=== PATIENT | male | born 1960 | race Caucasian/White ===

== ENCOUNTER → 2019-04-22 09:36 | Outpatient (BNVA) | payer MEDICAID, SELFPAY | PROVIDERS: Visit Provider Psychiatry & Neurology Psychiatry | DX: F31.74 Bipolar disorder, in full remission, most recent episode manic (principal); F17.210 Nicotine dependence, cigarettes, uncomplicated; F52.21 Male erectile disorder | CPT/HCPCS: 99214 ==

== ENCOUNTER → 2019-08-08 07:30 | Outpatient (BNVA) | payer MEDICAID, SELFPAY | PROVIDERS: Visit Provider Psychiatry & Neurology Psychiatry | DX: F31.74 Bipolar disorder, in full remission, most recent episode manic (principal); F17.210 Nicotine dependence, cigarettes, uncomplicated; F52.21 Male erectile disorder | CPT/HCPCS: 99215 ==

== ENCOUNTER → 2019-08-22 07:35 | Outpatient (BNVA) | payer MEDICAID, SELFPAY | PROVIDERS: Visit Provider Psychiatry & Neurology Psychiatry | DX: F31.74 Bipolar disorder, in full remission, most recent episode manic (principal); F17.210 Nicotine dependence, cigarettes, uncomplicated; F06.1 Catatonic disorder due to known physiological condition; F41.1 Generalized anxiety disorder | CPT/HCPCS: 99215 ==

== ENCOUNTER → 2019-08-27 07:24 | Outpatient (BNVA) | payer MEDICAID, SELFPAY | PROVIDERS: Visit Provider Psychiatry & Neurology Psychiatry | DX: F31.74 Bipolar disorder, in full remission, most recent episode manic (principal); F06.1 Catatonic disorder due to known physiological condition; F17.210 Nicotine dependence, cigarettes, uncomplicated; F52.21 Male erectile disorder | CPT/HCPCS: 99215 ==

== ENCOUNTER → 2019-09-17 07:23 | Outpatient (BNVA) | payer MEDICAID, SELFPAY | PROVIDERS: Visit Provider Psychiatry & Neurology Psychiatry | DX: F31.74 Bipolar disorder, in full remission, most recent episode manic (principal); F06.1 Catatonic disorder due to known physiological condition; F17.210 Nicotine dependence, cigarettes, uncomplicated | CPT/HCPCS: 99214 ==

== ENCOUNTER → 2019-10-01 07:25 | Outpatient (BNVA) | payer MEDICAID, SELFPAY | PROVIDERS: Visit Provider Psychiatry & Neurology Psychiatry | DX: F31.74 Bipolar disorder, in full remission, most recent episode manic (principal); F06.1 Catatonic disorder due to known physiological condition; F17.210 Nicotine dependence, cigarettes, uncomplicated; F52.21 Male erectile disorder; F20.89 Other schizophrenia | CPT/HCPCS: 99214 ==

== ENCOUNTER → 2019-10-13 09:00 | Outpatient (BNVA) | payer MEDICAID, SELFPAY | PROVIDERS: Visit Provider Psychiatry & Neurology Psychiatry | DX: F31.74 Bipolar disorder, in full remission, most recent episode manic (principal); F06.1 Catatonic disorder due to known physiological condition; F17.210 Nicotine dependence, cigarettes, uncomplicated; F52.21 Male erectile disorder | CPT/HCPCS: 99214 ==

== ENCOUNTER → 2019-10-22 07:38 | Outpatient (BNVA) | payer MEDICAID, SELFPAY | PROVIDERS: Visit Provider Psychiatry & Neurology Psychiatry | DX: F31.74 Bipolar disorder, in full remission, most recent episode manic (principal); F06.1 Catatonic disorder due to known physiological condition; F17.210 Nicotine dependence, cigarettes, uncomplicated; F52.21 Male erectile disorder; Z79.899 Other long term (current) drug therapy | CPT/HCPCS: 85007; 85027; 99215 ==

== ENCOUNTER → 2019-10-29 08:13 | Outpatient (BNVA) | payer MEDICAID, SELFPAY | PROVIDERS: Visit Provider Psychiatry & Neurology Psychiatry | DX: F31.74 Bipolar disorder, in full remission, most recent episode manic (principal); F17.210 Nicotine dependence, cigarettes, uncomplicated; F06.1 Catatonic disorder due to known physiological condition | CPT/HCPCS: 99214 ==

== ENCOUNTER → 2019-11-27 07:36 | Outpatient (BNVA) | payer MEDICAID, SELFPAY | PROVIDERS: Visit Provider Psychiatry & Neurology Psychiatry | DX: F31.74 Bipolar disorder, in full remission, most recent episode manic (principal); F06.1 Catatonic disorder due to known physiological condition; F52.21 Male erectile disorder; F33.2 Major depressive disorder, recurrent severe without psychotic features | CPT/HCPCS: 99213 ==

== ENCOUNTER → 2019-12-23 07:37 | Outpatient (BNVA) | payer MEDICAID, SELFPAY | PROVIDERS: Visit Provider Psychiatry & Neurology Psychiatry | DX: F31.74 Bipolar disorder, in full remission, most recent episode manic (principal); F06.1 Catatonic disorder due to known physiological condition; F17.210 Nicotine dependence, cigarettes, uncomplicated | CPT/HCPCS: 99214 ==

== ENCOUNTER → 2019-12-26 14:50 | Outpatient (BNVA) | payer MEDICAID, SELFPAY | PROVIDERS: Visit Provider Psychiatry & Neurology Psychiatry | DX: F31.74 Bipolar disorder, in full remission, most recent episode manic (principal); F06.1 Catatonic disorder due to known physiological condition; F17.210 Nicotine dependence, cigarettes, uncomplicated; F52.21 Male erectile disorder | CPT/HCPCS: 99213 ==

== ENCOUNTER → 2020-04-12 12:55 | Outpatient (BNVA) | payer MEDICAID, SELFPAY | PROVIDERS: Visit Provider Psychiatry & Neurology Psychiatry | DX: F31.74 Bipolar disorder, in full remission, most recent episode manic (principal); F06.1 Catatonic disorder due to known physiological condition; F17.211 Nicotine dependence, cigarettes, in remission; Z79.899 Other long term (current) drug therapy; R41.0 Disorientation, unspecified | CPT/HCPCS: 99215 ==

== ENCOUNTER → 2020-04-19 12:42 | Outpatient (BNVA) | payer MEDICAID, SELFPAY | PROVIDERS: Visit Provider Psychiatry & Neurology Psychiatry | DX: F06.1 Catatonic disorder due to known physiological condition (principal); F31.74 Bipolar disorder, in full remission, most recent episode manic; R41.0 Disorientation, unspecified; F17.211 Nicotine dependence, cigarettes, in remission; Z59.6 Low income | CPT/HCPCS: 99214 ==

== ENCOUNTER 2020-04-19 13:54 | Emergency (ER) | payer MEDICAID, SELFPAY ==
[2020-04-19 14:10] VITALS: BP 101/70; PULSE 103; RESP 14; TEMP 36.4; O2SAT 99; BMI 21.0
--- NOTE | 2020-04-19 14:17 | CT_ITS ---
WS: [id number] CT HEAD NONCONTRAST HISTORY: ams TECHNIQUE: Contiguous axial imaging performed through the brain in 2.5 mm imaging. Bone and soft tiss ue windows. Sagittal and coronal reformats reviewed. All CT scans at [facility] use at le ast one of these dose optimization techniques: automated exposure control; mA and/or kV adjustment pe r patient size (includes targeted exams where dose is matched to clinical indication); or iterative r econstruction. DLP: 845.86 mGy.cm COMPARISON: 10/22/2014 Quality of this examination is limited. Patient is not centered within the gantry. Mild atrophy and chronic ischemic disease. Incidental note is made of a cavum septum lucidum at verga e which is a normal variant. No sulcal effacement or acute blood. Ventricles: Normal size with no hydrocephalus. Paranasal sinuses: As visualized are clear. Mastoid air cells: Well pneumatized. Calvarium and scalp: Skull is intact with no soft tissue edema or swelling. CT/CT head wo con* [id number] IMPRESSION: 1. Quality of this examination is limited due to positioning within the gantry . 2. Mild atrophy and chronic ischemic disease. No acute findings are identified .
--- NOTE | 2020-04-19 14:17 | XRR_ITS ---
PROCEDURE INFORMATION: Exam: XR Chest, 1 View Exam date and time: 04/19/2020 3:29 PM Age: 60 years old Clinical indication: Other: AMS TECHNIQUE: Imaging protocol: XR of the chest Views: 1 view. COMPARISON: CR Chest 1 [place] [id number] 07/16/2014 11:08 PM FINDINGS: Lungs: Unremarkable. No consolidation. Pleural spaces: Unremarkable. No pleural effusion. No pneumothorax. Heart/Mediastinum: Unremarkable. No cardiomegaly. Bones/joints: Unremarkable. XR/XR chest 1V portable [id number] IMPRESSION: No acute findings.
--- NOTE | 2020-04-19 14:17 | ECG_ITS ---
[facility] Test Date: 2020-04-19 Pat Name: Nathaniel Sharma Department: Room: Gender: Male Inside Sales Lead: : 1960 Requested By: Deandre Verde Order Number: [id number] Lana MD: CLIVE POP Measurements Intervals [place] Rate: 109 P: 83 CT: 163 QRS: 56 QRSD: 89 T: 73 QT: 327 QTc: 442 Interpretive Statements SINUS TACHYCARDIA RIGHT ATRIAL ENLARGEMENT [0.3mV P WAVE] LEFT ATRIAL ENLARGEMENT [-0.15mV P WAVE IN V1/V2] MODERATE ST DEPRESSION [0.05+ mV ST DEPRESSION] Compared to ECG 07/16/2014 22:41:54 Atrial abnormality now present ST (T wave) deviation now present Sinus rhythm no longer present Electronically Signed On 04-19-2020 19:29:01 VACUUM WORKER by CLIVE POP [id number]
== END 2020-04-19 16:39 | disposition left against medical advice (07) ==
PROVIDERS: Emergency Provider Family Medicine
DX: Z53.21 Procedure and treatment not carried out due to patient leaving prior to being seen by health care provider (principal)
CPT/HCPCS: 70450; 71045; 93005; 99281

== ENCOUNTER 2020-04-21 14:04 | Inpatient (IN) | payer MEDICAID, SELFPAY ==
[2020-04-21] VITALS (7 sets, daily range): BP systolic 104–131; BP diastolic 66–82; PULSE 71–81; RESP 14–71; TEMP 36.3–36.7; O2SAT 97–100; BMI 23.7
--- NOTE | 2020-04-21 14:30 | ED_ITS ---
HPI - General Adult General: Chief complaint: General Medical Stated complaint: Sent from /unable to get blood Time Seen by Provider: 04/21/20 14:16 History of Present Illness: HPI narrative: 60-year-old male presents to the emergency room he is difficult to understand his is in attendance with him is not much help. Patient was sent here presumably for blood work and refill of medications as per their report at the front door when they registered. 2 days ago he was here and left for being seen because he was hungry and wanted to go home. Call Dr. Nuñez as they were stating that Dr. Nuñez attempted here. This was much more informative. Dr. Nuñez and sent him here 2 days ago with a intention of having him to be admitted. He has had significant weight loss of about 24 pounds since the previous time he seen Dr. Nuñez. In addition to that he is essentially catatonic and flat. Dr. Nuñez felt this was due to his medications. He is also on closet pain and he was supposed to get a blood draw done to have this continued however they were unable to get his blood drawn due to difficulty with phlebotomy. He needs to be admitted to the [facility] and be reassessed. Onset (ago): week(s) Relieving factors: none Exacerbating factors: medication Associated symptoms: Reports confusion, malaise and weakness; Deny chest pain, cough, diaphoresis, decreased appetite, dyspnea, fevers/chills, headache(s), nausea, rash, palpitations, seizures, short of breath, syncope or vomiting Treatments prior to arrival: none Review of Systems Const: Reports: malaise; Denies: diaphoresis ENMT: Denies: throat pain, ear or mastoid pain, nasal discharge or nasal congestion Card: Denies: chest pain, palpitations or syncope Resp: Denies: dyspnea GI: Denies: nausea or vomiting : Denies: flank pain, dysuria, urinary frequency or urinary urgency Skin/Breast: Denies: rash Neuro: Reports: confusion; Denies: headache(s) PFSH ED PFSH: Medical History Bipolar disorder, in full remission, most recent episode manic Cigarette nicotine dependence Erectile disorder, acquired, generalized, moderate Social History (Reviewed 04/22/20 @ 17:20 by CONNIE Castro Smoking and tobacco status: current every day smoker cigarettes Years cigarettes smoked: 40 Quit status (tobacco): considering quitting Second hand smoke exposure: Yes Physical Exam Const: COMMON NORMALS: no acute distress GENERAL APPEARANCE: cooperative and comfortable ORIENTATION/CONSCIOUSNESS: Yes awake HENMT: COMMON NORMALS: normocephalic, atraumatic, hearing grossly normal bilaterally and moist oral mucous membranes HEAD & SCALP: normocephalic and atraumatic Eye: COMMON NORMALS: Equal, round and reactive pupils present, EOMs intact bilaterally, conjunctivae normal and no scleral icterus CONJUNCTIVA: Yes conjunctivae normal PUPIL: Yes Equal, round and reactive pupils present Neck/C-Spine: COMMON NORMALS: full ROM, no lymphadenopathy, supple and no JVD Lymph: LYMPHATIC: no lymphadenopathy noted and no lymphedema noted Resp: COMMON NORMALS: normal respiratory effort, No retractions, No use of accessory muscles and clear to auscultation bilaterally AUSCULTATION: clear to auscultation bilaterally Cardio: COMMON NORMALS: no JVD, regular rate, regular rhythm and No murmurs present (Cardio) RATE: regular rate RHYTHM: regular rhythm GI: COMMON NORMALS: Soft to palpation and No hepatosplenomegaly present AUSCULTATION: Yes normoactive bowel sounds PALPATION: Yes Soft to palpation, No Tenderness to palpation present (GI), No Guarding due to palpation present (GI) and Yes No hepatosplenomegaly present Extremity: COMMON NORMALS: normal to inspection, capillary refill normal, no clubbing, cyanosis or edema, no calf tenderness and no pedal edema Skin: COMMON NORMALS: no rashes or lesions noted GENERAL SKIN EXAM: no rashes or lesions noted Course Vital Signs: Vital signs: Vital Signs Temperature 98.4 F 04/26/20 04:00 Pulse Rate 58 L 04/26/20 04:00 Respiratory Rate 16 04/26/20 04:00 Blood Pressure 97/65 04/26/20 04:00 Pulse Oximetry 95 04/26/20 04:00 MDM - General Adult MDM Narrative: Medical decision making narrative: The initial plan after talking to Dr. Nuñez and Dr. Peterson as the patient was supposed to have screening labs and then sent to psychiatry. Dr. Peterson reviewed the case and felt to be more appropriate for medical floor because he was nonambulatory. Discussed Dr. Kothari will admit and consult Dr. Peterson Lab Data: Labs: Lab Results 04/21/20 04/21/20 04/21/20 Range/Units 15:07 15:07 15:07 WBC 4.9 (4.0-10.0) 10^3/ uL RBC 4.19 (4.1-5.3) 10^6/u L Hgb 13.1 (11.7-16.6) g/dL Hct 39.2 L (42.0-52.0) % MCV 93.6 (80-94) fL MCH 31.3 (28.0-34.0) pg MCHC 33.4 (30.0-36.0) g/dL RDW 13.2 (12.1-15.1) % Plt Count 104 L (130-400) 10^3/c mm MPV 10.7 H (7.4-10.4) fL Neut % (Auto) 63.7 % Lymph % (Auto) 26.2 % [place] % (Auto) 8.9 % Eos % (Auto) 0.6 % Baso % (Auto) 0.2 % Neut # (Auto) 3.14 (1.8-7.7) 10^3/u L Lymph # (Auto) 1.3 (0.8-4.8) 10^3/u L [place] # (Auto) 0.4 (0.2-0.9) 10^3/u L Eos # (Auto) 0.0 (0.0-0.8) 10^3/u L Baso # (Auto) 0.0 (0.0-0.1) 10^3/u L Nucleated RBC % (a uto) 0 % Nucleated RBCs # 0.0 /100WBC Sodium 136 (136-145) mmol/L Potassium 3.2 L (3.5-5.1) mmol/L Chloride 100 (98-107) mmol/L Carbon Dioxide 28 (22-29) mmol/L Anion Gap 11.2 (5-19) BUN 11 (6-20) mg/dL Creatinine 0.7 (0.7-1.2) mg/dL GFR Calculation 115.8 (90-130) mL/min Glucose 120 H (65-115) mg/dL Calculated Osmolal ity 283 L (285-295) mOsm/k g Calcium 9.2 (8.5-10.5) mg/dL Total Bilirubin 0.3 (0.15-1.2) mg/dL AST 20 (0-40) U/L ALT 18 (0-41) U/L Alkaline Phosphata se 63 (40-130) IU/L Total Protein 6.5 L (6.6-8.7) g/dL Albumin 3.4 L (3.5-5.2) g/dL Globulin 3.1 (1.3-4.6) g/dL Salicylates < 0.3 L (3-10) mg/dL Acetaminophen < 5.0 L (10-30) ug/mL Valproic Acid 97.0 (50-100) ug/mL Ethyl Alcohol < 10 (0-10) mg/dL Discharge Plan Discharge Patient Disposition: Admitted As Inpatient Admit Provider: Duane Peterson Clinical Impression: Catatonia Condition: Stable Coding Level of Care Code ED Fiber Machine Tender for g Fwd Exam Comprehensive
[2020-04-21 15:21] LABS: Basophils % 0.2 %; Eosinophils % 0.6 %; Hematocrit 39.2 % (42.0-52.0); Hemoglobin 13.1 g/dL (11.7-16.6); Lymphocytes # 1.3 10^3/uL (0.8-4.8); Lymphocytes % 26.2 %; Mean Corpuscular HGB Conc 33.4 g/dL (30.0-36.0); Mean Corpuscular Hemoglobin 31.3 pg (28.0-34.0); Mean Corpuscular Volume 93.6 fL (80-94); Mean Platelet Volume 10.7 fL (7.4-10.4); Monocytes # 0.4 10^3/uL (0.2-0.9); Monocytes % 8.9 %; Neutrophils # 3.14 10^3/uL (1.8-7.7); Neutrophils % 63.7 %; Nucleated Red Blood Cells % 0 %; Platelet Count 104 10^3/cmm (130-400); Red Blood Count 4.19 10^6/uL (4.1-5.3); Red Cell Distribution Width 13.2 % (12.1-15.1); White Blood Count 4.9 10^3/uL (4.0-10.0)
[2020-04-21 15:40] LABS: Alanine Aminotransferase 18 U/L (0-41); Albumin Level 3.4 g/dL (3.5-5.2); Alkaline Phosphatase 63 IU/L (40-130); Anion Gap 11.2 (5-19); Aspartate Amino Transferase 20 U/L (0-40); Blood Urea Nitrogen 11 mg/dL (6-20); Calcium 9.2 mg/dL (8.5-10.5); Carbon Dioxide 28 mmol/L (22-29); Chloride 100 mmol/L (98-107); Globulin 3.1 g/dL (1.3-4.6); Glomerular Filtration Rate 115.8 mL/min (90-130); Glucose 120 mg/dL (65-115); Osmolality Calculated 283 mOsm/kg (285-295); Potassium 3.2 mmol/L (3.5-5.1); Sodium 136 mmol/L (136-145); Total Bilirubin 0.3 mg/dL (0.15-1.2); Total Protein 6.5 g/dL (6.6-8.7)
[2020-04-21 15:42] LABS: Acetaminophen < 5.0 ug/mL (10-30); Alcohol Level < 10 mg/dL (0-10); Salicylate < 0.3 mg/dL (3-10)
[2020-04-21 16:35] LABS: Add Urine Microscopic? NO
[2020-04-21 16:55] LABS: Bilirubin Urine Neg (Negative); Blood Urine Neg (Negative); Glucose Urine UA Norm (Normal); Ketones Urine Negative (Negative); Leukocyte Esterase Urine Negative (Negative); Nitrate Urine Negative (Negative); Protein Urine Neg (Negative); Specific Gravity, Urine 1.015 (1.005-1.030); Urine Appearance Clear (CLEAR); Urine Color Yellow (Yellow); Urobilinogen Urine 1 mg/dL (Negative); pH Urine 6 (5-7)
[2020-04-21 17:07] LABS: Amphetamines Screen Urine Negative (Negative); Barbiturates Screen Urine Negative (Negative); Benzodiazepines Screen Urine Positive (Negative); Cocaine Screen Urine Negative (Negative); Opiate Screen Urine Negative (Negative); PCP Screen Urine Negative (Negative); THC Screen Urine Negative (Negative)
--- NOTE | 2020-04-21 17:15 | CTR_ITS ---
PROCEDURE INFORMATION: Exam: CT Head Without Contrast Exam date and time: 04/21/2020 5:25 PM Age: 60 years old Clinical indication: Altered mental status/memory loss; Additional info: AMS TECHNIQUE: Imaging protocol: Computed tomography of the head without contrast. Radiation optimization: All CT scans at this facility use at least one of these dose optimization techniques: automated exposure control; mA and/or kV adjustment per patient size (includes targeted exams where dose is matched to clinical indication); or iterative reconstruction. COMPARISON: CT head wo con* [id number] 04/19/2020 3:40 PM RADIATION DOSE METRICS: Total DLP (mGy-cm): 472.15 FINDINGS: Brain: There is moderate cerebral atrophy. No midline shift of brain. No intracranial mass. No acute brain ischemia. No intracranial hemorrhage. Cerebral ventricles: Cavum septum pellucidi redemonstrated. No hydrocephalus. Bones/joints: Unremarkable. No acute fracture. Paranasal sinuses: Visualized sinuses are unremarkable. No fluid levels. Mastoid air cells: Visualized mastoid air cells are well aerated. Soft tissues: Unremarkable. CT/CT head wo con* [id number] IMPRESSION: 1. Negative for acute intracranial abnormality. 2. No change in the brain from 04/19/2020. Radiation Dose CTDIVOL = (mGy): DLP = 472.15 (mGy-cm)
--- NOTE | 2020-04-21 17:15 | XR_ITS ---
WS: [id number] Portable AP upright chest, 04/21/2020 Clinical Data: dyspnea/cough Comparison: Portable chest, 04/19/2020. Findings: No nodules, masses or effusions are seen. The heart is normal. The pulmonary vascularity is not increased. No pneumonia or pneumothorax is seen. XR/XR chest 1V portable [id number] Impression: Negative chest.
--- NOTE | 2020-04-21 17:15 | ECG_ITS ---
[facility] Test Date: 2020-04-21 Pat Name: Nathaniel Sharma Department: Room: 155 Gender: Male Sports Umpire: : 1960 Requested By: Walter Quigley Order Number: [id number] Lana MD: Lila Cruz M.D. Measurements Intervals [place] Rate: 72 P: 62 AR: 175 QRS: 59 QRSD: 72 T: 99 QT: 407 QTc: 446 Interpretive Statements SINUS RHYTHM Compared to ECG 04/19/2020 15:07:17 Sinus tachycardia no longer present Atrial abnormality no longer present ST (T wave) deviation no longer present Electronically Signed On 04-21-2020 19:18:26 PROPERTY MANAGEMENT ASSISTANT by Lila Cruz M.D. [email or web address]/[id number] f
--- NOTE | 2020-04-21 18:01 | P.HP_ITS ---
Providers/Chief Complaint Admitting Physician: Duane Peterson MD Chief Complaint: Catatonia,Delirium, bipolar/ History of Present Illness Nathaniel Sharma SR is a 60 year old male with a past medical history of bipolar disorder, with multiple hospitalizations, catatonia, on clozapine, Depakote, lorazepam, trazodone who presents to [facility] on Dr. [place] renteria due to delirium. Review of patient's chart shows that he has had multiple admissions in the last month inpatient psychiatric admissions, requiring multiple medication adjustments, he was also noted to be noncompliant with medications, currently living at home with his . He was seen by Dr. Nuñez, patient was a completely different person, he has lost 24 pounds, he was in a wheelchair, apparently his said that he sleeps all day and all night, he is unable to walk, unable to stand without assistance, he is much more confused, he has been urinating and defecating in his pants, he has increased speech latency, as cogwheel rigidity, increased confusion, increased catatonia. This Dr. Nuñez wanted patient to be admitted for a medical evaluation for patient's delirium, increased confusion, and titration of his medications with the help of the psychiatric team. Currently patient does not know why see her in the hospital, his only complaint is that he is hungry, he denies any headaches, any blurry vision, any nausea, vomiting, any chest pain, any palpitations any shortness of breath any diarrhea any bloody or black stools, it looks like he is clinically lost weight, but denies any weight loss, denies any weakness. During my examination patient does display episodes of confusion, he cannot follow commands at times, for example if I asked him to squeeze my fingers that will not really register, or if I asked him to lift his leg that will not really register with him, in terms of questioning he is alert to person, not to place, not to time, does note Hunter Terri is the president. Denies any falls, any injuries, no bruising, is not sure which medications he takes, is not sure where he lives, knows his name is birthday his 's name. Patient is unable to provide me a past medical history, unable to provide any a surgical history, unable to provide me a family history, denies smoking, denies alcohol consumption, does say that he is from [facility], Review of Systems Const: Denies: fever(s), chills, fatigue or malaise Eyes: Denies: change in vision or blurry vision ENMT: Denies: nasal congestion Resp: Denies: dyspnea, productive cough, non-productive cough or wheezing GI: Denies: abdominal pain, nausea, vomiting, hematemesis, diarrhea, constipation, hematochezia or melena : Denies: flank pain, difficulty urinating, dysuria or urinary frequency Musc: Denies: neck pain or back pain Skin/Breast: Denies: rash Neuro: Denies: headache(s), dizziness or vertigo Psych: Denies: anxiety or depression Endo: Denies: polyuria or polydipsia Medications/Allergies Home Medications Medication Instructions Recorded Confirmed Last Taken Type clozapine 50 mg tablet See Rx Instructions PO .COMPLEX 04/12/20 04/21/20 Unknown Rx #18 tab divalproex 500 mg tablet,extended 1,000 mg PO BID tab 04/12/20 04/21/20 Unknown History release 24 hr lorazepam 1 mg tablet 1 mg PO BID #60 tab 04/12/20 04/21/20 Unknown Rx trazodone 100 mg tablet 200 mg PO BEDTIME tab 04/12/20 04/21/20 Unknown History Allergies Allergy/AdvReac Type Severity Reaction Status Date / Time Penicillins Allergy Unknown Unknown Verified 10/29/19 09:50 PFSH Acute PFSH: Medical History Bipolar disorder, in full remission, most recent episode manic Cigarette nicotine dependence Erectile disorder, acquired, generalized, moderate Social History Smoking and tobacco status: current every day smoker cigarettes Years cigarettes smoked: 40 Quit status (tobacco): considering quitting Second hand smoke exposure: Yes Vitals/I&O/Wt Last Vital Signs Temp 97.4 F L 04/21/20 14:09 Pulse 75 04/21/20 16:14 Resp 71 H 04/21/20 17:41 BP 106/72 04/21/20 17:41 Pulse Ox 100 04/21/20 17:41 Weight last 48 hrs Weight 79.379 kg Physical Exam Const: COMMON NORMALS: no acute distress EXAM LIMITATIONS: altered mental status GENERAL APPEARANCE: cooperative ORIENTATION/CONSCIOUSNESS: Yes awake, Yes oriented to person and Yes confused; not oriented to place and not oriented to time OTHER: Does not look well kempt HENMT: COMMON NORMALS: normocephalic Eye: COMMON NORMALS: Equal, round and reactive pupils present Neck/C-Spine: COMMON NORMALS: full ROM and no lymphadenopathy Lymph: LYMPHATIC: no lymphadenopathy noted Resp: COMMON NORMALS: normal respiratory effort EFFORT & INSPECTION: Yes able to speak in complete sentences AUSCULTATION: clear to auscultation bilaterally and rales Cardio: COMMON NORMALS: no JVD, regular rate, regular rhythm, S1 normal heart sound present and S2 normal heart sound present GI: COMMON NORMALS: Normal to inspection, nondistended, normoactive bowel sounds present, Soft to palpation, non-tender and No hepatosplenomegaly present : COMMON NORMALS: Yes no CVA tenderness Extremity: COMMON NORMALS: capillary refill normal, no clubbing, cyanosis or edema and no pedal edema Neuro: SENSORIUM/ORIENTATION: Yes alert, Yes oriented to person and No o riented to place MENINGEAL SIGNS: No nuccal rigidity and No Brudzinski's sign present OTHER: Difficult goal to assess neurologic testing as patient does not really follow neurologic testing, has poor affect, normal speech, in terms of strength testing, he has some strength in upper and lower extremities, but does not really follow strength testing examination appropriately Data : 04/21/20 15:07 04/21/20 15:07 A&P Assessment and plan (1) Delirium: -Of note patient has had evaluation by neurology in 2015 for encephalopathy, which was thought to be secondary to acute psychosis and extr aparametal side effects of antipsychotic medication, also had extraparamidal side effects, had a normal EEG -Currently he is confused, alert to person, does not really follow neurologic testing, normotensive, afebrile, saturating high 90s on room air -I cannot see any focal neurologic deficits, no facial, no slurring of his speech -There is also concerns of generalized weakness, increased rigidity, weight loss Plan: -Chest x-ray, CT head, carotid artery ultrasound, cardiac echo, EEG -Follow blood work, blood cultures, urine cultures -Serial troponins, EKG, telemetry monitoring -Monitor for fevers, monitor vitals -Certainly patient's medications could be playing a significant role -PT OT -Full code - Status: Acute (2) Erectile disorder, acquired, generalized, moderate: Status: Acute (3) Bipolar disorder, in full remission, most recent episode manic: Psychiatry on consult Status: Acute (4) Thrombocytopenia: Will order HIV, acute hep panel Status: Acute Attestations Medical Necessity Statement*: Patient requires hospitalization, inpatient, greater than 2 midnights for acute delirium Coding Level of Care Code Acute Jamb Cutter for [facility] F[facility] Diagnoses Delirium R41.0 Erectile disorder, acquired, generalized, moderate F52.21 Bipolar disorder, in full remission, most recent episode manic F31.74 Thrombocytopenia D69.6
--- NOTE | 2020-04-21 19:57 | ECG_ITS ---
[facility] Test Date: 2020-04-21 Pat Name: Nathaniel Sharma Department: Room: 253 Gender: Male Corrections Unit Supervisor: LORENA JOHNSTONB: 1960 Requested By: Maxi Robert Order Number: [id number] Lana MD: Lila Cruz M.D. Measurements Intervals [place] Rate: 87 P: 66 VT: 165 QRS: 54 QRSD: 86 T: 80 QT: 376 QTc: 452 Interpretive Statements SINUS RHYTHM NONSPECIFIC T-WAVE ABNORMALITY Compared to ECG 04/21/2020 17:28:10 T-wave abnormality now present Electronically Signed On 04-22-2020 7:33:31 CRIMINAL RESEARCHER by Lila Cruz M.D. [id number]
[2020-04-21] MEDS: enoxaparin 40 mg/0.4 mL Syringe SUBCUT (20:34)
[2020-04-21] MEDS: famotidine 20 mg Tablet PO (20:35)
[2020-04-21] MEDS: divalproex ER 500 mg Tablet (24H) 1000 MG PO (20:35)
[2020-04-21] MEDS: LORazepam 1 mg Tablet PO (20:35)
[2020-04-21] MEDS: trazodone 100 mg Tablet 200 MG PO (20:35)
[2020-04-21 20:37] LABS: Troponin(5th) Baseline 27 ng/L (0-15)
[2020-04-21 20:37] LABS: Ammonia 12 umol/L (16-60)
[2020-04-21 20:38] LABS: Estmated Average Glucose 100; Hemoglobin A1C 5.1 % (4.0-6.0)
[2020-04-21 20:49] LABS: HIV 1 & 2 Antibody Non-Reactive (Non-Reactiv); HIV 1 & 2 Antigen Non-Reactive (Non-Reactiv)
[2020-04-21 20:55] LABS: Hepatitis A Antibody IgM Non-Reactive (Nonreactive); Hepatitis B Core IgM Non-Reactive (Nonreactive); Hepatitis B Surface Antigen Non-Reactive (Nonreactive); Hepatitis C Virus Antibody Non-Reactive (Nonreactive)
[2020-04-21 21:35] LABS: Thyroid Stimulating Hormone 2.46 uIU/mL (0.27-4.20); Vitamin B12 914 pg/mL (232-1245)
[2020-04-21 22:03] LABS: Troponin 5 2HR 26.39 ng/L (0-15)
[2020-04-21 22:08] LABS: Troponin 5 2HR Delta -0.61 ABS# (0-10)
[2020-04-22 02:21] LABS: Basophils % 0.2 %; Eosinophils % 0.4 %; Hematocrit 33.4 % (42.0-52.0); Hemoglobin 11.4 g/dL (11.7-16.6); Lymphocytes # 1.4 10^3/uL (0.8-4.8); Lymphocytes % 28.9 %; Mean Corpuscular HGB Conc 34.1 g/dL (30.0-36.0); Mean Corpuscular Hemoglobin 31.5 pg (28.0-34.0); Mean Corpuscular Volume 92.3 fL (80-94); Mean Platelet Volume 10.9 fL (7.4-10.4); Monocytes # 0.5 10^3/uL (0.2-0.9); Monocytes % 10.1 %; Neutrophils # 2.91 10^3/uL (1.8-7.7); Neutrophils % 60.2 %; Nucleated Red Blood Cells % 0 %; Platelet Count 91 10^3/cmm (130-400); Red Blood Count 3.62 10^6/uL (4.1-5.3); Red Cell Distribution Width 13.2 % (12.1-15.1); White Blood Count 4.8 10^3/uL (4.0-10.0)
[2020-04-22 02:23] LABS: Alanine Aminotransferase 15 U/L (0-41); Albumin Level 2.7 g/dL (3.5-5.2); Alkaline Phosphatase 53 IU/L (40-130); Anion Gap 10.7 (5-19); Aspartate Amino Transferase 15 U/L (0-40); Blood Urea Nitrogen 11 mg/dL (6-20); Calcium 8.7 mg/dL (8.5-10.5); Carbon Dioxide 27 mmol/L (22-29); Chloride 104 mmol/L (98-107); Chol HDL Ratio 3.33 mg/dL (1.0-5.00); Cholesterol 110 mg/dL (0-200); Globulin 2.7 g/dL (1.3-4.6); Glomerular Filtration Rate 99.3 mL/min (90-130); Glucose 116 mg/dL (65-115); HDL Cholesterol 33 mg/dL (60-100); LDL Cholesterol Calculated 60 mg/dL (50-129); LDL HDL Ratio 1.82 RATIO (0.00-3.22); Magnesium 1.7 mg/dL (1.7-2.3); Osmolality Calculated 286 mOsm/kg (285-295); Phosphorus 2.2 mg/dL (2.5-4.5); Potassium 3.7 mmol/L (3.5-5.1); Sodium 138 mmol/L (136-145); Total Bilirubin 0.2 mg/dL (0.15-1.2); Total Protein 5.4 g/dL (6.6-8.7); Triglycerides 87 mg/dL (0-150)
[2020-04-22 02:24] LABS: Troponin 5 6HR 30.15 ng/L (0-15); Troponin 5 6HR Delta 3.15 ng/L (0-12)
[2020-04-22 03:46] VITALS: BP 95/61; PULSE 80; RESP 14; TEMP 36.9; O2SAT 96
[2020-04-22 07:42] VITALS: BP 92/63; PULSE 70; RESP 16; TEMP 36.5; O2SAT 97
[2020-04-22] MEDS: LORazepam 1 mg Tablet PO ×2 (08:35→17:46)
[2020-04-22] MEDS: famotidine 20 mg Tablet PO ×2 (08:35→17:46)
[2020-04-22] MEDS: divalproex ER 500 mg Tablet (24H) 1000 MG PO ×2 (08:35→17:46)
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
--- NOTE | 2020-04-22 10:06 | PC.PHAR ---
Missing clozapine dose when reconciled. Called [facility] to verify dose. patient known to pharmacist. Last fill 01/12/20, patient did not complete necessary blood work so no further fills could be done. She did say that he had been in and out if inpatient care over the past months so she did not know if he had been receiving during these visits. Last confirmed dose dispensed at [facility] 01/11 25 m tab daily 100 m tabs at bedtime
--- NOTE | 2020-04-22 10:18 | PM.PN ---
Subjective Subjective: Interval history: This morning patient was examined, he still has persistent confusion, but is much more alert, alert to person, not to place, does know that it is April, knows Azra is the president, he does not follow commands, is able to squeeze my fingers, able to do neurologic testing, he is actually working with physical therapy, who actually got him up out of bed, into a walker, overnight no acute events, no episodes of confusion, no episodes of agitation, remains afebrile, blood pressures are on the lower end, denies headaches, no blurry vision, saturating high 90s on room air Vitals/I&O/Wt Last Vital Signs Temp 97.7 F 04/22/20 07:42 Pulse 70 04/22/20 07:42 Resp 16 04/22/20 07:42 BP 92/63 04/22/20 07:42 Pulse Ox 97 04/22/20 07:42 04/21/20 04/22/20 04/22/20 22:59 06:59 14:59 Intake Total 240 / 240 240 / 480 360 / 360 Output Total 80 / 80 120 / 200 Balance 160 / 160 120 / 280 360 / 360 Weight last 48 hrs Weight 79.379 kg Physical Exam Const: COMMON NORMALS: no acute distress ORIENTATION/CONSCIOUSNESS: Yes awake, Yes oriented to person and Yes confused; not oriented to place and not oriented to time HENMT: COMMON NORMALS: normocephalic HEAD & SCALP: normocephalic Neck/C-Spine: COMMON NORMALS: no JVD Resp: COMMON NORMALS: normal respiratory effort, No retractions, No use of accessory muscles and clear to auscultation bilaterally AUSCULTATION: clear to auscultation bilaterally Cardio: COMMON NORMALS: no JVD, regular rate, regular rhythm, S1 normal heart sound present and S2 normal heart sound present RATE: regular rate RHYTHM: regular rhythm HEART SOUNDS: S1 normal heart sound present and S2 normal heart sound present GI: COMMON NORMALS: Normal to inspection, nondistended, normoactive bowel sounds present, Soft to palpation, non-tender, No hepatosplenomegaly present, no masses and no bruits PALPATION: Yes Soft to palpation and Yes No hepatosplenomegaly present Extremity: COMMON NORMALS: capillary refill normal, no clubbing, cyanosis or edema, no calf tenderness and no pedal edema Neuro: COMMON NORMALS: CN's II-XII intact bilaterally, moves all extremities and no focal motor deficits SENSORIUM/ORIENTATION: Yes oriented to person, No oriented to place and No oriented to time CRANIAL NERVES: Yes CN normal except as noted Data : 04/22/20 01:48 04/22/20 01:48 Micro: Microbiology 04/21/20 19:52 Blood Culture - Preliminary Blood SPECIMEN COLLECTED 04/21/20 19:56 Blood Culture - Preliminary Blood SPECIMEN COLLECTED A&P Assessment and plan (1) Delirium: -Of note patient has had evaluation by neurology in 2015 for encephalopathy, which was thought to be secondary to acute psychosis and extraparametal side effects of antipsychotic medication, also had extraparamidal side effects, had a normal EEG -Currently he is confused, alert to person, does not really follow neurologic testing, normotensive, afebrile, saturating high 90s on room air -I cannot see any focal neurologic deficits, no facial, no slurring of his speech -There is also concerns of generalized weakness, increased rigidity, weight loss -Chest x-ray no focal pneumonia -CT of the head no acute stroke -carotid Doppler shows bilateral ICA stenosis less than 50% -Blood work does show thrombocytopenia, acute hep panel negative, HIV negative -Does have minimally elevated troponins, no significant delta, no acute ST-T wave changes on EKG, no chest pain complaints Plan: -cardiac echo right upper quadrant ultrasound,, EEG -Follow blood work, blood cultures, urine cultures -Serial troponins, EKG, telemetry monitoring -Monitor for fevers, monitor vitals -Certainly patient's medications are playing a significant role -No nuchal rigidity, no headaches, no blurry vision, afebrile, no significant leukocytosis, will hold off on providing a lumbar puncture -PT OT -Full code - Status: Acute (2) Erectile disorder, acquired, generalized, moderate: Status: Acute (3) Bipolar disorder, in full remission, most recent episode manic: Psychiatry on consult I will leave medication adjustment up to psychiatric colleagues Status: Acute (4) Thrombocytopenia: Right upper quadrant ultrasound pending Status: Acute Attestations Medical Necessity Statement*: Patient requires hospitalization, inpatient, for acute delirium, requiring adjustment first psychiatric medications Coding Level of Care Code 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
--- NOTE | 2020-04-22 10:24 | US_ITS ---
WS: [id number] ULTRASOUND ABDOMEN LIMITED CLINICAL INFORMATION: liver and spleen COMPARISON: None. FINDINGS: Liver Size: Mild hepatomegaly Craniocaudal length: 17.5 cm. Echogenicity: Normal. Surface nodularity: None. Mass (size and location): None. Portal veins are patent. Bile ducts Intrahepatic ducts: Normal. Spleen Splenomegaly: None. Craniocaudal length: 11.9 cm. Abdominal aorta and IVC Visualized portions are normal. Ascites: None. US/US abdomen limited 11114 IMPRESSION: 1. Mild hepatomegaly measuring 17.5 CM. Liver is otherwise normal in appearanc e. 2. Normal spleen measuring 11.8 cm [id number].
[2020-04-22 11:19] VITALS: BP 105/71; PULSE 71; RESP 18; TEMP 36.7; O2SAT 98
[2020-04-22] MEDS: phosphorus 250 mg Tablet PO ×2 (11:32→17:46)
[2020-04-22 14:35] LABS: Procalcitonin 0.02 ng/mL (0-0.5)
[2020-04-22 14:47] LABS: C Reactive Protein 6.5 mg/L (0.0-4.9)
[2020-04-22 15:28] LABS: Erythrocyte Sedimentation Rate 10 mm/hr (0-10)
[2020-04-22 15:30] VITALS: BP 100/64; PULSE 62; RESP 14; TEMP 36.1; O2SAT 97
--- NOTE | 2020-04-22 17:16 | P.CONIM_ITS ---
Providers/Reason for Consult Consulting Physican/Specialty*: Ronald Lora DO Reason for Consult*: Altered mental status Attending Physician: Dr. Robert Psych Consult HPI History of Present Illness Nathaniel Sharma SR is a 60 year old male with longstanding history of bipolar disorder recently admitted to the hospital with concerns of increasing confusion, worsening incontinence and decreased ambulation. Patient continues to be confused and is a difficult historian secondary to his inability to concentrate and relate recent events leading to his hospitalization. Patient's only able to state that he has schizophrenia, paranoid type and that he needs to ensure that he continues taking his medication. He is unable to relate concerns by his outpatient psychiatrist of his worsening confusion. Patient states that he feels okay, and denies any recent depressive symptoms. Denies any suicidal ideation. He denies any auditory or visual hallucinations. He denies feeling confused and denies any fever, chills, muscle rigidity or muscle jerking. Patient does not provide any response when asked about having any difficulty with unintentional bowel movements or ability to control his bowel movements. Patient is unable to relate any recent events to include recent hospitalization or his current medications. He is also unable to relate the current date or day of the week or where he is but is able to spell the word world forward but unable to spell it backwards stating, D-O-D. Review of Systems General: Reports: 10 or more systems reviewed and unremarkable except in HPI and below Meds Current Medications: Current Medications Generic Name Dose Route Start Last Admin Trade Name Freq PRN Reason Stop Dose Admin Divalproex Sodium 1,000 mg 04/21/20 19:45 04/22/20 08:35 Divalproex Er 50 0 Mg Tablet (24h) PO 1,000 mg BID ALVINO Administration Enoxaparin Sodium 40 mg 04/21/20 20:00 04/21/20 20:34 Enoxaparin 40 Mg /0.4 Ml Syringe SUBCUT 40 mg Q24H ALVINO Administration Famotidine 20 mg 04/21/20 19:45 04/22/20 08:35 Famotidine 20 Mg Tablet PO 20 mg BID ALVINO Administration Lorazepam 1 mg 04/21/20 19:45 04/22/20 08:35 Lorazepam 1 Mg T ablet PO 1 mg BID ALVINO Administration Potassium Phosphat e 250 mg 04/22/20 10:20 04/22/20 11:32 Phosphorus 250 M g Tablet PO 04/23/20 10:19 250 mg BID ALVINO Administration Trazodone HCl 200 mg 04/21/20 21:00 04/21/20 20:35 Trazodone 100 Mg Tablet PO 200 mg BEDTIME ALVINO Administration PFSH NPU PFSH: Medical History Bipolar disorder, in full remission, most recent episode manic Cigarette nicotine dependence Erectile disorder, acquired, generalized, moderate Social History Smoking and tobacco status: current every day smoker cigarettes Years cigarettes smoked: 40 Quit status (tobacco): considering quitting Second hand smoke exposure: Yes Other Psychiatric History: Other Psychiatric History: Unable to obtain at this time secondary to patient's confusion, did review outpatient psychiatry medication management notes. Mental Status Exam MSE Comments: Appears older than stated age, sitting up in bed, disheveled, confused, fair eye contact Psychomotor activity is neither increased nor decreased, no agitation Speech, frequent delays or pauses, normal volume, requires prompting, not pressured I feel fine, constricted, not labile Alert, oriented to person, type of place but not to situation Memory and concentration are poor Thought process, frequent delays, thought blocking, no flight of ideas, no looseness of associations Thought content, no delusions, does not appear to be attending to any internal stimuli, no suicidal or homicidal ideation Insight and judgment appear to be limited at this time Vitals/I&O/Wt Last Vital Signs Temp 97 F L 04/22/20 15:30 Pulse 62 04/22/20 15:30 Resp 14 04/22/20 15:30 BP 100/64 04/22/20 15:30 Pulse Ox 97 04/22/20 15:30 04/22/20 04/22/20 04/22/20 06:59 14:59 22:59 Intake Total 240 / 480 720 / 720 Output Total 120 / 200 Balance 120 / 280 720 / 720 Weight last 48 hrs Weight 79.379 kg Data NPU Micro: Micro: Microbiology 04/21/20 19:52 Blood Culture - Pr eliminary Blood SPECIMEN [facility] 04/21/20 19:56 Blood Culture - Pr eliminary Blood SPECIMEN [facility] Microbiology 04/21/20 19:52 Blood Blood Culture - Preliminary SPECIMEN COLLECTED 04/21/20 19:56 Blood Blood Culture - Preliminary SPECIMEN COLLECTED A&P Assessment and plan (1) Delirium: Status: Acute Additional A&P Information Hospitalist team continues work-up but has no identified source for confusion, patient continues to be confused which per chart review appears to be inconsistent with his baseline with reported decompensation in physical functioning requiring him to have assistance for ambulation and recent worsening incontinence. Patient reports feeling fine but continues to have difficulty with confusion and limited insight into recent events leading to his hospitalization. Patient would benefit from holding off with any antipsychotic medication to ensure no worsening catatonia while continuing lorazepam. Will contact patient's outpatient psychiatrist to coordinate care given patient's reported poor history in the past of compliance with monitoring required for continued clozapine treatment. Psychiatry will continue to follow Clozapine level ordered Hospitalist team continue supportive care. Attestations NPU Medical Necessity Statement*: Patient continues to require hospitalization for medical stabilization Time Spent in Patient Care: Greater than 35 minutes (>than 50% of time spent in counselling and/or direct pt care on unit) . 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
[2020-04-22 19:15] VITALS: BP 107/71; PULSE 70; RESP 19; TEMP 36.6; O2SAT 99
--- NOTE | 2020-04-22 19:45 | USCV_ITS ---
Nathaniel Sharma Age: 60 Gender: M : 1960 Exam Date: 04/22/2020 06:27 Ordering Phys: Maxi Robert MD Technologist: Kaye Chavez Exam Location: [facility] [place] Indication: AMS Risk Factors: Previous Vascular Surgery: Right Brachial BP: / Left Brachial BP: / Right Left Velocity (cm/s) Spectral Plaque Velocity (cm/s) Spectral Plaque Syst/Diast Broadening Syst/Diast Broadening 79.40/ 16.50 Prox CCA 67.20 / 18.30 94.80/ 22.10 Mid CCA 72.00 / 19.70 68.40/ 24.30 Distal CCA 60.40 / 14.90 37.40/ 18.10 Prox ICA 42.30 / 19.30 39.10/ 18.10 Mid ICA 46.50 / 21.90 48.70/ 17.00 Distal ICA 48.60 / 22.50 57.70 ECA 113.60 0.51 ICA/CCA 0.67 Antegrade Vertebral Antegrade 49.30/ 11.90 cm/s 58.50/ 11.00 cm/s Tri Subclavian Tri 37.90 62.10 CONCLUSIONS Right ICA stenosis <50%. Mild atheromatous plaque right carotid bulb/ICA. Left ICA stenosis <50%. Mild atheromatous plaque left carotid bulb/ICA. Normal antegrade Doppler flow noted in the right vertebral artery. Normal antegrade Doppler flow noted in the left vertebral artery. Eloy Mobley MD (Electronically Signed) Final Date: 22 April 2020 08:42 S
--- NOTE | 2020-04-22 19:45 | USCV_ITS ---
Zachary Nathaniel Age: 60 Gender: M : 1960 Exam Date: 04/22/2020 06:15 Ordering Phys: Maxi Robert MD Technologist: Kaye Chavez Exam Location: [facility] [place] Indication: AMS BP: 95 / 61 HR: 69 Rhythm: Sinus Technical Quality: Adequate MEASUREMENTS (Male / Female) Normal Values 2D ECHO LV Diastolic Diameter PLAX 1.4 cm 4.2 - 5.9 / 3.9 - 5.3 cm LV Systolic Diameter PLAX 1.0 cm LV Chamber Size 3.1 cm IVS Diastolic Thickness 0.9 cm 0.6 - 1.0 / 0.6 - 0.9 cm IVS Systolic Thickness 1.3 cm LVPW Diastolic Thickness 1.6 cm 0.6 - 1.0 / 0.6 - 0.9 cm LVPW Systolic Thickness 1.1 cm RV Chamber Size 3.2 cm LVOT Diameter 2.0 cm LV Ejection Fraction 2D Teich 63.0 % LV Ejection Fraction MOD 2C 55.9 % LV Ejection Fraction 2C AL 58.8 % LA Width 3.0 cm LA Height 3.8 cm RA Width 3.7 cm RA Height 3.5 cm M-MODE LV Diastolic Diameter MM 5.0 cm 4.2 - 5.9 / 3.9 - 5.3 cm LV Systolic Diameter MM 3.4 cm LV Ejection Fraction MM Teich 60.3 % IVS Diastolic Thickness MM 1.0 cm 0.6 - 1.0 / 0.6 - 0.9 cm IVS Systolic Thickness MM 1.3 cm LVPW Diastolic Thickness MM 1.2 cm 0.6 - 1.0 / 0.6 - 0.9 cm LVPW Systolic Thickness MM 1.8 cm DOPPLER AV Peak Velocity 116.0 cm/s LVOT Peak Velocity 92.0 cm/s AV Area Cont Eq vti 3.5 cm squared AV Area Cont Eq pk 2.6 cm squared MV Area PHT 3.3 cm squared Mitral E to A Ratio 0.9 MV E' Velocity 38.5 cm/s Mitral E to MV E' Ratio 9.5 Mitral E to LV E' Lateral Ratio 8.9 Mitral E to LV E' Septal Ratio 10.4 TR Peak Velocity 197.0 cm/s TR Peak Gradient 15.5 mmHg TV Peak E Velocity 44.0 cm/s Right Atrial Pressure 3.0 mmHg Pulmonary Artery Systolic Pressu 18.5 mmHg PV Peak Velocity 73.0 cm/s RV Acceleration Time 0.2 s RV Ejection Time 0.3 s RV AcT/ET 0.6 FINDINGS Left Ventricle Normal left ventricular cavity size. Normal left ventricular systolic function. No regional wall motion abnormalities. Left ventricular ejection fraction is estimated at 60 %. Grade I/IV diastolic dysfunction (abnormal relaxation filling pattern), normal to mildly elevated filling pressures. Right Ventricle The right ventricle is normal in size and function. Right Atrium The right atrium is normal in size. Left Atrium The left atrium is normal in size. Mitral Valve Structurally normal mitral valve without significant stenosis or prolapse. There is no mitral regurgitation. Aortic Valve Structurally normal aortic valve without significant sclerosis or stenosis. There is no aortic regurgitation. Tricuspid Valve Structurally normal tricuspid valve without significant stenosis or regurgitation. Pulmonary artery systolic pressure is normal. Pulmonic Valve Structurally normal pulmonic valve without significant stenosis. There is no pulmonic regurgitation. Pericardium Normal pericardium without effusion. Aorta Normal ascending aorta dimension. CONCLUSIONS 1-Normal left ventricular cavity size. Normal left ventricular systolic function. No regional wall motion abnormalities. Left ventricular ejection fraction is estimated at 60 %. Grade I/IV diastolic dysfunction (abnormal relaxation filling pattern), normal to mildly elevated filling pressures. 2-There is no pericardial effusion. 3-No significant valve abnormalities. 4-Pulmonary artery systolic pressure is within normal limits. 5-There are no prior echocardiogram studies to compare. Vishal Chan MD (Electronically Signed) Final Date: 22 April 2020 16:28 S
[2020-04-22 20:00] VITALS: BP 107/71; PULSE 70; RESP 19; TEMP 36.6
[2020-04-22] MEDS: enoxaparin 40 mg/0.4 mL Syringe SUBCUT (21:05)
[2020-04-22] MEDS: trazodone 100 mg Tablet 200 MG PO (21:06)
[2020-04-23 04:00] VITALS: BP 110/71; PULSE 54; RESP 18; TEMP 36.6; O2SAT 90
[2020-04-23 05:19] LABS: Basophils % 0.2 %; Eosinophils % 0.6 %; Hematocrit 31.1 % (42.0-52.0); Hemoglobin 10.8 g/dL (11.7-16.6); Lymphocytes # 1.9 10^3/uL (0.8-4.8); Mean Corpuscular HGB Conc 34.7 g/dL (30.0-36.0); Mean Corpuscular Hemoglobin 32.2 pg (28.0-34.0); Mean Corpuscular Volume 92.8 fL (80-94); Mean Platelet Volume 11.1 fL (7.4-10.4); Monocytes # 0.5 10^3/uL (0.2-0.9); Monocytes % 9.1 %; Neutrophils # 2.54 10^3/uL (1.8-7.7); Neutrophils % 51.7 %; Nucleated Red Blood Cells % 0 %; Platelet Count 85 10^3/cmm (130-400); Red Blood Count 3.35 10^6/uL (4.1-5.3); Red Cell Distribution Width 13.3 % (12.1-15.1); White Blood Count 4.9 10^3/uL (4.0-10.0)
[2020-04-23 05:43] LABS: Alanine Aminotransferase 12 U/L (0-41); Albumin Level 2.8 g/dL (3.5-5.2); Alkaline Phosphatase 48 IU/L (40-130); Aspartate Amino Transferase 10 U/L (0-40); Blood Urea Nitrogen 15 mg/dL (6-20); Carbon Dioxide 29 mmol/L (22-29); Chloride 103 mmol/L (98-107); Globulin 2.5 g/dL (1.3-4.6); Glomerular Filtration Rate 99.3 mL/min (90-130); Glucose 83 mg/dL (65-115); Magnesium 1.8 mg/dL (1.7-2.3); Osmolality Calculated 286 mOsm/kg (285-295); Phosphorus 3.1 mg/dL (2.5-4.5); Sodium 138 mmol/L (136-145); Total Bilirubin 0.2 mg/dL (0.15-1.2); Total Protein 5.3 g/dL (6.6-8.7)
[2020-04-23 08:00] VITALS: BP 128/81; PULSE 63; PULSE 66; RESP 18; TEMP 36.2; O2SAT 97
[2020-04-23] MEDS: phosphorus 250 mg Tablet PO (09:18)
[2020-04-23] MEDS: famotidine 20 mg Tablet PO ×2 (09:18→18:10)
[2020-04-23] MEDS: divalproex ER 500 mg Tablet (24H) 1000 MG PO ×2 (09:18→18:10)
[2020-04-23] MEDS: LORazepam 1 mg Tablet PO (09:19)
--- NOTE | 2020-04-23 10:48 | P.PN_ITS ---
Vitals/I&O/Wt Last Vital Signs Temp 97.2 F L 04/23/20 08:00 Pulse 63 04/23/20 08:00 Resp 18 04/23/20 08:00 BP 128/81 04/23/20 08:00 Pulse Ox 97 04/23/20 08:00 04/22/20 04/23/20 04/23/20 22:59 06:59 14:59 Intake Total 723 / 1443 Output Total 500 / 500 Balance 223 / 943 Weight last 48 hrs Weight 79.379 kg Physical Exam Const: COMMON NORMALS: alert GENERAL APPEARANCE: cooperative ORIENTATION/CONSCIOUSNESS: Yes awake, Yes oriented to person and Yes confused; not oriented to place and not oriented to time HENMT: COMMON NORMALS: normocephalic HEAD & SCALP: normocephalic Eye: COMMON NORMALS: Equal, round and reactive pupils present PUPIL: Yes Equal, round and reactive pupils present Resp: COMMON NORMALS: normal respiratory effort and clear to auscultation marbella aterally EFFORT & INSPECTION: Yes able to speak in complete sentences AUSCULTATION: clear to auscultation bilaterally Cardio: COMMON NORMALS: regular rate, regular rhythm, S1 normal heart sound present and S2 normal heart sound present RATE: regular rate RHYTHM: regular rhythm HEART SOUNDS: S1 normal heart sound present, S2 normal heart sound present and no murmurs GI: COMMON NORMALS: Normal to inspection, nondistended, normoactive bowel sounds present, Soft to palpation and non-tender PALPATION: Yes Soft to palpation and No Tenderness to palpation present (GI) Extremity: COMMON NORMALS: capillary refill normal, no clubbing, cyanosis or edema and no pedal edema Neuro: COMMON NORMALS: moves all extremities SENSORIUM/ORIENTATION: Yes alert, Yes oriented to person, No oriented to place and No oriented to time Data : 04/23/20 04:39 04/23/20 04:48 Micro: Microbiology 04/21/20 19:52 Blood Culture - Preliminary Blood NEGATIVE TO DATE 04/21/20 19:56 Blood Culture - Preliminary Blood NEGATIVE TO DATE A&P Assessment and plan (1) Delirium: -Of note patient has had evaluation by neurology in 2014 for encephalopathy, which was thought to be secondary to acute psychosis and extraparametal side effects of antipsychotic medication, also had extraparamidal side effects, had a normal EEG -Currently he is confused, alert to person, does not really follow neurologic testing, normotensive, afebrile, saturating high 90s on room air -I cannot see any focal neurologic deficits, no facial, no slurring of his speech -There is also concerns of generalized weakness, increased rigidity, weight loss -Chest x-ray no focal pneumonia -CT of the head no acute stroke -carotid Doppler shows bilateral ICA stenosis less than 50% -Blood work does show thrombocytopenia, acute hep panel negative, HIV negative -Does have minimally elevated troponins, no significant delta, no acute ST-T wave changes on EKG, no chest pain complaints -Echocardiogram shows an EF of 60%, grade 1 or 4 diastolic dysfunction, no regional wall motion abnormalities -Mild hepatomegaly, normal spleen -EEG pending -Follow blood work, blood cultures, urine cultures so far unremarkable -Serial troponins no significant delta, EKG no ST-T wave changes, telemetry monitoring -Monitor for fevers, monitor vitals -Likely patient's medications are the etiology behind his delirium, weakness -No nuchal rigidity, no headaches, no blurry vision, afebrile, no significant leukocytosis, will hold off on providing a lumbar puncture -PT OT -Full code Status: Acute (2) Erectile disorder, acquired, generalized, moderate: Status: Acute (3) Bipolar disorder, in full remission, most recent episode manic: Psychiatry on consult I will leave medication adjustment up to psychiatric colleagues Status: Acute (4) Thrombocytopenia: HIV, hepatitis panel, unremarkable, right upper quadrant exam does show hepatomegaly, will require outpatient follow-up with hematology oncology Status: Acute Attestations Medical Necessity Statement*: Patient requires hospitalization for acute delirium likely secondary to antipsychotic medications, requiring adjustment, requiring inpatient monitoring Coding Level of Care Code 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
[2020-04-23 11:20] VITALS: BP 103/68; PULSE 54; RESP 18; TEMP 36.8; O2SAT 95
[2020-04-23 16:00] VITALS: BP 117/77; PULSE 65; RESP 17; TEMP 36.4; O2SAT 98
--- NOTE | 2020-04-23 16:16 | P.CONIM_ITS ---
Providers/Reason for Consult Consulting Physican/Specialty*: Ronald Loar DO Reason for Consult*: Delirium Attending Physician: Dr. Robert Psych Consult HPI History of Present Illness Patient continues to be confused, unable to follow commands but answers a few questions. Patient has to be prompted for verbal responses. Denies any current depressive symptoms, denies any suicidal ideation Denies any hallucinations Patient with reportedly poor appetite although patient currently stating that he is hungry and would like a snack, also reports being thirsty Per collateral from sitter, patient mostly lying in bed intermittently sleeping, did get up for physical therapy but only walked to the doorway and returned, continues to have difficulty with incontinence. Meds Current Medications: Current Medications Generic Name Dose Route Start Last Admin Trade Name Freq PRN Reason Stop Dose Admin Divalproex Sodium 1,000 mg 04/21/20 19:45 04/23/20 09:18 Divalproex Er 50 0 Mg Tablet (24h) PO 1,000 mg BID ALVINO Administration Enoxaparin Sodium 40 mg 04/21/20 20:00 04/22/20 21:05 Enoxaparin 40 Mg /0.4 Ml Syringe SUBCUT 40 mg Q24H ALVINO Administration Famotidine 20 mg 04/21/20 19:45 04/23/20 09:18 Famotidine 20 Mg Tablet PO 20 mg BID ALVINO Administration Trazodone HCl 200 mg 04/21/20 21:00 04/22/20 21:06 Trazodone 100 Mg Tablet PO 200 mg BEDTIME ALVINO Administration PFSH NPU PFSH: Medical History Bipolar disorder, in full remission, most recent episode manic Cigarette nicotine dependence Erectile disorder, acquired, generalized, moderate Social History Smoking and tobacco status: current every day smoker cigarettes Years cigarettes smoked: 40 Quit status (tobacco): considering quitting Second hand smoke exposure: Yes Mental Status Exam MSE Comments: Lying in bed, initially sleeping required some nudging on his knee to awaken for interview, appears to be looking beyond the interviewer. Psychomotor activity is decreased, no agitation Speech, sparse, requires prompting, not pressured I am okay, flat, not labile Alert, oriented to person, not oriented to being in the hospital and unaware of why he is in the hospital Memory and concentration are poor Thought process, delayed, thought blocking, no flight of ideas, no looseness of associations Thought content, no delusions, does not appear to be attending to any internal stimuli, no suicidal or homicidal ideation Insight and judgment appear to be limited Vitals/I&O/Wt Last Vital Signs Temp 97.5 F L 04/23/20 16:00 Pulse 65 04/23/20 16:00 Resp 17 04/23/20 16:00 BP 117/77 04/23/20 16:00 Pulse Ox 98 04/23/20 16:00 04/23/20 04/23/20 04/23/20 06:59 14:59 22:59 Intake Total 0 / 0 Balance 0 / 0 Data NPU Micro: Micro: Microbiology 04/21/20 19:53 Urine Culture - Pr eliminary Urine,Clean Catch 04/21/20 19:52 Blood Culture - Pr eliminary Blood NEGATIVE TO MARIA GUADALUPE E 04/21/20 19:56 Blood Culture - Pr eliminary Blood NEGATIVE TO MARIA GUADALUPE E Microbiology 04/21/20 19:53 Urine,Clean Catch Urine Culture - Preliminary 04/21/20 19:52 Blood Blood Culture - Preliminary NEGATIVE TO DATE 04/21/20 19:56 Blood Blood Culture - Preliminary NEGATIVE TO DATE A&P Assessment and plan (1) Delirium: Status: Acute Additional A&P Information Patient minimally responsive to verbal stimuli and gentle nudging with significant delay in response, continues to be confused and is not aware of that he is in the hospital or why he is in the hospital. Denies any depressive symptoms, denies any perceptual disturbances. Overnight concerns about potential elopement although patient has spent the majority of day in bed sleeping. Continued concerns about full assistance and ongoing incontinence. Patient would benefit from ongoing observation while increasing lorazepam if patient's motoric immobility appears to be more related to catatonia. INCREASED to lorazepam 1 mg 3 times daily targeting catatonia Clozapine level pending, will continue to hold clozapine Psychiatry will continue to follow Attestations NPU Medical Necessity Statement*: Continues to require hospitalization for altered mental status and medical stabilization Time Spent in Patient Care: 16 - 35 minutes (>than 50% of time spent in counselling and/or direct pt care on unit) . Coding Level of Care Code Acute Chief I Dispatcher for [facility] Fwd Diagnoses Delirium R41.0
--- NOTE | 2020-04-23 17:25 | PC.RESP ---
Smoking Cessation information sent to patient.
[2020-04-23 20:00] VITALS: BP 127/87; BP 94/60; PULSE 58; PULSE 66; PULSE 67; RESP 16; RESP 17; TEMP 36.3; TEMP 36.4; O2SAT 97
[2020-04-23] MEDS: enoxaparin 40 mg/0.4 mL Syringe SUBCUT (21:41)
[2020-04-23] MEDS: trazodone 100 mg Tablet 200 MG PO (21:42)
[2020-04-23] MEDS: acetaminophen 325 mg Tablet 650 MG PO (21:42)
--- NOTE | 2020-04-23 21:51 | PC.NURSE ---
withheld ativan 1 mg po d/t low blood pressure. 94/60
[2020-04-24] VITALS (7 sets, daily range): BP systolic 93–114; BP diastolic 59–72; PULSE 48–68; RESP 14–18; TEMP 36.3–36.8; O2SAT 95–99
[2020-04-24 06:41] LABS: Basophils % 0.5 %; Eosinophils # 0.1 10^3/uL (0.0-0.8); Eosinophils % 1.4 %; Hemoglobin 11.1 g/dL (11.7-16.6); Lymphocytes % 44.4 %; Mean Corpuscular HGB Conc 33.6 g/dL (30.0-36.0); Mean Corpuscular Hemoglobin 31.9 pg (28.0-34.0); Mean Corpuscular Volume 94.8 fL (80-94); Mean Platelet Volume 11.1 fL (7.4-10.4); Monocytes # 0.4 10^3/uL (0.2-0.9); Monocytes % 9.1 %; Neutrophils # 1.95 10^3/uL (1.8-7.7); Neutrophils % 44.1 %; Nucleated Red Blood Cells % 0 %; Platelet Count 76 10^3/cmm (130-400); Red Blood Count 3.48 10^6/uL (4.1-5.3); Red Cell Distribution Width 13.7 % (12.1-15.1); White Blood Count 4.4 10^3/uL (4.0-10.0)
[2020-04-24 07:32] LABS: Alanine Aminotransferase 10 U/L (0-41); Albumin Level 2.7 g/dL (3.5-5.2); Alkaline Phosphatase 50 IU/L (40-130); Anion Gap 8.6 (5-19); Aspartate Amino Transferase 9 U/L (0-40); Blood Urea Nitrogen 15 mg/dL (6-20); Calcium 8.4 mg/dL (8.5-10.5); Carbon Dioxide 29 mmol/L (22-29); Chloride 104 mmol/L (98-107); Globulin 2.5 g/dL (1.3-4.6); Glomerular Filtration Rate 99.3 mL/min (90-130); Glucose 74 mg/dL (65-115); Magnesium 1.8 mg/dL (1.7-2.3); Osmolality Calculated 283 mOsm/kg (285-295); Phosphorus 3.6 mg/dL (2.5-4.5); Potassium 4.6 mmol/L (3.5-5.1); Sodium 137 mmol/L (136-145); Total Bilirubin 0.2 mg/dL (0.15-1.2); Total Protein 5.2 g/dL (6.6-8.7)
[2020-04-24] MEDS: divalproex ER 500 mg Tablet (24H) 1000 MG PO ×2 (08:54→17:51)
[2020-04-24] MEDS: famotidine 20 mg Tablet PO ×2 (08:55→17:50)
[2020-04-24] MEDS: LORazepam 1 mg Tablet PO ×3 (08:55→20:00)
--- NOTE | 2020-04-24 13:00 | PC.OT ---
OT tx attempted. Pt sitting upright in bed asleep with untouched lunch tray in front of him. Pt does not respond to therapists voice or tactile input at this time.1:1 sitter reports pt had been awake and ate 100% of breakfast earlier today. Therapist to return later today if possible.
--- NOTE | 2020-04-24 13:02 | PM.PN ---
Subjective Subjective: Interval history: Patient was examined this morning, he sitting in bed, he is alert to person, not to place, not to time, his only complaints is just not feeling well, is not exactly clear why, he does follow some commands, such as squeezing my fingers, but still remains confused, he did work with physical therapy yesterday, remains afebrile, normotensive, saturating high 90s on room air, no headaches, no blurry vision, no neck pain, no significant stiffness, no slurring of her speech, no focal neurologic deficits that I could discern, but it is difficult for patient to follow commands at times Vitals/I&O/Wt Last Vital Signs Temp 97.6 F 04/24/20 12:00 Pulse 55 L 04/24/20 12:00 Resp 18 04/24/20 12:00 BP 103/67 04/24/20 12:00 Pulse Ox 98 04/24/20 12:00 04/23/20 04/24/20 04/24/20 22:59 06:59 14:59 Intake Total 720 / 720 40 / 760 420 / 420 Balance 720 / 720 40 / 760 420 / 420 Physical Exam Const: COMMON NORMALS: no acute distress ORIENTATION/CONSCIOUSNESS: Yes awake, Yes oriented to person and Yes confused; not oriented to place and not oriented to time HENMT: COMMON NORMALS: normocephalic HEAD & SCALP: normocephalic Neck/C-Spine: COMMON NORMALS: no meningeal signs and no JVD Resp: COMMON NORMALS: normal respiratory effort, No retractions, No use of accessory muscles and clear to auscultation bilaterally AUSCULTATION: clear to auscultation bilaterally Cardio: COMMON NORMALS: no JVD, regular rate, regular rhythm, S1 normal heart sound present and S2 normal heart sound present RATE: regular rate RHYTHM: regular rhythm HEART SOUNDS: S1 normal heart sound present and S2 normal heart sound present GI: COMMON NORMALS: Normal to inspection, nondistended, normoactive bowel sounds present, Soft to palpation, non-tender, No hepatosplenomegaly present, no masses and no bruits PALPATION: Yes Soft to palpation and Yes No hepatosplenomegaly present Extremity: COMMON NORMALS: capillary refill normal, no clubbing, cyanosis or edema and no pedal edema Neuro: SENSORIUM/ORIENTATION: Yes oriented to person, No oriented to place and No oriented to time MENINGEAL SIGNS: Yes no meningeal signs SPEECH: speech normal MOTOR EXAM: 5/5 motor strength present throughout and no tremor noted Psych: COMMON NORMALS: mental status grossly normal Data : 04/24/20 06:03 04/24/20 06:03 Micro: Microbiology 04/21/20 19:53 Urine Culture - Preliminary Urine,Clean Catch A&P Assessment and plan (1) Delirium: -Of note patient has had evaluation by neurology in 2015 for encephalopathy, which was thought to be secondary to acute psychosis and extraparametal side effects of antipsychotic medication, also had extraparamidal side effects, had a normal EEG -Patient's confusion persists, alert to person, does follow some neurologic testing, I cannot discern any focal neurologic deficits, no slurring of his speech, no facial droop, normotensive, afebrile, saturating high 90s on room air -I cannot see any focal neurologic deficits, no facial, no slurring of his speech, no significant weakness more generalized -There is also concerns of generalized weakness, increased rigidity, weight loss -Chest x-ray no focal pneumonia -CT of the head no acute stroke -carotid Doppler shows bilateral ICA stenosis less than 50% -Blood work does show thrombocytopenia, acute hep panel negative, HIV negative -Does have minimally elevated troponins, no significant delta, no acute ST-T wave changes on EKG, no chest pain complaints -Echocardiogram shows an EF of 60%, grade 1 or 4 diastolic dysfunction, no regional wall motion abnormalities -Mild hepatomegaly, normal spleen -EEG pending -Follow blood work, blood cultures, urine cultures so far unremarkable -Serial troponins no significant delta, EKG no ST-T wave changes, telemetry monitoring -Monitor for fevers, monitor vitals -Likely patient's medications are the etiology behind his delirium, weakness -No nuchal rigidity, no headaches, no blurry vision, afebrile, no significant leukocytosis, will hold off on providing a lumbar puncture, but will consider if his mentation does not improve to evaluate for chronic meningitis -PT OT -Full code Status: Acute (2) Erectile disorder, acquired, generalized, moderate: Status: Acute (3) Bipolar disorder, in full remission, most recent episode manic: Psychiatry on consult I will leave medication adjustment up to psychiatric colleagues Status: Acute (4) Thrombocytopenia: HIV, hepatitis panel, unremarkable, right upper quadrant exam does show hepatomegaly, will require outpatient follow-up with hematology oncology Status: Acute Attestations Medical Necessity Statement*: Patient requires hospitalization, for acute delirium, concerning for related to psychiatric medications Coding Level of Care Code Acute Radiographer Cardiac Catheterization for [facility] Fwd Diagnoses Delirium R41.0 Erectile disorder, acquired, generalized, moderate F52.21 Bipolar disorder, in full remission, most recent episode manic F31.74 Thrombocytopenia D69.6
--- NOTE | 2020-04-24 15:38 | PM.PSYCN ---
Providers/Reason for Consult Consulting Physican/Specialty*: Ronald Lora DO Reason for Consult*: Follow-up Attending Physician: Maxi Robert MD Psych Consult HPI History of Present Illness Continues to demonstrate some catatonia although significantly improved alertness, continues to require significant prompting for any responses verbally, some perseveration stating that the is April Some immobility, continues to require to person full assist to get to a sitting position, ongoing issues with urinary incontinence Per nurse report, ate lunch, continues to be compliant with medication, no reported side effects, no reports of any impulsive behavior or physical agitation Meds Current Medications: Current Medications Generic Name Dose Route Start Last Admin Trade Name Freq PRN Reason Stop Dose Admin Acetaminophen 650 mg 04/21/20 19:45 04/23/20 21:42 Acetaminophen 32 5 Mg Tablet PO 650 mg Q6H PRN Administration Mild/Mod Pain Or Temp >/= 101 Divalproex Sodium 1,000 mg 04/21/20 19:45 04/24/20 08:54 Divalproex Er 50 0 Mg Tablet (24h) PO 1,000 mg BID ALVINO Administration Enoxaparin Sodium 40 mg 04/21/20 20:00 04/23/20 21:41 Enoxaparin 40 Mg /0.4 Ml Syringe SUBCUT 40 mg Q24H ALVINO Administration Famotidine 20 mg 04/21/20 19:45 04/24/20 08:55 Famotidine 20 Mg Tablet PO 20 mg BID ALVINO Administration Lorazepam 1 mg 04/23/20 16:15 04/24/20 08:55 Lorazepam 1 Mg T ablet PO 1 mg TID ALVINO Administration Trazodone HCl 200 mg 04/21/20 21:00 04/23/20 21:42 Trazodone 100 Mg Tablet PO 200 mg BEDTIME ALVINO Administration PFSH NPU PFSH: Medical History Bipolar disorder, in full remission, most recent episode manic Cigarette nicotine dependence Erectile disorder, acquired, generalized, moderate Social History Smoking and tobacco status: current every day smoker cigarettes Years cigarettes smoked: 40 Quit status (tobacco): considering quitting Second hand smoke exposure: Yes Mental Status Exam MSE Comments: Lying in bed, physical therapy at bedside providing two-person assistance for patient to set up. Psychomotor activity is decreased, no agitation Speech, sparse, requires prompting, not pressured I am fine, flat, not labile Alert, oriented to person, states that the month is April, continues to report month when asked for year, does report that he is in the hospital and that his family is from [place] Memory and concentration are poor Thought process, delayed, thought blocking, no flight of ideas, no looseness of associations Thought content, some perseveration, no delusions, does not appear to be attending to any internal stimuli, no suicidal or homicidal ideation Insight and judgment appear to be limited Vitals/I&O/Wt Last Vital Signs Temp 97.6 F 04/24/20 12:00 Pulse 55 L 04/24/20 12:00 Resp 18 04/24/20 12:00 BP 103/67 04/24/20 12:00 Pulse Ox 98 04/24/20 12:00 04/24/20 04/24/20 04/24/20 06:59 14:59 22:59 Intake Total 40 / 760 660 / 660 Balance 40 / 760 660 / 660 Data NPU Micro: Micro: Microbiology 04/21/20 19:53 Urine Culture - Pr eliminary Urine,Clean Catch Microbiology 04/21/20 19:53 Urine,Clean Catch Urine Culture - Preliminary A&P Assessment and plan (1) Delirium: Status: Acute (2) Catatonia: Status: Acute Additional A&P Information Patient appears to be responding to increase in Ativan scheduled, patient would benefit from continued scheduled Ativan for what appears to be catatonic signs. CONTINUE current medication, continue to monitor Attestations NPU Medical Necessity Statement*: Continues to require hospitalization for medical stabilization Coding Level of Care Code Acute Railroad Track Repair Supervisor for Ay[facility] Aguirre Diagnoses Delirium R41.0 Catatonia F06.1
[2020-04-24] MEDS: enoxaparin 40 mg/0.4 mL Syringe SUBCUT (19:58)
[2020-04-24] MEDS: trazodone 100 mg Tablet 200 MG PO (20:00)
[2020-04-25] VITALS: BP 98/59; PULSE 56; RESP 18; TEMP 36.3; O2SAT 95
[2020-04-25 04:00] VITALS: BP 93/57; PULSE 50; RESP 16; TEMP 36.6; O2SAT 96
[2020-04-25 06:47] LABS: Basophils % 0.3 %; Eosinophils # 0.1 10^3/uL (0.0-0.8); Hematocrit 38.8 % (42.0-52.0); Hemoglobin 12.7 g/dL (11.7-16.6); Lymphocytes % 33.8 %; Mean Corpuscular HGB Conc 32.7 g/dL (30.0-36.0); Mean Corpuscular Hemoglobin 31.9 pg (28.0-34.0); Mean Corpuscular Volume 97.5 fL (80-94); Mean Platelet Volume 10.8 fL (7.4-10.4); Monocytes # 0.6 10^3/uL (0.2-0.9); Monocytes % 9.8 %; Neutrophils # 3.26 10^3/uL (1.8-7.7); Neutrophils % 54.9 %; Nucleated Red Blood Cells % 0 %; Platelet Count 92 10^3/cmm (130-400); Red Blood Count 3.98 10^6/uL (4.1-5.3); Red Cell Distribution Width 13.5 % (12.1-15.1); White Blood Count 5.9 10^3/uL (4.0-10.0)
[2020-04-25 07:10] LABS: Alanine Aminotransferase 13 U/L (0-41); Alkaline Phosphatase 56 IU/L (40-130); Anion Gap 9.2 (5-19); Aspartate Amino Transferase 12 U/L (0-40); Blood Urea Nitrogen 12 mg/dL (6-20); Calcium 8.9 mg/dL (8.5-10.5); Carbon Dioxide 27 mmol/L (22-29); Chloride 101 mmol/L (98-107); Globulin 2.9 g/dL (1.3-4.6); Glomerular Filtration Rate 99.3 mL/min (90-130); Glucose 74 mg/dL (65-115); Magnesium 1.8 mg/dL (1.7-2.3); Osmolality Calculated 274 mOsm/kg (285-295); Phosphorus 3.1 mg/dL (2.5-4.5); Potassium 4.2 mmol/L (3.5-5.1); Sodium 133 mmol/L (136-145); Total Bilirubin 0.3 mg/dL (0.15-1.2); Total Protein 5.9 g/dL (6.6-8.7)
[2020-04-25 08:00] VITALS: BP 107/75; PULSE 53; PULSE 61; RESP 17; TEMP 36.3; O2SAT 96
[2020-04-25] MEDS: LORazepam 1 mg Tablet PO (10:19)
[2020-04-25] MEDS: famotidine 20 mg Tablet PO ×2 (10:19→17:44)
[2020-04-25] MEDS: divalproex ER 500 mg Tablet (24H) 1000 MG PO ×2 (10:19→17:44)
--- NOTE | 2020-04-25 11:25 | P.PN_ITS ---
Subjective Subjective: Interval history: Patient was examined this morning, he is a bit more interactive this morning, he tells me that he is in the hospital, but does not know the date or the time, he tells me that there is nothing bothering him, he does follow commands more this morning, is able to squeeze my fingers, wiggle his toes, smile for me, does not complain of any neck pain, no back pain, no headache, no blurry vision, no fevers, Vitals/I&O/Wt Last Vital Signs Temp 97.4 F L 04/25/20 08:00 Pulse 61 04/25/20 08:00 Resp 17 04/25/20 08:00 BP 107/75 04/25/20 08:00 Pulse Ox 96 04/25/20 08:00 04/24/20 04/25/20 04/25/20 22:59 06:59 14:59 Intake Total 120 / 780 300 / 1080 360 / 360 Balance 120 / 780 300 / 1080 360 / 360 Physical Exam Const: COMMON NORMALS: no acute distress ORIENTATION/CONSCIOUSNESS: Yes awake, Yes oriented to person and Yes oriented to place; not oriented to time HENMT: COMMON NORMALS: normocephalic HEAD & SCALP: normocephalic Neck/C-Spine: COMMON NORMALS: no JVD Resp: COMMON NORMALS: normal respiratory effort, No retractions, No use of accessory muscles and clear to auscultation bilaterally AUSCULTATION: clear to auscultation bilaterally Cardio: COMMON NORMALS: no JVD, regular rate, regular rhythm, S1 normal heart sound present and S2 normal heart sound present RATE: regular rate RHYTHM: regular rhythm HEART SOUNDS: S1 normal heart sound present and S2 normal heart sound present GI: COMMON NORMALS: Normal to inspection, nondistended, normoactive bowel sounds present, Soft to palpation, non-tender, No hepatosplenomegaly present, no masses and no bruits PALPATION: Yes Soft to palpation and Yes No hepatosplenomegaly present Extremity: COMMON NORMALS: capillary refill normal and no pedal edema Neuro: SENSORIUM/ORIENTATION: Yes oriented to person, Yes oriented to place and No oriented to time Psych: COMMON NORMALS: mental status grossly normal OTHER: More interactive, has a flat affect, speech is minimal, Data : 04/25/20 06:26 04/25/20 06:26 Micro: Microbiology 04/21/20 19:53 Urine Culture - Final Urine,Clean Catch A&P Assessment and plan (1) Delirium: -Of note patient has had evaluation by neurology in 2015 for encephalopathy, which was thought to be secondary to acute psychosis and extraparametal side effects of antipsychotic medication, also had extraparamidal side effects, had a normal EEG -Patient's confusion persists, alert to person, does follow some neurologic testing, I cannot discern any focal neurologic deficits, no slurring of his speech, no facial droop, normotensive, afebrile, saturating high 90s on room air -I cannot see any focal neurologic deficits, no facial, no slurring of his speech, has generalized weakness, no focal neurologic deficits -There is also concerns of generalized weakness, increased rigidity of extremi ties, weight loss -Chest x-ray no focal pneumonia -CT of the head no acute stroke -carotid Doppler shows bilateral ICA stenosis less than 50% -Blood work does show thrombocytopenia, acute hep panel negative, HIV negative -Does have minimally elevated troponins, no significant delta, no acute ST-T w ave changes on EKG, no chest pain complaints -Echocardiogram shows an EF of 60%, grade 1 or 4 diastolic dysfunction, no regional wall motion abnormalities -Mild hepatomegaly, normal spleen -EEG pending -Follow blood work, blood cultures, urine cultures all so far unremarkable -Serial troponins no significant delta, EKG no ST-T wave changes, telemetry monitoring -Monitor for fevers, monitor vitals -Likely patient's medications are the etiology behind his delirium, weakness -No nuchal rigidity, no headaches, no blurry vision, afebrile, no significant leukocytosis, will hold off on providing a lumbar puncture -Certainly brain MRI is another thought, will hold off for now see if titration of medications improves increase interactive fracture -Clozapine level pending -PT OT -Full code Status: Acute (2) Erectile disorder, acquired, generalized, moderate: Status: Acute (3) Bipolar disorder, in full remission, most recent episode manic: Psychiatry on consult I will leave medication adjustment up to psychiatric colleagues Status: Acute (4) Thrombocytopenia: HIV, hepatitis panel, unremarkable, right upper quadrant exam does show hepatomegaly, will require outpatient follow-up with hematology oncology Status: Acute Attestations Medical Necessity Statement*: Patient requires hospitalization for delirium, likely secondary psychiatric medications, Coding Level of Care Code Acute Database Marketing Specialist for [facility] Fwd Diagnoses Delirium R41.0 Erectile disorder, acquired, generalized, moderate F52.21 Bipolar disorder, in full remission, most recent episode manic F31.74 Thrombocytopenia D69.6
[2020-04-25 12:00] VITALS: BP 104/71; PULSE 61; RESP 16; TEMP 36.3; O2SAT 97
--- NOTE | 2020-04-25 14:49 | PM.PSYCN ---
Providers/Reason for Consult Consulting Physican/Specialty*: Ronald Lora DO Reason for Consult*: Follow-up Attending Physician: Maxi Robert MD Psych Consult HPI History of Present Illness Patient is minimally responsive to physical and verbal stimuli today, occasionally grunting and saying a couple word responses such as, I am fine. Physical therapy at bedside patient is not participating in care. Per collateral, patient was more verbally interactive this morning and had some breakfast but did not eat his lunch and has mostly been sleeping today. Meds Current Medications: Current Medications Generic Name Dose Route Start Last Admin Trade Name Freq PRN Reason Stop Dose Admin Acetaminophen 650 mg 04/21/20 19:45 04/23/20 21:42 Acetaminophen 32 5 Mg Tablet PO 650 mg Q6H PRN Administration Mild/Mod Pain Or Temp >/= 101 Divalproex Sodium 1,000 mg 04/21/20 19:45 04/25/20 10:19 Divalproex Er 50 0 Mg Tablet (24h) PO 1,000 mg BID ALVINO Administration Enoxaparin Sodium 40 mg 04/21/20 20:00 04/24/20 19:58 Enoxaparin 40 Mg /0.4 Ml Syringe SUBCUT 40 mg Q24H ALVINO Administration Famotidine 20 mg 04/21/20 19:45 04/25/20 10:19 Famotidine 20 Mg Tablet PO 20 mg BID ALVINO Administration Trazodone HCl 200 mg 04/21/20 21:00 04/24/20 20:00 Trazodone 100 Mg Tablet PO 200 mg BEDTIME ALVINO Administration PFSH NPU PFSH: Medical History Bipolar disorder, in full remission, most recent episode manic Cigarette nicotine dependence Erectile disorder, acquired, generalized, moderate Social History Smoking and tobacco status: current every day smoker cigarettes Years cigarettes smoked: 40 Quit status (tobacco): considering quitting Second hand smoke exposure: Yes Mental Status Exam MSE Comments: Lying in bed, patient will not arouse to rubbing chest, verbal stimuli although grunts a couple words such as, I am fine. Psychomotor activity is decreased, no agitation Speech, low volume grunting on occasion after rubbing chest. Constricted affect, not labile Soporific, oriented to person only Unable to assess memory, thought process, does not appear to be attending to any internal stimuli Insight and judgment are limited at this time Vitals/I&O/Wt Last Vital Signs Temp 97.4 F L 04/25/20 12:00 Pulse 61 04/25/20 12:00 Resp 16 04/25/20 12:00 BP 104/71 04/25/20 12:00 Pulse Ox 97 04/25/20 12:00 04/24/20 04/25/20 04/25/20 22:59 06:59 14:59 Intake Total 120 / 780 300 / 1080 360 / 360 Balance 120 / 780 300 / 1080 360 / 360 Data NPU Micro: Micro: Microbiology 04/21/20 19:53 Urine Culture - Fi nal Urine,Clean Catch Microbiology 04/21/20 19:53 Urine,Clean Catch Urine Culture - Final A&P Assessment and plan (1) Delirium: Status: Acute (2) Catatonia: Status: Acute Additional A&P Information Decreased attention to any environmental stimuli today, reportedly more alert this morning and ate some breakfast. No reports of any behaviors consistent with being internally preoccupied or attending to internal stimuli. No episodes of physical agitation. Unable to glean from patient's records if he has had previous courses of ECT but will plan on speaking with patient's outpatient psychiatrist tomorrow as well as patient's about coordinating for possible referral for ECT if patient does not continue to improve with his level of alertness and catatonia. INCREASED to lorazepam 2 mg 3 times daily targeting catatonia Attestations NPU Medical Necessity Statement*: Continues require hospitalization for medical stabilization Coding Level of Care Code Acute Podiatry Professor for Ayana Aguirre Diagnoses Delirium R41.0 Catatonia F06.1
[2020-04-25 16:00] VITALS: BP 97/64; PULSE 67; RESP 18; TEMP 36.6; O2SAT 91
[2020-04-25] MEDS: LORazepam 2 mg Tablet PO ×2 (16:06→21:18)
--- NOTE | 2020-04-25 16:11 | PC.NURSE ---
Nurse Notified of bp:
[2020-04-25] MEDS: sulfamethoxazole-trimeth DS 160-800 mg Tablet 1 TAB PO (17:44)
[2020-04-25 17:48] LABS: Add Urine Microscopic? NO
[2020-04-25 18:07] LABS: Bilirubin Urine Neg (Negative); Blood Urine Neg (Negative); Glucose Urine UA Norm (Normal); Ketones Urine Negative (Negative); Leukocyte Esterase Urine Negative (Negative); Nitrate Urine Negative (Negative); Protein Urine Neg (Negative); Specific Gravity, Urine 1.005 (1.005-1.030); Urine Appearance Clear (CLEAR); Urine Color Yellow (Yellow); Urobilinogen Urine Norm (Negative); pH Urine 7 (5-7)
[2020-04-25 19:45] VITALS: BP 100/60; PULSE 97; RESP 20; TEMP 36.8; O2SAT 97
[2020-04-25] MEDS: trazodone 100 mg Tablet 200 MG PO (21:18)
[2020-04-25] MEDS: enoxaparin 40 mg/0.4 mL Syringe SUBCUT (21:18)
[2020-04-26] VITALS (7 sets, daily range): BP systolic 93–147; BP diastolic 56–78; PULSE 56–78; RESP 16–18; TEMP 36.4–37.1; O2SAT 95–99
[2020-04-26 06:27] LABS: Basophils % 0.2 %; Eosinophils # 0.1 10^3/uL (0.0-0.8); Eosinophils % 1.5 %; Hematocrit 32.9 % (42.0-52.0); Hemoglobin 11.3 g/dL (11.7-16.6); Lymphocytes # 1.9 10^3/uL (0.8-4.8); Lymphocytes % 36.8 %; Mean Corpuscular HGB Conc 34.3 g/dL (30.0-36.0); Mean Corpuscular Hemoglobin 32.5 pg (28.0-34.0); Mean Corpuscular Volume 94.5 fL (80-94); Mean Platelet Volume 13.5 fL (7.4-10.4); Monocytes # 0.5 10^3/uL (0.2-0.9); Monocytes % 9.7 %; Neutrophils # 2.71 10^3/uL (1.8-7.7); Neutrophils % 51.4 %; Nucleated Red Blood Cells % 0 %; Platelet Count 94 10^3/cmm (130-400); Red Blood Count 3.48 10^6/uL (4.1-5.3); Red Cell Distribution Width 13.9 % (12.1-15.1); White Blood Count 5.3 10^3/uL (4.0-10.0)
[2020-04-26 08:19] LABS: Alanine Aminotransferase 17 U/L (0-41); Albumin Level 2.9 g/dL (3.5-5.2); Alkaline Phosphatase 60 IU/L (40-130); Blood Urea Nitrogen 12 mg/dL (6-20); Carbon Dioxide 28 mmol/L (22-29); Chloride 104 mmol/L (98-107); Glomerular Filtration Rate 115.8 mL/min (90-130); Glucose 68 mg/dL (65-115); Magnesium 1.7 mg/dL (1.7-2.3); Osmolality Calculated 282 mOsm/kg (285-295); Phosphorus 3.3 mg/dL (2.5-4.5); Sodium 137 mmol/L (136-145); Total Bilirubin 0.3 mg/dL (0.15-1.2); Total Protein 5.9 g/dL (6.6-8.7)
[2020-04-26 08:25] LABS: Anion Gap 9.7 (5-19); Aspartate Amino Transferase 18 U/L (0-40); Potassium 4.7 mmol/L (3.5-5.1)
[2020-04-26] MEDS: sulfamethoxazole-trimeth DS 160-800 mg Tablet 1 TAB PO (08:41)
[2020-04-26] MEDS: divalproex ER 500 mg Tablet (24H) 1000 MG PO (08:41)
[2020-04-26] MEDS: LORazepam 2 mg Tablet PO ×3 (08:42→20:04)
[2020-04-26] MEDS: famotidine 20 mg Tablet PO ×2 (08:42→17:33)
--- NOTE | 2020-04-26 10:58 | P.PN_ITS ---
Subjective Subjective: Interval history: Nathaniel is somewhat slow to respond, and appears confused but can answer some questions. Nurse alerted me he was able to tolerate about 75% of his breakfast with somebody feeding him. Medications: Reviewed: Yes Vitals/I&O/Wt Last Vital Signs Temp 98.4 F 04/26/20 08:00 Pulse 62 04/26/20 08:00 Resp 18 04/26/20 08:00 BP 99/61 04/26/20 08:00 Pulse Ox 98 04/26/20 08:00 04/25/20 04/26/20 04/26/20 22:59 06:59 14:59 Intake Total 740 / 1100 360 / 360 Output Total 75 / 75 Balance 665 / 1025 360 / 360 Physical Exam Narrative: EXAM NARRATIVE: General exam is a sleepy appearing male that is slow to respond Cardiovascular regular and rhythm without murmur Lungs clear Abdomen is soft, with positive bowel sounds Extremities no cyanosis, no edema Neurologic: No obvious focal deficits, moves all extremities albeit slowly. Data : 04/26/20 04:30 04/26/20 07:41 A&P Assessment and plan (1) Catatonia: Etiology unclear. There is some concern it may be secondary to his bipolar disorder. Ativan was added, and then increased to 2 mg 3 times daily I discussed this case with psychiatry briefly this morning. We will reduce his Depakote to 500 mg twice daily. Level was approximately 100 on admission. Consider reducing Ativan if no significant clinical improvement by tomorrow Continue to work with physical therapy CT head negative, as well as rather extensive work-up EEG has been ordered and pending, doubt seizure. Status: Acute (2) Thrombocytopenia: May be chronic, or secondary to clozapine which was recently discontinued. Note that ammonia level was normal on admission, and hepatic encephalopathy essentially ruled out. This panel, HIV negative Status: Acute Additional A&P Information Full code Lovenox for DVT prophylaxis Attestations Medical Necessity Statement*: Needs continued hospitalization for adjustment of medication secondary to catatonia. Coding Level of Care Code Acute Amusement Park Entertainer for Ayana Aguirre Diagnoses Catatonia F06.1 Thrombocytopenia D69.6
--- NOTE | 2020-04-26 13:45 | P.CONIM_ITS ---
Providers/Reason for Consult Consulting Physican/Specialty*: Ronald Lora DO Reason for Consult*: Follow-up Attending Physician: Sawyer Escudero MD Psych Consult HPI History of Present Illness Lying in bed, does not respond to verbal stimuli, occasionally looks towards interviewer and mutters a couple words is bedside and talking to patient but he does not respond Per staff report, patient ate most of his breakfast, would speak briefly Meds Current Medications: Current Medications Generic Name Dose Route Start Last Admin Trade Name Freq PRN Reason Stop Dose Admin Acetaminophen 650 mg 04/21/20 19:45 04/23/20 21:42 Acetaminophen 32 5 Mg Tablet PO 650 mg Q6H PRN Administration Mild/Mod Pain Or Temp >/= 101 Enoxaparin Sodium 40 mg 04/21/20 20:00 04/25/20 21:18 Enoxaparin 40 Mg /0.4 Ml Syringe SUBCUT 40 mg Q24H ALVINO Administration Famotidine 20 mg 04/21/20 19:45 04/26/20 08:42 Famotidine 20 Mg Tablet PO 20 mg BID ALVINO Administration Lorazepam 2 mg 04/25/20 15:00 04/26/20 08:42 Lorazepam 2 Mg T ablet PO 2 mg TID ALVINO Administration Trazodone HCl 200 mg 04/21/20 21:00 04/25/20 21:18 Trazodone 100 Mg Tablet PO 200 mg BEDTIME ALVINO Administration PFSH NPU PFSH: Medical History Bipolar disorder, in full remission, most recent episode manic Cigarette nicotine dependence Erectile disorder, acquired, generalized, moderate Social History Smoking and tobacco status: current every day smoker cigarettes Years cigarettes smoked: 40 Quit status (tobacco): considering quitting Second hand smoke exposure: Yes Mental Status Exam MSE Comments: Lying in bed, does not respond to verbal stimuli Psychomotor activity is decreased, no agitation Speech, low volume grunting on occasion after rubbing chest. Does not provide stated mood, constricted affect, not labile Soporific, oriented to person only Unable to assess memory, thought process, does not appear to be attending to any internal stimuli Insight and judgment are limited at this time Vitals/I&O/Wt Last Vital Signs Temp 98.7 F 04/26/20 11:25 Pulse 68 04/26/20 11:25 Resp 16 04/26/20 11:25 BP 147/68 04/26/20 11:25 Pulse Ox 95 04/26/20 11:25 04/25/20 04/26/20 04/26/20 22:59 06:59 14:59 Intake Total 740 / 1100 600 / 600 Output Total 75 / 75 Balance 665 / 1025 600 / 600 A&P Assessment and plan (1) Delirium: Status: Acute (2) Catatonia: Status: Acute Additional A&P Information Continues to demonstrate catatonia, incontinence DECREASED to Depakote 500 mg twice daily Discuss treatment options including ECT Attestations NPU Medical Necessity Statement*: Continues require hospitalization for medical stabilization Coding Level of Care Code Acute Automated Equipment Engineer Technician for Aayna Aguirre Diagnoses Delirium R41.0 Catatonia F06.1
[2020-04-26] MEDS: divalproex ER 500 mg Tablet (24H) PO (17:34)
[2020-04-26] MEDS: trazodone 100 mg Tablet 200 MG PO (20:04)
[2020-04-26] MEDS: enoxaparin 40 mg/0.4 mL Syringe SUBCUT (20:05)
[2020-04-27] VITALS (7 sets, daily range): BP systolic 92–147; BP diastolic 55–81; PULSE 55–73; RESP 16–18; TEMP 36.3–36.7; O2SAT 96–98
[2020-04-27 06:13] LABS: Basophils % 0.2 %; Eosinophils # 0.1 10^3/uL (0.0-0.8); Eosinophils % 1.5 %; Hematocrit 33.2 % (42.0-52.0); Lymphocytes # 1.5 10^3/uL (0.8-4.8); Lymphocytes % 28.1 %; Mean Corpuscular HGB Conc 33.1 g/dL (30.0-36.0); Mean Corpuscular Volume 96.5 fL (80-94); Monocytes # 0.6 10^3/uL (0.2-0.9); Monocytes % 10.8 %; Neutrophils # 3.11 10^3/uL (1.8-7.7); Nucleated Red Blood Cells % 0 %; Platelet Count 93 10^3/cmm (130-400); Red Blood Count 3.44 10^6/uL (4.1-5.3); Red Cell Distribution Width 13.7 % (12.1-15.1); White Blood Count 5.3 10^3/uL (4.0-10.0)
[2020-04-27 06:40] LABS: Alanine Aminotransferase 17 U/L (0-41); Albumin Level 2.7 g/dL (3.5-5.2); Alkaline Phosphatase 50 IU/L (40-130); Anion Gap 9.3 (5-19); Aspartate Amino Transferase 13 U/L (0-40); Blood Urea Nitrogen 12 mg/dL (6-20); Calcium 8.1 mg/dL (8.5-10.5); Carbon Dioxide 27 mmol/L (22-29); Chloride 106 mmol/L (98-107); Globulin 2.5 g/dL (1.3-4.6); Glomerular Filtration Rate 115.8 mL/min (90-130); Glucose 80 mg/dL (65-115); Magnesium 1.8 mg/dL (1.7-2.3); Osmolality Calculated 285 mOsm/kg (285-295); Potassium 4.3 mmol/L (3.5-5.1); Sodium 138 mmol/L (136-145); Total Bilirubin < 0.2 mg/dL (0.15-1.2); Total Protein 5.2 g/dL (6.6-8.7)
[2020-04-27] MEDS: divalproex ER 500 mg Tablet (24H) PO ×2 (08:26→17:56)
[2020-04-27] MEDS: famotidine 20 mg Tablet PO ×2 (08:26→17:57)
[2020-04-27] MEDS: LORazepam 2 mg Tablet PO (08:26)
--- NOTE | 2020-04-27 11:16 | PC.NURSE ---
Patient's spouse called requesting to speak with the physician. I spoke with Dr. Escudero and informed him of this.
--- NOTE | 2020-04-27 14:19 | PM.PN ---
Subjective Subjective: Interval history: No significant changes overnight. Able to answer few questions. Medications: Reviewed: Yes Vitals/I&O/Wt Last Vital Signs Temp 97.4 F L 04/27/20 11:19 Pulse 73 04/27/20 11:19 Resp 16 04/27/20 11:19 BP 92/55 04/27/20 11:19 Pulse Ox 96 04/27/20 11:19 04/26/20 04/27/20 04/27/20 22:59 06:59 14:59 Intake Total 120 / 720 460 / 460 Balance 120 / 720 460 / 460 Physical Exam Narrative: EXAM NARRATIVE: General exam is a sleepy appearing male that is slow to respond Cardiovascular regular and rhythm without murmur Lungs clear Abdomen is soft, with positive bowel sounds Extremities no cyanosis, no edema Neurologic: No obvious focal deficits, moves all extremities albeit slowly. Data : 04/27/20 05:50 04/27/20 05:50 Micro: Microbiology 04/25/20 17:40 Urine Culture - Preliminary Urine Catheterized 04/21/20 19:52 Blood Culture - Final Blood NO GROWTH AFTER 5 DAYS 04/21/20 19:56 Blood Culture - Final Blood NO GROWTH AFTER 5 DAYS A&P Assessment and plan (1) Catatonia: Etiology unclear. There is some concern it may be secondary to his bipolar disorder. Ativan was added, and then increased to 2 mg 3 times daily After discussion with psychiatry Depakote was decreased to 500 twice daily yesterday Psychiatry is considering possibility of ECT for his catatonia Continue to work with physical therapy. Requiring [address] head negative, as well as rather extensive work-up EEG has been ordered and pending, doubt seizure. Status: Acute (2) Thrombocytopenia: May be chronic, or secondary to clozapine which was recently discontinued. Note that ammonia level was normal on admission, and hepatic encephalopathy essentially ruled out. This panel, HIV negative Status: Acute Additional A&P Information Full code Lovenox for DVT prophylaxis Attestations Medical Necessity Statement*: Needs continued hospitalization for medication adjustment secondary to bipolar disorder with catatonia. Coding Level of Care Code Acute Activity Coordinator for Ayana Aguirre Diagnoses Catatonia F06.1 Thrombocytopenia D69.6
--- NOTE | 2020-04-27 14:59 | PM.PSYCN ---
Providers/Reason for Consult Consulting Physican/Specialty*: Ronald Lora DO Reason for Consult*: Follow-up Attending Physician: Sawyer Escudero MD Psych Consult HPI History of Present Illness Continues to lie in bed with eyes closed, does not respond to verbal stimuli, briefly arouses with physical nudging on his leg but does not provide any verbal responses. Unable to interview. Meds Current Medications: Current Medications Generic Name Dose Route Start Last Admin Trade Name Freq PRN Reason Stop Dose Admin Acetaminophen 650 mg 04/21/20 19:45 04/23/20 21:42 Acetaminophen 32 5 Mg Tablet PO 650 mg Q6H PRN Administration Mild/Mod Pain Or Temp >/= 101 Divalproex Sodium 500 mg 04/26/20 18:00 04/27/20 08:26 Divalproex Er 50 0 Mg Tablet (24h) PO 500 mg BID ALVINO Administration Enoxaparin Sodium 40 mg 04/21/20 20:00 04/26/20 20:05 Enoxaparin 40 Mg /0.4 Ml Syringe SUBCUT 40 mg Q24H ALVINO Administration Famotidine 20 mg 04/21/20 19:45 04/27/20 08:26 Famotidine 20 Mg Tablet PO 20 mg BID ALVINO Administration Trazodone HCl 200 mg 04/21/20 21:00 04/26/20 20:04 Trazodone 100 Mg Tablet PO 200 mg BEDTIME ALVINO Administration PFSH NPU PFSH: Medical History Bipolar disorder, in full remission, most recent episode manic Cigarette nicotine dependence Erectile disorder, acquired, generalized, moderate Social History Smoking and tobacco status: current every day smoker cigarettes Years cigarettes smoked: 40 Quit status (tobacco): considering quitting Second hand smoke exposure: Yes Mental Status Exam MSE Comments: Lying in bed with eyes closed, does not respond to verbal stimuli and minimally to physical nudging of his leg Psychomotor activity is decreased, no agitation Speech, low volume grunting on occasion after rubbing chest. Does not provide stated mood, constricted affect, not labile Soporific, oriented to person only Unable to assess memory, thought process, does not appear to be attending to any internal stimuli Insight and judgment are limited at this time Vitals/I&O/Wt Last Vital Signs Temp 97.4 F L 04/27/20 11:19 Pulse 73 04/27/20 11:19 Resp 16 04/27/20 11:19 BP 92/55 04/27/20 11:19 Pulse Ox 96 04/27/20 11:19 04/26/20 04/27/20 04/27/20 22:59 06:59 14:59 Intake Total 120 / 720 460 / 460 Balance 120 / 720 460 / 460 Data NPU Micro: Micro: Microbiology 04/25/20 17:40 Urine Culture - Pr eliminary Urine Catheterize d 04/21/20 19:52 Blood Culture - Fi nal Blood NO GROWTH AFTER 5 DAYS 04/21/20 19:56 Blood Culture - Fi nal Blood NO GROWTH AFTER 5 DAYS Microbiology 04/25/20 17:40 Urine Catheterized Urine Culture - Preliminary 04/21/20 19:52 Blood Blood Culture - Final NO GROWTH AFTER 5 DAYS 04/21/20 19:56 Blood Blood Culture - Final NO GROWTH AFTER 5 DAYS A&P Assessment and plan (1) Delirium: Status: Acute (2) Catatonia: Status: Acute Additional A&P Information Spoke today to patient's outpatient psychiatrist, Dr. Infante, with regards to past courses of treatment and appears that patient has been treated on multiple trials of antipsychotic medication with refractory catatonia throughout the course of his contact with this patient with recent worsening during his last hospitalization in which the patient was ambulating with some assistance but subsequently left the hospital requiring significant assistance to include wheelchair. Patient continues to be minimally responsive to environmental stimuli despite treatment with lorazepam which has previously been employed on an outpatient basis with limited success and appears to have persistent catatonia which would likely benefit from ECT. DECREASE to lorazepam 1 mg 3 times daily to monitor for any improvement in level of alertness Coordinate with social worker psychiatric for transfer to a facility they can evaluate and treat with inpatient ECT targeting patient's refractory catatonia Attestations NPU Medical Necessity Statement*: Continues to require hospitalization for medical stabilization Coding Level of Care Code Acute Corporate Specialist for Ayana Aguirre Diagnoses Delirium R41.0 Catatonia F06.1
[2020-04-27] MEDS: LORazepam 1 mg Tablet PO (15:57)
--- NOTE | 2020-04-27 19:02 | PM.CONSULT ---
Providers/Reason For Consult Consulting Physican/Specialty*: Sawyer Escudero Reason for Consult*: Rule out neurologic cause for patient's symptoms Attending Physician: Sawyer Escudero MD History of Present Illness History of Present Illness Nathaniel Sharma SR is a 60 year old man with severe bipolar affective disorder. I previously was asked to see him in July 2014 when he was in similar circumstances. He was not communicating appropriately and had diffuse profound psychomotor retardation with leadpipe rigidity and axial dystonia. Based on the acute or subacute onset of his signs and symptoms I thought that his problem was probably psychiatric versus Lewy body dementia. His EEG was negative. His CT scan of the head was normal at that time. Note that that was 6 years ago, so if he had Lewy body dementia it is doubtful he would still be living. He has been following with Dr. Franco Infante in psychiatry. Of course those notes are not available to me. He presented to the emergency room 04/21/[address] Infante wanted him hospitalized. He has been managed by the hospitalist service with consultation from Ronald Lora DO, and treated with lorazepam. Dr. Lora spoke with Dr. Infante today, who reported that he had treated this gentleman with multiple courses of antipsychotics and that he has exhibited treatment resistant catatonia. He worsened during a recent hospitalization at [facility] and the plan was to transfer him to a center that has capability of ECT. He was started on Depakote during his recent hospitalization at [facility] and his level was therapeutic on arrival. I talked with Dr. Infante, who is his long-term caregiver. He reports that this patient has no signs of dementia. 2 months ago prior to his hospitalization he was seen in his clinic and was able to walk on his own, had a good sense of humor and no sign of memory difficulty. Dr. Infante would like for him transferred to a facility where they can perform ECT and start him on clozapine. It is the opinion of his treating caregiver that there is no reason to invoke any other cause then psychiatric for his signs and symptoms. 04/21/2020 labs: vitamin B12 914, TSH 2.46, negative urine drug screen except for prescribed benzodiazepines, liver enzymes normal, Depakote level 97 Dr. Robert obtained Doppler ultrasound of the carotids documenting less than 50% stenosis. CT head 04/21/[address] head 04/19/2020 also shows diffuse atrophy. Cavum septum pellucidum on both of those images and no specific frontotemporal atrophy. Review of Systems Narrative: He has not had any fever since arrival. His vital signs have been stable. He got up and walked to the door on one occasion. The patient denies any pain. Reportedly he has lost 25 pounds recently. Meds/Allergies Home Medications and Allergies Home Medications Medication Instructions Recorded Confirmed Last Taken Type clozapine 50 mg tablet See Rx Instructions PO .COMPLEX 04/12/20 04/21/20 Unknown Rx #18 tab divalproex 500 mg tablet,extended 1,000 mg PO BID tab 04/12/20 04/21/20 Unknown History release 24 hr lorazepam 1 mg tablet 1 mg PO BID #60 tab 04/12/20 04/21/20 Unknown Rx trazodone 100 mg tablet 200 mg PO BEDTIME tab 04/12/20 04/21/20 Unknown History Allergies Allergy/AdvReac Type Severity Reaction Status Date / Time Penicillins Allergy Unknown Unknown Verified 10/29/19 09:50 Current Medications Current Medications Generic Name Dose Route Start Last Admin Trade Name Freq PRN Reason Stop Dose Admin Acetaminophen 650 mg 04/21/20 19:45 04/23/20 21:42 Acetaminophen 325 Mg Tablet PO 650 mg Q6H PRN Administration Mild/Mod Pain Or Temp >/= 101 Divalproex Sodium 500 mg 04/26/20 18:00 04/27/20 17:56 Divalproex Er 500 Mg Tablet (24h) PO 500 mg BID ALVINO Administration Enoxaparin Sodium 40 mg 04/21/20 20:00 04/26/20 20:05 Enoxaparin 40 Mg/0.4 Ml Syringe SUBCUT 40 mg Q24H ALVINO Administration Famotidine 20 mg 04/21/20 19:45 04/27/20 17:57 Famotidine 20 Mg Tablet PO 20 mg BID ALVINO Administration Lorazepam 1 mg 04/27/20 15:00 04/27/20 15:57 Lorazepam 1 Mg Tablet PO 1 mg TID ALVINO Administration Trazodone HCl 200 mg 04/21/20 21:00 04/26/20 20:04 Trazodone 100 Mg Tablet PO 200 mg BEDTIME ALVINO Administration PFSH Acute PFSH: Medical History Bipolar disorder, in full remission, most recent episode manic Cigarette nicotine dependence Erectile disorder, acquired, generalized, moderate Social History Smoking and tobacco status: current every day smoker cigarettes Years cigarettes smoked: 40 Quit status (tobacco): considering quitting Second hand smoke exposure: Yes Vitals/I&O/Wt Last Vital Signs Temp 97.4 F L 04/27/20 16:00 Pulse 65 04/27/20 16:00 Resp 16 04/27/20 16:00 BP 135/81 04/27/20 16:00 Pulse Ox 98 04/27/20 16:00 04/27/20 04/27/20 04/27/20 06:59 14:59 22:59 Intake Total 460 / 460 240 / 700 Balance 460 / 460 240 / 700 Physical Exam Narrative: EXAM NARRATIVE: General: Cachectic middle-aged gentleman who looks older than his age. Mental status exam: He would not talk with me or answer questions. With persistent tickling of the feet and gentle pinching he would say quit and he had a prolonged sentence that I do not remember but it was similar to telling me to leave. He would not open his eyes or look at me. Cranial nerves: Juarez's phenomenon when I attempt to open his eyes. He grimaces tightly and has equal facial movements. He is managing his own secretions without difficulty. Breathing pattern is normal. Sensory/motor: He has diffuse rigidity. His arms are flexed and he resists any movement. He does not attempt to push me away but will flinch somewhat in response to pinching of the skin, pushing my hand away with his leg or his elbow. He kicks gently with his feet. Toes are downgoing. Gait not testable. I could not persuade him to sit up. He extended his trunk when I attempted to pull him up. Chest: Clear to auscultation. Cardiovascular: S1 and S2 normal without murmur or gallop. Abdomen soft with no signs of tenderness. Extremities: Very thin. Data Micro: Micro: Microbiology 04/25/20 17:40 Urine Culture - Pr eliminary Urine Catheterize d 04/21/20 19:52 Blood Culture - Fi nal Blood NO GROWTH AFTER 5 DAYS 04/21/20 19:56 Blood Culture - Fi nal Blood NO GROWTH AFTER 5 DAYS A&P Assessment and plan (1) Catatonia associated with another mental disorder: Severe bipolar disorder with depression and currently in catatonia. I talked with Dr. Nuñez, who saw him prior to his 2-month hospitalization and he was able to ambulate independently, had a good sense of humor and no problems with memory. His current state is of profound depression with catatonia and he needs to be transferred to a facility that is capable of performing ECT and be started back on clozapine. Depakote was added during his recent 2-month hospitalization and was therapeutic on arrival here without controlling his symptoms. Rarely Depakote may cause encephalopathy and so I asked that it be discontinued. A conversation with his long-term caregiver is sufficient to rule out a neurologic cause for his symptoms. He does not have any focal findings and his neurologic exam is consistent with catatonia, not coma. Status: Acute (2) Bipolar affective disorder, current episode depressed: Status: Acute Consult Attestations Medical Necessity Statement: Profound catatonic depression Time Spent in Patient Care: Greater than 35 minutes Coding Level of Care Code Acute Aromatherapist for Ayana Aguirre Diagnoses Catatonia associated with another mental disorder F06.1 Bipolar affective disorder, current episode depressed F31.30
[2020-04-28] VITALS (7 sets, daily range): BP systolic 95–114; BP diastolic 61–74; PULSE 59–82; RESP 16–18; TEMP 36.3–36.6; O2SAT 93–97
--- NOTE | 2020-04-28 02:53 | PC.NURSE ---
Tonvelasquez it was attempted to give patient scheduled ativan and patient refused after many attempts and education for its purpose. Spoon was placed at mouth with meds crushed in applesauce a number of times and verbal commands to open mouth were not followed. Also previous shift (04/27) pt took one bite and would not finish the rest of the medication. Pt also verbalized (almost inaudibly) that he did not want his lovenox either after many attempts and education to importance as well.
--- NOTE | 2020-04-28 08:15 | PC.NURSE ---
Notified nurse of bp:
[2020-04-28] MEDS: famotidine 20 mg Tablet PO (09:13)
[2020-04-28] MEDS: LORazepam 1 mg Tablet PO ×2 (09:13→14:21)
--- NOTE | 2020-04-28 10:23 | PC.OT ---
HOLD ON THERAPY TODAY PER ROUNDS AND DOCTOR REPORTING HE IS PENDING A TRANSFER TO A DIFFERENT HOSPITAL TO RECEIVE ELECTRIC SHOCK THERAPY. PER DOCTOR, CHECK IN WITH HIM TO ASSESS ABILITY TO PARTICIPATE AND IF HE IS UNABLE TO HOLD FOR TODAY. WILL CHECK IN TOMORROW.
--- NOTE | 2020-04-28 10:23 | PM.PN ---
Subjective Subjective: Interval history: Nathaniel will awaken and open his eyes. He mumbles a few responses. Medications: Reviewed: Yes Vitals/I&O/Wt Last Vital Signs Temp 97.7 F 04/28/20 08:00 Pulse 69 04/28/20 08:00 Resp 16 04/28/20 08:00 BP 96/63 04/28/20 08:00 Pulse Ox 93 04/28/20 08:00 04/27/20 04/28/20 04/28/20 22:59 06:59 14:59 Intake Total 240 / 700 240 / 240 Balance 240 / 700 240 / 240 Physical Exam Narrative: EXAM NARRATIVE: General exam awakens easily, mumbles responses, slow to respond. Reported he is hungry. Cardiovascular regular and rhythm without murmur Lungs clear Abdomen is soft, with positive bowel sounds Extremities no cyanosis, no edema Neurologic: No obvious focal deficits, moves all extremities albeit slowly. Data : 04/27/20 05:50 04/27/20 05:50 Micro: Microbiology 04/25/20 17:40 Urine Culture - Final Urine Catheterized A&P Assessment and plan (1) Catatonia: Etiology unclear. There is some concern it may be secondary to his bipolar disorder. Ativan was added, and then increased to 2 mg 3 times daily with no significant response. Psychiatry is now reduced to 1 mg 3 times daily After discussion with psychiatry Depakote was decreased to 500 twice daily yesterday. I discussed with neurology as well and they recommend discontinuation of this. Psychiatry is considering possibility of ECT for his catatonia. Discharge planning is working towards transfer to a facility that does ECT Continue to work with physical therapy. Requiring [address] head negative, as well as rather extensive work-up Status: Acute (2) Thrombocytopenia: May be chronic, or secondary to clozapine which was recently discontinued. Note that ammonia level was normal on admission, and hepatic encephalopathy essentially ruled out. This panel, HIV negative Status: Acute Additional A&P Information Full code Lovenox for DVT prophylaxis Attestations Medical Necessity Statement*: Needs continued hospitalization secondary to catatonia, pending transfer for ECT Coding Level of Care Code Acute Acoustical Tile Drill Press Operator for [facility] Diagnoses Catatonia F06.1 Thrombocytopenia D69.6
[2020-04-28 14:35] LABS: SARS Covid-2 Antigen Negative (Negative)
[2020-04-28 14:53] LABS: Influenza A by IFA Negative (Negative); Influenza B by IFA Negative (Negative)
--- NOTE | 2020-04-28 14:53 | PM.PSYCN ---
Providers/Reason for Consult Consulting Physican/Specialty*: Ronald Lora DO Reason for Consult*: Follow-up Attending Physician: Sawyer Escudero MD Psych Consult HPI History of Present Illness Patient is propped up in his bed, eyes closed, not responding to verbal stimuli or physical nudging of leg, mumbles a few words. Meds Current Medications: Current Medications Generic Name Dose Route Start Last Admin Trade Name Freq PRN Reason Stop Dose Admin Acetaminophen 650 mg 04/21/20 19:45 04/23/20 21:42 Acetaminophen 32 5 Mg Tablet PO 650 mg Q6H PRN Administration Mild/Mod Pain Or Temp >/= 101 Enoxaparin Sodium 40 mg 04/21/20 20:00 04/27/20 21:09 Enoxaparin 40 Mg /0.4 Ml Syringe SUBCUT Not Given Q24H ALVINO Famotidine 20 mg 04/21/20 19:45 04/28/20 09:13 Famotidine 20 Mg Tablet PO 20 mg BID ALVINO Administration Lorazepam 1 mg 04/27/20 15:00 04/28/20 14:21 Lorazepam 1 Mg T ablet PO 1 mg TID ALVINO Administration Trazodone HCl 200 mg 04/21/20 21:00 04/27/20 21:05 Trazodone 100 Mg Tablet PO Not Given BEDTIME ALVINO PFSH NPU PFSH: Medical History Bipolar disorder, in full remission, most recent episode manic Cigarette nicotine dependence Erectile disorder, acquired, generalized, moderate Social History Smoking and tobacco status: current every day smoker cigarettes Years cigarettes smoked: 40 Quit status (tobacco): considering quitting Second hand smoke exposure: Yes Mental Status Exam MSE Comments: Propped up in bed with eyes closed, does not respond to verbal stimuli and minimally to physical nudging of his leg Psychomotor activity is decreased, no agitation Speech, mumbles a few words after physical nudging with prompting. Does not provide stated mood, constricted affect, not labile Soporific, oriented to person only Unable to assess memory, thought process, does not appear to be attending to any internal stimuli Insight and judgment are limited at this time Vitals/I&O/Wt Last Vital Signs Temp 97.4 F L 04/28/20 12:00 Pulse 77 04/28/20 12:00 Resp 17 04/28/20 12:00 BP 95/66 04/28/20 12:00 Pulse Ox 94 04/28/20 12:00 04/27/20 04/28/20 04/28/20 22:59 06:59 14:59 Intake Total 240 / 700 340 / 340 Balance 240 / 700 340 / 340 Data NPU Micro: Micro: Microbiology 04/25/20 17:40 Urine Culture - Fi nal Urine Catheterize d Microbiology 04/25/20 17:40 Urine Catheterized Urine Culture - Final A&P Assessment and plan (1) Delirium: Status: Acute (2) Catatonia: Status: Acute (3) Bipolar affective disorder, current episode depressed: Status: Acute Additional A&P Information Continues to demonstrate significant catatonia, minimally responsive to his environment without significant prompting. Continuing coordination for transfer to outlying facility for inpatient ECT. DISCONTINUE Depakote Continue to monitor Attestations NPU Medical Necessity Statement*: Continues to require hospitalization for medical stabilization Coding Level of Care Code Acute Training And Development Officer for [facility] Carla Diagnoses Delirium R41.0 Catatonia F06.1 Bipolar affective disorder, current episode depressed F31.30
--- NOTE | 2020-04-28 16:02 | P.DS_ITS ---
Discharge Providers Date of Admission: 04/21/20 15:18 Date of Discharge: April 28, 2020 Attending Provider at Admission: Duane Peterson MD Attending Provider at Discharge: Sawyer Escudero MD Diagnoses at Discharge Discharge Diagnosis (1) Delirium: Status: Acute (2) Catatonia: Status: Acute (3) Bipolar affective disorder, current episode depressed: Status: Acute Reason for Visit Reason for Visit: Catatonia,Delirium, bipolar/ Hospital Course Hospital Course Nathaniel is a 60-year-old white male who presented to the hospital on April 21. He presented from his psychiatrist's office with concern of catatonia. He had worsening mental status, inability to do any ADLs since a hospitalization at [facility] in March. He was diagnosed with delirium, and likely catatonia. Psychiatry was consulted. Lorazepam was initiated. Clozapine was discontinued. During his hospital course he had an extensive neurologic work- up, and daily psychiatric visits. He also underwent a neurology consultation. It was concluded that he would likely need ECT, and therefore transfer to [facility] was arranged on April 28 for consideration of that. Patient was stable at time of discharge, and afebrile. He would open his eyes and talk softly over require 2 person assist and to be fed. Work-up during his hospital stay included echocardiogram, carotid duplex, abdominal ultrasound, head CT. No significant concerning findings were noted. CT during his hospital stay demonstrated mild thrombocytopenia with his last platelet count being 93,000. Electrolytes, liver function tests were normal. Albumin was low at 2.7 at discharge. Urinalysis was negative. TSH, cortisol, B12 levels were all normal. Magnesium was normal. Ammonia level was normal. Hepatitis panel, HIV testing influenza and rapid Covid were all negative. Physical Exam Narrative: EXAM NARRATIVE: General exam is no apparent distress Cardiovascular regular rhythm without murmur Lungs clear Abdomen is soft, positive bowel sounds Extremities no cyanosis clubbing or edema Discharge Data Data Completed and Pending: Completed Studies During Hospitalization Category Date Time Status CT head wo con* [id number] Stat Cat Scan 04/21/20 17:15 Completed XR chest 1V mauri ble [id number] Stat Exams 04/21/20 17:15 Completed CV carotid duplex BI* [id number] Routine Ultrasound 04/22/20 19:45 Completed CV echo complete* [id number] Routine Ultrasound 04/22/20 19:45 Completed US abdomen limite d [id number] Routine Ultrasound 04/22/20 10:24 Completed Pending at discharge Category Date Time Status EEG electroenceph alogram Routine Exams 04/21/20 19:45 Ordered Basic Metabolic P louise AM LABS Lab 04/29/20 04:00 Ordered Complete Blood Co unt w/Auto AM LABS Lab 04/29/20 04:00 Ordered Labs from last 24 hours 04/28/20 04/28/20 04/22/20 14:02 14:02 01:48 Influenza Type A A g Negative Influenza Type B A g Negative SARS-CoV-2 Ag (Rap id) Negative Misc Test Referenc e See comment Vitals: Last Vital Signs Temp 97.4 F L 04/28/20 12:00 Pulse 77 04/28/20 12:00 Resp 17 04/28/20 12:00 BP 95/66 04/28/20 12:00 Pulse Ox 94 04/28/20 12:00 Discharge Plan Discharge Patient Disposition: Xfer Psychiatric Hosp Condition: Stable Prescriptions: No Action lorazepam [Ativan] 1 mg tablet 1 mg PO BID Qty: 60 RF: 2 clozapine 50 mg tablet See Rx Instructions PO .COMPLEX Qty: 18 RF: 0 divalproex [Depakote ER] 500 mg tablet extended release 24 hr 1,000 mg PO BID RF: 0 trazodone 100 mg tablet 200 mg PO BEDTIME RF: 0 Discharge Orders: Transfer Out of Facility (Order); Ordered 04/28/20 Ordered By: Sawyer Escudero Referrals: [facility] Home [facility] Set-up [Other] (Call this number to get In Home Services set up. They will ask you questions. In Home services are based on a point system, form your answers to the questions. They will be able to provide you with a nurse to help set up your meds.) Patient Instructions: Opioid Safety Discharge Attestations Time Spent in Discharge Care*: greater than 30 min Quality Metrics Clinical Quality Measures During this hospital stay, did patient experience: None Coding Level of Care Code Acute Enamel Shader for Ayana Aguirre Diagnoses Delirium R41.0 Catatonia F06.1 Bipolar affective disorder, current episode depressed F31.30
== END 2020-04-28 17:30 | DRG 885 ==
LOC: ER 14:53 → NP 16:57 → MEDSURG 04-22 06:52 → NP 04-24 11:02
PROVIDERS: Family Medicine; Psychiatry & Neurology Psychiatry; Admitting Provider Psychiatry & Neurology Psychiatry; Emergency Provider Family Medicine; Visit Provider Internal Medicine
DX: F31.30 Bipolar disorder, current episode depressed, mild or moderate severity, unspecified (principal); F06.1 Catatonic disorder due to known physiological condition; F17.210 Nicotine dependence, cigarettes, uncomplicated; D69.6 Thrombocytopenia, unspecified; F52.21 Male erectile disorder
CPT/HCPCS: 12345; 36415; 70450; 71045; 76705; 80053; 80061; 80074; 80159; 80164; 80306; 80307; 81003; 82140; 82533; 82607; 83036; 83735; 84100; 84145; 84443; 84484; 85025; 85651; 86140; 87040; 87086; 87426; 87804; 87806; 93005; 93306; 93880; 96372; 97110; 97116; 97162; 97166; 97530; 97535; 99282; 99291; J1650

== ENCOUNTER → 2020-06-11 09:05 | Outpatient (BNVA) | payer MEDICAID, SELFPAY | PROVIDERS: Visit Provider Psychiatry & Neurology Psychiatry | DX: F31.74 Bipolar disorder, in full remission, most recent episode manic (principal); Z59.6 Low income; F17.211 Nicotine dependence, cigarettes, in remission | CPT/HCPCS: 99214 ==

== ENCOUNTER → 2020-07-29 09:50 | Outpatient (BNVA) | payer MEDICAID, SELFPAY | PROVIDERS: Visit Provider Psychiatry & Neurology Psychiatry | DX: F31.74 Bipolar disorder, in full remission, most recent episode manic (principal); F17.211 Nicotine dependence, cigarettes, in remission; Z59.6 Low income; Z79.899 Other long term (current) drug therapy | CPT/HCPCS: 80164; 85025; 99215 ==

== ENCOUNTER → 2020-08-12 12:28 | Outpatient (BNVA) | payer MEDICAID, SELFPAY | PROVIDERS: Visit Provider Psychiatry & Neurology Psychiatry | DX: F31.74 Bipolar disorder, in full remission, most recent episode manic (principal); Z59.6 Low income; F17.211 Nicotine dependence, cigarettes, in remission; F52.21 Male erectile disorder; Z79.899 Other long term (current) drug therapy | CPT/HCPCS: 85025; 99215 ==

== ENCOUNTER → 2020-08-19 09:56 | Outpatient (BNVA) | payer MEDICAID, SELFPAY | PROVIDERS: Referring Provider Psychiatry & Neurology Psychiatry; Visit Provider Psychiatry & Neurology Psychiatry | DX: F31.74 Bipolar disorder, in full remission, most recent episode manic (principal); Z79.899 Other long term (current) drug therapy | CPT/HCPCS: 36415; 80061; 83036; 85025 ==

== ENCOUNTER → 2020-08-26 13:29 | Outpatient (BNVA) | payer MEDICAID, SELFPAY ==
[2020-08-20 11:44] VITALS: BP 126/80; BMI 24.5
== END ==
PROVIDERS: Visit Provider Psychiatry & Neurology Psychiatry
DX: F31.11 Bipolar disorder, current episode manic without psychotic features, mild (principal); Z79.899 Other long term (current) drug therapy; F17.211 Nicotine dependence, cigarettes, in remission; Z59.6 Low income
CPT/HCPCS: 99214; 85007; 85027

== ENCOUNTER → 2020-09-02 10:12 | Outpatient (BNVA) | payer MEDICAID, SELFPAY ==
[2020-08-20 11:44] VITALS: BP 126/80; BMI 24.5
== END ==
PROVIDERS: Referring Provider Registered Nurse; Visit Provider Registered Nurse
DX: Z79.899 Other long term (current) drug therapy (principal)
CPT/HCPCS: 36415; 85025

== ENCOUNTER → 2020-09-03 13:15 | Outpatient (BNVA) | payer MEDICAID, SELFPAY ==
[2020-08-20 11:44] VITALS: BP 126/80; BMI 24.5
== END ==
PROVIDERS: Visit Provider Psychiatry & Neurology Psychiatry
DX: F31.74 Bipolar disorder, in full remission, most recent episode manic (principal); F17.211 Nicotine dependence, cigarettes, in remission; Z59.6 Low income; Z79.899 Other long term (current) drug therapy
CPT/HCPCS: 99214

== ENCOUNTER → 2020-09-09 11:37 | Outpatient (BNVA) | payer MEDICAID, SELFPAY ==
[2020-08-20 11:44] VITALS: BP 126/80; BMI 24.5
== END ==
PROVIDERS: Referring Provider Psychiatry & Neurology Psychiatry; Visit Provider Psychiatry & Neurology Psychiatry
DX: Z79.899 Other long term (current) drug therapy (principal)
CPT/HCPCS: 36415; 85025

== ENCOUNTER → 2020-09-16 07:35 | Outpatient (BNVA) | payer MEDICAID, SELFPAY ==
[2020-08-20 11:44] VITALS: BP 126/80; BMI 24.5
== END ==
PROVIDERS: Visit Provider Psychiatry & Neurology Psychiatry
DX: Z79.899 Other long term (current) drug therapy (principal)
CPT/HCPCS: 36415; 85025

== ENCOUNTER → 2020-09-23 10:39 | Outpatient (BNVA) | payer MEDICAID, SELFPAY ==
[2020-08-20 11:44] VITALS: BP 126/80; BMI 24.5
== END ==
PROVIDERS: Referring Provider Psychiatry & Neurology Psychiatry; Visit Provider Psychiatry & Neurology Psychiatry
DX: Z79.899 Other long term (current) drug therapy (principal)
CPT/HCPCS: 36415; 85025

== ENCOUNTER → 2020-09-30 12:00 | Outpatient (BNVA) | payer MEDICAID, SELFPAY ==
[2020-08-20 11:44] VITALS: BP 126/80; BMI 24.5
== END ==
PROVIDERS: Referring Provider Psychiatry & Neurology Psychiatry; Visit Provider Psychiatry & Neurology Psychiatry
DX: Z79.899 Other long term (current) drug therapy (principal)
CPT/HCPCS: 36415; 85025

== ENCOUNTER → 2020-10-01 12:31 | Outpatient (BNVA) | payer MEDICAID, SELFPAY ==
[2020-08-20 11:44] VITALS: BP 126/80; BMI 24.5
== END ==
PROVIDERS: Visit Provider Psychiatry & Neurology Psychiatry
DX: F31.9 Bipolar disorder, unspecified (principal); F17.211 Nicotine dependence, cigarettes, in remission; Z79.899 Other long term (current) drug therapy; Z59.6 Low income
CPT/HCPCS: 99214

== ENCOUNTER → 2020-10-06 10:33 | Outpatient (BNVA) | payer MEDICAID, SELFPAY ==
[2020-08-20 11:44] VITALS: BP 126/80; BMI 24.5
== END ==
PROVIDERS: Referring Provider Psychiatry & Neurology Psychiatry; Visit Provider Psychiatry & Neurology Psychiatry
DX: F31.9 Bipolar disorder, unspecified (principal)
CPT/HCPCS: 36415; 85025

== ENCOUNTER → 2020-10-14 10:24 | Outpatient (BNVA) | payer MEDICAID, SELFPAY ==
[2020-08-20 11:44] VITALS: BP 126/80; BMI 24.5
== END ==
PROVIDERS: Referring Provider Registered Nurse; Visit Provider Registered Nurse
DX: Z79.899 Other long term (current) drug therapy (principal)
CPT/HCPCS: 36415; 85025

== ENCOUNTER → 2020-10-21 11:04 | Outpatient (BNVA) | payer MEDICAID, SELFPAY ==
[2020-08-20 11:44] VITALS: BP 126/80; BMI 24.5
== END ==
PROVIDERS: Visit Provider Psychiatry & Neurology Psychiatry
DX: Z79.899 Other long term (current) drug therapy (principal)
CPT/HCPCS: 36415; 85025

== ENCOUNTER → 2020-10-22 07:25 | Outpatient (BNVA) | payer MEDICAID, SELFPAY ==
[2020-08-20 11:44] VITALS: BP 126/80; BMI 24.5
== END ==
PROVIDERS: Visit Provider Psychiatry & Neurology Psychiatry
DX: F31.9 Bipolar disorder, unspecified (principal); F17.211 Nicotine dependence, cigarettes, in remission; F52.21 Male erectile disorder; Z59.6 Low income; Z79.899 Other long term (current) drug therapy
CPT/HCPCS: 99214

== ENCOUNTER → 2020-10-28 11:27 | Outpatient (BNVA) | payer MEDICAID, SELFPAY ==
[2020-08-20 11:44] VITALS: BP 126/80; BMI 24.5
== END ==
PROVIDERS: Visit Provider Psychiatry & Neurology Psychiatry
DX: Z79.899 Other long term (current) drug therapy (principal)
CPT/HCPCS: 36415; 85025

== ENCOUNTER → 2020-11-04 10:53 | Outpatient (BNVA) | payer MEDICAID, SELFPAY ==
[2020-08-20 11:44] VITALS: BP 126/80; BMI 24.5
== END ==
PROVIDERS: Visit Provider Psychiatry & Neurology Psychiatry
DX: Z79.899 Other long term (current) drug therapy (principal)
CPT/HCPCS: 36415; 85025

== ENCOUNTER → 2020-11-11 11:24 | Outpatient (BNVA) | payer MEDICAID, SELFPAY ==
[2020-08-20 11:44] VITALS: BP 126/80; BMI 24.5
== END ==
PROVIDERS: Visit Provider Psychiatry & Neurology Psychiatry
DX: Z79.899 Other long term (current) drug therapy (principal)
CPT/HCPCS: 36415; 85025

== ENCOUNTER → 2020-11-18 11:27 | Outpatient (BNVA) | payer MEDICAID, SELFPAY ==
[2020-08-20 11:44] VITALS: BP 126/80; BMI 24.5
== END ==
PROVIDERS: Referring Provider Registered Nurse; Visit Provider Registered Nurse
DX: Z79.899 Other long term (current) drug therapy (principal)
CPT/HCPCS: 36415; 85025

== ENCOUNTER → 2020-11-19 09:33 | Outpatient (BNVA) | payer MEDICAID, SELFPAY ==
[2020-08-20 11:44] VITALS: BP 126/80; BMI 24.5
== END ==
PROVIDERS: Visit Provider Psychiatry & Neurology Psychiatry
DX: F31.9 Bipolar disorder, unspecified (principal); F17.211 Nicotine dependence, cigarettes, in remission; Z79.899 Other long term (current) drug therapy; Z59.6 Low income
CPT/HCPCS: 99213

== ENCOUNTER → 2020-11-25 11:38 | Outpatient (BNVA) | payer MEDICAID, SELFPAY ==
[2020-08-20 11:44] VITALS: BP 126/80; BMI 24.5
== END ==
PROVIDERS: Visit Provider Psychiatry & Neurology Psychiatry
DX: Z79.899 Other long term (current) drug therapy (principal)
CPT/HCPCS: 36415; 85025

== ENCOUNTER → 2021-02-17 12:58 | Outpatient (BNVA) | payer MEDICAID, SELFPAY ==
[2020-08-20 11:44] VITALS: BP 126/80; BMI 24.5
== END ==
PROVIDERS: Visit Provider Psychiatry & Neurology Psychiatry
DX: F31.9 Bipolar disorder, unspecified (principal); F17.211 Nicotine dependence, cigarettes, in remission; Z59.6 Low income; Z79.899 Other long term (current) drug therapy
CPT/HCPCS: 85007; 85027; 96372; 99215

== ENCOUNTER → 2021-03-03 09:25 | Outpatient (BNVA) | payer MEDICAID, SELFPAY ==
[2020-08-20 11:44] VITALS: BP 126/80; BMI 24.5
== END ==
PROVIDERS: Visit Provider Psychiatry & Neurology Psychiatry
DX: Z79.899 Other long term (current) drug therapy (principal)
CPT/HCPCS: 36415; 85025

== ENCOUNTER → 2021-03-21 10:16 | Outpatient (BNVA) | payer MEDICAID, SELFPAY ==
[2020-08-20 11:44] VITALS: BP 126/80; BMI 24.5
== END ==
PROVIDERS: Visit Provider Nurse Practitioner Family
DX: G40.909 Epilepsy, unspecified, not intractable, without status epilepticus (principal); R25.1 Tremor, unspecified
CPT/HCPCS: 80053; 85025

== ENCOUNTER → 2021-03-30 09:54 | Outpatient (BNVA) | payer MEDICAID, SELFPAY ==
[2020-08-20 11:44] VITALS: BP 126/80; BMI 24.5
== END ==
PROVIDERS: Visit Provider Psychiatry & Neurology Psychiatry
DX: F31.9 Bipolar disorder, unspecified (principal); F17.211 Nicotine dependence, cigarettes, in remission; Z59.6 Low income; Z79.899 Other long term (current) drug therapy
CPT/HCPCS: 80159; 99215

== ENCOUNTER → 2021-04-01 09:53 | Outpatient (BNVA) | payer MEDICAID, SELFPAY ==
[2020-08-20 11:44] VITALS: BP 126/80; BMI 24.5
== END ==
PROVIDERS: Visit Provider Psychiatry & Neurology Psychiatry
DX: F31.9 Bipolar disorder, unspecified (principal); Z79.899 Other long term (current) drug therapy
CPT/HCPCS: 80164; 85007; 85027

== ENCOUNTER → 2021-04-19 11:00 | Outpatient (BNVA) | payer MEDICAID, SELFPAY ==
[2020-08-20 11:44] VITALS: BP 126/80; BMI 24.5
== END ==
PROVIDERS: Visit Provider Psychiatry & Neurology Psychiatry
DX: Z79.899 Other long term (current) drug therapy (principal)
CPT/HCPCS: 85007; 85027

== ENCOUNTER → 2021-04-28 10:03 | Outpatient (BNVA) | payer MEDICAID, SELFPAY ==
[2020-08-20 11:44] VITALS: BP 126/80; BMI 24.5
== END ==
PROVIDERS: Visit Provider Psychiatry & Neurology Psychiatry
DX: F31.9 Bipolar disorder, unspecified (principal); F17.211 Nicotine dependence, cigarettes, in remission; Z59.6 Low income; R53.1 Weakness
CPT/HCPCS: 99215

== ENCOUNTER → 2021-05-09 10:50 | Outpatient (BNVA) | payer MEDICAID, SELFPAY ==
[2020-08-20 11:44] VITALS: BP 126/80; BMI 24.5
== END ==
PROVIDERS: Visit Provider Psychiatry & Neurology Psychiatry
DX: Z79.899 Other long term (current) drug therapy (principal)
CPT/HCPCS: 85025

== ENCOUNTER → 2021-05-27 07:31 | Outpatient (BNVA) | payer MEDICAID, SELFPAY ==
[2020-08-20 11:44] VITALS: BP 126/80; BMI 24.5
== END ==
PROVIDERS: Visit Provider Psychiatry & Neurology Psychiatry
DX: F31.9 Bipolar disorder, unspecified (principal); F17.211 Nicotine dependence, cigarettes, in remission; Z59.6 Low income; F05 Delirium due to known physiological condition
CPT/HCPCS: 99215

== ENCOUNTER 2021-07-03 19:13 | Inpatient (IN) | payer MEDICAID, SELFPAY ==
[2020-08-20 11:44] VITALS: BP 126/80; BMI 24.5
[2021-07-03 19:24] VITALS: BMI 24.3
[2021-07-03 19:29] VITALS: BP 110/72; PULSE 98; RESP 12; TEMP 36.7; O2SAT 93
--- NOTE | 2021-07-03 19:29 | ED_ITS ---
HPI - Altered Mental Status General: Chief Complaint: Altered Mental Status Stated Complaint: AMS , baseline Time Seen by Provider: 07/03/21 19:21 Source: EMS Mode of arrival: EMS Limitations: altered mental status History of Present Illness: This patient was transported via EMS to our emergency department from his home. Patient history is obtained from EMS as there is no family member here at this time and the patient current mental and status precludes him giving any history. He apparently has a history of longstanding and progressive dementia. He is previously lived at home with his who has some issues of her own. Apparently the family decided to have him transported to the emergency department for potential disposition. They have been concerned about his progressive downhill course and inability for their mother to care for him. Allegedly the spouse (mother) has resisted long-term care placement in the past. Allegedly the son has DURABLE POWER OF VICE PRESIDENT OF ENGINEERING and that has prompted bringing him to this emergency department rather than [facility] which she is normally sought care previously. EMS reports he has been unremarkable during transport with normal vital signs, oxygen saturation etc. He essentially does not make any verbalizations other than just moaning and gru nting. Onset (ago): year(s) Review of Systems General: Reports: ROS unobtainable due to medical condition and ROS unobtainable due to mental status PFSH ED PFSH: Medical History Bipolar disorder, in full remission, most recent episode manic Catatonia Cigarette nicotine dependence Erectile disorder, acquired, generalized, moderate Psychiatric care Social History Smoking and tobacco status: former smoker Quit status (tobacco): considering quitting Second hand smoke exposure: No Alcohol intake: never Adopted: Yes Caregiver/support person: No Lives independently: No Household members: spouse and other Details: 2 others living at the house Housing: House Marital status: Number of children: 3 Highest education level completed: GED or Equivalent service: No Current occupational status: other Details: Disability Current occupational exposures/hazards: No Pets and animals: Yes Pets & animals: dog(s) Pets & animal details: 2 small dogs History of recent travel: Yes Details: [place] Out of state: No Out of country: No Leisure activites: fishing and other Leisure activities details: woodworking Sexually active: No Current gender identity: Male Mariah/Worship: [employer] Special mariah needs: No Agree to transfusion: Yes Financial difficulty paying for basics: Not Applicable Physical Exam Narrative: It is a elderly male who has spontaneous eye opening but very little response to questions. He will grunt and make other guttural sounds but does not respond to any questions. No signs of trauma seen. Const: COMMON NORMALS: alert EXAM LIMITATIONS: altered mental status GENERAL APPEARANCE: disheveled ORIENTATION/CONSCIOUSNESS: Yes awake HENMT: COMMON NORMALS: normocephalic and atraumatic HEAD & SCALP: normocephalic and atraumatic FACE & SINUS: normal facial exam TEETH & G INGIVA: Yes poor dentition THROAT: posterior oropharynx normal Neck/C-Spine: COMMON NORMALS: supple, no meningeal signs and No carotid bruits Lymph: LYMPHATIC: no lymphadenopathy noted Chest: COMMONS NORMALS: normal inspection of the chest Resp: COMMON NORMALS: normal respiratory effort, No retractions, No use of accessory muscles and clear to auscultation bilaterally AUSCULTATION: clear to auscultation bilaterally Cardio: COMMON NORMALS: regular rate, regular rhythm, No murmurs present (Cardio) and Peripheral pulses 2+ throughout RATE: regular rate RHYTHM: regular rhythm PERIPHERAL PULSES: Peripheral pulses 2+ throughout GI: COMMON NORMALS: Normal to inspection, nondistended, normoactive bowel sounds present, Soft to palpation, no masses and no bruits INSPECTION: No abdominal distension PALPATION: Yes Soft to palpation Back/Pelvis: COMMON NORMALS: thoracic and lumbar spine normal to inspection GENERAL BACK: No erythema and No ecchymosis Extremity: COMMON NORMALS: normal to inspection, capillary refill normal, no clubbing, cyanosis or edema and no pedal edema Neuro: SENSORIUM/ORIENTATION: Yes alert MENINGEAL SIGNS: Yes no meningeal signs Skin: COMMON NORMALS: no rashes or lesions noted and no wounds GENERAL SKIN EXAM: no rashes or lesions noted Course Reevaluation(s): Reevaluation #1: I was able to speak with his as well as his son. His son has DURABLE POWER OF VICE PRESIDENT OF ENGINEERING for the patient. They relate that he has had a progressive decline over the past 2 months since his last hospitalizations despite attempts at intervention at home. He is poor about drinking and eating and is difficult to care for at home. There is been no trauma or falls or other significant events other than his steady decline. Their wishes at this point are to determine if he needs any additional evaluation and perhaps having him evaluated for possible long-term care admission. Time: 21:45 Consultations: Consultation #1: Discussed case with attending hospitalist. Given the fact that has had a slow decline without any obvious source has had an extensive work-up I think we are faced with admission for sr. social media & mobile manager involvement and long-term care facility placement which is in concert with the family's wishes at this time. He agreed to do so. Time: 21:52 Vital Signs: Vital signs: Vital Signs Temperature 98.0 F 07/03/21 19:29 Pulse Rate 95 07/03/21 20:44 Respiratory Rate 18 07/03/21 20:44 Blood Pressure 107/73 07/03/21 20:44 Pulse Oximetry 89 L 07/03/21 20:44 MDM - Altered Mental Status Medical Decision Making Patient with a continued cognitive and behavioral decline with declining psychomotor skills over this the last 2 or more months. He had extensive work- up in April which was unrevealing for any reversible causes at that time. He has now presented back to the emergency department accompanied by both spouse a nd son who has DURABLE POWER OF VICE PRESIDENT OF ENGINEERING. His work-up this evening is unrevealing for any obvious reversible cause of his condition. He has seemingly responded a little bit more after receiving hydration in the emergency department. He does have an anemia which is in explicable at this time but not likely the cause of his current status. His TSH is slightly elevated but again unlikely to be related to his current status. Discussed with the hospitalist and discussed that the family's wishes are geared more towards continued long- term care as they cannot care for him adequately at home and provide any rehabilitative services. Differential Diagnosis Likely dementia Medical Records I reviewed the patient's medical records. Lab Data I reviewed the patient's lab results. : 07/03/21 20:10 07/03/21 20:10 Radiology Impressions Chest X-Ray 07/03/21 19:38 IMPRESSION: 1. Negative for infiltrate. 2. Emphysematous changes. 3. Left costophrenic angle somewhat excluded from field of view. Head CT 07/03/21 19:38 IMPRESSION: 1. Negative for intracranial hemorrhage or mass effect. 2. Mild to moderate diffuse white matter disease, similar to prior exam. 3. Paranasal sinus opacifications. Laboratory Results WBC 8.3 10^3/uL (4.0-10.0) 07/03/21 20:10 RBC 3.27 10^6/uL (4.1-5.3) L 07/03/21 20:10 Hgb 11.2 g/dL (11.7-16.6) L 07/03/21 20:10 Hct 34.3 % (42.0-52.0) L 07/03/21 20:10 MCV 104.9 fl (80-94) H 07/03/21 20:10 MCH 34.3 pg (28.0-34.0) H 07/03/21 20:10 MCHC 32.7 g/dL (30.0-36.0) 07/03/21 20:10 RDW 15.9 % (12.1-15.1) H 07/03/21 20:10 Plt Count 160 10^3/cmm (130-400) 07/03/21 20:10 MPV 10.6 fL (7.4-10.4) H 07/03/21 20:10 Neut % (Auto) 77.5 % 07/03/21 20:10 Lymph % (Auto) 14.3 % 07/03/21 20:10 [place] % (Auto) 7.1 % 07/03/21 20:10 Eos % (Auto) 0.2 % 07/03/21 20:10 Baso % (Auto) 0.2 % 07/03/21 20:10 Neut # (Auto) 6.46 10^3/uL (1.8-7.7) 07/03/21 20:10 Lymph # (Auto) 1.2 10^3/uL (0.8-4.8) 07/03/21 20:10 [place] # (Auto) 0.6 10^3/uL (0.2-0.9) 07/03/21 20:10 Eos # (Auto) 0.0 10^3/uL (0.0-0.8) 07/03/21 20:10 Baso # (Auto) 0.0 10^3/uL (0.0-0.1) 07/03/21 20:10 Nucleated RBC % (auto) 0 % 07/03/21 20:10 Nucleated RBCs # 0.0 /100WBC 07/03/21 20:10 Sodium 143 mmol/L (136-145) 07/03/21 20:10 Potassium 3.5 mmol/L (3.5-5.1) 07/03/21 20:10 Chloride 105 mmol/L (98-107) 07/03/21 20:10 Carbon Dioxide 27 mmol/L (22-29) 07/03/21 20:10 Anion Gap 14.5 (5-19) 07/03/21 20:10 BUN 11 mg/dL (6-20) 07/03/21 20:10 Creatinine 0.9 mg/dL (0.7-1.2) 07/03/21 20:10 GFR Calculation 86.4 mL/min (90-130) L 07/03/21 20:10 Glucose 104 mg/dL (65-115) 07/03/21 20:10 Calculated Osmolality 296 mOsm/kg (285-295) H 07/03/21 20:10 Calcium 8.1 mg/dL (8.5-10.5) L 07/03/21 20:10 Total Bilirubin 0.4 mg/dL (0.15-1.2) 07/03/21 20:10 AST 9 U/L (0-40) 07/03/21 20:10 ALT < 5 U/L (0-41) 07/03/21 20:10 Alkaline Phosphatase 79 IU/L (40-130) 07/03/21 20:10 Total Protein 6.3 g/dL (6.6-8.7) L 07/03/21 20:10 Albumin 2.7 g/dL (3.5-5.2) L 07/03/21 20:10 Globulin 3.6 g/dL (1.3-4.6) 07/03/21 20:10 TSH 4.77 uIU/mL (0.27-4.20) H 07/03/21 20:10 Urine Color Dark yellow (Yellow) 07/03/21 20:35 Urine Appearance Clear (CLEAR) 07/03/21 20:35 Urine pH 5 (5-7) 07/03/21 20:35 Ur Specific [place] 1.020 (1.005-1.030) 07/03/21 20:35 Urine Protein Trace (Negative) 07/03/21 20:35 Urine Glucose (UA) Norm (Normal) 07/03/21 20:35 Urine Ketones 1+ (Negative) H 07/03/21 20:35 Urine Blood Neg (Negative) 07/03/21 20:35 Urine Nitrate Negative (Negative) 07/03/21 20:35 Urine Bilirubin 1+ (Negative) H 07/03/21 20:35 Urine Urobilinogen 1 mg/dL (Negative) H 07/03/21 20:35 Ur Leukocyte Esterase 1+ (Negative) H 07/03/21 20:35 Urine RBC 0-4 /hpf (0-2) H 07/03/21 20:35 Urine WBC 0-4 /hpf (0-5) H 07/03/21 20:35 Ur Squamous Epith Cells 15-25 /hpf (0-5) H 07/03/21 20:35 Amorphous Sediment Not Reportable 07/03/21 20:35 Urine Bacteria 2+ /hpf (NONE) H 07/03/21 20:35 Hyaline Casts 5-10 /lpf H 07/03/21 20:35 Urine Mucus 4+ /hpf 07/03/21 20:35 Discharge Plan Discharge Patient Disposition: Placed in Observation Admit Provider: Vishal Meza Condition: Stable Prescriptions: No Action sennosides-docusate sodium [Stimulant Laxative Plus] 8.6-50 mg tablet 1 tab-cap PO BID 0RF sulfamethoxazole-trimethoprim 800-160 mg tablet 1 tab PO BID 0RF polyethylene glycol 3350 [Miralax] 17 gram/dose powder 17 g PO DAILY 0RF clozapine 25 mg tablet 25 mg PO QAM Qty: 30 11RF clozapine 100 mg tablet 250 mg PO .qhs Qty: 75 11RF divalproex 500 mg tablet extended release 24 hr 1,000 mg PO BID Qty: 120 11RF metoprolol tartrate 25 mg tablet 12.5 mg PO BID Qty: 30 11RF clozapine 25 mg tablet 25 mg PO DAILY Qty: 30 0RF clozapine 100 mg tablet 250 mg PO BID Qty: 75 0RF Coding Level of Care Code ED Replenishment Merchandising Associate for Chg Fwd Exam Comprehensive
--- NOTE | 2021-07-03 19:38 | XRR_ITS ---
PROCEDURE INFORMATION: Exam: XR Chest Exam date and time: 07/03/2021 8:14 PM Age: 61 years old Clinical indication: Other: AMS TECHNIQUE: Imaging protocol: XR of the chest. Views: 1 view. COMPARISON: CR XR chest 1V portable [id number] 04/21/2020 5:35 PM FINDINGS: Lungs: Emphysematous changes. Pleural spaces: Left costophrenic angle somewhat excluded from field of view. Heart/Mediastinum: Unremarkable. No cardiomegaly. Bones/joints: Unremarkable. XR/XR chest 1V portable [id number] IMPRESSION: 1. Negative for infiltrate. 2. Emphysematous changes. 3. Left costophrenic angle somewhat excluded from field of view.
--- NOTE | 2021-07-03 19:38 | CTR_ITS ---
PROCEDURE INFORMATION: Exam: CT Head Without Contrast Exam date and time: 07/03/2021 7:56 PM Age: 61 years old Clinical indication: Altered mental status/memory loss; Confusion or disorientation; Patient HX: Mas / progressive dementia; Additional info: AMS TECHNIQUE: Imaging protocol: Computed tomography of the head without contrast. Radiation optimization: All CT scans at this facility use at least one of these dose optimization techniques: automated exposure control; mA and/or kV adjustment per patient size (includes targeted exams where dose is matched to clinical indication); or iterative reconstruction. COMPARISON: CT head wo con* [id number] 04/21/2020 6:09 PM RADIATION DOSE METRICS: Total DLP (mGy-cm): 1074.03 FINDINGS: Brain: Mild to moderate diffuse white matter disease, similar to prior exam. Cerebral ventricles: No ventriculomegaly. Paranasal sinuses: Paranasal sinus opacifications. Mastoid air cells: Visualized mastoid air cells are well aerated. Bones/joints: Unremarkable. No acute fracture. Soft tissues: Unremarkable. CT/CT head wo con* [id number] IMPRESSION: 1. Negative for intracranial hemorrhage or mass effect. 2. Mild to moderate diffuse white matter disease, similar to prior exam. 3. Paranasal sinus opacifications.
[2021-07-03 20:23] LABS: Basophils % 0.2 %; Eosinophils % 0.2 %; Hematocrit 34.3 % (42.0-52.0); Hemoglobin 11.2 g/dL (11.7-16.6); Lymphocytes # 1.2 10^3/uL (0.8-4.8); Lymphocytes % 14.3 %; Mean Corpuscular HGB Conc 32.7 g/dL (30.0-36.0); Mean Corpuscular Hemoglobin 34.3 pg (28.0-34.0); Mean Corpuscular Volume 104.9 fl (80-94); Mean Platelet Volume 10.6 fL (7.4-10.4); Monocytes # 0.6 10^3/uL (0.2-0.9); Monocytes % 7.1 %; Neutrophils # 6.46 10^3/uL (1.8-7.7); Neutrophils % 77.5 %; Nucleated Red Blood Cells % 0 %; Platelet Count 160 10^3/cmm (130-400); Red Blood Count 3.27 10^6/uL (4.1-5.3); Red Cell Distribution Width 15.9 % (12.1-15.1); White Blood Count 8.3 10^3/uL (4.0-10.0)
[2021-07-03] MEDS: sodium chloride 0.9% 1,000 ML 999 ML IV (20:40)
[2021-07-03 20:44] VITALS: BP 107/73; PULSE 95; RESP 18; O2SAT 89
[2021-07-03 20:55] LABS: Alanine Aminotransferase < 5 U/L (0-41); Albumin Level 2.7 g/dL (3.5-5.2); Alkaline Phosphatase 79 IU/L (40-130); Anion Gap 14.5 (5-19); Aspartate Amino Transferase 9 U/L (0-40); Blood Urea Nitrogen 11 mg/dL (6-20); Calcium 8.1 mg/dL (8.5-10.5); Carbon Dioxide 27 mmol/L (22-29); Chloride 105 mmol/L (98-107); Globulin 3.6 g/dL (1.3-4.6); Glomerular Filtration Rate 86.4 mL/min (90-130); Glucose 104 mg/dL (65-115); Osmolality Calculated 296 mOsm/kg (285-295); Potassium 3.5 mmol/L (3.5-5.1); Sodium 143 mmol/L (136-145); Thyroid Stimulating Hormone 4.77 uIU/mL (0.27-4.20); Total Bilirubin 0.4 mg/dL (0.15-1.2); Total Protein 6.3 g/dL (6.6-8.7)
[2021-07-03 21:11] LABS: Blood Urine Neg (Negative); Glucose Urine UA Norm (Normal); Ketones Urine 1+ (Negative); Nitrate Urine Negative (Negative); Protein Urine Trace (Negative); Urine Appearance Clear (CLEAR); pH Urine 5 (5-7)
[2021-07-03 21:12] LABS: Add Urine Microscopic? YES; Bilirubin Urine 1+ (Negative); Leukocyte Esterase Urine 1+ (Negative); Urobilinogen Urine 1 mg/dL (Negative)
[2021-07-03 21:13] LABS: Add Urine Culture? No; Bacteria Urine 2+ /hpf; Mucus Urine 4+ /hpf; RBC Urine 0-4 /hpf (0-2); Squamous Epithelial Cell Urine 15-25 /hpf (0-5); WBC Urine 0-4 /hpf (0-5)
[2021-07-03 21:14] LABS: Urine Color Dark Yellow (Yellow)
--- NOTE | 2021-07-03 21:51 | P.HP_ITS ---
Providers/Chief Complaint Chief Complaint: AMS , baseline History of Present Illness Nathaniel Sharma Sr is a 61 year old male who was seen in the hospital April 2020 when he was transferred to another hospital for electroconvulsive therapy for catatonia resistant to medications, as per the family he was admitted for 3 months for ECT, they are not able to provide any further details, he has been bedbound, he is being spoon fed by his , came in today for generalized weakness and fatigue. As per the family his quality of life is very poor, he sleeps on the couch, every time his spoon feeds him he would cough, he was seen in [facility] yesterday, antibiotics were started for aspiration pneumonia and UTI. Family did not endorse fever, nausea, vomiting. Patient is constipated, last bowel movement was 1 week ago. He is having trouble urinating as well. No recent falls, they have not noticed facial droop, patient mostly keeps his eyes closed and would say 1 or 2 sentences mostly. Son is at the bedside, who is his power of claims attorney stating that he recently had back surgery and his mother is not able to take care of Mr. Sharma anymore and they want skilled nursing placement. They had tried to place him at [facility] where he was not accepted. Diagnosis in the ER revealed unremarkable CT head other than age-related changes, no white count, hemoglobin 11, BMP is normal, abnormal TSH, albumin is low, At the time of my evaluation patient opened his eyes for only few seconds, he mumbled a few sentences and then again closes eyes, he was able to move his upper extremities, he has no strength of lower extremities Straight cath in the ER only revealed a few mL of urine Review of Systems General: Reports: ROS unobtainable due to medical condition (Hypoactive delirium, catatonia) Medications/Allergies Home Medications Medication Instructions Recorded Confirmed Last Taken Type sennosides 8.6 mg-docusate sodium 1 tab-cap PO BID 02/17/21 06/07/21 Unknown History 50 mg tablet (Stimulant Laxative Plus) clozapine 100 mg tablet 250 mg PO .qhs #75 tab 05/30/21 06/07/21 Unknown Rx clozapine 25 mg tablet 25 mg PO QAM #30 tab 05/30/21 06/07/21 Unknown Rx divalproex 500 mg tablet,extended 1,000 mg PO BID #120 tab 05/30/21 06/07/21 Unknown Rx release 24 hr metoprolol tartrate 25 mg tablet 12.5 mg PO BID #30 tab 05/30/21 06/07/21 Unknown Rx polyethylene glycol 3350 17 17 g PO DAILY 06/07/21 06/07/21 Unknown History gram/dose oral powder (Miralax) sulfamethoxazole 800 1 tab PO BID 06/07/21 06/07/21 Unknown History mg-trimethoprim 160 mg tablet clozapine 100 mg tablet 250 mg PO BID #75 tab 06/27/21 Unknown Rx clozapine 25 mg tablet 25 mg PO DAILY #30 tab 06/27/21 Unknown Rx Allergies Allergy/AdvReac Type Severity Reaction Status Date / Time Penicillins Allergy Unknown Unknown Verified 03/21/21 09:48 PFSH Acute PFSH: Medical History (Updated 07/03/21 @ 22:22 by Vishal Meza MD) Bipolar disorder, in full remission, most recent episode manic Catatonia Cigarette nicotine dependence Erectile disorder, acquired, generalized, moderate Psychiatric care Thrombocytopenia Surgical History (Updated 07/03/21 @ 22:22 by Vishal Meza MD) Surgical history unknown Social History Smoking and tobacco status: former smoker Quit status (tobacco): considering quitting Second hand smoke exposure: No Alcohol intake: never Adopted: Yes Caregiver/support person: No Lives independently: No Household members: spouse and other Details: 2 others living at the house Housing: House Marital status: Number of children: 3 Highest education level completed: GED or Equivalent service: No Current occupational status: other Details: Disability Current occupational exposures/hazards: No Pets and animals: Yes Pets & animals: dog(s) Pets & animal details: 2 small dogs History of recent travel: Yes Details: [place] Out of state: No Out of country: No Leisure activites: fishing and other Leisure activities details: woodworking Sexually active: No Current gender identity: Male Mariah/Scientologist: [employer] Special mariah needs: No Agree to transfusion: Yes Financial difficulty paying for basics: Not Applicable Vitals/I&O/Wt Last Vital Signs Temp 98.0 F 07/03/21 19:29 Pulse 95 07/03/21 20:44 Resp 18 07/03/21 20:44 BP 107/73 07/03/21 20:44 Pulse Ox 89 L 07/03/21 20:44 Weight last 48 hrs Weight 90.718 kg Physical Exam Narrative: male He keeps his eyes closed however opens eyes spontaneously intermittently, I am not able to understand his speech, No strength of lower extremities Bruises of toes noted Distended abdomen, bowel sounds sluggish, tender hypogastric region no signs of rigidity or guarding He is on room air No acute respiratory distress S1, S2 Malnourished and dehydrated, muscle mass loss Reflexes equivocal Did not appreciate facial droop Nasal tone of voice Data : 07/03/21 20:10 07/03/21 20:10 A&P Assessment and plan (1) Weakness generalized: Status: Acute (2) Delirium due to another medical condition: Status: Suspected (3) Aspiration into airway: Status: Acute Plan Acute hypoactive delirium with underlying catatonia Cause of catatonia has not been diagnosed He was referred for electroconvulsive therapy in the past Currently on antipsychotics and antiepileptics Poor functional status at baseline Might benefit from a hospital bed and a wheelchair Family is requesting skilled nursing placement Patient is bedbound, I do not think physical therapy will be beneficial Speech therapy in the morning Concern for aspiration pneumonia however he is afebrile no leukocytosis, I will hold off on clindamycin that he was getting outpatient UA does not look abnormal, I do believe dehydration has a role to play for delirium Continue IV fluid hydration Place Barney catheter for accurate urine output, minimal output noted with straight cath Requested T4 abnormal TSH noted Patient is full code We will keep him n.p.o. until speech evaluation in the morning After speech therapy can start his p.o. medications Constipation: We will give him enema Patient does not have capacity to make decisions DPOA is his son Attestations Medical Necessity Statement*: Less than 2 midnights anticipated for management of delirium related to dehydration with underlying catatonia Time Spent in Patient Care: 40mins Coding Level of Care Code Acute Knife Edger for Chg Fwd Diagnoses Weakness generalized R53.1 Delirium due to another medical condition F05 Aspiration into airway T17.908A
[2021-07-03 22:25] LABS: Procalcitonin 0.44 ng/mL (0-0.5)
[2021-07-03 22:36] VITALS: BP 93/73; PULSE 98; RESP 18; O2SAT 98
[2021-07-03 23:09] VITALS: BP 91/68; PULSE 95; RESP 12; TEMP 36.8; O2SAT 97
[2021-07-03 23:11] VITALS: BP 91/68; PULSE 95; RESP 12; TEMP 36.8; O2SAT 97
[2021-07-03] MEDS: enoxaparin 40 mg/0.4 mL Syringe SUBCUT (23:42)
[2021-07-03] MEDS: sodium chloride 0.9% 1,000 ML 75 ML IV (23:42)
[2021-07-04] VITALS (9 sets, daily range): BP systolic 101–120; BP diastolic 68–78; PULSE 85–96; RESP 12–18; TEMP 36.4–36.8; O2SAT 94–98
[2021-07-04 00:21] LABS: Prostate Specific Antigen 0.264 ng/mL (0-4)
[2021-07-04 00:22] LABS: Free T4 Free Thyroxine 0.86 ng/dL (0.82-1.77)
[2021-07-04 05:31] LABS: Basophils % 0.3 %; Eosinophils % 0.5 %; Hematocrit 27.7 % (42.0-52.0); Hemoglobin 8.9 g/dL (11.7-16.6); Lymphocytes # 1.6 10^3/uL (0.8-4.8); Lymphocytes % 27.6 %; Mean Corpuscular HGB Conc 32.1 g/dL (30.0-36.0); Mean Corpuscular Volume 105.7 fl (80-94); Mean Platelet Volume 10.8 fL (7.4-10.4); Monocytes # 0.4 10^3/uL (0.2-0.9); Monocytes % 6.4 %; Neutrophils # 3.79 10^3/uL (1.8-7.7); Neutrophils % 64.4 %; Nucleated Red Blood Cells % 0 %; Platelet Count 148 10^3/cmm (130-400); Red Blood Count 2.62 10^6/uL (4.1-5.3); Red Cell Distribution Width 15.9 % (12.1-15.1); White Blood Count 5.9 10^3/uL (4.0-10.0)
[2021-07-04 05:48] LABS: Anion Gap 11.3 (5-19); Blood Urea Nitrogen 11 mg/dL (6-20); Calcium 7.3 mg/dL (8.5-10.5); Carbon Dioxide 26 mmol/L (22-29); Chloride 109 mmol/L (98-107); Glomerular Filtration Rate 170.2 mL/min (90-130); Glucose 82 mg/dL (65-115); Osmolality Calculated 294 mOsm/kg (285-295); Potassium 3.3 mmol/L (3.5-5.1); Sodium 143 mmol/L (136-145)
[2021-07-04] MEDS: Fleet Enema 133 mL Enema PR (06:15)
--- NOTE | 2021-07-04 12:08 | PC.PHAR ---
pts clemencia [phone] verified pts medications-states the only medications he takes are the medications entered-ext med history shows trazodone 50mg hs,medroxyprogesterone 2.5mg daily,hydroxyzine hcl 50mg daily,aspirin 81mg bid,losartan 25mg daily,colace 100mg tid,lisinopril 5mg daily,ziprasidone 40mg bid, ziprasidone 60mg bid and proair as directed all filled on 06/29/2021 but no qty or d/s or what prescriber or what pharmacy filled pts states the pt doesnt take those medications-one of notes said pt used mail order talked to crystal from [facility] she states the pt isnt using mail order yet states something happened and pt didnt get registered back in May
[2021-07-04 14:47] LABS: Valproic Acid Level 67.6 ug/mL (50-100)
[2021-07-04] MEDS: sennosides-docusate Tablet 1 TAB PO (18:48)
[2021-07-04] MEDS: divalproex ER 500 mg Tablet (24H) 1000 MG PO (18:48)
[2021-07-04] MEDS: metoprolol tartrate 25 mg Tablet 12.5 MG PO (18:49)
--- NOTE | 2021-07-04 21:12 | PM.PN ---
Subjective Subjective: He is confused, upon entering the room case pointing at the dressing from the IV stating he need this removed. History of IV is pulled out and he is undressed himself from his gown. He is reclined in bed, covered with his sheet, gown is wet from IV fluid. Vitals/I&O/Wt Last Vital Signs Temp 97.6 F 07/04/21 19:31 Pulse 85 07/04/21 20:34 Resp 17 07/04/21 20:34 BP 112/75 07/04/21 19:31 Pulse Ox 94 07/04/21 20:34 07/04/21 07/04/21 07/04/21 06:59 14:59 22:59 Intake Total 720 / 720 Output Total 120 / 120 450 / 450 Balance -120 / 880 270 / 270 Weight last 48 hrs Weight 90.718 kg Physical Exam Const: COMMON NORMALS: alert EXAM LIMITATIONS: altered mental status GENERAL APPEARANCE: other (Allows himself to be examined) ORIENTATION/CONSCIOUSNESS: Yes awake and Yes confused HENMT: COMMON NORMALS: normocephalic, EAC's normal, Normal external nose present and moist oral mucous membranes HEAD & SCALP: normocephalic NOSE: Normal external nose present EXTERNAL AUDITORY CANAL: EAC's normal Neck/C-Spine: COMMON NORMALS: no meningeal signs Chest: CHEST: Yes Symmetrical chest wall rise Resp: COMMON NORMALS: clear to auscultation bilaterally AUSCULTATION: clear to auscultation bilaterally Cardio: COMMON NORMALS: regular rate, regular rhythm and No murmurs present (Cardio) RATE: regular rate RHYTHM: regular rhythm GI: COMMON NORMALS: Normal to inspection, nondistended, normoactive bowel sounds present, Soft to palpation and non-tender PALPATION: Yes Soft to palpation Extremity: COMMON NORMALS: no pedal edema Neuro: COMMON NORMALS: moves all extremities SENSORIUM/ORIENTATION: Yes alert MENINGEAL SIGNS: Yes no meningeal signs Psych: COMMON NORMALS: mental status grossly normal Skin: COMMON NORMALS: no wounds RASHES: no rashes Urinary Catheter Management: Barney: Cath Placed During This Visit: yes Reason for Continuing Indwelling Catheter: Other Urinary Catheter Date of Insertion: 07/03/21 Urinary Catheter Time of Insertion: 22:45 Data : 07/04/21 05:20 07/04/21 05:20 A&P Assessment and plan (1) Acute encephalopathy: Acute encephalopathy of unclear cause. He is alert, but confused, repeating this needs to be removed pointing at his IV dressing where he had pulled out his IV. He also undressed himself from scalp. He does not appear catatonic, but the origin of encephalopathy is not clear. Discussed with his . She reports that he had recently had pneumonia for which he underwent antibiotic [facility] around [facility] states that time also had fluid drained from under his lung. Discussed with her results of chest x-ray, as well as his oxygen saturations which have been good on room air. Persistent pneumonia is resolved. Unclear if he is having some persistent delirium following the acute illness. He had an admission here back in April 2020 at which time he was transferred to [facility] in [place] where his states he underwent ECT. She states that he had a fall with hip fracture, and also that he has been unable to walk since then despite it being repaired. She states that he was, however, oriented up until the recent events, denies history of dementia known to her. Denies any other changes in his medications recently. Denies also that he drinks any alcohol or has any substance abuse issues. [facility] Discussed with her other diagnostic studies, including his CT head. Currently he also does not appear to have other infection going on. He does have some anemia although cell counts are decreased across the board with hydration after noted dehydrated on presentation. His sodium is within normal limits. We are checking his valproic acid level in case supratherapeutic level may be contributing. He has no seizure-like activity. reports he has not had a bowel movement in close to a week. Received an enema. ST marino appreciated, dysphagia diet trial. Status: Acute (2) Weakness generalized: With deconditioning, recently also with pneumonia from which she had recovered appears, but has not been getting up to walk. Appears at baseline has not been walking since discharge from [facility] after ECT and hip fracture repair back in April 2020. Records requested. Case management working with family for disposition planning. Status: Acute (3) Delirium due to another medical condition: Status: Suspected (4) Aspiration into airway: Status: Acute Plan Discussed minor TSH abnormality, possible subclinical hypothyroidism. Constipation: Reported no bowel movement in close to a week. Continue bowel regimen. Consider repeat enema. Attestations Medical Necessity Statement*: Continue admission for assessment and management of acute encephalopathy, dehydration, severe constipation. Disposition planning and arrangements. Coding Level of Care Code Acute Investigation Specialist for Chg Fwd Diagnoses Weakness generalized R53.1 Delirium due to another medical condition F05 Aspiration into airway T17.908A Acute encephalopathy G93.40
[2021-07-04] MEDS: enoxaparin 40 mg/0.4 mL Syringe SUBCUT (23:43)
[2021-07-04] MEDS: sodium chloride 0.9% 1,000 ML 75 ML IV (23:43)
[2021-07-05] VITALS (8 sets, daily range): BP systolic 102–174; BP diastolic 63–137; PULSE 80–95; RESP 16–20; TEMP 36.2–36.6; O2SAT 95–97
[2021-07-05 02:05] LABS: Basophils % 0.2 %; Eosinophils # 0.1 10^3/uL (0.0-0.8); Eosinophils % 1.1 %; Hematocrit 30.6 % (42.0-52.0); Hemoglobin 9.5 g/dL (11.7-16.6); Lymphocytes # 1.2 10^3/uL (0.8-4.8); Lymphocytes % 25.4 %; Mean Corpuscular Hemoglobin 33.1 pg (28.0-34.0); Mean Corpuscular Volume 106.6 fl (80-94); Mean Platelet Volume 10.6 fL (7.4-10.4); Monocytes # 0.4 10^3/uL (0.2-0.9); Monocytes % 7.7 %; Neutrophils # 2.94 10^3/uL (1.8-7.7); Neutrophils % 64.5 %; Nucleated Red Blood Cells % 0 %; Platelet Count 166 10^3/cmm (130-400); Red Blood Count 2.87 10^6/uL (4.1-5.3); Red Cell Distribution Width 15.9 % (12.1-15.1); White Blood Count 4.6 10^3/uL (4.0-10.0)
[2021-07-05 02:24] LABS: Alanine Aminotransferase < 5 U/L (0-41); Albumin Level 2.4 g/dL (3.5-5.2); Alkaline Phosphatase 68 IU/L (40-130); Anion Gap 11.3 (5-19); Aspartate Amino Transferase 8 U/L (0-40); Blood Urea Nitrogen 9 mg/dL (6-20); Calcium 7.8 mg/dL (8.5-10.5); Carbon Dioxide 27 mmol/L (22-29); Chloride 110 mmol/L (98-107); Globulin 3.1 g/dL (1.3-4.6); Glomerular Filtration Rate 170.2 mL/min (90-130); Glucose 80 mg/dL (65-115); Osmolality Calculated 298 mOsm/kg (285-295); Potassium 3.3 mmol/L (3.5-5.1); Sodium 145 mmol/L (136-145); Total Bilirubin 0.3 mg/dL (0.15-1.2); Total Protein 5.5 g/dL (6.6-8.7)
[2021-07-05] MEDS: metoprolol tartrate 25 mg Tablet 12.5 MG PO (09:08)
[2021-07-05] MEDS: tamsulosin 0.4 mg Capsule PO (09:08)
[2021-07-05] MEDS: polyethylene glycol 3350 Pkt 17 gm PO (09:08)
[2021-07-05] MEDS: sennosides-docusate Tablet 1 TAB PO (09:09)
[2021-07-05] MEDS: cloZAPine 25 mg Tablet PO (10:38)
[2021-07-05] MEDS: divalproex Sprinkles 125 mg Capsule 500 MG PO ×2 (10:38→21:58)
[2021-07-05] MEDS: sodium chloride 0.9% 1,000 ML 75 ML IV (14:49)
--- NOTE | 2021-07-05 19:16 | PC.NURSE ---
Report to Sasha Duffy at this time.
--- NOTE | 2021-07-05 20:21 | P.PN_ITS ---
Subjective Subjective: He is more interactive today. He cannot tell me where he is or the current year. Tells me he feels stronger, but says he feels like he is in pain, but when asked where the pain is, says feels like he's being followed by pain . Vitals/I&O/Wt Last Vital Signs Temp 97.2 F L 07/05/21 19:30 Pulse 91 07/05/21 20:09 Resp 16 07/05/21 20:09 BP 122/76 07/05/21 19:30 Pulse Ox 96 07/05/21 20:09 07/05/21 07/05/21 07/05/21 06:59 14:59 22:59 Intake Total 276.25 / 996.25 2420 / 2420 720 / 3140 Output Total 425 / 875 Balance -148.75 / 121.25 2420 / 2420 720 / 3140 Physical Exam Const: COMMON NORMALS: alert EXAM LIMITATIONS: altered mental status GENERAL APPEARANCE: other (Allows himself to be examined) ORIENTATION/CONSCIOUSNESS: Yes awake and Yes confused HENMT: COMMON NORMALS: normocephalic, EAC's normal, Normal external nose present and moist oral mucous membranes HEAD & SCALP: normocephalic NOSE: Normal external nose present EXTERNAL AUDITORY CANAL: EAC's normal Neck/C-Spine: COMMON NORMALS: no meningeal signs Chest: CHEST: Yes Symmetrical chest wall rise Resp: COMMON NORMALS: clear to auscultation bilaterally AUSCULTATION: clear to auscultation bilaterally Cardio: COMMON NORMALS: regular rate, regular rhythm and No murmurs present (Cardio) RATE: regular rate RHYTHM: regular rhythm GI: COMMON NORMALS: Normal to inspection, nondistended, normoactive bowel sounds present, Soft to palpation and non-tender PALPATION: Yes Soft to palpation Extremity: COMMON NORMALS: no pedal edema Neuro: COMMON NORMALS: moves all extremities SENSORIUM/ORIENTATION: Yes alert MENINGEAL SIGNS: Yes no meningeal signs Psych: COMMON NORMALS: mental status grossly normal Skin: COMMON NORMALS: no wounds RASHES: no rashes Urinary Catheter Management: Barney: Cath Placed During This Visit: yes Reason for Continuing Indwelling Catheter: Other Urinary Catheter Date of Insertion: 07/03/21 Urinary Catheter Time of Insertion: 22:45 Data : 07/05/21 01:29 07/05/21 01:29 Micro: Microbiology 07/03/21 20:35 Urine Culture - Final Urine Catheterized A&P Assessment and plan (1) Acute encephalopathy: More alert today, more interactive. Family are stating that they had problems keeping up with hydration, and they have not been able to mobilize him. He has been sleeping on the couch. They have been trying to move him as best they can but had trouble repositioning him or chanigng his briefs. His son has been trying his best, but due to the couch backrest and limited space they are having a lot of difficulty. His also cannot read and her son had been setting up the medications for them. He has been visiting here for a week from [place]. 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 His mother is having trouble taking care of him, and states He was using a walker prior to his hospitalization with his son's assistance. But continued decline sine admission for ECT. Son states that he has not been oriented for a while and requiring significant assistance. States that his mother gets separation anxiety and would say things to help get him back home. He is not sure that she is giving him the correct medication at the right time as well as she cannot read. Son feels that him not getting the right medicines may be contributing quite a bit to his mental status changes. She also noticed today she was trying to feed him when he was not entirely awake. He is not dysphagia diet, but I have put in a request as well that he requires feeding assistance even if his is there. At this time continue IV hydration. He also has not had a bowel movement since about Easter time as per reports. We will repeat enema with milk and molasses. Valproic acid level returned normal. ST marino appreciated, dysphagia diet trial. Status: Acute (2) Weakness generalized: May benefit from restorative therapy if ends up going [facility]. With deconditioning, recently also with pneumonia from which she had recovered appears, but has not been getting up to walk. Appears at baseline has not been walking since discharge from [facility] after ECT and hip fracture repair back in April 2020. Records requested. Case management working with family for disposition planning. Status: Acute (3) Delirium due to another medical condition: Status: Suspected (4) Aspiration into airway: Recent aspiration pneumonia for which received treatment at [facility]. Status: Acute Plan Discussed minor TSH abnormality, possible subclinical hypothyroidism. Constipation: Still no BM, repeat enema. Continue bowel regimen. Attestations Medical Necessity Statement*: Continue admission for assessment of management of acute encephalopathy, dehydration, post discharge planning and arrangements. Coding Level of Care Code Acute Test Tech for Chg Fwd Diagnoses Acute encephalopathy G93.40 Weakness generalized R53.1 Delirium due to another medical condition F05 Aspiration into airway T17.906C
[2021-07-05] MEDS: cloZAPine 100 mg Tablet 250 MG PO (21:58)
[2021-07-05] MEDS: enoxaparin 40 mg/0.4 mL Syringe SUBCUT (23:21)
[2021-07-06] VITALS (8 sets, daily range): BP systolic 104–157; BP diastolic 69–79; PULSE 83–101; RESP 14–20; TEMP 36.6–37.2; O2SAT 93–98
[2021-07-06] MEDS: sodium chloride 0.9% 1,000 ML 75 ML IV ×2 (04:08→17:33)
[2021-07-06 04:57] LABS: Basophils % 0.3 %; Eosinophils % 0.6 %; Hematocrit 27.8 % (42.0-52.0); Hemoglobin 8.9 g/dL (11.7-16.6); Lymphocytes % 28.8 %; Mean Corpuscular Hemoglobin 33.6 pg (28.0-34.0); Mean Corpuscular Volume 104.9 fl (80-94); Mean Platelet Volume 10.7 fL (7.4-10.4); Monocytes # 0.3 10^3/uL (0.2-0.9); Monocytes % 7.6 %; Neutrophils # 2.19 10^3/uL (1.8-7.7); Neutrophils % 61.9 %; Nucleated Red Blood Cells % 0 %; Platelet Count 162 10^3/cmm (130-400); Red Blood Count 2.65 10^6/uL (4.1-5.3); Red Cell Distribution Width 15.9 % (12.1-15.1); White Blood Count 3.5 10^3/uL (4.0-10.0)
[2021-07-06 05:20] LABS: Anion Gap 10.7 (5-19); Blood Urea Nitrogen 6 mg/dL (6-20); Calcium 7.2 mg/dL (8.5-10.5); Carbon Dioxide 26 mmol/L (22-29); Chloride 109 mmol/L (98-107); Glomerular Filtration Rate 220.2 mL/min (90-130); Glucose 96 mg/dL (65-115); Osmolality Calculated 293 mOsm/kg (285-295); Sodium 143 mmol/L (136-145)
[2021-07-06 05:27] LABS: Potassium 2.7 mmol/L (3.5-5.1)
[2021-07-06] MEDS: potassium chloride premix 100 ML 50 MEQ IV (08:05)
[2021-07-06] MEDS: cloZAPine 25 mg Tablet PO (08:16)
[2021-07-06] MEDS: divalproex Sprinkles 125 mg Capsule 500 MG PO ×2 (08:16→17:31)
[2021-07-06] MEDS: polyethylene glycol 3350 Pkt 17 gm PO (08:17)
[2021-07-06] MEDS: potassium chloride ER 20 mEq Tablet 40 MEQ PO (08:17)
[2021-07-06] MEDS: tamsulosin 0.4 mg Capsule PO (08:17)
[2021-07-06] MEDS: metoprolol tartrate 25 mg Tablet 12.5 MG PO ×2 (08:17→17:31)
[2021-07-06] MEDS: sennosides-docusate Tablet 1 TAB PO ×2 (08:18→17:31)
--- NOTE | 2021-07-06 10:24 | PC.CHAP ---
Pastoral Care Encounter/Spiritual Assessment Type of Contact [] Declined durability technician visit [] Patient/Family/Request visit [] Outpatient visit [] Follow-up visit [] Physician referral [] Code/Alert [x] Routine visit [] Staff referral [] Actively dying [] Patient sleeping [] Family support [] [] Out of room [] Palliative care [] [] Receiving care in room [] Pre-surgical visit [] Trauma [] Long length of stay [] ICU visit [] Other: Relational/Emotional Strength [] Patient feels connected with others/family/visitors/staff [] Distress [] Loneliness/isolation [] Abandonment Spirituality of Patient [x] Person of Mariah [] Attends Zoroastrian of their Mariah [x] Believes in Prayer [] Reads Bible or Quaker materials [] There are Spiritual issues to be addressed Food Photographer Interventions [x] Prayer [x] Active listening [x] Non-anxious presence [] Spiritual/emotional support [] Crisis/trauma care [] Spiritual counseling [] Bereavement support [] Provided bereavement packet [] Provided Bible/devotional materials [] Provided toy/stuffed animal, coloring book to patient or family member [] Provided Communion [] Anointing/[place] [] Salvation [x] Completed spiritual assessment [] Other: Impact on Illness or Injury [] Angry [] Fearful [] Anxious [] Often cries [] Exhaustion [] Unable to work [] Unable to attend sikh [] Unable to walk/stand [] Unable to read [] Unable to drive [] Unable to eat/drink [] Unable to sleep [] Unable to be with family [] Patient intubated [] Other: Summary Time spent with patient
--- NOTE | 2021-07-06 19:24 | PC.NURSE ---
Report to Nightshift nurse.
--- NOTE | 2021-07-06 19:49 | P.PN_ITS ---
Subjective Subjective: Today he is more alert still, Col[place], interactive. Not oriented. Has taken off his gown. Cannot provide history. Gives basic review of systems, but unclear how reliable it is. Denies pain or discomfort. Denies trouble breathing. Vitals/I&O/Wt Last Vital Signs Temp 97.9 F 07/06/21 16:00 Pulse 84 07/06/21 16:00 Resp 17 07/06/21 16:00 BP 110/69 07/06/21 16:00 Pulse Ox 93 07/06/21 16:00 07/06/21 07/06/21 07/06/21 06:59 14:59 22:59 Intake Total 1148.75 / 4288.75 880 / 880 1400 / 2280 Output Total 600 / 600 900 / 900 900 / 1800 Balance 548.75 / 3688.75 -20 / -20 500 / 480 Physical Exam Const: COMMON NORMALS: alert EXAM LIMITATIONS: altered mental status GENERAL APPEARANCE: other (Allows himself to be examined) ORIENTATION/CONSCIOUSNESS: Yes awake and Yes confused HENMT: COMMON NORMALS: normocephalic, EAC's normal, Normal external nose present and moist oral mucous membranes HEAD & SCALP: normocephalic NOSE: Normal external nose present EXTERNAL AUDITORY CANAL: EAC's normal Neck/C-Spine: COMMON NORMALS: no meningeal signs Chest: CHEST: Yes Symmetrical chest wall rise Resp: COMMON NORMALS: clear to auscultation bilaterally AUSCULTATION: clear to auscultation bilaterally Cardio: COMMON NORMALS: regular rate, regular rhythm and No murmurs present (Cardio) RATE: regular rate RHYTHM: regular rhythm GI: COMMON NORMALS: Normal to inspection, nondistended, normoactive bowel sounds present, Soft to palpation and non-tender PALPATION: Yes Soft to palpation Extremity: COMMON NORMALS: no pedal edema Neuro: COMMON NORMALS: moves all extremities SENSORIUM/ORIENTATION: Yes alert MENINGEAL SIGNS: Yes no meningeal signs Psych: COMMON NORMALS: mental status grossly normal Skin: COMMON NORMALS: no wounds RASHES: no rashes Urinary Catheter Management: Barney: Cath Placed During This Visit: yes Reason for Continuing Indwelling Catheter: Other Urinary Catheter Date of Insertion: 07/03/21 Urinary Catheter Time of Insertion: 22:45 Data : 07/06/21 04:31 07/06/21 04:31 A&P Assessment and plan (1) Acute encephalopathy: Has been more alert, calmer, more interactive. Confused. Taking off his gown. Does not know where he is, unable to provide history. Does give basic review of systems. For now we will continue his scheduled medications as it appears he has not been receiving them at home as prescribed. He is eating. Will try to discontinue IV hydration. He is now also had a bowel movement. Continue bowel regimen. Continue disposition arrangements as his cannot care for him. Son is visiting from [place]. Family are stating that they had problems keeping up with hydration, and they have not been able to mobilize him. He has been sleeping on the couch. They have been trying to move him as best they can but had trouble repositioning him or chanigng his briefs. His son has been trying his best, but due to the couch backrest and limited space they are having a lot of difficulty. His also cannot read and her son had been setting up the medications for them. He has been visiting here for a week from [place]. 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 His mother is having trouble taking care of him, and states He was using a walker prior to his hospitalization with his son's assistance. But continued decline sine admission for ECT. Son states that he has not been oriented for a while and requiring significant assistance. States that his mother gets separation anxiety and would say things to help get him back home. He is not sure that she is giving him the correct medication at the right time as well as she cannot read. Son feels that him not getting the right medicines may be contributing quite a bit to his mental status changes. She also noticed today she was trying to feed him when he was not entirely awak e. He is not dysphagia diet, but I have put in a request as well that he requires feeding assistance even if his is there. He also has not had a bowel movement since about Easter time as per reports. We will repeat enema with milk and molasses. Valproic acid level returned normal. ST marino appreciated, dysphagia diet trial. Status: Acute (2) Weakness generalized: May benefit from restorative therapy if ends up going to half-way. With deconditioning, recently also with pneumonia from which she had recovered appear s, but has not been getting up to walk. Appears at baseline has not been walking since discharge from [facility] after ECT and hip fracture repair back in April 2020. Records requested. Case management working with family for disposition planning. Status: Acute (3) Delirium due to another medical condition: Status: Suspected (4) Aspiration into airway: Recent aspiration pneumonia for which received treatment at [facility]. Status: Acute (5) Hypokalemia: Was given replacement. Follow-up in the morning. Check magnesium. Status: Acute Plan Discussed minor TSH abnormality, possible subclinical hypothyroidism. Constipation: Still no BM, repeat enema. Continue bowel regimen. Attestations Medical Necessity Statement*: Continue admission for resumption of medications, reassessment of alteration of mental status, disposition planning and arrangements. Coding Level of Care Code Acute Leaf Conditioner Helper for Ayana Aguirre Diagnoses Acute encephalopathy G93.40 Weakness generalized R53.1 Delirium due to another medical condition F05 Aspiration into airway T17.908A Hypokalemia E87.6
[2021-07-06] MEDS: cloZAPine 100 mg Tablet 250 MG PO (21:26)
[2021-07-06] MEDS: enoxaparin 40 mg/0.4 mL Syringe SUBCUT (23:21)
[2021-07-07] VITALS (7 sets, daily range): BP systolic 93–132; BP diastolic 63–83; PULSE 91–121; RESP 16–18; TEMP 36.3–36.9; O2SAT 89–97
[2021-07-07 06:33] LABS: Basophils % 0.3 %; Eosinophils % 1.3 %; Hematocrit 29.3 % (42.0-52.0); Hemoglobin 9.1 g/dL (11.7-16.6); Lymphocytes # 0.9 10^3/uL (0.8-4.8); Lymphocytes % 29.2 %; Mean Corpuscular HGB Conc 31.1 g/dL (30.0-36.0); Mean Corpuscular Hemoglobin 33.3 pg (28.0-34.0); Mean Corpuscular Volume 107.3 fl (80-94); Mean Platelet Volume 10.6 fL (7.4-10.4); Monocytes # 0.3 10^3/uL (0.2-0.9); Monocytes % 8.7 %; Neutrophils # 1.76 10^3/uL (1.8-7.7); Neutrophils % 59.2 %; Nucleated Red Blood Cells % 0 %; Platelet Count 169 10^3/cmm (130-400); Red Blood Count 2.73 10^6/uL (4.1-5.3); Red Cell Distribution Width 16.4 % (12.1-15.1)
[2021-07-07 06:54] LABS: Anion Gap 10.2 (5-19); Blood Urea Nitrogen 3 mg/dL (6-20); Calcium 8.3 mg/dL (8.5-10.5); Carbon Dioxide 24 mmol/L (22-29); Chloride 113 mmol/L (98-107); Glomerular Filtration Rate 220.2 mL/min (90-130); Glucose 91 mg/dL (65-115); Osmolality Calculated 294 mOsm/kg (285-295); Potassium 3.2 mmol/L (3.5-5.1); Sodium 144 mmol/L (136-145)
[2021-07-07 07:03] LABS: Magnesium 1.9 mg/dL (1.7-2.3)
[2021-07-07] MEDS: potassium chloride ER 20 mEq Tablet 40 MEQ PO (09:03)
[2021-07-07] MEDS: metoprolol tartrate 25 mg Tablet 12.5 MG PO ×2 (09:03→17:25)
[2021-07-07] MEDS: divalproex Sprinkles 125 mg Capsule 500 MG PO ×2 (09:03→17:27)
[2021-07-07] MEDS: cloZAPine 25 mg Tablet PO (09:03)
[2021-07-07] MEDS: tamsulosin 0.4 mg Capsule PO (09:04)
[2021-07-07] MEDS: polyethylene glycol 3350 Pkt 17 gm PO (09:04)
[2021-07-07] MEDS: sennosides-docusate Tablet 1 TAB PO ×2 (09:04→17:25)
--- NOTE | 2021-07-07 15:47 | PC.NURSE ---
Patient had uneventful shift waiting for placement. Vitals stable. Turned Q2. Patient had two small bowel movements. Ate great for breakfast and lunch. Barney intact and clean with adequate output. Two new pressure ulcers were found and charted. Family updated. Will continue to monitor and give report to night nurse.
[2021-07-07] MEDS: cloZAPine 100 mg Tablet 250 MG PO (20:36)
--- NOTE | 2021-07-07 21:35 | P.PN_ITS ---
Subjective Subjective: He states he is doing all right today. Points to practical nursing teacher, telling me that that is his doctor. Denies pain or discomfort. He is not oriented to place or year. Vitals/I&O/Wt Last Vital Signs Temp 98.1 F 07/07/21 19:29 Pulse 94 07/07/21 20:19 Resp 18 07/07/21 20:19 BP 101/74 07/07/21 19:29 Pulse Ox 97 07/07/21 20:19 07/07/21 07/07/21 07/07/21 06:59 14:59 22:59 Intake Total 240 / 2670 1806 / 1806 Output Total 1600 / 3400 1100 / 1100 500 / 1600 Balance -1360 / -730 706 / 706 -500 / 206 Physical Exam Const: COMMON NORMALS: no acute distress and alert EXAM LIMITATIONS: altered mental status GENERAL APPEARANCE: other (Allows himself to be examined) ORIENTATION/CONSCIOUSNESS: Yes awake and Yes confused HENMT: COMMON NORMALS: normocephalic, EAC's normal, Normal external nose present and moist oral mucous membranes HEAD & SCALP: normocephalic NOSE: Normal external nose present EXTERNAL AUDITORY CANAL: EAC's normal Neck/C-Spine: COMMON NORMALS: no meningeal signs Chest: CHEST: Yes Symmetrical chest wall rise Resp: COMMON NORMALS: clear to auscultation bilaterally AUSCULTATION: clear to auscultation bilaterally Cardio: COMMON NORMALS: regular rate, regular rhythm and No murmurs present (Cardio) RATE: regular rate RHYTHM: regular rhythm GI: COMMON NORMALS: Normal to inspection, nondistended, normoactive bowel sounds present, Soft to palpation and non-tender PALPATION: Yes Soft to palpation Extremity: COMMON NORMALS: no pedal edema Neuro: COMMON NORMALS: moves all extremities SENSORIUM/ORIENTATION: Yes alert MENINGEAL SIGNS: Yes no meningeal signs Psych: COMMON NORMALS: mental status grossly normal Skin: NARRATIVE SKIN EXAM: Known wounds on heels RASHES: no rashes Urinary Catheter Management: Barney: Cath Placed During This Visit: yes Reason for Continuing Indwelling Catheter: Acute Urinary Retention or Obstruction Urinary Catheter Date of Insertion: 07/03/21 Urinary Catheter Time of Insertion: 22:45 Data : 07/07/21 05:39 07/07/21 05:39 A&P Assessment and plan (1) Acute encephalopathy: Mental status appears unchanged last several days. He is alert, interacting. Not in distress. Not oriented. Unable to provide history. Gives some very basic review of systems. Continue scheduled medications as it appears he has not been receiving them at home as prescribed. He has now also had a bowel movement. Continue bowel regimen. Continue disposition arrangements as his cannot care for him. Son is visiting from [place]. Family are stating that they had problems keeping up with hydration, and they have not been able to mobilize him. He has been sleeping on the couch. They have been trying to move him as best they can but had trouble repositioning him or chanigng his briefs. His son has been trying his best, but due to the couch backrest and limited space they are having a lot of difficulty. His also cannot read and her son had been setting up the medications for them. He has been visiting here for a week from [place]. 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 His mother is having trouble taking care of him, and states He was using a walker prior to his hospitalization with his son's assistance. But continued decline sine admission for ECT. Son states that he has not been oriented for a while and requiring significant assistance. States that his mother gets separation anxiety and would say things to help get him back home. He is not sure that she is giving him the correct medication at the right time as well as she cannot read. Son feels that him not getting the right medicines may be contributing quite a bit to his mental status changes. She also noticed today she was trying to feed him when he was not entirely awake. He is not dysphagia diet, but I have put in a request as well that he requires feeding assistance even if his is there. He also has not had a bowel movement since about Easter time as per reports. We will repeat enema with milk and molasses. Valproic acid level returned normal. ST marino appreciated, dysphagia diet trial. Status: Acute (2) Weakness generalized: May benefit from restorative therapy if ends up going to alf. With deconditioning, recently also with pneumonia from which she had recovered appears, but has not been getting up to walk. Appears at baseline has not been walking since discharge from [facility] after ECT and hip fracture repair back in April 2020. Records requested. Case management working with family for disposition planning. Status: Acute (3) Delirium due to another medical condition: Status: Suspected (4) Aspiration into airway: Recent aspiration pneumonia for which received treatment at [facility]. Status: Acute (5) Hypokalemia: Given replacement. Follow-up Status: Acute Plan Neutropenia: Some decrease in all cell lines likely from IV hydration. But appears may have underlying neutropenia, anemia. Follow-up counts. Anemia, hemoglobin with some decrease but appears as stated. Reassess. Heel wounds present on day of admission: Continue dressing changes. Discussed minor TSH abnormality, possible subclinical hypothyroidism. Constipation: Still no BM, repeat enema. Continue bowel regimen. Attestations Medical Necessity Statement*: Continue admission for assessment management of encephalopathy, follow-up on decreased blood counts, post discharge planning and arrangements, pending level 2 for placement to alf as dependent for all care and unable to care for him at home. Coding Level of Care Code Acute Film Processing Supervisor for Ayana Aguirre Diagnoses Acute encephalopathy G93.40 Weakness generalized R53.1 Delirium due to another medical condition F05 Aspiration into airway T17.908A Hypokalemia E87.6
[2021-07-07] MEDS: enoxaparin 40 mg/0.4 mL Syringe SUBCUT (23:19)
[2021-07-08] VITALS (8 sets, daily range): BP systolic 97–127; BP diastolic 65–72; PULSE 87–97; RESP 16–19; TEMP 36.6–37; O2SAT 92–96
--- NOTE | 2021-07-08 01:57 | PC.NURSE ---
Patient awoke and stated he was hungry. This RN in room and assisted patient to eat applesauce, no dysphagia noted, patient unable to move spoon to mouth independently so assistance given. Patient did consume entire applesauce. Speech disorganized and mumbled but understood. Unable to state name at this time. After eating, patient pulled blankets up and closed eyes. Bed alarm on for safety and bed in low position with bedside table and call light within reach.
--- NOTE | 2021-07-08 03:42 | PC.NURSE ---
Patient awake again requesting food. Patient given jello and pudding which patient ate all of without dysphagia, did need assistance with feeding. After eating patient closed eyes and went back to sleep. Speech is still mumbled but understood. Bed alarm activated, bedside table and call light within reach, bed in low position.
--- NOTE | 2021-07-08 05:12 | NUR.SHIFT ---
Uneventful shift. Patient did wake up requesting food throughout the night, rested in bed comfortably otherwise. Repositioning done to prevent skin breakdown, heels floated off surface. Iv remains patent and intact as does lei catheter. Disoriented and confused with mumbled speech this shift.
[2021-07-08 05:57] LABS: Basophils % 0.3 %; Eosinophils % 1.3 %; Hematocrit 27.2 % (42.0-52.0); Hemoglobin 8.5 g/dL (11.7-16.6); Lymphocytes # 1.2 10^3/uL (0.8-4.8); Lymphocytes % 38.9 %; Mean Corpuscular HGB Conc 31.3 g/dL (30.0-36.0); Mean Corpuscular Hemoglobin 33.7 pg (28.0-34.0); Mean Corpuscular Volume 107.9 fl (80-94); Mean Platelet Volume 10.3 fL (7.4-10.4); Monocytes # 0.4 10^3/uL (0.2-0.9); Monocytes % 12.1 %; Neutrophils # 1.44 10^3/uL (1.8-7.7); Neutrophils % 45.8 %; Nucleated Red Blood Cells % 0 %; Platelet Count 145 10^3/cmm (130-400); Red Blood Count 2.52 10^6/uL (4.1-5.3); Red Cell Distribution Width 17.3 % (12.1-15.1); White Blood Count 3.1 10^3/uL (4.0-10.0)
[2021-07-08 06:22] LABS: Anion Gap 11.7 (5-19); Blood Urea Nitrogen 4 mg/dL (6-20); Calcium 8.3 mg/dL (8.5-10.5); Carbon Dioxide 24 mmol/L (22-29); Chloride 111 mmol/L (98-107); Glomerular Filtration Rate 170.2 mL/min (90-130); Glucose 97 mg/dL (65-115); Osmolality Calculated 293 mOsm/kg (285-295); Potassium 3.7 mmol/L (3.5-5.1); Sodium 143 mmol/L (136-145)
[2021-07-08] MEDS: cloZAPine 25 mg Tablet PO (09:11)
[2021-07-08] MEDS: divalproex Sprinkles 125 mg Capsule 500 MG PO ×2 (09:12→17:15)
[2021-07-08] MEDS: sennosides-docusate Tablet 1 TAB PO ×2 (09:12→17:15)
[2021-07-08] MEDS: tamsulosin 0.4 mg Capsule PO (09:12)
[2021-07-08] MEDS: metoprolol tartrate 25 mg Tablet 12.5 MG PO ×2 (09:12→17:15)
[2021-07-08] MEDS: polyethylene glycol 3350 Pkt 17 gm PO (09:29)
--- NOTE | 2021-07-08 10:34 | PC.CHAP ---
Pastoral Care Encounter/Spiritual Assessment Type of Contact [] Declined openstack cloud consulting architect visit [] Patient/Family/Request visit [] Outpatient visit [] Follow-up visit [] Physician referral [] Code/Alert [x] Routine visit [] Staff referral [] Actively dying [] Patient sleeping [] Family support [] [] Out of room [] Palliative care [] [] Receiving care in room [] Pre-surgical visit [] Trauma [] Long length of stay [] ICU visit [] Other: Relational/Emotional Strength [x] Patient feels connected with others/family/visitors/staff [] Distress [] Loneliness/isolation [] Abandonment Spirituality of Patient [x] Person of Mariah [] Attends Mormonism of their Mariah [] Believes in Prayer [] Reads Bible or Orthodox materials [] There are Spiritual issues to be addressed Recreation Director Interventions [x] Prayer [] Active listening [] Non-anxious presence [] Spiritual/emotional support [] Crisis/trauma care [] Spiritual counseling [] Bereavement support [] Provided bereavement packet [] Provided Bible/devotional materials [] Provided toy/stuffed animal, coloring book to patient or family member [] Provided Communion [] Anointing/Baggs [] Salvation [x] Completed spiritual assessment [] Other: Impact on Illness or Injury [] Angry [] Fearful [] Anxious [] Often cries [] Exhaustion [] Unable to work [] Unable to attend buddhism [] Unable to walk/stand [] Unable to read [] Unable to drive [] Unable to eat/drink [] Unable to sleep [] Unable to be with family [] Patient intubated [] Other: Summary Time spent with patient 10 min
--- NOTE | 2021-07-08 15:36 | PC.NURSE ---
Patient still waiting for placement. Vitals stable. Patient still hard to wake up, needing sternal rubbing when sleeping. Patient ate all of his food this shift. Barney still intact and clean with adequate output. Q2 turns. Wound care done. Will continue to monitor and give report to night nurse.
[2021-07-08] MEDS: cloZAPine 100 mg Tablet 250 MG PO (20:08)
--- NOTE | 2021-07-08 20:25 | P.PN_ITS ---
Subjective Subjective: He is somewhat more difficult to understand today, he repeats some things that are being said, it is not clear whether he is in pain or discomfort. Appears somewhat more anxious during taking of the vital signs by nursing students. Vitals/I&O/Wt Last Vital Signs Temp 98.6 F 07/08/21 19:39 Pulse 94 07/08/21 19:39 Resp 16 07/08/21 19:39 BP 98/65 07/08/21 19:39 Pulse Ox 96 07/08/21 19:39 07/08/21 07/08/21 07/08/21 06:59 14:59 22:59 Intake Total 1640 / 3446 450 / 450 Output Total 800 / 2400 1500 / 1500 500 / 2000 Balance 840 / 1046 -1500 / -1500 -50 / -1550 Physical Exam Const: COMMON NORMALS: no acute distress and alert EXAM LIMITATIONS: altered mental status GENERAL APPEARANCE: anxious and other (Allows himself to be examined) ORIENTATION/CONSCIOUSNESS: Yes awake and Yes confused HENMT: COMMON NORMALS: normocephalic, EAC's normal, Normal external nose present and moist oral mucous membranes HEAD & SCALP: normocephalic NOSE: Normal external nose present EXTERNAL AUDITORY CANAL: EAC's normal Neck/C-Spine: COMMON NORMALS: no meningeal signs Chest: CHEST: Yes Symmetrical chest wall rise Resp: COMMON NORMALS: clear to auscultation bilaterally AUSCULTATION: clear to auscultation bilaterally Cardio: COMMON NORMALS: regular rate, regular rhythm and No murmurs present (Cardio) RATE: regular rate RHYTHM: regular rhythm GI: COMMON NORMALS: Normal to inspection, nondistended, normoactive bowel sounds present, Soft to palpation and non-tender PALPATION: Yes Soft to palpation Extremity: COMMON NORMALS: no pedal edema Neuro: COMMON NORMALS: moves all extremities SENSORIUM/ORIENTATION: Yes alert MENINGEAL SIGNS: Yes no meningeal signs Psych: COMMON NORMALS: mental status grossly normal Skin: COMMON NORMALS: no wounds NARRATIVE SKIN EXAM: Known wounds on heels RASHES: no rashes Urinary Catheter Management: Barney: Cath Placed During This Visit: yes Reason for Continuing Indwelling Catheter: Acute Urinary Retention or Obstruction Urinary Catheter Date of Insertion: 07/03/21 Urinary Catheter Time of Insertion: 22:45 Data : 07/08/21 05:14 07/08/21 05:14 A&P Assessment and plan (1) Acute encephalopathy: With noted neutropenia, decreased clozapine doses. May need to consider swit diogenes to alternative medication depending on control of symptoms. Today slightly more anxious, although may be due to a number of unfamiliar visitors to his room. He is alert, interacting. Not in distress. Not oriented. Unable to provide history. Gives some very basic review of systems. Continue bowel regimen. Continue disposition arrangements as his cannot care for him. Son is mikaeal lópez from [place]. Family are stating that they had problems keeping up with hydration, and they have not been able to mobilize him. He has been sleeping on the couch. They have been trying to move him as best they can but had trouble repositioning him or chanigng his briefs. His son has been trying his best, but due to the couch backrest and limited space they are having a lot of difficulty. His also cannot read and her son had been setting up the medications for them. He has been visiting here for a week from [place]. 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 His mother is having trouble taking care of him, and states He was using a walker prior to his hospitalization with his son's assistance. But continued decline sine admission for ECT. Son states that he has not been oriented for a while and requiring significant assistance. States that his mother gets separation anxiety and would say things to help get him back home. He is not sure that she is giving him the correct medication at the right time as well as she cannot read. Son feels that him not getting the right medicines may be contributing quite a bit to his mental status changes. She also noticed today she was trying to feed him when he was not entirely awake. He is not dysphagia diet, but I have put in a request as well that he requires feeding assistance even if his is there. He also has not had a bowel movement since about Easter time as per reports. We will repeat enema with milk and molasses. Valproic acid level returned normal. ST marino appreciated, dysphagia diet trial. Status: Acute (2) Weakness generalized: May benefit from restorative therapy if ends up going to [facility]. With deconditioning, recently also with pneumonia from which she had recovered appears, but has not been getting up to walk. Appears at baseline has not been walking since discharge from [facility] after ECT and hip fracture repair back in April 2020. Records requested. Case management working with family for disposition planning. Status: Acute (3) Delirium due to another medical condition: Status: Suspected (4) Aspiration into airway: Recent aspiration pneumonia for which received treatment at [facility]. Status: Acute (5) Hypokalemia: Given replacement. Follow-up Status: Acute Plan Neutropenia: Decrease clozapine dose. Monitor while medication adjusted. Some decrease in all cell lines likely from IV hydration. Follow-up counts. Anemia, hemoglobin with some decrease but appears as stated. Reassess. Heel wounds present on day of admission: Continue dressing changes. Discussed minor TSH abnormality, possible subclinical hypothyroidism. Constipation: Still no BM, repeat enema. Continue bowel regimen. Attestations Medical Necessity Statement*: Continue admission for assessment of management of acute encephalopathy, neutropenia, taper off clozapine assessment for possible need of switch to another antipsychotic agent. Disposition planning and arrangements. Coding Level of Care Code Acute Body Make Up Artist for [facility] Fwd Diagnoses Acute encephalopathy G93.40 Weakness generalized R53.1 Delirium due to another medical condition F05 Aspiration into airway T17.908A Hypokalemia E87.6
[2021-07-08] MEDS: enoxaparin 40 mg/0.4 mL Syringe SUBCUT (23:04)
[2021-07-09] VITALS (7 sets, daily range): BP systolic 101–149; BP diastolic 65–74; PULSE 83–92; RESP 16–19; TEMP 36.8; O2SAT 93–97
--- NOTE | 2021-07-09 05:14 | NUR.SHIFT ---
Patient not oriented this shift. Unable to state name. Did have conversations which were disorganized, speech mumbled but understood. No signs of pain assessed. Repositioning done to prevent further skin breakdown with heels floated off surface and with optifoam dressings in place bilaterally. Dressings secured with kerlix around foot as they kept rolling/coming off patient's heels. No dyspagia noted with crushed pills in apple sauce. Both lei and Iv in left arm are patent and intact. No BM this shift.
[2021-07-09 05:22] LABS: Basophils % 0.4 %; Eosinophils # 0.1 10^3/uL (0.0-0.8); Eosinophils % 1.2 %; Hematocrit 31.8 % (42.0-52.0); Hemoglobin 10.2 g/dL (11.7-16.6); Lymphocytes # 1.5 10^3/uL (0.8-4.8); Lymphocytes % 31.4 %; Mean Corpuscular HGB Conc 32.1 g/dL (30.0-36.0); Mean Platelet Volume 10.9 fL (7.4-10.4); Monocytes # 0.5 10^3/uL (0.2-0.9); Monocytes % 10.4 %; Neutrophils # 2.73 10^3/uL (1.8-7.7); Neutrophils % 55.8 %; Nucleated Red Blood Cells % 0 %; Platelet Count 163 10^3/cmm (130-400); Red Cell Distribution Width 17.7 % (12.1-15.1); White Blood Count 4.9 10^3/uL (4.0-10.0)
[2021-07-09 05:24] LABS: Hematocrit 32.3 % (42.0-52.0); Retic Production Index 5.98; Reticulocyte % 7.4 % (0.5-2.0)
[2021-07-09] MEDS: divalproex Sprinkles 125 mg Capsule 500 MG PO ×2 (08:35→17:18)
[2021-07-09] MEDS: tamsulosin 0.4 mg Capsule PO (08:35)
[2021-07-09] MEDS: cloZAPine 25 mg Tablet 12.5 MG PO (08:35)
[2021-07-09] MEDS: sennosides-docusate Tablet 1 TAB PO ×2 (08:35→17:17)
[2021-07-09] MEDS: metoprolol tartrate 25 mg Tablet 12.5 MG PO ×2 (08:36→17:17)
[2021-07-09] MEDS: polyethylene glycol 3350 Pkt 17 gm PO ×2 (09:15→17:23)
--- NOTE | 2021-07-09 10:58 | PC.SLP ---
Attempts have been made several times throughout the last four days to reassess the patient for diet advancement. The patient has been asleep and unable to be aroused on all attempts. Patient will be re-assessed when he is more alert.
--- NOTE | 2021-07-09 15:27 | PC.NURSE ---
Patient had uneventful shift. Bath given. Wound care done. Q2 turns. Vitals stable. Barney intact and clean with adequate output. No bowel movement. Will continue to monitor and give report to night nurse.
--- NOTE | 2021-07-09 17:07 | P.PN_ITS ---
Subjective Subjective: He appears calmer today. Asks me how I am doing. He is able to make longer statements but unable to answer more than 1 or 2 simple questions. Denies pain. Not able to tell me where he is. Vitals/I&O/Wt Last Vital Signs Temp 98.3 F 07/09/21 12:00 Pulse 83 07/09/21 15:38 Resp 17 07/09/21 15:38 BP 101/68 07/09/21 15:38 Pulse Ox 95 07/09/21 15:38 07/09/21 07/09/21 07/09/21 06:59 14:59 22:59 Intake Total 360 / 360 Output Total 600 / 2600 Balance -600 / -2150 360 / 360 Physical Exam Const: COMMON NORMALS: no acute distress and alert EXAM LIMITATIONS: altered mental status GENERAL APPEARANCE: anxious and other (Allows himself to be examined) ORIENTATION/CONSCIOUSNESS: Yes awake and Yes confused HENMT: COMMON NORMALS: normocephalic, EAC's normal, Normal external nose present and moist oral mucous membranes HEAD & SCALP: normocephalic NOSE: Normal external nose present EXTERNAL AUDITORY CANAL: EAC's normal Neck/C-Spine: COMMON NORMALS: no meningeal signs Chest: CHEST: Yes Symmetrical chest wall rise Resp: COMMON NORMALS: clear to auscultation bilaterally AUSCULTATION: clear to auscultation bilaterally Cardio: COMMON NORMALS: regular rate, regular rhythm and No murmurs present (Cardio) RATE: regular rate RHYTHM: regular rhythm GI: COMMON NORMALS: Normal to inspection, nondistended, normoactive bowel sounds present, Soft to palpation and non-tender PALPATION: Yes Soft to palpation Extremity: COMMON NORMALS: no pedal edema Neuro: COMMON NORMALS: moves all extremities SENSORIUM/ORIENTATION: Yes a lert MENINGEAL SIGNS: Yes no meningeal signs Psych: COMMON NORMALS: mental status grossly normal Skin: COMMON NORMALS: no wounds NARRATIVE SKIN EXAM: Known wounds on heels RASHES: no rashes Urinary Catheter Management: Barney: Cath Placed During This Visit: yes Reason for Continuing Indwelling Catheter: Acute Urinary Retention or Obstruction Urinary Catheter Date of Insertion: 07/03/21 Urinary Catheter Time of Insertion: 22:45 Data : 07/09/21 04:52 07/08/21 05:14 A&P Assessment and plan (1) Acute encephalopathy: Clozapine dose was decreased, he so far has tolerated this well. And with improvement in cell counts. Continue lower dose for now. Reassess mental status, blood counts. Remains alert, interacting. Not in distress. Not oriented. Unable to provide history. Gives some very basic review of systems. Continue bowel regimen. Continue disposition arrangements as his cannot care for him. Son is visiting from [place]. Family are stating that they had problems keeping up with hydration, and they have not been able to mobilize him. He has been sleeping on the couch. They have been trying to move him as best they can but had trouble repositioning him or chanigng his briefs. His son has been trying his best, but due to the couch backrest and limited space they are having a lot of difficulty. His also cannot read and her son had been setting up the medications for them. He has been visiting here for a week from [place]. 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 His mother is having trouble taking care of him, and states He was using a walker prior to his hospitalization with his son's assistance. But continued decline sine admission for ECT. Son states that he has not been oriented for a while and requiring significant assistance. States that his mother gets separation anxiety and would say things to help get him back home. He is not sure that she is giving him the correct medication at the right time as well as she cannot read. Son feels that him not getting the right medicines may be contributing quite a bit to his mental status changes. She also noticed today she was trying to feed him when he was not entirely awake. He is not dysphagia diet, but I have put in a request as well that he requires feeding assistance even if his is there. He also has not had a bowel movement since about Easter time as per reports. We will repeat enema with milk and molasses. Valproic acid level returned normal. ST marino appreciated, dysphagia diet trial. Status: Acute (2) Weakness generalized: May benefit from restorative therapy if ends up going to assisted. With deconditioning, recently also with pneumonia from which she had recovered appears, but has not been getting up to walk. Appears at baseline has not been walking since discharge from [facility] after ECT and hip fracture repair back in April 2020. Records requested. Case management working with family for disposition planning. Status: Acute (3) Delirium due to another medical condition: Status: Suspected (4) Aspiration into airway: Recent aspiration pneumonia for which received treatment at [facility]. Status: Acute (5) Hypokalemia: Given replacement. Follow-up Status: Acute Plan Neutropenia: Clozapine dose decreased, cell counts today are better. Reassess mental status, blood counts. Monitor while medication adjusted. Some decrease in all cell lines likely from IV hydration. Anemia, hemoglobin with some decrease but appears as stated. Reassess. Heel wounds present on day of admission: Continue dressing changes. Discussed minor TSH abnormality, possible subclinical hypothyroidism. Constipation: Continue bowel regimen. Attestations Medical Necessity Statement*: Continue admission for adjustment of antipsychotic dose, reassessment of cytopenias, disposition planning and arrang ements. Coding Level of Care Code Acute Packaging Specialist for Chg Fwd Diagnoses Acute encephalopathy G93.40 Weakness generalized R53.1 Delirium due to another medical condition F05 Aspiration into airway T17.908A Hypokalemia E87.6
[2021-07-09] MEDS: cloZAPine 25 mg Tablet PO (20:19)
[2021-07-09] MEDS: cloZAPine 100 mg Tablet PO (20:19)
[2021-07-09] MEDS: enoxaparin 40 mg/0.4 mL Syringe SUBCUT (23:09)
[2021-07-10] VITALS (9 sets, daily range): BP systolic 96–131; BP diastolic 62–77; PULSE 82–89; RESP 16–19; TEMP 36.4–36.7; O2SAT 94–97
[2021-07-10 05:10] LABS: Basophils % 0.3 %; Eosinophils # 0.1 10^3/uL (0.0-0.8); Eosinophils % 1.4 %; Hematocrit 30.8 % (42.0-52.0); Hemoglobin 9.2 g/dL (11.7-16.6); Lymphocytes # 1.5 10^3/uL (0.8-4.8); Lymphocytes % 42.4 %; Mean Corpuscular HGB Conc 29.9 g/dL (30.0-36.0); Mean Corpuscular Hemoglobin 33.3 pg (28.0-34.0); Mean Corpuscular Volume 111.6 fl (80-94); Mean Platelet Volume 10.3 fL (7.4-10.4); Monocytes # 0.5 10^3/uL (0.2-0.9); Monocytes % 13.5 %; Neutrophils # 1.44 10^3/uL (1.8-7.7); Neutrophils % 41.5 %; Nucleated Red Blood Cells % 0 %; Platelet Count 153 10^3/cmm (130-400); Red Blood Count 2.76 10^6/uL (4.1-5.3); Red Cell Distribution Width 17.1 % (12.1-15.1); White Blood Count 3.5 10^3/uL (4.0-10.0)
[2021-07-10] MEDS: divalproex Sprinkles 125 mg Capsule 500 MG PO ×2 (09:04→16:57)
[2021-07-10] MEDS: polyethylene glycol 3350 Pkt 17 gm PO ×2 (09:04→16:56)
[2021-07-10] MEDS: cloZAPine 25 mg Tablet 12.5 MG PO (09:04)
[2021-07-10] MEDS: tamsulosin 0.4 mg Capsule PO (09:05)
[2021-07-10] MEDS: metoprolol tartrate 25 mg Tablet 12.5 MG PO ×2 (09:05→16:56)
[2021-07-10] MEDS: sennosides-docusate Tablet 1 TAB PO ×2 (09:05→16:57)
--- NOTE | 2021-07-10 13:03 | P.PN_ITS ---
Subjective Subjective: He request to take of his shoes , referring to heel protectors. Discussed with him the purpose of those, asked him to keep them on. Not oriented to place or time. Vitals/I&O/Wt Last Vital Signs Temp 98.0 F 07/10/21 11:55 Pulse 87 07/10/21 11:55 Resp 18 07/10/21 11:55 BP 110/71 07/10/21 11:55 Pulse Ox 95 07/10/21 11:55 07/09/21 07/10/21 07/10/21 22:59 06:59 14:59 Intake Total 720 / 1080 600 / 1680 240 / 240 Output Total 2100 / 2100 1000 / 1000 Balance 720 / 1080 -1500 / -420 -760 / -760 Physical Exam Const: COMMON NORMALS: no acute distress and alert EXAM LIMITATIONS: altered mental status GENERAL APPEARANCE: anxious and other (Allows himself to be examined) ORIENTATION/CONSCIOUSNESS: Yes awake and Yes confused HENMT: COMMON NORMALS: normocephalic, EAC's normal, Normal external nose present and moist oral mucous membranes HEAD & SCALP: normocephalic NOSE: Normal external nose present EXTERNAL AUDITORY CANAL: EAC's normal Neck/C-Spine: COMMON NORMALS: no meningeal signs Chest: CHEST: Yes Symmetrical chest wall rise Resp: COMMON NORMALS: clear to auscultation bilaterally AUSCULTATION: clear to auscultation bilaterally Cardio: COMMON NORMALS: regular rate, regular rhythm and No murmurs present (Cardio) RATE: regular rate RHYTHM: regular rhythm GI: COMMON NORMALS: Normal to inspection, nondistended, normoactive bowel sounds present, Soft to palpation and non-tender PALPATION: Yes Soft to palpation Extremity: COMMON NORMALS: no pedal edema Neuro: COMMON NORMALS: moves all extremities SENSORIUM/ORIENTATION: Yes alert MENINGEAL SIGNS: Yes no meningeal signs Psych: COMMON NORMALS: mental status grossly normal Skin: COMMON NORMALS: no wounds NARRATIVE SKIN EXAM: Known wounds on heels RASHES: no rashes Urinary Catheter Management: Barney: Cath Placed During This Visit: yes Reason for Continuing Indwelling Catheter: Acute Urinary Retention or Obstruction Urinary Catheter Date of Insertion: 07/03/21 Urinary Catheter Time of Insertion: 22:45 Data : 07/10/21 04:39 07/08/21 05:14 A&P Assessment and plan (1) Acute encephalopathy: Worsened cytopenias today. Discussed with his son. We are further decreasing clozapine dose. Continue to monitor mental status. Discussed with son we may need to add additional medication depending on his condition. Reassess mental status, blood counts. Remains alert, interacting. Not in distress. Not oriented. Unable to provide history. Gives some very basic review of systems. Continue bowel regimen. Is now having BMs after prolonged constipation. Continue disposition arrangements as his cannot care for him. Son is vi siting from [place]. Family are stating that they had problems keeping up with hydration, and they have not been able to mobilize him. He has been sleeping on the couch. They have been trying to move him as best they can but had trouble repositioning him or chanigng his briefs. His son has been trying his best, but due to the couch backrest and limited space they are having a lot of difficulty. His also cannot read and her son had been setting up the medications for them. He has been visiting here for a week from [place]. 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 His mother is having trouble taking care of him, and states He was using a walker prior to his hospitalization with his son's assistance. But continued decline sine admission for ECT. Son states that he has not been oriented for a while and requiring significant assistance. States that his mother gets separation anxiety and would say things to help get him back home. He is not sure that she is giving him the correct medication at the right time as well as she cannot read. Son feels that him not getting the right medicines may be contributing quite a bit to his mental status changes. She also noticed today she was trying to feed him when he was not entirely awake. He is not dysphagia diet, but I have put in a request as well that he requires feeding assistance even if his is there. He also has not had a bowel movement since about Easter time as per reports. We will repeat enema with milk and molasses. Valproic acid level returned normal. ST marino appreciated, dysphagia diet trial. Status: Acute (2) Weakness generalized: May benefit from restorative therapy if [facility]. With deconditioning, recently also with pneumonia from which she had recovered appears, but has not been getting up to walk. Appears at baseline has not been walking since discharge from [facility] after ECT and hip fracture repair back in April 2020. Records requested. Case management working with family for disposition planning. Status: Acute (3) Delirium due to another medical condition: Status: Suspected (4) Aspiration into airway: Recent aspiration pneumonia for which received treatment at [facility]. Status: Acute (5) Hypokalemia: Given replacement. Follow-up Status: Acute Plan Neutropenia: Again neutropenic. Decrease clozapine dose further. Reassess mental status, blood counts. Monitor while medication adjusted. Anemia, hemoglobin with some decrease but appears as stated. Reassess. Heel wounds present on day of admission: Continue dressing changes. Discussed minor TSH abnormality, possible subclinical hypothyroidism. Constipation: Continue bowel regimen. Attestations Medical Necessity Statement*: Continue admission for adjustment of antipsychotic dose with noted neutropenia. Post discharge arrangements. Coding Level of Care Code Acute Wet Process Miller for Mariog Fwd Exam Comprehensive Diagnoses Acute encephalopathy G93.40 Weakness generalized R53.1 Delirium due to another medical condition F05 Aspiration into airway T17.908A Hypokalemia E87.6
--- NOTE | 2021-07-10 16:51 | PC.NURSE ---
Call patient family member SASHA Sharma at this time and updated her.
--- NOTE | 2021-07-10 17:41 | PC.NURSE ---
placed on bedpan
--- NOTE | 2021-07-10 18:48 | PC.NURSE ---
Report to fast food shift supervisor at this time.
[2021-07-10] MEDS: cloZAPine 100 mg Tablet 75 MG PO (20:05)
[2021-07-10] MEDS: enoxaparin 40 mg/0.4 mL Syringe SUBCUT (23:15)
[2021-07-11] VITALS (8 sets, daily range): BP systolic 91–104; BP diastolic 56–69; PULSE 84–94; RESP 14–19; TEMP 36.6–37.1; O2SAT 92–97
[2021-07-11 05:13] LABS: Basophils % 0.2 %; Eosinophils # 0.1 10^3/uL (0.0-0.8); Eosinophils % 1.1 %; Hematocrit 30.1 % (42.0-52.0); Hemoglobin 9.2 g/dL (11.7-16.6); Lymphocytes # 1.6 10^3/uL (0.8-4.8); Lymphocytes % 33.7 %; Mean Corpuscular HGB Conc 30.6 g/dL (30.0-36.0); Mean Corpuscular Hemoglobin 33.5 pg (28.0-34.0); Mean Corpuscular Volume 109.5 fl (80-94); Mean Platelet Volume 10.5 fL (7.4-10.4); Monocytes # 0.7 10^3/uL (0.2-0.9); Monocytes % 14.5 %; Neutrophils # 2.34 10^3/uL (1.8-7.7); Neutrophils % 49.9 %; Nucleated Red Blood Cells % 0 %; Platelet Count 159 10^3/cmm (130-400); Red Blood Count 2.75 10^6/uL (4.1-5.3); Red Cell Distribution Width 17.1 % (12.1-15.1); White Blood Count 4.7 10^3/uL (4.0-10.0)
[2021-07-11] MEDS: polyethylene glycol 3350 Pkt 17 gm PO ×2 (07:56→17:36)
[2021-07-11] MEDS: divalproex Sprinkles 125 mg Capsule 500 MG PO ×2 (07:57→17:36)
[2021-07-11] MEDS: cloZAPine 25 mg Tablet 12.5 MG PO (07:57)
[2021-07-11] MEDS: tamsulosin 0.4 mg Capsule PO (07:57)
[2021-07-11] MEDS: sennosides-docusate Tablet 1 TAB PO ×2 (07:58→17:36)
[2021-07-11] MEDS: metoprolol tartrate 25 mg Tablet 12.5 MG PO (07:58)
--- NOTE | 2021-07-11 14:00 | P.PN_ITS ---
Subjective Subjective: Patient was seen this morning he is alert to person, not to place, not to time, he is quite drowsy this morning, does awaken to his name, but falls back asleep, according to nursing staff he was able to take his morning medications, Vitals/I&O/Wt Last Vital Signs Temp 98.7 F 07/11/21 07:57 Pulse 94 07/11/21 11:51 Resp 19 H 07/11/21 11:51 BP 95/62 07/11/21 11:51 Pulse Ox 96 07/11/21 08:00 07/10/21 07/11/21 07/11/21 22:59 06:59 14:59 Intake Total 1240 / 1480 480 / 1960 260 / 260 Output Total 900 / 1900 700 / 2600 Balance 340 / -420 -220 / -640 260 / 260 Physical Exam Const: COMMON NORMALS: no acute distress Resp: COMMON NORMALS: normal respiratory effort, No retractions, No use of a ccessory muscles and clear to auscultation bilaterally AUSCULTATION: clear to auscultation bilaterally Cardio: COMMON NORMALS: regular rate, regular rhythm, S1 normal heart sound present and S2 normal heart sound present RATE: regular rate RHYTHM: regular rhythm HEART SOUNDS: S1 normal heart sound present and S2 normal heart sound present GI: COMMON NORMALS: Normal to inspection, nondistended, normoactive bowel sounds present, Soft to palpation and non-tender PALPATION: Yes Soft to palpation Extremity: COMMON NORMALS: no pedal edema Urinary Catheter Management: Barney: Cath Placed During This Visit: yes Reason for Continuing Indwelling Catheter: Other Urinary Catheter Date of Insertion: 07/03/21 Urinary Catheter Time of Insertion: 22:45 Data : 07/11/21 04:42 07/08/21 05:14 A&P Assessment and plan (1) Acute encephalopathy: Neutropenia resolving. Hemoglobin up to 9.2, platelet count 159. Continue current clonazepam dose. Continue to monitor mental status. Discussed with son we may need to add additional medication depending on his condition. Reassess mental status, blood counts. Remains alert, interacting. Not in distress. Not oriented. Unable to provide history. Gives some very basic review of systems. Continue bowel regimen. Is now having BMs after prolonged constipation. Continue disposition arrangements as his cannot care for him. Son is visiting from [place]. Family are stating that they had problems keeping up with hydration, and they have not been able to mobilize him. He has been sleeping on the couch. They have been trying to move him as best they can but had trouble repositioning him or chanigng his briefs. His son has been trying his best, but due to the couch backrest and limited space they are having a lot of difficulty. His also cannot read and her son had been setting up the medications for them. He has been visiting here for a week from [place]. 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 His mother is having trouble taking care of him, and states He was using a walker prior to his hospitalization with his son's assistance. But continued decline sine admission for ECT. Son states that he has not been oriented for a while and requiring significant assistance. States that his mother gets separation anxiety and would say things to help get him back home. He is not sure that she is giving him the correct medication at the right time as well as she cannot read. Son feels that him not getting the right medicines may be contributing quite a bit to his mental status changes. She also noticed today she was trying to feed him when he was not entirely awake. He is not dysphagia diet, but I have put in a request as well that he re quires feeding assistance even if his is there. He also has not had a bowel movement since about Easter time as per reports. We will repeat enema with milk and molasses. Valproic acid level returned normal. ST marino appreciated, dysphagia diet trial. Status: Acute (2) Weakness generalized: May benefit from restorative therapy if ends up going to alf. With deconditioning, recently also with pneumonia from which she had recovered appears, but has not been getting up to walk. Appears at baseline has not been walking since discharge from [facility] after ECT and hip fracture repair back in April 2020. Records requested. Case management working with family for disposition planning. Status: Acute (3) Delirium due to another medical condition: Status: Suspected (4) Aspiration into airway: Recent aspiration pneumonia for which received treatment at [facility]. Status: Acute (5) Hypokalemia: Given replacement. Follow-up Status: Acute Plan Neutropenia: Resolving decrea Reassess mental status, blood counts. Monitor while medication adjusted. Anemia, hemoglobin with some decrease but appears as stated. Reassess. Heel wounds present on day of admission: Continue dressing changes. Discussed minor TSH abnormality, possible subclinical hypothyroidism. Constipation: Continue bowel regimen. Attestations Medical Necessity Statement*: Patient requires hospitalization for neutropenia, acute encephalopathy Coding Level of Care Code Acute Tool Adjuster for Chg Fwd Diagnoses Acute encephalopathy G93.40 Weakness generalized R53.1 Delirium due to another medical condition F05 Aspiration into airway T17.908A Hypokalemia E87.6
[2021-07-11] MEDS: cloZAPine 100 mg Tablet 75 MG PO (20:11)
[2021-07-11] MEDS: enoxaparin 40 mg/0.4 mL Syringe SUBCUT (22:57)
[2021-07-12] VITALS (7 sets, daily range): BP systolic 94–126; BP diastolic 62–73; PULSE 81–103; RESP 15–18; TEMP 36.4–36.7; O2SAT 91–98
[2021-07-12 06:05] LABS: Alanine Aminotransferase 6 U/L (0-41); Albumin Level 2.6 g/dL (3.5-5.2); Alkaline Phosphatase 84 IU/L (40-130); Blood Urea Nitrogen 10 mg/dL (6-20); Calcium 7.6 mg/dL (8.5-10.5); Carbon Dioxide 23 mmol/L (22-29); Chloride 108 mmol/L (98-107); Globulin 2.5 g/dL (1.3-4.6); Glomerular Filtration Rate 220.2 mL/min (90-130); Glucose 74 mg/dL (65-115); Magnesium 1.9 mg/dL (1.7-2.3); Osmolality Calculated 288 mOsm/kg (285-295); Phosphorus 3.5 mg/dL (2.5-4.5); Sodium 140 mmol/L (136-145); Total Bilirubin 0.4 mg/dL (0.15-1.2); Total Protein 5.1 g/dL (6.6-8.7)
[2021-07-12 06:08] LABS: Anion Gap 13.3 (5-19); Aspartate Amino Transferase 14 U/L (0-40); Potassium 4.3 mmol/L (3.5-5.1)
[2021-07-12] MEDS: tamsulosin 0.4 mg Capsule PO (09:45)
[2021-07-12] MEDS: cloZAPine 25 mg Tablet 12.5 MG PO (09:45)
[2021-07-12] MEDS: sennosides-docusate Tablet 1 TAB PO (09:45)
[2021-07-12] MEDS: divalproex Sprinkles 125 mg Capsule 500 MG PO ×2 (09:49→17:27)
[2021-07-12 10:53] LABS: Basophils % 0.5 %; Eosinophils # 0.1 10^3/uL (0.0-0.8); Eosinophils % 1.2 %; Lymphocytes # 1.3 10^3/uL (0.8-4.8); Lymphocytes % 30.6 %; Mean Corpuscular HGB Conc 31.4 g/dL (30.0-36.0); Mean Corpuscular Hemoglobin 33.4 pg (28.0-34.0); Mean Corpuscular Volume 106.4 fl (80-94); Mean Platelet Volume 10.7 fL (7.4-10.4); Monocytes # 0.5 10^3/uL (0.2-0.9); Monocytes % 11.6 %; Neutrophils # 2.34 10^3/uL (1.8-7.7); Neutrophils % 55.6 %; Nucleated Red Blood Cells % 0 %; Platelet Count 153 10^3/cmm (130-400); Red Blood Count 3.29 10^6/uL (4.1-5.3); Red Cell Distribution Width 16.8 % (12.1-15.1); White Blood Count 4.2 10^3/uL (4.0-10.0)
--- NOTE | 2021-07-12 14:46 | PM.PN ---
Subjective Subjective: Patient was seen this morning, he is alert, awake, he complains of his Barney catheter in place, has no other complaints Vitals/I&O/Wt Last Vital Signs Temp 97.8 F 07/12/21 12:00 Pulse 103 H 07/12/21 12:00 Resp 16 07/12/21 12:00 BP 111/73 07/12/21 12:00 Pulse Ox 95 07/12/21 12:00 07/11/21 07/12/21 07/12/21 22:59 06:59 14:59 Intake Total 840 / 1460 840 / 840 Output Total 2600 / 2600 Balance 840 / 1460 -2600 / -1140 840 / 840 Physical Exam Const: COMMON NORMALS: no acute distress Resp: COMMON NORMALS: normal respiratory effort, No retractions, No use of accessory muscles and clear to auscultation bilaterally AUSCULTATION: clear to auscultation bilaterally GI: COMMON NORMALS: Normal to inspection, nondistended, normoactive bowel sounds present, Soft to palpation and non-tender PALPATION: Yes Soft to palpation Extremity: COMMON NORMALS: no pedal edema Psych: COMMON NORMALS: mental status grossly normal Urinary Catheter Management: Barney: Cath Placed During This Visit: yes Reason for Continuing Indwelling Catheter: Accurate Measurement of Urinary Output in Critically Ill Patients Urinary Catheter Date of Insertion: 07/03/21 Urinary Catheter Time of Insertion: 22:45 Data : 07/12/21 10:45 07/12/21 05:25 A&P Assessment and plan (1) Acute encephalopathy: Neutropenia resolving. Hemoglobin up to 11, platelet count 153. Continue current clonazepam dose. Continue to monitor mental status. Discussed with son we may need to add additional medication depending on his condition. Reassess mental status, blood counts. Remains alert, interacting. Not in distress. Oriented to person. Does follow commands Continue bowel regimen. Is now having BMs after prolonged constipation. Continue disposition arrangements as his cannot care for him. Son is visiting from [place]. Family are stating that they had problems keeping up with hydration, and they have not been able to mobilize him. He has been sleeping on the couch. They have been trying to move him as best they can but had trouble repositioning him or chanigng his briefs. His son has been trying his best, but due to the couch backrest and limited space they are having a lot of difficulty. His also cannot read and her son had been setting up the medications for them. He has been visiting here for a week from [place]. 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 His mother is having trouble taking care of him, and states He was using a walker prior to his hospitalization with his son's assistance. But continued decline sine admission for ECT. Son states that he has not been oriented for a while and requiring significant assistance. States that his mother gets separation anxiety and would say things to help get him back home. He is not sure that she is giving him the correct medication at the right time as well as she cannot read. Son feels that him not getting the right medicines may be contributing quite a bit to his mental status changes. She also noticed today she was trying to feed him when he was not entirely awake. He is not dysphagia diet, but I have put in a request as well that he requires feeding assistance even if his is there. He also has not had a bowel movement since about Easter time as per reports. We will repeat enema with milk and molasses. Valproic acid level returned normal. ST marino appreciated, dysphagia diet trial. Status: Acute (2) Weakness generalized: May benefit from restorative therapy if ends up going to care home. With deconditioning, recently also with pneumonia from which she had recovered appears, but has not been getting up to walk. Appears at baseline has not been walking since discharge from [facility] after ECT and hip fracture repair back in April 2020. Records requested. Case management working with family for disposition planning. Status: Acute (3) Delirium due to another medical condition: Status: Suspected (4) Aspiration into airway: Recent aspiration pneumonia for which received treatment at [facility]. Status: Acute (5) Hypokalemia: Given replacement. Follow-up Status: Acute Plan Neutropenia: Resolving decrea Reassess mental status, blood counts. Monitor while medication adjusted. Anemia, hemoglobin with some decrease but appears as stated. Reassess. Heel wounds present on day of admission: Continue dressing changes. Discussed minor TSH abnormality, possible subclinical hypothyroidism. Constipation: Continue bowel regimen. Attestations Medical Necessity Statement*: Patient requires hospitalization for neutropenia, altered mental status Coding Level of Care Code Acute Mill Operator for Ayana Aguirre Diagnoses Acute encephalopathy G93.40 Weakness generalized R53.1 Delirium due to another medical condition F05 Aspiration into airway T17.908A Hypokalemia E87.6
[2021-07-12] MEDS: cloZAPine 100 mg Tablet 75 MG PO (20:42)
[2021-07-13] VITALS (8 sets, daily range): BP systolic 97–118; BP diastolic 61–74; PULSE 83–98; RESP 15–20; TEMP 36.6–36.9; O2SAT 93–97
[2021-07-13] MEDS: enoxaparin 40 mg/0.4 mL Syringe SUBCUT ×2 (01:06→23:11)
[2021-07-13 04:42] LABS: Basophils % 0.2 %; Eosinophils # 0.1 10^3/uL (0.0-0.8); Eosinophils % 1.1 %; Hematocrit 29.6 % (42.0-52.0); Hemoglobin 9.2 g/dL (11.7-16.6); Lymphocytes # 2.1 10^3/uL (0.8-4.8); Lymphocytes % 39.2 %; Mean Corpuscular HGB Conc 31.1 g/dL (30.0-36.0); Mean Corpuscular Hemoglobin 33.5 pg (28.0-34.0); Mean Corpuscular Volume 107.6 fl (80-94); Mean Platelet Volume 10.8 fL (7.4-10.4); Monocytes # 0.7 10^3/uL (0.2-0.9); Monocytes % 13.7 %; Neutrophils # 2.41 10^3/uL (1.8-7.7); Neutrophils % 45.4 %; Nucleated Red Blood Cells % 0 %; Platelet Count 145 10^3/cmm (130-400); Red Blood Count 2.75 10^6/uL (4.1-5.3); Red Cell Distribution Width 16.7 % (12.1-15.1); White Blood Count 5.3 10^3/uL (4.0-10.0)
[2021-07-13 05:03] LABS: Alanine Aminotransferase < 5 U/L (0-41); Albumin Level 2.3 g/dL (3.5-5.2); Alkaline Phosphatase 71 IU/L (40-130); Anion Gap 14.3 (5-19); Aspartate Amino Transferase 9 U/L (0-40); Blood Urea Nitrogen 11 mg/dL (6-20); Calcium 8.2 mg/dL (8.5-10.5); Carbon Dioxide 22 mmol/L (22-29); Chloride 110 mmol/L (98-107); Globulin 3.1 g/dL (1.3-4.6); Glomerular Filtration Rate 220.2 mL/min (90-130); Glucose 78 mg/dL (65-115); Magnesium 1.9 mg/dL (1.7-2.3); Osmolality Calculated 292 mOsm/kg (285-295); Phosphorus 3.7 mg/dL (2.5-4.5); Potassium 4.3 mmol/L (3.5-5.1); Sodium 142 mmol/L (136-145); Total Bilirubin 0.4 mg/dL (0.15-1.2); Total Protein 5.4 g/dL (6.6-8.7)
[2021-07-13] MEDS: divalproex Sprinkles 125 mg Capsule 500 MG PO ×2 (08:41→17:57)
[2021-07-13] MEDS: cloZAPine 25 mg Tablet 12.5 MG PO (08:41)
[2021-07-13] MEDS: tamsulosin 0.4 mg Capsule PO (08:41)
[2021-07-13] MEDS: sennosides-docusate Tablet 1 TAB PO (08:41)
--- NOTE | 2021-07-13 08:45 | PM.PN ---
Subjective Subjective: Patient was seen this morning, his only complaint is that he wants breakfast earlier this morning Vitals/I&O/Wt Last Vital Signs Temp 98.2 F 07/13/21 07:58 Pulse 90 07/13/21 08:00 Resp 15 07/13/21 08:00 BP 97/61 07/13/21 07:58 Pulse Ox 96 07/13/21 08:00 07/12/21 07/13/21 07/13/21 22:59 06:59 14:59 Intake Total 240 / 1080 Output Total 1400 / 1400 Balance -1160 / -320 Weight last 48 hrs Weight 81.42 kg Physical Exam Const: COMMON NORMALS: no acute distress GENERAL APPEARANCE: cooperative ORIENTATION/CONSCIOUSNESS: Yes awake and Yes oriented to person; not oriented to place and not oriented to time Resp: COMMON NORMALS: normal respiratory effort, No retractions, No use of accessory muscles and clear to auscultation bilaterally AUSCULTATION: clear to auscultation bilaterally Cardio: COMMON NORMALS: regular rate, regular rhythm, S1 normal heart sound present and S2 normal heart sound present RATE: regular rate RHYTHM: regular rhythm HEART SOUNDS: S1 normal heart sound present and S2 normal heart sound present GI: COMMON NORMALS: Normal to inspection, nondistended, normoactive bowel sounds present, Soft to palpation and non-tender PALPATION: Yes Soft to palpation Extremity: COMMON NORMALS: no pedal edema Neuro: SENSORIUM/ORIENTATION: Yes oriented to person, No oriented to place and No oriented to time Psych: COMMON NORMALS: mental status grossly normal Urinary Catheter Management: Barney: Cath Placed During This Visit: yes, but has since been removed by the nurse Reason for Continuing Indwelling Catheter: Decision to DC Catheter Urinary Catheter Date of Insertion: 07/03/21 Urinary Catheter Time of Insertion: 22:45 Date Urinary Catheter Removed: 07/12/21 Time Urinary Catheter Discontinued: 15:30 Data : 07/13/21 04:03 07/13/21 04:03 A&P Assessment and plan (1) Acute encephalopathy: Neutropenia resolving. Hemoglobin up to 11, platelet count 153. Continue current clonazepam dose. Continue to monitor mental status. Discussed with son we may need to add additional medication depending on his condition. Reassess mental status, blood counts. Remains alert, interacting. Not in distress. Oriented to person. Does follow commands Continue bowel regimen. Is now having BMs after prolonged constipation. Continue disposition arrangements as his cannot care for him. Son is visiting from [place]. Family are stating that they had problems keeping up with hydration, and they have not been able to mobilize him. He has been sleeping on the couch. They have been trying to move him as best they can but had trouble repositioning him or chanigng his briefs. His son has been trying his best, but due to the couch backrest and limited space they are having a lot of difficulty. His also cannot read and her son had been setting up the medications for them. He has been visiting here for a week from [place]. 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 His mother is having trouble taking care of him, and states He was using a walker prior to his hospitalization with his son's assistance. But continued decline sine admission for ECT. Son states that he has not been oriented for a while and requiring significant assistance. States that his mother gets separation anxiety and would say things to help get him back home. He is not sure that she is giving him the correct medication at the right time as well as she cannot read. Son feels that him not getting the right medicines may be contributing quite a bit to his mental status changes. She also noticed today she was trying to feed him when he was not entirely awake. He is not dysphagia diet, but I have put in a request as well that he requires feeding assistance even if his is there. He also has not had a bowel movement since about Easter time as per reports. We will repeat enema with milk and molasses. Valproic acid level returned normal. ST marino appreciated, dysphagia diet trial. Status: Acute (2) Weakness generalized: May benefit from restorative therapy if ends up going to prison. With deconditioning, recently also with pneumonia from which she had recovered appears, but has not been getting up to walk. Appears at baseline has not been walking since discharge from [facility] after ECT and hip fracture repair back in April 2020. Records requested. Case management working with family for disposition planning. Status: Acute (3) Delirium due to another medical condition: Status: Suspected (4) Aspiration into airway: Recent aspiration pneumonia for which received treatment at [facility]. Status: Acute (5) Hypokalemia: Given replacement. Follow-up Status: Acute Plan Neutropenia: Resolving Reassess mental status, blood counts. Monitor while medication adjusted. Anemia, hemoglobin with some decrease but appears as stated. Reassess. Heel wounds present on day of admission: Continue dressing changes. Discussed minor TSH abnormality, possible subclinical hypothyroidism. Constipation: Continue bowel regimen. Attestations Medical Necessity Statement*: Patient requires hospitalization patient requires hospitalization, for altered mental status neutropenia Coding Level of Care Code Acute Glassworker for [facility]g Fwd Diagnoses Acute encephalopathy G93.40 Weakness generalized R53.1 Delirium due to another medical condition F05 Aspiration into airway T17.908A Hypokalemia E87.6
[2021-07-13] MEDS: multivitamin therapeutic Tablet 1 TAB PO (09:43)
[2021-07-13] MEDS: cloZAPine 100 mg Tablet 75 MG PO (21:37)
[2021-07-14] VITALS (7 sets, daily range): BP systolic 93–108; BP diastolic 60–72; PULSE 83–101; RESP 15–18; TEMP 36.4–37.2; O2SAT 94–97
[2021-07-14 06:13] LABS: Basophils % 0.4 %; Eosinophils # 0.1 10^3/uL (0.0-0.8); Eosinophils % 1.1 %; Hematocrit 30.8 % (42.0-52.0); Hemoglobin 9.4 g/dL (11.7-16.6); Lymphocytes # 1.6 10^3/uL (0.8-4.8); Lymphocytes % 28.8 %; Mean Corpuscular HGB Conc 30.5 g/dL (30.0-36.0); Mean Corpuscular Hemoglobin 33.8 pg (28.0-34.0); Mean Corpuscular Volume 110.8 fl (80-94); Mean Platelet Volume 11.1 fL (7.4-10.4); Monocytes # 0.7 10^3/uL (0.2-0.9); Monocytes % 13.1 %; Neutrophils # 3.12 10^3/uL (1.8-7.7); Neutrophils % 56.1 %; Nucleated Red Blood Cells % 0 %; Platelet Count 162 10^3/cmm (130-400); Red Blood Count 2.78 10^6/uL (4.1-5.3); Red Cell Distribution Width 16.5 % (12.1-15.1); White Blood Count 5.6 10^3/uL (4.0-10.0)
[2021-07-14 06:43] LABS: Alanine Aminotransferase < 5 U/L (0-41); Albumin Level 2.2 g/dL (3.5-5.2); Alkaline Phosphatase 78 IU/L (40-130); Anion Gap 12.6 (5-19); Aspartate Amino Transferase 10 U/L (0-40); Blood Urea Nitrogen 11 mg/dL (6-20); Calcium 8.4 mg/dL (8.5-10.5); Carbon Dioxide 22 mmol/L (22-29); Chloride 109 mmol/L (98-107); Globulin 3.6 g/dL (1.3-4.6); Glomerular Filtration Rate 220.2 mL/min (90-130); Glucose 85 mg/dL (65-115); Magnesium 1.9 mg/dL (1.7-2.3); Osmolality Calculated 289 mOsm/kg (285-295); Phosphorus 3.7 mg/dL (2.5-4.5); Potassium 3.6 mmol/L (3.5-5.1); Sodium 140 mmol/L (136-145); Total Bilirubin 0.3 mg/dL (0.15-1.2); Total Protein 5.8 g/dL (6.6-8.7)
[2021-07-14] MEDS: cloZAPine 25 mg Tablet 12.5 MG PO (08:48)
[2021-07-14] MEDS: tamsulosin 0.4 mg Capsule PO (08:49)
[2021-07-14] MEDS: divalproex Sprinkles 125 mg Capsule 500 MG PO ×2 (08:49→17:35)
[2021-07-14] MEDS: multivitamin therapeutic Tablet 1 TAB PO (08:49)
--- NOTE | 2021-07-14 10:57 | P.PN_ITS ---
Subjective Subjective: Patient was seen this morning, he has no complaints except he wants double portions of all his meals, no nausea, no vomiting, no abdominal pain Vitals/I&O/Wt Last Vital Signs Temp 97.9 F 07/14/21 07:50 Pulse 85 07/14/21 07:50 Resp 15 07/14/21 07:39 BP 106/71 07/14/21 07:50 Pulse Ox 94 07/14/21 07:50 07/13/21 07/14/21 07/14/21 22:59 06:59 14:59 Intake Total 600 / 1080 420 / 1500 720 / 720 Balance 600 / -1120 420 / -700 720 / 720 Weight last 48 hrs Weight 81.012 kg Weight 81.42 kg Physical Exam Const: COMMON NORMALS: no acute distress ORIENTATION/CONSCIOUSNESS: Yes awake, Yes oriented to person and Yes oriented to place Neck/C-Spine: COMMON NORMALS: no JVD Resp: COMMON NORMALS: normal respiratory effort, No retractions, No use of accessory muscles and clear to auscultation bilaterally AUSCULTATION: clear t o auscultation bilaterally Cardio: COMMON NORMALS: no JVD, regular rate, regular rhythm, S1 normal heart sound present and S2 normal heart sound present RATE: regular rate RHYTHM: regular rhythm HEART SOUNDS: S1 normal heart sound present and S2 normal heart sound present GI: COMMON NORMALS: Normal to inspection, nondistended, normoactive bowel sounds present, Soft to palpation and non-tender PALPATION: Yes Soft to palpation Extremity: COMMON NORMALS: no pedal edema Neuro: SENSORIUM/ORIENTATION: Yes oriented to person and Yes oriented to place Urinary Catheter Management: Barney: Cath Placed During This Visit: yes, but has since been removed by the nurse Reason for Continuing Indwelling Catheter: Decision to DC Catheter Urinary Catheter Date of Insertion: 07/03/21 Urinary Catheter Time of Insertion: 22:45 Date Urinary Catheter Removed: 07/12/21 Time Urinary Catheter Discontinued: 15:30 Data : 07/14/21 05:34 07/14/21 05:34 A&P Assessment and plan (1) Acute encephalopathy: Neutropenia resolving. Hemoglobin up to 11, platelet count 153. Continue current clonazepam dose. Continue to monitor mental status. Discussed with son we may need to add additional medication depending on his condition. Reassess mental status, blood counts. Remains alert, interacting. Not in distress. Oriented to person. Does follow commands Continue bowel regimen. Is now having BMs after prolonged constipation. Continue disposition arrangements as his cannot care for him. Son is visiting from [place]. Family are stating that they had problems keeping up with hydration, and they have not been able to mobilize him. He has been sleeping on the couch. They have been trying to move him as best they can but had trouble repositioning him or chanigng his briefs. His son has been trying his best, but due to the couch backrest and limited space they are having a lot of difficulty. His also cannot read and her son had been setting up the medications for them. He has been visiting here for a week from [place]. 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 His mother is having trouble taking care of him, and states He was using a walker prior to his hospitalization with his son's assistance. But continued decline sine admission for ECT. Son states that he has not been oriented for a while and requiring significant assistance. States that his mother gets separation anxiety and would say things to help get him back home. He is not sure that she is giving him the correct medication at the right time as well as she cannot read. Son feels that him not getting the right medicines may be contributing quite a b it to his mental status changes. She also noticed today she was trying to feed him when he was not entirely awake. He is not dysphagia diet, but I have put in a request as well that he requires feeding assistance even if his is there. He also has not had a bowel movement since about Easter time as per reports. We will repeat enema with milk and molasses. Valproic acid level returned normal. ST marino appreciated, dysphagia diet trial. Status: Acute (2) Weakness generalized: May benefit from restorative therapy if ends up going to long-term. With deconditioning, recently also with pneumonia from which she had recovered appears, but has not been getting up to walk. Appears at baseline has not been walking since discharge from [facility] after ECT and hip fracture repair back in April 2020. Records requested. Case management working with family for disposition planning. Status: Acute (3) Delirium due to another medical condition: Status: Suspected (4) Aspiration into airway: Recent aspiration pneumonia for which received treatment at [facility]. Status: Acute (5) Hypokalemia: Given replacement. Follow-up Status: Acute Plan Neutropenia: Resolving Reassess mental status, blood counts. Monitor while m edication adjusted. Anemia, hemoglobin with some decrease but appears as stated. Reassess. Heel wounds present on day of admission: Continue dressing changes. Discussed minor TSH abnormality, possible subclinical hypothyroidism. Constipation: Continue bowel regimen. Attestations Medical Necessity Statement*: Patient requires hospitalization, neutropenia, anemia, thrombocytopenia, improving Coding Level of Care Code Acute Cinema Operator for [facility] Diagnoses Acute encephalopathy G93.40 Weakness generalized R53.1 Delirium due to another medical condition F05 Aspiration into airway T17.908A Hypokalemia E87.6
[2021-07-14] MEDS: sennosides-docusate Tablet 1 TAB PO (17:35)
[2021-07-14] MEDS: cloZAPine 25 mg Tablet 75 MG PO (21:43)
[2021-07-15] VITALS: BP 102/67; PULSE 83; RESP 16; TEMP 36.8; O2SAT 97
[2021-07-15] MEDS: enoxaparin 40 mg/0.4 mL Syringe SUBCUT (00:10)
[2021-07-15 04:00] VITALS: BP 109/68; PULSE 81; RESP 18; TEMP 36.6; O2SAT 98
[2021-07-15 07:27] VITALS: BP 109/71; PULSE 66; RESP 16; TEMP 36.2; O2SAT 95
[2021-07-15 08:16] VITALS: PULSE 86; RESP 16; O2SAT 95
--- NOTE | 2021-07-15 09:02 | PM.DCS ---
Discharge Providers Date of Admission: 07/05/21 11:23 Date of Discharge: July 15, 2021 Attending Provider at Admission: Vishal Meza MD Attending Provider at Discharge: Maxi Robert MD Diagnoses at Discharge Discharge Diagnosis (1) Acute encephalopathy: Status: Acute (2) Weakness generalized: Status: Acute (3) Delirium due to another medical condition: Status: Suspected (4) Aspiration into airway: Status: Acute (5) Hypokalemia: Status: Acute Reason for Visit Reason for Visit: AMS , baseline Hospital Course Hospital Course Nathaniel Sharma Sr is a 61 year old male who was seen in the hospital April 2020 when he was transferred to another hospital for electroconvulsive therapy for 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 As per the family his quality of life is very poor, he sleeps on the couch, every time his spoon feeds him he would cough, he was seen in [facility] yesterday, antibiotics were started for aspiration pneumonia and UTI.? Family did not endorse fever, nausea, vomiting.? Patient is constipated, last bowel movement was 1 week ago.? He is having trouble urinating as well.? No recent falls, they have not noticed facial droop, patient mostly keeps his eyes closed and would say 1 or 2 sentences mostly.? Son is at the bedside, who is his power of erisa attorney stating that he recently had back surgery and his mother is not able to take care of Mr. Sharma anymore and they want [facility] placement.? They had tried to place him at [facility] where he was not accepted.? Patient was admitted to [facility] for acute encephalopathy, improved with hydration, adjustment of his medications, also had concerns for aspiration pneumonia received antibiotic therapy Patient did develop neutropenia, likely secondary to clozapine, clozapine dose was adjusted. On discharge, he will be discharged on clozapine 25 mg during the day, 7 5 mg at bedtime. Subclinical hypothyroidism, recheck TSH in 6 weeks For his deconditioning, generalized weakness, initially patient's family wanted patient to go to [facility], required a level 2, however family's changed their mind, they will take him home. Physical Exam Const: COMMON NORMALS: no acute distress ORIENTATION/CONSCIOUSNESS: Yes awake, Yes oriented to person and Yes oriented to place; not oriented to time Resp: COMMON NORMALS: normal respiratory effort, No retractions, No use of accessory muscles and clear to auscultation bilaterally AUSCULTATION: clear to auscultation bilaterally Cardio: COMMON NORMALS: regular rate, regular rhythm, S1 normal heart sound present and S2 normal heart sound present RATE: regular rate RHYTHM: regular rhythm HEART SOUNDS: S1 normal heart sound present and S2 normal heart sound present GI: COMMON NORMALS: Normal to inspection, nondistended, normoactive bowel sounds present, Soft to palpation and non-tender PALPATION: Yes Soft to palpation Extremity: COMMON NORMALS: no pedal edema Neuro: SENSORIUM/ORIENTATION: Yes oriented to person, Yes oriented to place and No oriented to time Urinary Catheter Management: Barney: Cath Placed During This Visit: yes, but has since been removed by the nurse Reason for Continuing Indwelling Catheter: Decision to DC Catheter Urinary Catheter Date of Insertion: 07/03/21 Urinary Catheter Time of Insertion: 22:45 Date Urinary Catheter Removed: 07/12/21 Time Urinary Catheter Discontinued: 15:30 Discharge Data Studies Completed and Pending Completed Studies During Hospitalization Category Date Time Status CT head wo con* [id number] Urgent Cat Scan 07/03/21 19:38 Completed XR chest 1V portable [id number] Urgent Exams 07/03/21 19:38 Completed Radiology Impressions Chest X-Ray 07/03/21 19:38 IMPRESSION: 1. Negative for infiltrate. 2. Emphysematous changes. 3. Left costophrenic angle somewhat excluded from field of view. Head CT 07/03/21 19:38 IMPRESSION: 1. Negative for intracranial hemorrhage or mass effect. 2. Mild to moderate diffuse white matter disease, similar to prior exam. 3. Paranasal sinus opacifications. Laboratory Results WBC 5.6 10^3/uL (4.0-10.0) 07/14/21 05:34 Corrected WBC Cancelled 07/12/21 05:25 RBC 2.78 10^6/uL (4.1-5.3) L 07/14/21 05:34 Hgb 9.4 g/dL (11.7-16.6) L 07/14/21 05:34 Hct 30.8 % (42.0-52.0) L 07/14/21 05:34 MCV 110.8 fl (80-94) H 07/14/21 05:34 MCH 33.8 pg (28.0-34.0) 07/14/21 05:34 MCHC 30.5 g/dL (30.0-36.0) 07/14/21 05:34 RDW 16.5 % (12.1-15.1) H 07/14/21 05:34 Plt Count 162 10^3/cmm (130-400) 07/14/21 05:34 MPV 11.1 fL (7.4-10.4) H 07/14/21 05:34 Gran % Cancelled 07/12/21 05:25 Neut % (Auto) 56.1 % 07/14/21 05:34 Lymph % (Auto) 28.8 % 07/14/21 05:34 [place] % (Auto) 13.1 % 07/14/21 05:34 Eos % (Auto) 1.1 % 07/14/21 05:34 Baso % (Auto) 0.4 % 07/14/21 05:34 Reticulocyte % (Auto) 7.4 % (0.5-2.0) H 07/09/21 04:52 Neut # (Auto) 3.12 10^3/uL (1.8-7.7) 07/14/21 05:34 Lymph # (Auto) 1.6 10^3/uL (0.8-4.8) 07/14/21 05:34 [place] # (Auto) 0.7 10^3/uL (0.2-0.9) 07/14/21 05:34 Eos # (Auto) 0.1 10^3/uL (0.0-0.8) 07/14/21 05:34 Baso # (Auto) 0.0 10^3/uL (0.0-0.1) 07/14/21 05:34 Absolute Gran (auto) Cancelled 07/12/21 05:25 Nucleated RBC % (auto) 0 % 07/14/21 05:34 Nucleated RBCs # 0.0 /100WBC 07/14/21 05:34 Retic Production Index 5.98 07/09/21 04:52 Sodium 140 mmol/L (136-145) 07/14/21 05:34 Potassium 3.6 mmol/L (3.5-5.1) 07/14/21 05:34 Chloride 109 mmol/L (98-107) H 07/14/21 05:34 Carbon Dioxide 22 mmol/L (22-29) 07/14/21 05:34 Anion Gap 12.6 (5-19) 07/14/21 05:34 BUN 11 mg/dL (6-20) 07/14/21 05:34 Creatinine 0.4 mg/dL (0.7-1.2) L 07/14/21 05:34 GFR Calculation 220.2 mL/min (90-130) H 07/14/21 05:34 Glucose 85 mg/dL (65-115) 07/14/21 05:34 Calculated Osmolality 289 mOsm/kg (285-295) 07/14/21 05:34 Calcium 8.4 mg/dL (8.5-10.5) L 07/14/21 05:34 Phosphorus 3.7 mg/dL (2.5-4.5) 07/14/21 05:34 Magnesium 1.9 mg/dL (1.7-2.3) 07/14/21 05:34 Total Bilirubin 0.3 mg/dL (0.15-1.2) 07/14/21 05:34 AST 10 U/L (0-40) 07/14/21 05:34 ALT < 5 U/L (0-41) 07/14/21 05:34 Alkaline Phosphatase 78 IU/L (40-130) 07/14/21 05:34 Total Protein 5.8 g/dL (6.6-8.7) L 07/14/21 05:34 Albumin 2.2 g/dL (3.5-5.2) L 07/14/21 05:34 Globulin 3.6 g/dL (1.3-4.6) 07/14/21 05:34 Prostate Specific Ag 0.264 ng/mL (0-4) 07/03/21 20:10 Procalcitonin 0.44 ng/mL (0-0.5) 07/03/21 20:10 TSH 4.77 uIU/mL (0.27-4.20) H 07/03/21 20:10 Free T4 0.86 ng/dL (0.82-1.77) 07/03/21 20:10 Urine Color Dark yellow (Yellow) 07/03/21 20:35 Urine Appearance Clear (CLEAR) 07/03/21 20:35 Urine pH 5 (5-7) 07/03/21 20:35 Ur Specific [place] 1.020 (1.005-1.030) 07/03/21 20:35 Urine Protein Trace (Negative) 07/03/21 20:35 Urine Glucose (UA) Norm (Normal) 07/03/21 20:35 Urine Ketones 1+ (Negative) H 07/03/21 20:35 Urine Blood Neg (Negative) 07/03/21 20:35 Urine Nitrate Negative (Negative) 07/03/21 20:35 Urine Bilirubin 1+ (Negative) H 07/03/21 20:35 Urine Urobilinogen 1 mg/dL (Negative) H 07/03/21 20:35 Ur Leukocyte Esterase 1+ (Negative) H 07/03/21 20:35 Urine RBC 0-4 /hpf (0-2) H 07/03/21 20:35 Urine WBC 0-4 /hpf (0-5) H 07/03/21 20:35 Ur Squamous Epith Cells 15-25 /hpf (0-5) H 07/03/21 20:35 Amorphous Sediment Not Reportable 07/03/21 20:35 Urine Bacteria 2+ /hpf (NONE) H 07/03/21 20:35 Hyaline Casts 5-10 /lpf H 07/03/21 20:35 Urine Mucus 4+ /hpf 07/03/21 20:35 Valproic Acid 67.6 ug/mL (50-100) 07/04/21 05:20 Vitals Last Vital Signs Temp 97.2 F L 07/15/21 07:27 Pulse 86 07/15/21 08:16 Resp 16 07/15/21 08:16 BP 109/71 07/15/21 07:27 Pulse Ox 95 07/15/21 08:16 Discharge Plan Discharge Patient Disposition: Home Condition: Stable Prescriptions: New tamsulosin 0.4 mg Capsule 0.4 mg PO DAILY 30 Days Qty: 30 0RF clozapine 25 mg Tablet 12.5 mg PO DAILY 30 Days Qty: 30 0RF clozapine 25 mg Tablet 75 mg PO BEDTIME 30 Days Qty: 90 0RF divalproex 125 mg Capsule, Delayed Rel Sprinkle 500 mg PO BID 30 Days Qty: 240 0RF multivitamin with folic acid [Thera] 400 mcg Tablet 1 tab PO DAILY 30 Days Qty: 30 0RF Continued polyethylene glycol 3350 [Miralax] 17 gram/dose powder 17 g PO DAILY 0RF Discontinued divalproex 500 mg tablet extended release 24 hr 1,000 mg PO BID Qty: 120 11RF metoprolol tartrate 25 mg tablet 12.5 mg PO BID Qty: 30 11RF clozapine 25 mg tablet 25 mg PO DAILY Qty: 30 0RF clozapine 100 mg tablet 250 mg PO BID Qty: 75 0RF clindamycin HCl 150 mg capsule 600 mg PO TID 0RF Rx Instructions: for 3 days (rx filled 06/28/21) cefdinir 300 mg capsule 300 mg PO BID 0RF Rx Instructions: for 3 days (rx filled 06/28/21) Discharge Orders: Discharge Order (Routine); Ordered 07/15/21 Ordered By: Maxi Robert Other Ambulatory Orders: DME: Hospital Bed (Order) Location: None Selected Ordered By: Maxi Robert Discharge Diet: Cardiac Discharge Activity: Resume usual activity Patient Instructions: Opioid Safety Activity Restrictions/Additional Instructions: - Please follow-up with primary care provider 1 week -Please follow-up with psychiatry in 1 week Discharge Attestations Time Spent in Discharge Care*: less than 30 min Quality Metrics Clinical Quality Measures [ No reported AMI, CVA or VTE this stay] Coding Level of Care Code Acute Chg FW DC note Diagnoses Acute encephalopathy G93.40 Weakness generalized R53.1 Delirium due to another medical condition F05 Aspiration into airway T17.908A Hypokalemia E87.6
[2021-07-15] MEDS: multivitamin therapeutic Tablet 1 TAB PO (09:18)
[2021-07-15] MEDS: polyethylene glycol 3350 Pkt 17 gm PO (09:18)
[2021-07-15] MEDS: divalproex Sprinkles 125 mg Capsule 500 MG PO (09:18)
[2021-07-15] MEDS: sennosides-docusate Tablet 1 TAB PO (09:18)
[2021-07-15] MEDS: cloZAPine 25 mg Tablet 12.5 MG PO (09:19)
[2021-07-15] MEDS: tamsulosin 0.4 mg Capsule PO (09:19)
[2021-07-15 11:20] VITALS: BP 97/61; PULSE 96; RESP 16; TEMP 36.9; O2SAT 91
[2021-07-15 15:08] VITALS: BP 97/61; PULSE 96; RESP 16; TEMP 36.9; O2SAT 91
--- NOTE | 2021-07-18 08:26 | PC.NURSE ---
Patient's son called stating that his Rx had been sent to the wrong pharmacy. Meds were sent to [facility] pharmacy and patient had actually went home. I called Rx ordered by Dr. Robert in to [facility] in [place]. I called [facility] and requested cancellation of the medications transcribed on 07/15. Per their coworker, she will ensure medications have been cancelled.
== END 2021-07-15 15:09 | disposition home or self-care (01) | DRG 70 ==
LOC: ER 20:03 → MEDSURG 22:01
PROVIDERS: Internal Medicine; Admitting Provider Internal Medicine; Emergency Provider Emergency Medicine; Visit Provider Family Medicine
DX: G93.40 Encephalopathy, unspecified (principal); J69.0 Pneumonitis due to inhalation of food and vomit; F05 Delirium due to known physiological condition; N39.0 Urinary tract infection, site not specified; F03.90 Unspecified dementia, unspecified severity, without behavioral disturbance, psychotic disturbance, mood disturbance, and anxiety; F31.74 Bipolar disorder, in full remission, most recent episode manic; Z87.891 Personal history of nicotine dependence; Z74.01 Bed confinement status; K59.00 Constipation, unspecified; E86.0 Dehydration; E87.6 Hypokalemia; D70.2 Other drug-induced agranulocytosis; T42.4X5A Adverse effect of benzodiazepines, initial encounter; L89.629 Pressure ulcer of left heel, unspecified stage; L89.619 Pressure ulcer of right heel, unspecified stage; L89.611 Pressure ulcer of right heel, stage 1
CPT/HCPCS: 36415; 51702; 70450; 71045; 80048; 80053; 80164; 81001; 83735; 84100; 84145; 84153; 84439; 84443; 85014; 85025; 85045; 87086; 92526; 92610; 96360; 96372; 99285; G0378; J1650; J3480; J7030

== ENCOUNTER 2021-07-28 12:10 | Outpatient (CLI) | payer MEDICAID, SELFPAY ==
[2020-08-20 11:44] VITALS: BP 126/80; BMI 24.5
[2021-07-28 13:06] LABS: Ammonia 13 umol/L (16-60)
[2021-07-28 13:24] LABS: Folate Level 13.9 ng/mL (4.5-32.2)
[2021-07-28 13:25] LABS: Vitamin B12 934 pg/mL (232-1245)
== END 2021-07-28 12:11 | disposition home or self-care (01) ==
PROVIDERS: PCP Family Medicine; Visit Provider Psychiatry & Neurology Psychiatry
DX: Z79.899 Other long term (current) drug therapy (principal); D53.9 Nutritional anemia, unspecified
CPT/HCPCS: 36415; 82140; 82607; 82746; 99215

== ENCOUNTER → 2021-08-23 12:01 | Outpatient (BNVA) | payer MEDICAID, SELFPAY ==
[2020-08-20 11:44] VITALS: BP 126/80; BMI 24.5
== END ==
PROVIDERS: PCP Family Medicine; Visit Provider Family Medicine
DX: Z13.1 Encounter for screening for diabetes mellitus (principal); Z13.220 Encounter for screening for lipoid disorders; Z13.6 Encounter for screening for cardiovascular disorders; D53.9 Nutritional anemia, unspecified
CPT/HCPCS: 80053; 80061; 85025

== ENCOUNTER → 2021-09-06 13:51 | Outpatient (BNVA) | payer MEDICAID, SELFPAY ==
[2020-08-20 11:44] VITALS: BP 126/80; BMI 24.5
== END ==
PROVIDERS: PCP Family Medicine; Visit Provider Psychiatry & Neurology Psychiatry
DX: F31.9 Bipolar disorder, unspecified (principal); Z74.09 Other reduced mobility; Z78.9 Other specified health status; R15.9 Full incontinence of feces; R39.81 Functional urinary incontinence; F17.211 Nicotine dependence, cigarettes, in remission
CPT/HCPCS: 99214

== ENCOUNTER → 2021-09-19 13:06 | Outpatient (BNVA) | payer MEDICAID, SELFPAY ==
[2021-09-13 11:46] VITALS: BP 126/80; BMI 24.5
== END ==
PROVIDERS: PCP Family Medicine; Visit Provider Thoracic Surgery (Cardiothoracic Vascular Surgery)
DX: I96 Gangrene, not elsewhere classified (principal); L89.892 Pressure ulcer of other site, stage 2; L89.152 Pressure ulcer of sacral region, stage 2
CPT/HCPCS: 99203; 99213

== ENCOUNTER → 2021-10-19 13:23 | Outpatient (BNVA) | payer MEDICAID, SELFPAY ==
[2021-09-13 11:46] VITALS: BP 126/80; BMI 24.5
== END ==
PROVIDERS: PCP Family Medicine; Visit Provider Family Medicine
DX: Z79.899 Other long term (current) drug therapy (principal); Z74.09 Other reduced mobility; Z78.9 Other specified health status; L02.224 Furuncle of groin; F31.9 Bipolar disorder, unspecified; Z51.81 Encounter for therapeutic drug level monitoring; J44.9 Chronic obstructive pulmonary disease, unspecified
CPT/HCPCS: 85025

== ENCOUNTER 2021-10-30 17:37 | Emergency (ER) | payer MEDICAID, SELFPAY ==
[2021-09-13 11:46] VITALS: BP 126/80; BMI 24.5
[2021-10-30 17:47] VITALS: BP 121/79; PULSE 104; RESP 16; TEMP 36.6; O2SAT 99; BMI 21.2
--- NOTE | 2021-10-30 18:01 | XRR_ITS ---
PROCEDURE INFORMATION: Exam: XR Right Ankle Exam date and time: 10/30/2021 6:08 PM Age: 61 years old Clinical indication: Pain; Ankle; Right; Additional info: Pressure ulcer around lateral malleolus. TECHNIQUE: Imaging protocol: Radiologic exam of the Right ankle. Views: 3 or more views. COMPARISON: No relevant prior studies available. FINDINGS: Bones/joints: No fracture or other acute osseous abnormality. No joint narrowing, dislocation, or effusion noted. Soft tissues: No radiopaque foreign body demonstrated in the soft tissues. XR/XR ankle RT min 3V* [id number] IMPRESSION: 1. No radiopaque foreign body demonstrated in the soft tissues. 2. No acute osseous abnormality demonstrated.
--- NOTE | 2021-10-30 18:48 | ED_ITS ---
HPI - Wound/Laceration General: Chief Complaint: Wound/Laceration Stated Complaint: RIGHT ANKLE ULCER Time Seen by Provider: 10/30/21 18:01 History of Present Illness: Patient is a 61-year-old male comes to the ED with right ankle ulcer. Patient has a history of COPD, full bladder and bowel incontinence, impaired mobility and activities of daily living due to severe physical disability. He ambulates with a wheelchair and needs full assist when transferring. He has a chronic ulcer on left heel that has been seen by wound care clinic. Patient is a poor historian and gave me very limited information on wound. He thinks the ulcer on the lateral aspect of his right ankle started within the last month. It has continued to progress. He denies any other symptoms such as fever, chills, chest pain, shortness of breath, abdominal pain, nausea/vomiting. Patient says he lives at home and his and son helps take care of him. He spends most of his day laying in bed. Patient's son and mother were present in his room. Patient's son is the power of tack maker. He states that the wound on his right ankle started within the last 7 days. He states that patient has had severe physical disability and is unable to walk since he had electric shock therapy performed 2 years ago. He has been disabled and unable to ambulate for the past 2 years. He has a hospital bed at home. They are in the process of trying to get home health back out to help take care of patient. Associated symptoms: Denies chills, fever(s), nausea or vomiting Review of Systems Const: Denies: fever(s), chills or fatigue Eyes: Denies: change in vision or eye discomfort ENMT: Denies: throat pain, odynophagia, nasal discharge or nasal congestion Card: Denies: chest pain, palpitations, edema, swelling of feet/ankles, dyspnea on exertion or orthopnea Resp: Denies: dyspnea, productive cough or non-productive cough GI: Denies: abdominal pain, nausea, vomiting, diarrhea, constipation or hematochezia : Denies: flank pain, difficulty urinating, dysuria or hematuria Musc: Denies: neck pain, back pain or extremity swelling Skin/Breast: Reports: new lesions (Pressure ulcer on lateral right ankle) and lesions (Chronic ulcer on left heel); Denies: rash Neuro: Denies: headache(s), numbness in extremities or weakness in extremities PFSH ED PFSH: Medical History Bipolar disorder, in full remission, most recent episode manic Catatonia Cigarette nicotine dependence Erectile disorder, acquired, generalized, moderate Psychiatric care Thrombocytopenia Surgical History Surgical history unknown Family History Other Bipolar disorder, in full remission, most recent episode manic Social History Smoking and tobacco status: former smoker Quit status (tobacco): has quit using tobacco Year quit tobacco: 2021 Second hand smoke exposure: No Alcohol intake: never Adopted: Yes Caregiver/support person: No Lives independently: No Household members: spouse and other Details: 2 others living at the house Housing: House Marital status: Number of children: 3 Highest education level completed: GED or Equivalent service: No Current occupational status: other Details: Disability Current occupational exposures/hazards: No Pets and animals: Yes Pets & animals: dog(s) Pets & animal details: 2 small dogs History of recent travel: Yes Details: [place] Out of state: No Out of country: No Leisure activites: fishing and other Leisure activities details: woodworking Sexually active: No Current gender identity: Male Mariah/Anabaptism: Yarsanism [employer] Special mariah needs: No Agree to transfusion: Yes Financial difficulty paying for basics: Not Applicable Physical Exam Const: COMMON NORMALS: patient oriented x3 and alert GENERAL APPEARANCE: cooperative HENMT: COMMON NORMALS: normocephalic HEAD & SCALP: normocephalic MOUTH: Normal oral and palatal mucosa present THROAT: posterior oropharynx normal and uvula midline Neck/C-Spine: COMMON NORMALS: supple GENERAL: Yes normal visual inspection Resp: COMMON NORMALS: normal respiratory effort, No retractions, No use of accessory muscles and clear to auscultation bilaterally AUSCULTATION: clear to auscultation bilaterally Cardio: COMMON NORMALS: regular rate, regular rhythm, S1 normal heart sound present, S2 normal heart sound present, No gallops present (Cardio), No clicks present (Cardio), No murmurs present (Cardio) and Peripheral pulses 2+ throughout RATE: regular rate RHYTHM: regular rhythm HEART SOUNDS: S1 normal heart sound present and S2 normal heart sound present PERIPHERAL PULSES: Peripheral pulses 2+ throughout GI: COMMON NORMALS: Normal to inspection, nondistended, normoactive bowel s ounds present, Soft to palpation, non-tender and no masses PALPATION: Yes Soft to palpation : COMMON NORMALS: Yes no CVA tenderness BLADDER/KIDNEY EXAM: Yes no CVA tenderness Back/Pelvis: COMMON NORMALS: no CVA tenderness Neuro: COMMON NORMALS: patient oriented x3 SENSORIUM/ORIENTATION: Yes alert Skin: NARRATIVE SKIN EXAM: Right ankle?stage III 6 cm in diameter pressure ulcer. No surrounding erythema, warmth noted. No purulent drainage seen. Serosanguineous drainage noted. Left heel?chronic. Stage II wound. There is some necrotic tissue inside wound. Wound appears dry and no purulent drainage noted. No surrounding erythema or warmth noted. Course Vital Signs: Vital signs: Vital Signs Temperature 97.9 F 10/30/21 17:47 Pulse Rate 104 H 10/30/21 21:27 Respiratory Rate 16 10/30/21 21:27 Blood Pressure 117/82 10/30/21 21:27 Pulse Oximetry 97 10/30/21 21:27 Oxygen Delivery Me thod 10/30/21 17:47 MDM - Wound/Laceration Medical Decision Making Patient is a 61-year-old male comes to the ED with right ankle ulcer. Ulcer started approximately a week ago and has progressed. Patient has severe disability and lives at home and is taken care of by his son and . He has wheelchair for ambulation and needs full assist for transfers. He spends most of his time in bed. He has a chronic ulcer on left heel area that he sees wound care clinic for. Vitals are stable. Exam shows a right ankle stage III 6 cm diameter pressure ulcer. No surrounding erythema, warmth noted. No purulent drainage seen. Serosanguineous drainage noted. CBC and CMP are unremarkable and patient's white blood cell count is normal. CRP is elevated at 57.5. X-ray of right ankle showed no acute findings and no signs of any osteomyelitis. Patient was given dose of IV Rocephin here in the ED and I placed an order with case management for patient be referred to wound care clinic for further evaluation of new right ankle pressure ulcer. Patient was discharged home with a prescription for clindamycin. Strict return ED precautions given. Patient patient and patient's family understood and agreed with plan. Lab Data I reviewed the patient's lab results. : 10/30/21 19:02 10/30/21 19:02 Radiology Impressions Ankle X-Ray 10/30/21 18:01 IMPRESSION: 1. No radiopaque foreign body demonstrated in the soft tissues. 2. No acute osseous abnormality demonstrated. Laboratory Results WBC 5.7 10^3/uL (4.0-10.0) 10/30/21 19:02 RBC 3.94 10^6/uL (4.1-5.3) L 10/30/21 19:02 Hgb 13.2 g/dL (11.7-16.6) 10/30/21 19: Hct 40.9 % (42.0-52.0) L 10/30/21 19: MCV 103.8 fl (80-94) H 10/30/21 19:02 MCH 33.5 pg (28.0-34.0) 10/30/21 19: MCHC 32.3 g/dL (30.0-36.0) 10/30/21 19: RDW 14.1 % (12.1-15.1) 10/30/21 19:02 Plt Count 249 10^3/cmm (130-400) 10/30/21 19:02 MPV 10.5 fL (7.4-10.4) H 10/30/21 19:02 Neut % (Auto) 70.1 % 10/30/21 19: Lymph % (Auto) 23.4 % 10/30/21 19:02 [place] % (Auto) 5.8 % 10/30/21 19:02 Eos % (Auto) 0.2 % 10/30/21 19: Baso % (Auto) 0.2 % 10/30/21 19:02 Neut # (Auto) 4.02 10^3/uL (1.8-7.7) 10/30/21 19:02 Lymph # (Auto) 1.3 10^3/uL (0.8-4.8) 10/30/21 19:02 [place] # (Auto) 0.3 10^3/uL (0.2-0.9) 10/30/21 19:02 Eos # (Auto) 0.0 10^3/uL (0.0-0.8) 10/30/21 19:02 Baso # (Auto) 0.0 10^3/uL (0.0-0.1) 10/30/21 19:02 Nucleated RBC % (auto) 0 % 10/30/21 19:02 Nucleated RBCs # 0.0 /100WBC 10/30/21 19:02 Sodium 140 mmol/L (136-145) 10/30/21 19:02 Potassium 3.9 mmol/L (3.5-5.1) 10/30/21 19:02 Chloride 101 mmol/L (98-107) 10/30/21 19:02 Carbon Dioxide 27 mmol/L (22-29) 10/30/21 19:02 Anion Gap 15.9 (5-19) 10/30/21 19:02 BUN 7 mg/dL (6-20) 10/30/21 19:02 Creatinine 0.5 mg/dL (0.7-1.2) L 10/30/21 19:02 GFR Calculation 170.2 mL/min (90-130) H 10/30/21 19:02 Glucose 88 mg/dL (65-115) 10/30/21 19:02 Calculated Osmolality 287 mOsm/kg (285-295) 10/30/21 19:02 Calcium 10.0 mg/dL (8.5-10.5) 10/30/21 19:02 Total Bilirubin 0.4 mg/dL (0.15-1.2) 10/30/21 19:02 AST 7 U/L (0-40) 10/30/21 19:02 ALT < 5 U/L (0-41) 10/30/21 19:02 Alkaline Phosphatase 78 U/L (40-130) 10/30/21 19:02 C-Reactive Protein 57.5 mg/L (0.0-4.9) H 10/30/21 19:02 Total Protein 7.2 g/dL (6.6-8.7) 10/30/21 19:02 Albumin 2.9 g/dL (3.5-5.2) L 10/30/21 19:02 Globulin 4.3 g/dL (1.3-4.6) 10/30/21 19:02 Discharge Plan Discharge Patient Disposition: Home Clinical Impression: Stage III pressure ulcer of ankle Qualifiers: Laterality: right Qualified Code(s): L89.513 - Pressure ulcer of right ankle, stage 3 Condition: Stable Prescriptions: New clindamycin HCl 150 mg capsule 300 mg PO QID 7 Days Qty: 56 0RF No Action polyethylene glycol 3350 [Miralax] 17 gram/dose powder 17 g PO DAILY miscellaneous medical supply Misc See Rx Instructions miscellaneous .COMPLEX Qty: 1 0RF Rx Instructions: hospital bed with mattress, reclining miscellaneous; miscellaneous medical supply Misc See Rx Instructions miscellaneous .COMPLEX Qty: 1 0RF Rx Instructions: nebulizer mask nicotine 21 mg/24 hr patch 24 hour 1 patch transdermal Q24H Qty: 28 2RF miscellaneous medical supply Misc See Rx Instructions miscellaneous .COMPLEX Qty: 1 0RF Rx Instructions: Nebulizer with supplies (tubing, etc) miscellaneous; budesonide 0.5 mg/2 mL suspension for nebulization 0.5 mg inhalation DAILY 30 Days Qty: 60 5RF Rx Instructions: rinse mouth out after use Nicotine Patch PO miscellaneous medical supply Misc See Rx Instructions miscellaneous .COMPLEX Qty: 1 0RF Rx Instructions: Recliner with automatic lift feature miscellaneous; clozapine 25 mg tablet 75 mg PO BEDTIME 30 Days Qty: 90 5RF clozapine 25 mg tablet 12.5 mg PO DAILY 30 Days Qty: 15 5RF ipratropium-albuterol 0.5 mg-3 mg(2.5 mg base)/3 mL solution for nebulization 3 ml inhalation Q4H PRN (Reason: wheezing) 30 Days Qty: 180 2RF divalproex 500 mg tablet,delayed release (DR/EC) 500 mg PO BID Qty: 60 5RF (DME) Depend Underwear For Men L-XL Misc See Rx Instructions .Route Qty: 180 11RF Rx Instructions: As directed, size L, 6 daily (DME) Protective Pads Pad See Rx Instructions .Route Qty: 30 0RF Rx Instructions: As directed miscellaneous medical supply Misc See Rx Instructions miscellaneous .COMPLEX Qty: 1 0RF Rx Instructions: wheelchair miscellaneous; miscellaneous medical supply Misc See Rx Instructions miscellaneous .COMPLEX Qty: 1 0RF Rx Instructions: shower chair, rolling if possible miscellaneous; Discharge Orders: Discharge ED (Routine); Ordered 10/30/21 Ordered By: Bhanu Aj Referrals: Yessy Peterson MD [Primary Care Provider] - Discharge Diet: Regular Discharge Activity: Resume usual activity Patient Instructions: How to Prevent Pressure Injuries (ED), Chronic Wound Care (ED), Pressure Injury (ED), How to Help a Person Change Position Safely (DC) Activity Restrictions/Additional Instructions: Follow-up with medical provider as directed. Case management will contact you in the next several days set up an appointment with wound care clinic for further evaluation of pressure ulcer on right ankle. Take medications as prescribed. Return to the ER or your medical provider if condition worsens. Pl ease read and understand discharge instructions. Thank you for choosing [facility] for your healthcare needs today. Please realize this is an emergency room and that we are providing you with a medical screening exam and this may not be complete and all inclusive of all the testing and or work up that you may need to determine your ailment or severity of your illness. It is very important that you follow up as instructed or that you return to the Emergency Department should you have concerns or if your condition changes or worsens in any way. Coding Level of Care Code ED Longshore Equipment Operator for Ayana Aguirre Exam Detailed
[2021-10-30 19:34] LABS: Basophils % 0.2 %; Eosinophils % 0.2 %; Hematocrit 40.9 % (42.0-52.0); Hemoglobin 13.2 g/dL (11.7-16.6); Lymphocytes # 1.3 10^3/uL (0.8-4.8); Lymphocytes % 23.4 %; Mean Corpuscular HGB Conc 32.3 g/dL (30.0-36.0); Mean Corpuscular Hemoglobin 33.5 pg (28.0-34.0); Mean Corpuscular Volume 103.8 fl (80-94); Mean Platelet Volume 10.5 fL (7.4-10.4); Monocytes # 0.3 10^3/uL (0.2-0.9); Monocytes % 5.8 %; Neutrophils # 4.02 10^3/uL (1.8-7.7); Neutrophils % 70.1 %; Nucleated Red Blood Cells % 0 %; Platelet Count 249 10^3/cmm (130-400); Red Blood Count 3.94 10^6/uL (4.1-5.3); Red Cell Distribution Width 14.1 % (12.1-15.1); White Blood Count 5.7 10^3/uL (4.0-10.0)
[2021-10-30 19:55] LABS: Alanine Aminotransferase < 5 U/L (0-41); Albumin Level 2.9 g/dL (3.5-5.2); Alkaline Phosphatase 78 U/L (40-130); Anion Gap 15.9 (5-19); Aspartate Amino Transferase 7 U/L (0-40); Blood Urea Nitrogen 7 mg/dL (6-20); C Reactive Protein 57.5 mg/L (0.0-4.9); Carbon Dioxide 27 mmol/L (22-29); Chloride 101 mmol/L (98-107); Globulin 4.3 g/dL (1.3-4.6); Glomerular Filtration Rate 170.2 mL/min (90-130); Glucose 88 mg/dL (65-115); Osmolality Calculated 287 mOsm/kg (285-295); Potassium 3.9 mmol/L (3.5-5.1); Sodium 140 mmol/L (136-145); Total Bilirubin 0.4 mg/dL (0.15-1.2); Total Protein 7.2 g/dL (6.6-8.7)
[2021-10-30] MEDS: cefTRIAXone 1,000 MG in sodium chloride 0.9% (plus) 50 ML 100 MG IV (20:18)
[2021-10-30] MEDS: sodium chloride 0.9% 500 ML 999 ML IV (20:18)
[2021-10-30 20:19] VITALS: BP 118/84; PULSE 110; RESP 16; O2SAT 97
[2021-10-30 21:27] VITALS: BP 117/82; PULSE 104; RESP 16; O2SAT 97
--- NOTE | 2021-11-01 10:40 | DCPLANNER ---
Addendum entered by Nuria Charles 11/09/21 11:56: Patient had a follow up appointment scheduled with Wound Care - patient did not attend appointment. Original Note: art manager had message to schedule a follow up appointment for patient with Wound Care. art manager sent patients information to the front office staff at wound care. Patients information will be printed and reviewed. Clinic will call patient with appointment information.
== END 2021-10-30 22:02 | disposition home or self-care (01) ==
PROVIDERS: Emergency Provider Physician Assistant; PCP Family Medicine
DX: L89.513 Pressure ulcer of right ankle, stage 3 (principal); Z87.891 Personal history of nicotine dependence
CPT/HCPCS: 73610; 80053; 85025; 86140; 87040; 96365; 99285; J0696; J7040

== ENCOUNTER 2021-11-29 18:54 | Inpatient (IN) | payer MEDICAID, SELFPAY ==
[2021-09-13 11:46] VITALS: BP 126/80; BMI 24.5
[2021-11-29 19:03] VITALS: BP 102/63; PULSE 98; RESP 16; TEMP 36.9; O2SAT 97; BMI 24.3
--- NOTE | 2021-11-29 19:14 | ED.C_ITS ---
Documented by User: Papito Huddleston DO 12/01/21 04:04 HPI - Psych General: Chief Complaint: Psychiatric Symptoms Stated Complaint: SI with plan,HTN Time Seen by Provider: 11/29/21 19:02 History of Present Illness: 61-year-old male sent in by alf. Patient sent alf for bipolar, chronic weakness and is bedbound. EMS reports that he was in an argument with the alf and told him that he was going to kill himself and had a plan. He reiterates that upon arrival to the ER that he has a plan to suffocate himself. Patient will not expand any further prove what he is feeling that way. HPI limited based on patient's unwillingness to further state complaints. He denies any pain or other Associated symptoms: Reports depression and suicidal ideation; Deny homicidal ideation Review of Systems General: Reports: Other (Please see HPI) Const: Reports: other (Please see HPI) Psych: Reports: depression and suicidal ideation; Denies: homicidal ideation PFSH ED PFSH: Medical History Bipolar disorder, in full remission, most recent episode manic Catatonia Cigarette nicotine dependence Erectile disorder, acquired, generalized, moderate Psychiatric care Thrombocytopenia Surgical History Surgical history unknown Family History Other Bipolar disorder, in full remission, most recent episode manic Social History Smoking and tobacco status: former smoker Quit status (tobacco): has quit using tobacco Year quit tobacco: 2021 Second hand smoke exposure: No Alcohol intake: never Adopted: Yes Caregiver/support person: No Lives independently: No Household members: spouse and other Details: 2 others living at the house Housing: House Marital status: Number of children: 3 Highest education level completed: GED or Equivalent service: No Current occupational status: other Details: Disability Current occupational exposures/hazards: No Pets and animals: Yes Pets & animals: dog(s) Pets & animal details: 2 small dogs History of recent travel: Yes Details: KACEY Chaparro Out of state: No Out of country: No Leisure activites: fishing and other Leisure activities details: woodworking Sexually active: No Current gender identity: Male Mariah/Yarsani: Sikh [employer] Special mariah needs: No Agree to transfusion: Yes Financial difficulty paying for basics: Not Applicable Physical Exam Const: GENERAL APPEARANCE: disheveled and other (Chronically ill) HENMT: COMMON NORMALS: hearing grossly normal bilaterally Resp: COMMON NORMALS: normal respiratory effort and No use of accessory muscles Cardio: COMMON NORMALS: regular rate and regular rhythm RATE: regular rate RHYTHM: regular rhythm GI: COMMON NORMALS: Soft to palpation and non-tender PALPATION: Yes Soft to palpation Extremity: OTHER: Soft skin protectors on his bilateral lower feet and lower extremities Neuro: OTHER: Patient at baseline per EMS, diffuse chronic weakness Psych: COMMON NORMALS: speech normal ATTITUDE: Yes Withdrawn affect present and Yes evasive SPEECH: Yes normal speech THOUGHT CONTENT: Yes Suicidality present Skin: NARRATIVE SKIN EXAM: Chronic wounds feet and back side Course Vital Signs: Vital signs: Vital Signs Temperature 98.2 F 12/03/21 04:00 Pulse Rate 96 12/03/21 04:00 Respiratory Rate 16 12/03/21 04:00 Blood Pressure 108/70 12/03/21 04:00 Pulse Oximetry 98 12/03/21 04:00 Oxygen Delivery Me thod 12/02/21 20:50 MDM - Psych Lab Data : 12/02/21 03:46 12/02/21 03:46 Laboratory Results WBC 5.4 10^3/uL (4.0-10.0) 11/29/21 17:55 RBC 3.30 10^6/uL (4.1-5.3) L 11/29/21 17:55 Hgb 11.2 g/dL (11.7-16.6) L 11/29/21 17:55 Hct 34.1 % (42.0-52.0) L 11/29/21 17:55 MCV 103.3 fl (80-94) H 11/29/21 17:55 MCH 33.9 pg (28.0-34.0) 11/29/21 17:55 MCHC 32.8 g/dL (30.0-36.0) 11/29/21 17:55 RDW 14.8 % (12.1-15.1) 11/29/21 17:55 Plt Count 145 10^3/cmm (130-400) 11/29/21 17:55 MPV 11.6 fL (7.4-10.4) H 11/29/21 17:55 Neut % (Auto) 58.9 % 11/29/21 17:55 Lymph % (Auto) 29.6 % 11/29/21 17:55 [place] % (Auto) 9.9 % 11/29/21 17:55 Eos % (Auto) 0.6 % 11/29/21 17:55 Baso % (Auto) 0.6 % 11/29/21 17:55 Neut # (Auto) 3.17 10^3/uL (1.8-7.7) 11/29/21 17:55 Lymph # (Auto) 1.6 10^3/uL (0.8-4.8) 11/29/21 17:55 [place] # (Auto) 0.5 10^3/uL (0.2-0.9) 11/29/21 17:55 Eos # (Auto) 0.0 10^3/uL (0.0-0.8) 11/29/21 17:55 Baso # (Auto) 0.0 10^3/uL (0.0-0.1) 11/29/21 17:55 Nucleated RBC % (auto) 0 % 11/29/21 17:55 Nucleated RBCs # 0.0 /100WBC 11/29/21 17:55 Sodium 136 mmol/L (136-145) 11/29/21 17:55 Potassium 3.3 mmol/L (3.5-5.1) L 11/29/21 17:55 Chloride 103 mmol/L (98-107) 11/29/21 17:55 Carbon Dioxide 26 mmol/L (22-29) 11/29/21 17:55 Anion Gap 10.3 (5-19) 11/29/21 17:55 BUN 10 mg/dL (6-20) 11/29/21 17:55 Creatinine 0.4 mg/dL (0.7-1.2) L 11/29/21 17:55 GFR Calculation 220.2 mL/min (90-130) H 11/29/21 17:55 Glucose 145 mg/dL (65-115) H 11/29/21 17:55 Calculated Osmolality 284 mOsm/kg (285-295) L 11/29/21 17:55 Calcium 8.6 mg/dL (8.5-10.5) 11/29/21 17:55 Total Bilirubin 0.2 mg/dL (0.15-1.2) 11/29/21 17:55 AST 13 U/L (0-40) 11/29/21 17: ALT 10 U/L (0-41) 11/29/21 17:55 Alkaline Phosphatase 71 U/L (40-130) 11/29/21 17:55 Total Protein 5.6 g/dL (6.6-8.7) L 11/29/21 17: Albumin 2.5 g/dL (3.5-5.2) L 11/29/21 17: Globulin 3.1 g/dL (1.3-4.6) 11/29/21 17:55 Urine Color Yellow (Yellow) 11/29/21 20: Urine Appearance Clear (CLEAR) 11/29/21 20: Urine pH 7 (5-7) 11/29/21 20: Ur Specific [place] 1.005 (1.005-1.030) 11/29/21 20: Urine Protein Neg (Negative) 11/29/21 20: Urine Glucose (UA) Norm (Normal) 11/29/21 20: Urine Ketones Negative (Negative) 11/29/21 20: Urine Blood Trace (Negative) H 11/29/21 20: Urine Nitrate Negative (Negative) 11/29/21: Urine Bilirubin Neg (Negative) 11/29/21 20: Urine Urobilinogen Norm mg/dL (Negative) 11/29/21 20: Ur Leukocyte Esterase Negative (Negative) 11/29/21 20: Urine RBC 0-4 /hpf (0-2) H 11/29/21 20: Urine WBC 0-4 /hpf (0-5) H 11/29/21 20: Ur Squamous Epith Cells 0-4 /hpf (0-5) H 11/29/21 20:27 Ur Transition Epith Cell 0-4 /hpf 11/29/21 20: Amorphous Sediment Not Reportable 11/29/21 20: Urine Bacteria Trace /hpf (NONE) 11/29/21 20:27 Salicylates < 0.3 mg/dL (3-10) L 11/29/21 17:55 Acetaminophen < 5.0 ug/mL (10-30) L 11/29/21 17:55 Valproic Acid 59.5 ug/mL (50-100) 11/30/21 17:55 SARS-CoV-2 Ag (Rapid) Negative (Negative) 11/30/21 13:48 Discharge Plan Discharge Patient Disposition: Admitted As Inpatient Admit Provider: Sawyer Escudero Clinical Impression: Suicidal ideation, Bipolar 1 disorder, Macrocytic anemia, Impaired mobility and activities of daily living, COPD (chronic obstructive pulmonary disease) Condition: Stable Sign Out Sign Out Data: Patient Sign Out occurred on 11/30/21 at 07:08. Patient's care was discussed, a nd care was transferred from to Walter Keen DO. Coding Level of Care Code ED Health Services Director for Chg Fwd Exam Detailed Documented by User: Walter Keen DO 12/03/21 07:23 HPI - Psych General: Chief Complaint: Psychiatric Symptoms Stated Complaint: SI with plan,HTN Time Seen by Provider: 11/29/21 19:02 [facility] ED PFSH: Medical History Bipolar disorder, in full remission, most recent episode manic Catatonia Cigarette nicotine dependence Erectile disorder, acquired, generalized, moderate Psychiatric care Thrombocytopenia Surgical History Surgical history unknown Family History Other Bipolar disorder, in full remission, most recent episode manic Social History Smoking and tobacco status: former smoker Quit status (tobacco): has quit using tobacco Year quit tobacco: 2021 Second hand smoke exposure: No Alcohol intake: never Adopted: Yes Caregiver/support person: No Lives independently: No Household members: spouse and other Details: 2 others living at the house Housing: House Marital status: Number of children: 3 Highest education level completed: GED or Equivalent service: No Current occupational status: other Details: Disability Current occupational exposures/hazards: No Pets and animals: Yes Pets & animals: dog(s) Pets & animal details: 2 small dogs History of recent travel: Yes Details: KACEY Chaparro Out of state: No Out of country: No Leisure activites: fishing and other Leisure activities details: woodworking Sexually active: No Current gender identity: Male Mariah/Yarsani: Sikh [employer] Special mariah needs: No Agree to transfusion: Yes Financial difficulty paying for basics: Not Applicable Course Vital Signs: Vital signs: Vital Signs Temperature 98.2 F 12/03/21 04:00 Pulse Rate 96 12/03/21 04:00 Respiratory Rate 16 12/03/21 04:00 Blood Pressure 108/70 12/03/21 04:00 Pulse Oximetry 98 12/03/21 04:00 Oxygen Delivery Me thod 12/02/21 20:50 MDM - Psych Medical Decision Making 11/30/21 Care assumed at change of shift. Pt remained stable. Staff continuing to attempt placement. 12/01/21 patient continues to be stable. He has not made any further suicidal th oughts or gestures. Talk to psychiatry and hospitalist about admitting him to the medical floor and psychiatry seeing him there that is a possibility. Prior to considering this and when asked psych to see the patient in the department to see if they feel he still requires inpatient care. Dr. Peterson seen the patient agree that patient still needs inpatient psychiatric care. He will provide care Dr. Hillman will admit to the medical floor for his ongoing medical management. We have tried for an extended period of time to get placement elsewhere and no one would take him. This certainly seems a better option than continuing to maintain the patient in the emergency room. Dr. Rafy Peterson and I are all in agreement on this. Medical Records I reviewed the patient's medical records. Lab Data I reviewed the patient's lab results. : 12/02/21 03:46 12/02/21 03:46 Laboratory Results WBC 5.4 10^3/uL (4.0-10.0) 11/29/21 17:55 RBC 3.30 10^6/uL (4.1-5.3) L 11/29/21 17:55 Hgb 11.2 g/dL (11.7-16.6) L 11/29/21 17:55 Hct 34.1 % (42.0-52.0) L 11/29/21 17:55 MCV 103.3 fl (80-94) H 11/29/21 17:55 MCH 33.9 pg (28.0-34.0) 11/29/21 17:55 MCHC 32.8 g/dL (30.0-36.0) 11/29/21 17:55 RDW 14.8 % (12.1-15.1) 11/29/21 17:55 Plt Count 145 10^3/cmm (130-400) 11/29/21 17:55 MPV 11.6 fL (7.4-10.4) H 11/29/21 17:55 Neut % (Auto) 58.9 % 11/29/21 17:55 Lymph % (Auto) 29.6 % 11/29/21 17:55 [place] % (Auto) 9.9 % 11/29/21 17:55 Eos % (Auto) 0.6 % 11/29/21 17:55 Baso % (Auto) 0.6 % 11/29/21 17:55 Neut # (Auto) 3.17 10^3/uL (1.8-7.7) 11/29/21 17:55 Lymph # (Auto) 1.6 10^3/uL (0.8-4.8) 11/29/21 17:55 [place] # (Auto) 0.5 10^3/uL (0.2-0.9) 11/29/21 17:55 Eos # (Auto) 0.0 10^3/uL (0.0-0.8) 11/29/21 17:55 Baso # (Auto) 0.0 10^3/uL (0.0-0.1) 11/29/21 17:55 Nucleated RBC % (auto) 0 % 11/29/21 17:55 Nucleated RBCs # 0.0 /100WBC 11/29/21 17:55 Sodium 136 mmol/L (136-145) 11/29/21 17:55 Potassium 3.3 mmol/L (3.5-5.1) L 11/29/21 17:55 Chloride 103 mmol/L (98-107) 11/29/21 17:55 Carbon Dioxide 26 mmol/L (22-29) 11/29/21 17:55 Anion Gap 10.3 (5-19) 11/29/21 17:55 BUN 10 mg/dL (6-20) 11/29/21 17:55 Creatinine 0.4 mg/dL (0.7-1.2) L 11/29/21 17:55 GFR Calculation 220.2 mL/min (90-130) H 11/29/21 17:55 Glucose 145 mg/dL (65-115) H 11/29/21 17:55 Calculated Osmolality 284 mOsm/kg (285-295) L 11/29/21 17:55 Calcium 8.6 mg/dL (8.5-10.5) 11/29/21 17:55 Total Bilirubin 0.2 mg/dL (0.15-1.2) 11/29/21 17:55 AST 13 U/L (0-40) 11/29/21 17:55 ALT 10 U/L (0-41) 11/29/21 17:55 Alkaline Phosphatase 71 U/L (40-130) 11/29/21 17:55 Total Protein 5.6 g/dL (6.6-8.7) L 11/29/21 17:55 Albumin 2.5 g/dL (3.5-5.2) L 11/29/21 17:55 Globulin 3.1 g/dL (1.3-4.6) 11/29/21 17:55 Urine Color Yellow (Yellow) 11/29/21 20: Urine Appearance Clear (CLEAR) 11/29/21 20: Urine pH 7 (5-7) 11/29/21: Ur Specific [place] 1.005 (1.005-1.030) 11/29/21 20: Urine Protein Neg (Negative) 11/29/21 20: Urine Glucose (UA) Norm (Normal) 11/29/21 20: Urine Ketones Negative (Negative) 11/29/21 20: Urine Blood Trace (Negative) H 11/29/21 20:27 Urine Nitrate Negative (Negative) 11/29/21 20:27 Urine Bilirubin Neg (Negative) 11/29/21 20:27 Urine Urobilinogen Norm mg/dL (Negative) 11/29/21 20:27 Ur Leukocyte Esterase Negative (Negative) 11/29/21 20:27 Urine RBC 0-4 /hpf (0-2) H 11/29/21 20:27 Urine WBC 0-4 /hpf (0-5) H 11/29/21 20:27 Ur Squamous Epith Cells 0-4 /hpf (0-5) H 11/29/21 20:27 Ur Transition Epith Cell 0-4 /hpf 11/29/21 20:27 Amorphous Sediment Not Reportable 11/29/21 20:27 Urine Bacteria Trace /hpf (NONE) 11/29/21 20:27 Salicylates < 0.3 mg/dL (3-10) L 11/29/21 17:55 Acetaminophen < 5.0 ug/mL (10-30) L 11/29/21 17:55 Valproic Acid 59.5 ug/mL (50-100) 11/30/21 17:55 SARS-CoV-2 Ag (Rapid) Negative (Negative) 11/30/21 13:48 Discharge Plan Discharge Patient Disposition: Admitted As Inpatient Admit Provider: Sawyer Escudero Clinical Impression: Suicidal ideation, Bipolar 1 disorder, Macrocytic anemia, Impaired mobility and activities of daily living, COPD (chronic obstructive pulmonary disease) Condition: Stable Sign Out Sign Out Data: Patient Sign Out occurred on 11/30/21 at 07:08. Patient's care was discussed, and care was transferred from to Walter Keen DO. Coding Level of Care Code ED Health Services Director for [facility] Fwd Exam Detailed
[2021-11-29 19:21] LABS: Basophils % 0.6 %; Eosinophils % 0.6 %; Hematocrit 34.1 % (42.0-52.0); Hemoglobin 11.2 g/dL (11.7-16.6); Lymphocytes # 1.6 10^3/uL (0.8-4.8); Lymphocytes % 29.6 %; Mean Corpuscular HGB Conc 32.8 g/dL (30.0-36.0); Mean Corpuscular Hemoglobin 33.9 pg (28.0-34.0); Mean Corpuscular Volume 103.3 fl (80-94); Mean Platelet Volume 11.6 fL (7.4-10.4); Monocytes # 0.5 10^3/uL (0.2-0.9); Monocytes % 9.9 %; Neutrophils # 3.17 10^3/uL (1.8-7.7); Neutrophils % 58.9 %; Nucleated Red Blood Cells % 0 %; Platelet Count 145 10^3/cmm (130-400); Red Cell Distribution Width 14.8 % (12.1-15.1); White Blood Count 5.4 10^3/uL (4.0-10.0)
[2021-11-29 19:24] VITALS: BP 109/68; PULSE 97; RESP 19; O2SAT 97
[2021-11-29 19:36] VITALS: BP 102/64; PULSE 100; RESP 19; O2SAT 98
[2021-11-29 19:37] LABS: Alanine Aminotransferase 10 U/L (0-41); Albumin Level 2.5 g/dL (3.5-5.2); Alkaline Phosphatase 71 U/L (40-130); Anion Gap 10.3 (5-19); Aspartate Amino Transferase 13 U/L (0-40); Blood Urea Nitrogen 10 mg/dL (6-20); Calcium 8.6 mg/dL (8.5-10.5); Carbon Dioxide 26 mmol/L (22-29); Chloride 103 mmol/L (98-107); Globulin 3.1 g/dL (1.3-4.6); Glomerular Filtration Rate 220.2 mL/min (90-130); Glucose 145 mg/dL (65-115); Osmolality Calculated 284 mOsm/kg (285-295); Potassium 3.3 mmol/L (3.5-5.1); Sodium 136 mmol/L (136-145); Total Bilirubin 0.2 mg/dL (0.15-1.2); Total Protein 5.6 g/dL (6.6-8.7)
[2021-11-29 19:39] LABS: Acetaminophen < 5.0 ug/mL (10-30); Salicylate < 0.3 mg/dL (3-10)
[2021-11-29 20:30] VITALS: BP 109/68; PULSE 98; RESP 17; O2SAT 98
[2021-11-29 20:57] LABS: Urine Appearance Clear (CLEAR); Urine Color Yellow (Yellow)
[2021-11-29 20:58] LABS: Add Urine Microscopic? YES; Bilirubin Urine Neg (Negative); Blood Urine Trace (Negative); Glucose Urine UA Norm (Normal); Ketones Urine Negative (Negative); Leukocyte Esterase Urine Negative (Negative); Nitrate Urine Negative (Negative); Protein Urine Neg (Negative); Specific Gravity, Urine 1.005 (1.005-1.030); Urobilinogen Urine Norm (Negative); pH Urine 7 (5-7)
[2021-11-29 21:00] LABS: RBC Urine 0-4 /hpf (0-2); Squamous Epithelial Cell Urine 0-4 /hpf (0-5); WBC Urine 0-4 /hpf (0-5)
[2021-11-29 21:01] LABS: Add Urine Culture? No; Bacteria Urine TRACE /hpf; Transitional Epi Cells Urine 0-4 /hpf
[2021-11-29 22:25] VITALS: BP 107/65; PULSE 97; RESP 21; O2SAT 97
[2021-11-29 22:30] VITALS: BP 117/70; PULSE 80; RESP 16; O2SAT 95
[2021-11-30] VITALS (101 sets, daily range): BP systolic 108–149; BP diastolic 70–87; PULSE 79–96; RESP 16–17; O2SAT 83–100
--- NOTE | 2021-11-30 12:26 | DCPLANNER ---
Addendum entered by Nuria Charles 11/30/21 15:35: [facility] - [facility] - no beds Addendum entered by Nuria Charles 11/30/21 14:14: global manager called and faxed the following facilities: [facility] - 13:30 - no beds [place] - 13:30 - faxed information [facility] - 1:23 left voicemail [facility] - declined due to patient acuity to high [facility] - 1:25 - no beds [facility] - 1:26 - no beds [facility] - 1:27 - no beds [facility] - 1:31 - left voicemail [facility] - 2:24 - no beds [facility] - new [facility] - faxed information [facility] - no beds [facility] - no beds - 1:24 [facility] - faxed information [facility] - no beds - 1:37 [facility] - will need to call back [facility] - faxed information [facility] - faxed information [facility] - 1:14 left voicemail [facility] - 1:15 left voicemail [facility] - 1:38 - no beds [facility] - 2:38 - no beds [facility] - 2:30 faxed information Addendum entered by Nuria Charles 11/30/21 14:14: global manager called [facility] - they declined due to acuity to high Original Note: global manager was left the following message that the following facilities were contacted about placement for patient: [facility] / 11:47 pm - no beds [facility] / 11:47 pm - no beds [facility] / 11:47 pm - left voicemail for facility [facility] - 55 years old or younger [facility] - 11:29 pm - faxed information at 11:29 [facility] - acuity to high bed bound no self care [facility] - 11:29 no beds [facility] - acuity to high bed bound no self care [facility] - 11:29 - faxed information at 11:29
[2021-11-30 14:17] LABS: SARS Covid-2 Antigen Negative (Negative)
[2021-12-01] VITALS (8 sets, daily range): BP systolic 97–136; BP diastolic 62–84; PULSE 71–107; RESP 14–18; TEMP 36.5–36.8; O2SAT 96–99; BMI 20.7
--- NOTE | 2021-12-01 07:20 | PC.NURSE ---
PT TURNED AND PLACED ON RIGHT SIDE FROM SUPINE POSITION.
--- NOTE | 2021-12-01 09:46 | P.HP_ITS ---
Providers/Chief Complaint Admitting Physician: Sawyer Escudero MD Primary Care Provider: Yessy Peterson MD Chief Complaint: SI with plan,HTN History of Present Illness Nathaniel Sharma Sr is a 61 year old male presenting to the emergency department via halfway with suicidal ideation. He reports he is very sad, and has been thinking about suffocating himself with a pillow. He cannot really relate any other problems to me. He asked if I am Chris Julio while I am in the room. He has history of bipolar disorder with significant impairment, now essentially bedbound with some decubiti in the heel region and has had previous hospital stays and significant detailed evaluation of his mental status. He cannot relate any other complaints to me. Review of Systems General: Reports: ROS unobtainable due to mental status Medications/Allergies Home Medications Medication Instructions Recorded Confirmed Last Taken Type polyethylene glycol 3350 17 17 g PO DAILY 06/07/21 11/29/21 Unknown History gram/dose oral powder (Miralax) clozapine 25 mg tablet 12.5 mg PO DAILY 30 days #15 tabs 07/28/21 11/29/21 Unknown Rx clozapine 25 mg tablet 75 mg PO BEDTIME 30 days #90 tabs 07/28/21 11/29/21 Unknown Rx divalproex 500 mg tablet,delayed 500 mg PO BID #60 tabs 08/05/21 11/29/21 Unknown Rx release budesonide 0.5 mg/2 mL suspension 0.5 mg (2 mL) inhalation DAILY 30 09/08/21 11/29/21 Unknown Rx for nebulization days #60 mL incontinence pad, liner, disp #30 ea 10/13/21 11/29/21 Unknown Rx (Protective Pads) acetaminophen 325 mg tablet 650 mg PO Q4H PRN Pain 11/29/21 11/29/21 Unknown History (Tylenol) aluminum-mag hydroxide-simethicone 30 ml PO Q2H PRN Indigestion 11/29/21 11/29/21 Unknown History 200 mg-200 mg-20 mg/5 mL oral susp bisacodyl 10 mg rectal suppository 10 mg ND DAILY PRN Constipation 11/29/21 11/29/21 Unknown History (Dulcolax (bisacodyl)) bisacodyl 5 mg tablet,delayed 20 mg PO DAILY PRN Constipation 11/29/21 11/29/21 Unknown History release (Dulcolax (bisacodyl)) magnesium citrate 300 ml PO DAILY PRN Constipation 11/29/21 11/29/21 Unknown History magnesium hydroxide 400 mg/5 mL 30 ml PO Q3D PRN Constipation 11/29/21 11/29/21 Unknown History oral suspension (Milk of Magnesia) Allergies Allergy/AdvReac Type Severity Reaction Status Date / Time Penicillins Allergy Unknown Unknown Verified 11/29/21 19:10 PFSH Acute PFSH: Medical History Bipolar disorder, in full remission, most recent episode manic Catatonia Cigarette nicotine dependence Erectile disorder, acquired, generalized, moderate Psychiatric care Thrombocytopenia Surgical History Surgical history unknown Family History Other Bipolar disorder, in full remission, most recent episode manic Social History Smoking and tobacco status: former smoker Quit status (tobacco): has quit using tobacco Year quit tobacco: 2021 Second hand smoke exposure: No Alcohol intake: never Adopted: Yes Caregiver/support person: No Lives independently: No Household members: spouse and other Details: 2 others living at the house Housing: House Marital status: Number of children: 3 Highest education level completed: GED or Equivalent service: No Current occupational status: other Details: Disability Current occupational exposures/hazards: No Pets and animals: Yes Pets & animals: dog(s) Pets & animal details: 2 small dogs History of recent travel: Yes Details: KACEY Chaparro Out of state: No Out of country: No Leisure activites: fishing and other Leisure activities details: woodworking Sexually active: No Current gender identity: Male Mariah/Mandaen: [employer] Special mariah needs: No Agree to transfusion: Yes Financial difficulty paying for basics: Not Applicable Vitals/I&O/Wt Last Vital Signs Temp 98.4 F 11/29/21 19:03 Pulse 71 12/01/21 01:00 Resp 17 12/01/21 01:00 BP 100/62 12/01/21 05:00 Pulse Ox 97 12/01/21 01:00 O2 Del Method 12/01/21 01:00 Weight last 48 hrs Weight 90.718 kg Physical Exam Narrative: Confused male, reporting he is sad, and wishes to kill himself by suffocation with a pillow HEENT: Atraumatic and normocephalic. Pupils equally round. Oropharynx clear. Neck is supple no lymphadenopathy thyromegaly Cardiovascular regular rate and rhythm without murmur, no S3 or S4 Lungs clear no wheezing or crackles Abdomen is soft nontender positive bowel sounds. No obvious organomegaly exams deferred Back demonstrates some erythema in his buttocks region but no significant skin breakdown. Extremities no cyanosis clubbing or edema. Atrophy is present. Right side, dorsal lateral near heel has small decub. Left side has decubitus over heel as well as left lateral foot near fifth metatarsal head area. All of these decubiti are stage II without evidence of infection or significant drainage Skin see findings above Neuro: Confused. Weak. Able to move upper extremities without impairment. Data : 11/29/21 17:55 11/29/21 17:55 A&P Assessment and plan (1) Suicidal ideation: Patient presents with suicidal ideation from the nursing facility. He reports his plan is to suffocate himself with a pillow. He is a nonambulatory patient, with significant mental health disorder, who from my understanding is a permanent placement at the nursing facility. Consult psychiatry Continue home medications of valproic acid as well as Clozaril currently. One-on-one Psychiatry can decide regarding 96-hour hold. Per the emergency department physician transfer to geriatric psychiatry facility will now not be needed, and that psychiatry feels comfortable treating him here but with care on the floor. Defer to them medication adjustment for suicidal ideation. Status: Acute (2) Bipolar 1 disorder: Continue current medications currently until medicine adjustment per psychiatry Check Depakote level Status: Chronic (3) COPD (chronic obstructive pulmonary disease): Continue budesonide DuoNeb as needed Status: Acute Qualifiers: COPD type: chronic bronchitis Chronic bronchitis type: simple Qualifi ed Code(s): J41.0 - Simple chronic bronchitis (4) Pressure ulcer, heel: Continue to offload pressure ulcers Hydrofera Blue every 24 hours Status: Acute Qualifiers: Laterality: unspecified laterality Pressure injury stage: stage 1 Qualified Code(s): L89.601 - Pressure ulcer of unspecified heel, stage 1 (5) Hypokalemia: Supplement Status: Acute Plan At least moderate protein calorie malnutrition. Consult dietary for appropriate supplementations, other needs Full code currently Lovenox for DVT prophylaxis Attestations Medical Necessity Statement*: Will need greater than 2 midnight stay for evaluation and treatment by psychiatry for suicidal ideation. Please see their notes. 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 Carla Diagnoses Suicidal ideation R45.851 Bipolar 1 disorder F31.9 COPD (chronic obstructive pulmonary disease) J41.0 COPD type: chronic bronchitis Chronic bronchitis type: simple Pressure ulcer, heel L89.601 Laterality: unspecified laterality Pressure injury stage: stage 1 Hypokalemia E87.6
--- NOTE | 2021-12-01 10:01 | PC.NURSE ---
WHILE AT BEDSIDE PT BEDCHANGE PERFROMED FOR INCONTINENCE OF URINE AND STOOL. PT PLACED ON LEFT SIDE.
[2021-12-01 10:52] LABS: Valproic Acid Level 59.5 ug/mL (50-100)
--- NOTE | 2021-12-01 11:55 | P.NPUHP_ITS ---
Providers/Chief Complaint Admitting Physician: Sawyer Escudero MD Primary Care Provider: Yessy Peterson MD Chief Complaint: SI with plan,HTN HPI NPU History of Present Illness Nathaniel Sharma Sr is a 61 year old male who presented to the emergency dep artment with the following report: Chief Complaint: Psychiatric Symptoms Stated Complaint: SI with plan,HTN Time Seen by Provider: 11/29/21 19:02 History of Present Illness: 61-year-old male sent in by snf. Patient sent snf for bipolar, chronic weakness and is bedbound. EMS re ports that he was in an argument with the snf and told him that he was going to kill himself and had a plan. He reiterates that upon arrival to the ER that he has a plan to suffocate himself. Patient will not expand any further prove what he is feeling that way. HPI limited based on patient's unwillingness to further state complaints. He denies any pain or other Associated symptoms: Reports depression and suicidal ideation; Deny homicidal ideation. Psychiatric evaluation was requested as placement had stagnated. He was admitted for definitive treatment of the above conditions. He presents today reporting that he has a long history of psychiatric care. He believes he been hospitalized possibly 3 times. He has outpatient services at [facility]. He identifies being on psychiatric medications which include low-dose Clozaril and Depakote. He presents today only being able to state that he wants to . He reports his life is no longer worth and he endorses suicidal thoughts. He endorses a plan though his physical condition makes the likelihood of a feeling of a suicidal plan limited and unlikely at best. He reports he is felt like this for some time. However review of his chart suggest that this may be related to recent changes. He had a note from his psychiatrist 11/22/2021 with identifies a possible downturn in mood that might be related to going to a snf in the past week or so. We discussed the risk-benefit alternatives reviewing his medication and reaching out to a psychiatrist to see if there are recommendations he may have, and he understood and agreed to proceed as documented in this note. I reviewed his psychiatric and psychosocial history a nd he was limited in his communication and so that review did not have any. There are noteworthy at this time. He did have 3 psychiatric hospitalizations here at [facility] back in 2014 and has been a fairly consistent patient of Dr. Infante since then. Meds NPU Home Medications Medication Instructions Recorded Confirmed Last Taken Type polyethylene glycol 3350 17 17 g PO DAILY 06/07/21 11/29/21 Unknown History gram/dose oral powder (Miralax) clozapine 25 mg tablet 12.5 mg PO DAILY 30 days #15 tabs 07/28/21 11/29/21 Unknown Rx clozapine 25 mg tablet 75 mg PO BEDTIME 30 days #90 tabs 07/28/21 11/29/21 Unknown Rx divalproex 500 mg tablet,delayed 500 mg PO BID #60 tabs 08/05/21 11/29/21 Unknown Rx release budesonide 0.5 mg/2 mL suspension 0.5 mg (2 mL) inhalation DAILY 30 09/08/21 11/29/21 Unknown Rx for nebulization days #60 mL incontinence pad, liner, disp #30 ea 10/13/21 11/29/21 Unknown Rx (Protective Pads) acetaminophen 325 mg tablet 650 mg PO Q4H PRN Pain 11/29/21 11/29/21 Unknown History (Tylenol) aluminum-mag hydroxide-simethicone 30 ml PO Q2H PRN Indigestion 11/29/21 11/29/21 Unknown History 200 mg-200 mg-20 mg/5 mL oral susp bisacodyl 10 mg rectal suppository 10 mg ND DAILY PRN Constipation 11/29/21 11/29/21 Unknown History (Dulcolax (bisacodyl)) bisacodyl 5 mg tablet,delayed 20 mg PO DAILY PRN Constipation 11/29/21 11/29/21 Unknown History release (Dulcolax (bisacodyl)) magnesium citrate 300 ml PO DAILY PRN Constipation 11/29/21 11/29/21 Unknown History magnesium hydroxide 400 mg/5 mL 30 ml PO Q3D PRN Constipation 11/29/21 11/29/21 Unknown History oral suspension (Milk of Magnesia) Allergies Allergy/AdvReac Type Severity Reaction Status Date / Time Penicillins Allergy Unknown Unknown Verified 11/29/21 19:10 PFSH NPU PFSH: Medical History Bipolar disorder, in full remission, most recent episode manic Catatonia Cigarette nicotine dependence Erectile disorder, acquired, generalized, moderate Psychiatric care Thrombocytopenia Surgical History Surgical history unknown Family History Other Bipolar disorder, in full remission, most recent episode manic Social History Smoking and tobacco status: former smoker Quit status (tobacco): has quit using tobacco Year quit tobacco: 2021 Second hand smoke exposure: No Alcohol intake: never Adopted: Yes Caregiver/support person: No Lives independently: No Household members: spouse and other Details: 2 others living at the house Housing: House Marital status: Number of children: 3 Highest education level completed: GED or Equivalent service: No Current occupational status: other Details: Disability Current occupational exposures/hazards: No Pets and animals: Yes Pets & animals: dog(s) Pets & animal details: 2 small dogs History of recent travel: Yes Details: [place] Out of state: No Out of country: No Leisure activites: fishing and other Leisure activities details: woodworking Sexually active: No Current gender identity: Male Mariah/Church: [employer] Special mariah needs: No Agree to transfusion: Yes Financial difficulty paying for basics: Not Applicable Mental Status Exam MSE Comments: This is an underweight white male lying in hospital bed with limited clothing limited grooming but adequate eye contact. No abnormal movements except for mild psychomotor agitation. Mostly cooperative with exam in mild to moderate distress. Speech was limited but normal rate and volume. Mood described as depressed affect tearful at times. Thought process linear. Thought content: Patient endorsed wanting to but no reports of homicidal ideation no delusions reported or noted however some concern for nihilistic delusions present, he did not endorse that he is auditory or visualizations. Attention and concentration were mostly intact but memory was unreliable but none were formally tested. He was alert and oriented x3. Insight and judgment appear limited impulse control limited. Vitals/I&O/Wt Last Vital Signs Temp 97.9 F 12/01/21 11:51 Pulse 86 12/01/21 11:51 Resp 17 12/01/21 11:51 BP 117/77 12/01/21 11:51 Pulse Ox 98 12/01/21 11:51 O2 Del Method 12/01/21 11:51 Weight last 48 hrs Weight 90.718 kg Data NPU : 12/02/21 03:46 12/02/21 03:46 A&P Assessment and plan (1) Hypokalemia: Status: Acute (2) Suicidal ideation: Status: Acute (3) COPD (chronic obstructive pulmonary disease): Status: Acute Qualifiers: COPD type: chronic bronchitis Chronic bronchitis type: simple Qualified Code(s): J41.0 - Simple chronic bronchitis (4) Impaired mobility and activities of daily living: Status: Acute (5) Full incontinence of feces: Status: Acute (6) Urinary incontinence due to severe physical disability: Status: Acute (7) Enuresis: Status: Acute (8) Pressure ulcer, heel: Status: Acute Qualifiers: Pressure injury stage: stage 1 Laterality: unspecified laterality Qualified Code(s): L89.601 - Pressure ulcer of unspecified heel, stage 1 (9) Bipolar 1 disorder: Status: Chronic (10) Weakness generalized: Status: Acute (11) Macrocytic anemia: Status: Acute Plan This is a 61-year-old white male with a long psychiatric history possibly even including ECT with inpatient hospitalizations at this facility but none for about 7 years who presents endorsing depression and suicidal ideation with plan with limited ability to enact the plan but clearly in significant distress. 1. Continue current medications. We will contact his outpatient psychiatrist for any thoughts about medication changes or addition of antidepressants given their extensive history. 2. Given his medical comorbidities admitted to the MedSurg unit for a brief hospitalization to make any medication changes. 3. We will get collateral information from family but this likely represents some despair related to not wanting to be at a snf or for poor adjustment to snf facility. Attestations NPU Medical Necessity Statement*: Inpatient hospitalization is medically necessary and the clinically appropriate intervention at this time. We will monitor medications and make changes as indicated. He will be in the hospital from 2 midnights. Likely to stay 2 to 4 days. Coding Level of Care Code Acute Seo Associate for g Fwd Diagnoses Hypokalemia E87.6 Suicidal ideation R45.851 COPD (chronic obstructive pulmonary disease) J41.0 COPD type: chronic bronchitis Chronic bronchitis type: simple Impaired mobility and activities of daily living Z74.09; Z78.9 Full incontinence of feces R15.9 Urinary incontinence due to severe physical disability R39.81 Enuresis R32 Pressure ulcer, heel L89.601 Pressure injury stage: stage 1 Laterality: unspecified laterality Bipolar 1 disorder F31.9 Weakness generalized R53.1 Macrocytic anemia D53.9
[2021-12-01] MEDS: potassium chloride ER 20 mEq Tablet 40 MEQ PO (13:00)
[2021-12-01] MEDS: enoxaparin 40 mg/0.4 mL Syringe SUBCUT (14:15)
[2021-12-01] MEDS: divalproex DR 500 mg Tablet PO (18:54)
[2021-12-01] MEDS: budesonide 0.5 mg/2 mL Neb INHALATION (21:17)
[2021-12-01] MEDS: cloZAPine 25 mg Tablet 75 MG PO (21:35)
[2021-12-02] VITALS (7 sets, daily range): BP systolic 97–121; BP diastolic 62–75; PULSE 92–108; RESP 16–20; TEMP 36.2–36.9; O2SAT 94–97
[2021-12-02 04:04] LABS: Basophils % 0.4 %; Eosinophils # 0.1 10^3/uL (0.0-0.8); Eosinophils % 1.1 %; Hematocrit 33.8 % (42.0-52.0); Lymphocytes # 2.1 10^3/uL (0.8-4.8); Lymphocytes % 44.6 %; Mean Corpuscular HGB Conc 32.5 g/dL (30.0-36.0); Mean Corpuscular Hemoglobin 33.7 pg (28.0-34.0); Mean Corpuscular Volume 103.7 fl (80-94); Mean Platelet Volume 10.6 fL (7.4-10.4); Monocytes # 0.4 10^3/uL (0.2-0.9); Monocytes % 9.3 %; Neutrophils # 2.11 10^3/uL (1.8-7.7); Neutrophils % 44.4 %; Nucleated Red Blood Cells % 0 %; Platelet Count 171 10^3/cmm (130-400); Red Blood Count 3.26 10^6/uL (4.1-5.3); Red Cell Distribution Width 14.5 % (12.1-15.1); White Blood Count 4.8 10^3/uL (4.0-10.0)
[2021-12-02 04:21] LABS: Alanine Aminotransferase 7 U/L (0-41); Albumin Level 2.6 g/dL (3.5-5.2); Alkaline Phosphatase 62 U/L (40-130); Anion Gap 12.2 (5-19); Aspartate Amino Transferase 8 U/L (0-40); Blood Urea Nitrogen 12 mg/dL (6-20); Carbon Dioxide 25 mmol/L (22-29); Chloride 107 mmol/L (98-107); Globulin 2.9 g/dL (1.3-4.6); Glomerular Filtration Rate 170.2 mL/min (90-130); Glucose 90 mg/dL (65-115); Osmolality Calculated 289 mOsm/kg (285-295); Potassium 4.2 mmol/L (3.5-5.1); Sodium 140 mmol/L (136-145); Total Bilirubin 0.2 mg/dL (0.15-1.2); Total Protein 5.5 g/dL (6.6-8.7)
[2021-12-02] MEDS: budesonide 0.5 mg/2 mL Neb INHALATION (09:15)
[2021-12-02] MEDS: divalproex DR 500 mg Tablet PO ×2 (09:24→17:50)
[2021-12-02] MEDS: cloZAPine 25 mg Tablet 12.5 MG PO (09:24)
--- NOTE | 2021-12-02 10:13 | P.NPUPN_ITS ---
Subjective NPU Subjective: Patient returns today somewhat guarded in the conversation. We discussed the fact that I had an opportunity to discuss the situation with his longtime doctor Dr. Infante, and along with that a thorough review of his history and recent presentation including his last appointment Dr. Infante 11/22/2021 leaving as both with the impression that this is a reflection of his failure to adjust to the assisted living[place] [facility] he just moved to the past 7 to 10 days. He had a fairly lengthy conversation about his lack of options given him not effectively maintaining his physical ability to function independently. We reviewed the fact that his significant others/family members feel incapable of supporting his independence at his current level of functioning. We discussed the fact that his only option is to return there and used their assistance to regain his strength and ability and show that he could function outside of the facility. We also discussed his medications and my review with Dr. Infante agreed that is not a medication problem but an acceptance problem. Mental Status Exam MSE Comments: This is an underweight white male lying in hospital bed with limited clothing limited grooming but adequate eye contact. No abnormal movements except for mild psychomotor retardation. Mostly cooperative with exam in mild distress. Speech was limited but normal rate and volume. Mood desc ribed as a little better today, affect congruent. Thought process linear. Thought content: Patient endorsed wanting to but no reports of homicidal ideation no delusions reported or noted, he did not endorse that he is having auditory or visualizations. Attention and concentration were mostly intact but memory was unreliable but none were formally tested. He was alert and oriented x3. Insight and judgment appear limited impulse control limited. Vitals/I&O/Wt Last Vital Signs Temp 98.0 F 12/02/21 07:11 Pulse 101 H 12/02/21 08:00 Resp 16 12/02/21 08:00 BP 110/71 12/02/21 07:11 Pulse Ox 95 12/02/21 08:00 O2 Del Method 12/02/21 08:00 12/01/21 12/02/21 12/02/21 22:59 06:59 14:59 Intake Total 1220 / 1220 480 / 1700 120 / 120 Balance 1220 / 1220 480 / 1700 120 / 120 Weight last 48 hrs Weight 77.02 kg Weight 77.428 kg Data NPU : 12/02/21 03:46 12/02/21 03:46 A&P Assessment and plan (1) Hypokalemia: Status: Acute (2) Suicidal ideation: Status: Acute (3) COPD (chronic obstructive pulmonary disease): Status: Acute Qualifiers: COPD type: chronic bronchitis Chronic bronchitis type: simple Qualified Code(s): J41.0 - Simple chronic bronchitis (4) Impaired mobility and activities of daily living: Status: Acute (5) Full incontinence of feces: Status: Acute (6) Urinary incontinence due to severe physical disability: Status: Acute (7) Enuresis: Status: Acute (8) Pressure ulcer, heel: Status: Acute Qualifiers: Pressure injury stage: stage 1 Laterality: unspecified laterality Qualified Code(s): L89.601 - Pressure ulcer of unspecified heel, stage 1 (9) Bipolar 1 disorder: Status: Chronic (10) Weakness generalized: Status: Acute (11) Macrocytic anemia: Status: Acute Plan This is a 61-year-old white male with a long psychiatric history possibly even including ECT with inpatient hospitalizations at this facility but none for about 7 years who presents endorsing depression and suicidal ideation with plan with limited ability to enact the plan but clearly in significant distress. 1. Continue current medications. Agree with outpatient psychiatrist that this adjustment issue and not a medication intervention issue. 2. Given his medical comorbidities admitted to the MedSurg unit for a brief hospitalization. 3. We will meet with him in the morning with a likely plan is for discharge back [place] [facility] with conversation with family and [place] [facility] to e ncourage him to be able to cognitively reframe and accept that this is his new residence. Attestations NPU Medical Necessity Statement*: Inpatient hospitalization is medically necessary and the clinically appropriate intervention at this time. We will monitor medications and make changes as indicated. Likely to stay 1-3 days. Coding Level of Care Code Acute Roof Promenade Tile Setter for g Fwd Diagnoses Hypokalemia E87.6 Suicidal ideation R45.851 COPD (chronic obstructive pulmonary disease) J41.0 COPD type: chronic bronchitis Chronic bronchitis type: simple Impaired mobility and activities of daily living Z74.09; Z78.9 Full incontinence of feces R15.9 Urinary incontinence due to severe physical disability R39.81 Enuresis R32 Pressure ulcer, heel L89.601 Pressure injury stage: stage 1 Laterality: unspecified laterality Bipolar 1 disorder F31.9 Weakness generalized R53.1 Macrocytic anemia D53.9
--- NOTE | 2021-12-02 11:36 | PM.PN ---
Subjective Subjective: Nathaniel is sleeping when I entered the room. When I stimulate him he is able to carry on a conversation. He goes right back to sleep when not stimulated. He denies any chest discomfort or shortness of breath. Medications: Reviewed: Yes Vitals/I&O/Wt Last Vital Signs Temp 98.0 F 12/02/21 07:11 Pulse 101 H 12/02/21 08:00 Resp 16 12/02/21 08:00 BP 110/71 12/02/21 07:11 Pulse Ox 95 12/02/21 08:00 O2 Del Method 12/02/21 08:00 12/01/21 12/02/21 12/02/21 22:59 06:59 14:59 Intake Total 1220 / 1220 480 / 1700 120 / 120 Balance 1220 / 1220 480 / 1700 120 / 120 Weight last 48 hrs Weight 77.02 kg Weight 77.428 kg Physical Exam Narrative: General exam no distress Neck is supple no lymphadenopathy thyromegaly Cardiovascular regular rate and rhythm without murmur, no S3 or S4 Lungs clear no wheezing or crackles Abdomen is soft nontender positive bowel sounds. No obvious organomegaly Extremities no cyanosis clubbing or edema. Atrophy is present. Wounds dressed today. See evaluation done yesterday. Skin see findings above Neuro: Confused. Generalized weakness, greatest lower extremities Data : 12/02/21 03:46 12/02/21 03:46 A&P Assessment and plan (1) Suicidal ideation: Patient presents with suicidal ideation from the nursing facility. He reports his plan is to suffocate himself with a pillow. He is a nonambulatory patient, with significant mental health disorder, who from my understanding is a permanent placement at the nursing facility. Appreciate psychiatric consultation Continue home medications of valproic acid as well as Clozaril currently. One-on-one Psychiatry can decide regarding 96-hour hold. Per the emergency department physician transfer to geriatric psychiatry facility will now not be needed, and that psychiatry feels comfortable treating him here but with care on the floor. They will determine when he is safe to transfer back to the nursing facility Defer to them medication adjustment for suicidal ideation. Status: Acute (2) Bipolar 1 disorder: Continue current medications currently until medicine adjustment per psychiatry Depakote level within normal limits Status: Chronic (3) COPD (chronic obstructive pulmonary disease): Continue budesonide DuoNeb as needed Status: Acute Qualifiers: COPD type: chronic bronchitis Chronic bronchitis type: simple Qualified Code(s): J41.0 - Simple chronic bronchitis (4) Pressure ulcer, heel: Continue to offload pressure ulcers Hydrofera Blue every 24 hours Status: Acute Qualifiers: Pressure injury stage: stage 1 Laterality: unspecified laterality Qualified Code(s): L89.601 - Pressure ulcer of unspecified heel, stage 1 (5) Hypokalemia: Supplemented and normal today. Status: Acute Plan At least moderate protein calorie malnutrition. Consult dietary for appropriate supplementations, other needs Full code currently Lovenox for DVT prophylaxis No need for laboratory tomorrow Attestations Medical Necessity Statement*: Continue hospitalization for suicidal ideation. Defer to psychiatry when he is safe to transfer back to the nursing facility. Coding Level of Care Code Acute Grinder Operator Automatic for Ayana Aguirre Diagnoses Suicidal ideation R45.851 Bipolar 1 disorder F31.9 COPD (chronic obstructive pulmonary disease) J41.0 COPD type: chronic bronchitis Chronic bronchitis type: simple Pressure ulcer, heel L89.601 Pressure injury stage: stage 1 Laterality: unspecified laterality Hypokalemia E87.6
[2021-12-02] MEDS: enoxaparin 40 mg/0.4 mL Syringe SUBCUT (11:44)
--- NOTE | 2021-12-02 14:31 | PC.CHAP ---
Pastoral Care Encounter/Spiritual Assessment Type of Contact [] Declined licensed appraiser visit [] Patient/Family/Request visit [] Outpatient visit [] Follow-up visit [] Physician referral [] Code/Alert x[x] Routine visit [] Staff referral [] Actively dying [] Patient sleeping [] Family support [] [] Out of room [] Palliative care [] [] Receiving care in room [] Pre-surgical visit [] Trauma [] Long length of stay [] ICU visit [] Other: Relational/Emotional Strength [] Patient feels connected with others/family/visitors/staff [] Distress [] Loneliness/isolation [] Abandonment Spirituality of Patient [] Person of Mariah [] Attends Adventist of their Mariah [x] Believes in Prayer [] Reads Bible or Anabaptist materials [] There are Spiritual issues to be addressed Aircraft Structural Fitter Interventions [x Prayer [] Active listening [] Non-anxious presence [] Spiritual/emotional support [] Crisis/trauma care [] Spiritual counseling [] Bereavement support [] Provided bereavement packet [] Provided Bible/devotional materials [] Provided toy/stuffed animal, coloring book to patient or family member [] Provided Communion [] Anointing/[place] [] Salvation [] Completed spiritual assessment [] Other: Impact on Illness or Injury [] Angry [] Fearful [] Anxious [] Often cries [] Exhaustion [] Unable to work [] Unable to attend denominational [] Unable to walk/stand [] Unable to read [] Unable to drive [] Unable to eat/drink [] Unable to sleep [] Unable to be with family [] Patient intubated [] Other: Summary Time spent with patient visited patient evening 0f 9-22 requested bny patient 20 min
[2021-12-02] MEDS: cloZAPine 25 mg Tablet 75 MG PO (20:24)
--- NOTE | 2021-12-02 23:42 | PC.NURSE ---
Patients IV came dislodged. Notified Dr Robert. Okay to not replace.
[2021-12-03] VITALS (9 sets, daily range): BP systolic 94–114; BP diastolic 64–74; PULSE 96–105; RESP 15–18; TEMP 36.5–37.1; O2SAT 94–98
[2021-12-03] MEDS: ipratropium-albuterol 3 mL Neb INHALATION (07:55)
[2021-12-03] MEDS: budesonide 0.5 mg/2 mL Neb INHALATION (07:55)
[2021-12-03] MEDS: cloZAPine 25 mg Tablet 12.5 MG PO (09:41)
[2021-12-03] MEDS: divalproex DR 500 mg Tablet PO ×2 (09:41→18:11)
[2021-12-03] MEDS: enoxaparin 40 mg/0.4 mL Syringe SUBCUT (13:40)
--- NOTE | 2021-12-03 14:43 | PM.PN ---
Subjective Subjective: No acute interim events. Awake alert but does not engage much in conversation. Medications: Reviewed: Yes Vitals/I&O/Wt Last Vital Signs Temp 98.7 F 12/03/21 12:00 Pulse 105 H 12/03/21 12:00 Resp 15 12/03/21 12:00 BP 94/64 12/03/21 12:00 Pulse Ox 96 12/03/21 12:00 O2 Del Method 12/03/21 12:00 12/02/21 12/03/21 12/03/21 22:59 06:59 14:59 Intake Total 472 / 1032 1060 / 2092 600 / 600 Balance 472 / 1032 1060 / 2092 600 / 600 Weight last 48 hrs Weight 75.977 kg Weight 77.02 kg Physical Exam Narrative: General: No acute distress, AO x3 HEENT: PERRLA, pupils bilaterally equal and reactive, pallors not present Chest: Normal vesicular breath sounds, no added sounds, equal good air entry bilaterally CVS: S1-S2 regular, no murmurs, no tachycardia, no gallops, no rubs Abdomen: Soft, nontender, no organomegaly, bowel sounds present Neuro: No focal deficits, no facial deformity, AO x3, power 5/5 in all limbs Data : 12/02/21 03:46 12/02/21 03:46 A&P Assessment and plan (1) Suicidal ideation: Patient presents with suicidal ideation from the nursing facility. He reports his plan is to suffocate himself with a pillow. He is a nonambulatory patient, with significant mental health disorder, who from my understanding is a permanent placement at the nursing facility. Appreciate psychiatric consultation Continue home medications of valproic acid as well as Clozaril currently. Plan is to return back to nursing facility when appropriate per psychiatry. Defer to them medication adjustment for suicidal ideation. (2) Bipolar 1 disorder: Continue current medications currently until medicine adjustment per psychiatry Depakote level within normal limits (3) COPD (chronic obstructive pulmonary disease): Continue budesonide DuoNeb as needed (4) Pressure ulcer, heel: Continue to offload pressure ulcers Hydrofera Blue every 24 hours Qualifiers: Pressure injury stage: stage 1 Laterality: unspecified laterality Qualified Code(s): L89.601 - Pressure ulcer of unspecified heel, stage 1 (5) Hypokalemia: Supplemented and normal today. Plan At least moderate protein calorie malnutrition. Consult dietary for appropriate supplementations, other needs Full code currently Lovenox for DVT prophylaxis Attestations Medical Necessity Statement*: Continue hospitalization for suicidal ideation.? Defer to psychiatry when he is safe to transfer back to the nursing facility. Coding Level of Care Code Acute Enterprise Resource Planning Consultant for [facility] Fwd Diagnoses Suicidal ideation R45.851 Bipolar 1 disorder F31.9 COPD (chronic obstructive pulmonary disease) J44.9 Pressure ulcer, heel L89.601 Pressure injury stage: stage 1 Laterality: unspecified laterality Hypokalemia E87.6
--- NOTE | 2021-12-03 18:09 | W.PM.NPUPNS ---
Subjective NPU Subjective: Presents today reporting that he does not know how he feels about going back to the prison facility. We discussed the fact that there are alternatives that we are aware of and that his only chances to go back and work on his functionality get stronger and show that he can be independent. Otherwise the reality is that he has no choice and he has to figure out how to adjust to being there. We discussed the fact that he could follow up with Dr. Infante if there continues to be issues about how he is feeling, but at this point there are no plans to change medications. We discussed plans for discharge tomorrow. Mental Status Exam MSE Comments: This is an underweight white male lying in hospital bed with limited clothing limited grooming but adequate eye contact. No abnormal movements except for mild psychomotor retardation. Mostly cooperative with exam in no acute distress. Speech was limited but normal rate and volume. Mood described as a little better, affect congruent. Thought process linear. Thought content: Patient endorsed wanting to only when prompted and is clearly is related to the fact that he does not want to go back no reports of homicidal ideation no delusions reported or noted, he did not endorse that he is having auditory or visualizations. Attention and concentration were mostly intact but memory was unreliable but none were formally tested. He was alert and oriented x3. Insight and judgment appear limited impulse control limited. Vitals/I&O/Wt Last Vital Signs Temp 98.2 F 12/03/21 16:22 Pulse 104 H 12/03/21 16:22 Resp 16 12/03/21 16:22 BP 100/66 12/03/21 16:22 Pulse Ox 96 12/03/21 16:22 O2 Del Method 12/03/21 16:22 12/03/21 12/03/21 12/03/21 06:59 14:59 22:59 Intake Total 1060 / 2092 600 / 600 480 / 1080 Balance 1060 / 2092 600 / 600 480 / 1080 Weight last 48 hrs Weight 75.977 kg Weight 77.02 kg Data NPU : 12/02/21 03:46 12/02/21 03:46 A&P Assessment and plan (1) Hypokalemia: (2) Suicidal ideation: (3) COPD (chronic obstructive pulmonary disease): (4) Impaired mobility and activities of daily living: (5) Full incontinence of feces: (6) Urinary incontinence due to severe physical disability: (7) Enuresis: (8) Pressure ulcer, heel: Qualifiers: Pressure injury stage: stage 1 Laterality: unspecified laterality Qualified Code(s): L89.601 - Pressure ulcer of unspecified heel, stage 1 (9) Bipolar 1 disorder: (10) Weakness generalized: (11) Macrocytic anemia: Plan This is a 61-year-old white male with a long psychiatric history possibly even including ECT with inpatient hospitalizations at this facility but none for about 7 years who presents endorsing depression and suicidal ideation with plan with limited ability to enact the plan but clearly in significant distress. 1. Continue current medications. Agree with outpatient psychiatrist that this adjustment issue and not a medication intervention issue. 2. Given his medical comorbidities admitted to the [facility] unit for a brief hospitalization. 3. Plan is for discharge back to the prison tomorrow with conversation with family and prison to encourage him to be able to cognitively reframe and accept that this is his new residence. Attestations NPU Medical Necessity Statement*: Inpatient hospitalization is medically necessary and the clinically appropriate intervention at this time. We will monitor medications and make changes as indicated. Likely to stay 1 day. Coding Level of Care Code Acute Interactive Marketing Strategist for g Fwd Diagnoses Hypokalemia E87.6 Suicidal ideation R45.851 COPD (chronic obstructive pulmonary disease) J44.9 Impaired mobility and activities of daily living Z74.09; Z78.9 Full incontinence of feces R15.9 Urinary incontinence due to severe physical disability R39.81 Enuresis R32 Pressure ulcer, heel L89.601 Pressure injury stage: stage 1 Laterality: unspecified laterality Bipolar 1 disorder F31.9 Weakness generalized R53.1 Macrocytic anemia D53.9
[2021-12-03] MEDS: acetaminophen 325 mg Tablet 650 MG PO (21:07)
[2021-12-03] MEDS: cloZAPine 25 mg Tablet 75 MG PO (21:07)
[2021-12-04] VITALS (8 sets, daily range): BP systolic 101–113; BP diastolic 66–73; PULSE 82–101; RESP 16–18; TEMP 36.4–36.9; O2SAT 94–97
[2021-12-04] MEDS: ipratropium-albuterol 3 mL Neb INHALATION (08:52)
[2021-12-04] MEDS: budesonide 0.5 mg/2 mL Neb INHALATION (08:52)
[2021-12-04] MEDS: cloZAPine 25 mg Tablet 12.5 MG PO (09:10)
[2021-12-04] MEDS: divalproex DR 500 mg Tablet PO ×2 (09:11→17:46)
[2021-12-04] MEDS: polyethylene glycol 3350 Pkt 17 gm PO (09:11)
[2021-12-04] MEDS: enoxaparin 40 mg/0.4 mL Syringe SUBCUT (11:41)
--- NOTE | 2021-12-04 14:31 | P.NPUPN_ITS ---
Subjective NPU Subjective: Presents today reporting that he does not know how he feels about going back to the intermediate facility. We discussed plans for discharge tomorrow as it appears discharge is not possible today at his facility. Mental Status Exam MSE Comments: This is an underweight white male lying in hospital bed with limited clothing limited grooming but adequate eye contact. No abnormal movements except for mild psychomotor retardation. Mostly cooperative with exam in no acute distress. Speech was limited but normal rate and volume. Mood described as OK, affect congruent. Thought process linear. Thought content: Patient endorsed wanting to only when prompted and is clearly is related to the fact that he does not want to go back no reports of homicidal ideation no delusions reported or noted, he did not endorse that he is having auditory or visualizations. Attention and concentration were mostly intact but memory was unreliable but none were formally tested. He was alert and oriented x3. Insight and judgment appear limited impulse control limited. Vitals/I&O/Wt Last Vital Signs Temp 97.8 F 12/04/21 12:00 Pulse 96 12/04/21 12:00 Resp 18 12/04/21 12:00 BP 101/66 12/04/21 12:00 Pulse Ox 96 12/04/21 12:00 O2 Del Method 12/04/21 12:00 Weight last 48 hrs Weight 74.117 kg Data NPU : 12/02/21 03:46 12/02/21 03:46 A&P Assessment and plan (1) Hypokalemia: (2) Suicidal ideation: (3) COPD (chronic obstructive pulmonary disease): (4) Impaired mobility and activities of daily living: (5) Full incontinence of feces: (6) Urinary incontinence due to severe physical disability: (7) Enuresis: (8) Pressure ulcer, heel: Qualifiers: Pressure injury stage: stage 1 Laterality: unspecified laterality Qualified Code(s): L89.601 - Pressure ulcer of unspecified heel, stage 1 (9) Bipolar 1 disorder: (10) Weakness generalized: (11) Macrocytic anemia: Plan This is a 61-year-old white male with a long psychiatric history possibly even including ECT with inpatient hospitalizations at this facility but none for about 7 years who presents endorsing depression and suicidal ideation with plan with limited ability to enact the plan but clearly in significant distress. 1. Continue current medications. Agree with outpatient psychiatrist that this adjustment issue and not a medication intervention issue. 2. Given his medical comorbidities admitted to the [facility] unit for a brief hospitalization. 3. Plan is for discharge back to the intermediate tomorrow as his facility doesn't do weekend discharges and encourage patient to cognitively reframe and accept that this is his new residence. Attestations NPU Medical Necessity Statement*: Inpatient hospitalization is medically necessary and the clinically appropriate intervention at this time. We will monitor medications and make changes as indicated. Likely to stay 1 day. Coding Level of Care Code Acute Performance Test Architect for Chg Fwd Diagnoses Hypokalemia E87.6 Suicidal ideation R45.851 COPD (chronic obstructive pulmonary disease) J44.9 Impaired mobility and activities of daily living Z74.09; Z78.9 Full incontinence of feces R15.9 Urinary incontinence due to severe physical disability R39.81 Enuresis R32 Pressure ulcer, heel L89.601 Pressure injury stage: stage 1 Laterality: unspecified laterality Bipolar 1 disorder F31.9 Weakness generalized R53.1 Macrocytic anemia D53.9
--- NOTE | 2021-12-04 15:32 | P.PN_ITS ---
Subjective Subjective: No acute interim events. No new complaints. Hemodynamically stable. Medications: Reviewed: Yes Vitals/I&O/Wt Last Vital Signs Temp 97.8 F 12/04/21 12:00 Pulse 96 12/04/21 12:00 Resp 18 12/04/21 12:00 BP 101/66 12/04/21 12:00 Pulse Ox 96 12/04/21 12:00 O2 Del Method 12/04/21 12:00 12/04/21 12/04/21 12/04/21 06:59 14:59 22:59 Intake Total 9362 / 68791 480 / 480 Output Total 0 / 0 Balance 9362 / 12877 480 / 480 Weight last 48 hrs Weight 74.117 kg Weight 75.977 kg Physical Exam Narrative: General: No acute distress, AO x3 HEENT: PERRLA, pupils bilaterally equal and reactive, pallors not present Chest: Normal vesicular breath sounds, no added sounds, equal good air entry bilaterally CVS: S1-S2 regular, no murmurs, no tachycardia, no gallops, no rubs Abdomen: Soft, nontender, no organomegaly, bowel sounds present Data : 12/02/21 03:46 12/02/21 03:46 A&P Assessment and plan (1) Suicidal ideation: Patient presents with suicidal ideation from the nursing facility. He reports his plan is to suffocate himself with a pillow. He is a nonambulatory patient, with significant mental health disorder, who from my understanding is a permanent placement at the nursing facility. Appreciate psychiatric consultation Continue home medications of valproic acid as well as Clozaril currently. Plan is to return back to nursing facility when appropriate per psychiatry. Defer to them medication adjustment for suicidal ideation. (2) Bipolar 1 disorder: Continue current medications currently until medicine adjustment per psychiatry Depakote level within normal limits (3) COPD (chronic obstructive pulmonary disease): Continue budesonide DuoNeb as needed (4) Pressure ulcer, heel: Continue to offload pressure ulcers Hydrofera Blue every 24 hours Qualifiers: Pressure injury stage: stage 1 Laterality: unspecified laterality Qualified Code(s): L89.601 - Pressure ulcer of unspecified heel, stage 1 (5) Hypokalemia: Supplemented and normal today. Plan At least moderate protein calorie malnutrition. Consult dietary for appropriate supplementations, other needs Full code currently Lovenox for DVT prophylaxis Attestations Medical Necessity Statement*: Awaiting discharge to nursing home facility, okay per psych to discharge, however transport not available to discharge over the weekend. Coding Level of Care Code Acute Crewman Armoured Personnel Carrier [id number] for [facility] Fwd Diagnoses Suicidal ideation R45.851 Bipolar 1 disorder F31.9 COPD (chronic obstructive pulmonary disease) J44.9 Pressure ulcer, heel L89.601 Pressure injury stage: stage 1 Laterality: unspecified laterality Hypokalemia E87.6
[2021-12-04] MEDS: cloZAPine 25 mg Tablet 75 MG PO (22:14)
[2021-12-05 04:00] VITALS: BP 102/67; PULSE 94; RESP 16; TEMP 36.7; O2SAT 96
[2021-12-05 08:00] VITALS: BP 112/72; PULSE 91; RESP 20; TEMP 37.2; O2SAT 97
[2021-12-05] MEDS: cloZAPine 25 mg Tablet 12.5 MG PO (08:39)
[2021-12-05] MEDS: divalproex DR 500 mg Tablet PO (08:39)
--- NOTE | 2021-12-05 08:54 | PC.NURSE ---
pt requested assistance to feed himself and change his brief.
[2021-12-05 09:20] VITALS: PULSE 89; RESP 18; O2SAT 94
[2021-12-05] MEDS: ipratropium-albuterol 3 mL Neb INHALATION (09:20)
[2021-12-05] MEDS: budesonide 0.5 mg/2 mL Neb INHALATION (09:20)
[2021-12-05 10:25] LABS: Free T4 Free Thyroxine 0.97 ng/dL (0.82-1.77); Thyroid Stimulating Hormone 8.95 uIU/mL (0.27-4.20)
--- NOTE | 2021-12-05 10:36 | W.PM.NPUDCS ---
Diagnoses at Discharge Discharge Diagnosis (1) Hypokalemia: Status: Acute (2) Suicidal ideation: Status: Acute (3) COPD (chronic obstructive pulmonary disease): Status: Acute (4) Impaired mobility and activities of daily living: Status: Acute (5) Full incontinence of feces: Status: Acute (6) Urinary incontinence due to severe physical disability: Status: Acute (7) Enuresis: Status: Acute (8) Pressure ulcer, heel: Status: Acute Qualifiers: Laterality: unspecified laterality Pressure injury stage: stage 1 Qualified Code(s): L89.601 - Pressure ulcer of unspecified heel, stage 1 (9) Bipolar 1 disorder: Status: Chronic (10) Weakness generalized: Status: Acute (11) Macrocytic anemia: Status: Acute Reason for Visit Reason for Visit: SI with plan,HTN Brief History: History of Present Illness Nathaniel Sharma Sr is a 61 year old male who presented to the emergency department with the following report: Chief Complaint: Psychiatric Symptoms Stated Complaint: SI with plan,HTN Time Seen by Provider: 11/29/21 19:02 History of Present Illness: 61-year-old male sent in by long-term. Patient sent long-term for bipolar, chronic weakness and is bedbound. EMS reports that he was in an argument with the long-term and told him that he was going to kill himself and had a plan. He reiterates that upon arrival to the ER that he has a plan to suffocate himself. Patient will not expand any further prove what he is feeling that way. HPI limited based on patient's unwillingness to further state complaints. He denies any pain or other Associated symptoms: Reports depression and suicidal ideation; Deny homicidal ideation. Psychiatric evaluation was requested as placement had stagnated. He was admitted for definitive treatment of the above conditions. He presents today reporting that he has a long history of psychiatric care. He believes he been hospitalized possibly 3 times. He has outpatient services at [facility] [place]. He identifies being on psychiatric medications which include low-dose Clozaril and Depakote. He presents today only being able to state that he wants to . He reports his life is no longer worth and he endorses suicidal thoughts. He endorses a plan though his physical condition makes the likelihood of a feeling of a suicidal plan limited and unlikely at best. He reports he is felt like this for some time. However review of his chart suggest that this may be related to recent changes. He had a note from his psychiatrist 11/22/2021 with identifies a possible downturn in mood that might be related to going to a long-term in the past week or so. We discussed the risk-benefit alternatives reviewing his medication and reaching out to a psychiatrist to see if there are recommendations he may have, and he understood and agreed to proceed as documented in this note. I reviewed his psychiatric and psychosocial history and he was limited in his communication and so that review did not have any. There are noteworthy at this time. He did have 3 psychiatric hospitalizations here at [facility] back in 2014 and has been a fairly consistent patient of Dr. Infante since then. Hospital Course Hospital Course He slowly acclimated to the hospitalization and appeared to be much calmer during the stay that would give. There were no changes in his medication and collaboration with his outpatient psychiatrist happens immediately. The understanding that this represented his failure to adjust to a recent placed in a nursing facility in the context of his suicidal ideation. Also considered in the fact that the things he was to continue to do our thing about his physical capacity at this point because of his significant deconditioning. After evaluation of the circumstances determined that the most court thing to happen with support from the long-term with his family about the inevitability of this placement and the lack of alternative possibilities. He had mild improvement and seemed to understand his circumstance. During the hospitalization, patient had routine laboratory studies which were within normal limits except for few outliers.? Additionally there was a general medical evaluation which was also within normal limits and revealed no new acute processes. Discharge Summary: At the time of discharge, he denied psychosis.? Mood and anxiety were well managed.? Patient endorsed a plan to avoid all drugs of abuse and follow-up with the aftercare recommendations of the treatment team.? Patient was evaluated and deemed to be absent credible lethality, and had achieved the maximum benefit from an inpatient hospitalization, so was discharged. Mental Status Exam MSE Comments: This is an underweight white male lying in hospital bed with limited clothing limited grooming but adequate eye contact. No abnormal movements except for mild psychomotor retardation. Mostly cooperative with exam in no acute distress. Speech was limited but normal rate and volume. Mood described as OK, affect congruent. Thought process linear. Thought content: Patient endorsed wanting to only when prompted and is clearly is related to the fact that he does not want to go back no reports of homicidal ideation no delusions reported or noted, he did not endorse that he is having auditory or visualizations. Attention and concentration were mostly intact but memory was unreliable but none were formally tested. He was alert and oriented x3. Insight and judgment appear limited impulse control limited. Discharge Data Studies Completed and Pending: Pending at discharge Category Date Time Status SARS Covid-2 Anti gen Routine Lab 12/05/21 10:11 Uncollected Laboratory Results WBC 4.8 10^3/uL (4.0- 10.0) 12/02/21 03:46 RBC 3.26 10^6/uL (4.1 -5.3) L 12/02/21 03:46 Hgb 11.0 g/dL (11.7-1 6.6) L 12/02/21 03:46 Hct 33.8 % (42.0-52.0 ) L 12/02/21 03:46 MCV 103.7 fl (80-94) H 12/02/21 03:46 MCH 33.7 pg (28.0-34. 0) 12/02/21 03:46 MCHC 32.5 g/dL (30.0-3 6.0) 12/02/21 03:46 RDW 14.5 % (12.1-15.1 ) 12/02/21 03:46 Plt Count 171 10^3/cmm (130 -400) 12/02/21 03:46 MPV 10.6 fL (7.4-10.4 ) H 12/02/21 03:46 Neut % (Auto) 44.4 % 12/02/21 03:46 Lymph % (Auto) 44.6 % 12/02/21 03:46 Dickey % (Auto) 9.3 % 12/02/21 03:46 Eos % (Auto) 1.1 % 12/02/21 03:46 Baso % (Auto) 0.4 % 12/02/21 03:46 Neut # (Auto) 2.11 10^3/uL (1.8 -7.7) 12/02/21 03:46 Lymph # (Auto) 2.1 10^3/uL (0.8- 4.8) 12/02/21 03:46 Dickey # (Auto) 0.4 10^3/uL (0.2- 0.9) 12/02/21 03:46 Eos # (Auto) 0.1 10^3/uL (0.0- 0.8) 12/02/21 03:46 Baso # (Auto) 0.0 10^3/uL (0.0- 0.1) 12/02/21 03:46 Nucleated RBC % (a uto) 0 % 12/02/21 03:46 Nucleated RBCs # 0.0 /100WBC 12/02/21 03:46 Sodium 140 mmol/L (136-1 45) 12/02/21 03:46 Potassium 4.2 mmol/L (3.5-5 .1) 12/02/21 03:46 Chloride 107 mmol/L (98-10 7) 12/02/21 03:46 Carbon Dioxide 25 mmol/L (22-29) 12/02/21 03:46 Anion Gap 12.2 (5-19) 12/02/21 03:46 BUN 12 mg/dL (6-20) 12/02/21 03:46 Creatinine 0.5 mg/dL (0.7-1. 2) L 12/02/21 03:46 GFR Calculation 170.2 mL/min (90- 130) H 12/02/21 03:46 Glucose 90 mg/dL (65-115) 12/02/21 03:46 Calculated Osmolal ity 289 mOsm/kg (285- 295) 12/02/21 03:46 Calcium 9.0 mg/dL (8.5-10 .5) 12/02/21 03:46 Total Bilirubin 0.2 mg/dL (0.15-1 .2) 12/02/21 03:46 AST 8 U/L (0-40) 12/02/21 03:46 ALT 7 U/L (0-41) 12/02/21 03:46 Alkaline Phosphata se 62 U/L (40-130) 12/02/21 03:46 Total Protein 5.5 g/dL (6.6-8.7 ) L 12/02/21 03:46 Albumin 2.6 g/dL (3.5-5.2 ) L 12/02/21 03:46 Globulin 2.9 g/dL (1.3-4.6 ) 12/02/21 03:46 TSH 8.95 uIU/mL (0.27 -4.20) H 12/05/21 03:46 Free T4 0.97 ng/dL (0.82- 1.77) 12/05/21 03:46 Urine Color Yellow (Yellow) 11/29/21 20: Urine Appearance Clear (CLEAR) 11/29/21 20: Urine pH 7 (5-7) 11/29/21 20: Ur Specific Gravit y 1.005 (1.005-1.0 30) 11/29/21 20: Urine Protein Neg (Negative) 11/29/21 20: Urine Glucose (UA) Norm (Normal) 11/29/21 20: Urine Ketones Negative (Negati ve) 11/29/21 20: Urine Blood Trace (Negative) H 11/29/21 20:27 Urine Nitrate Negative (Negati ve) 11/29/21 20: Urine Bilirubin Neg (Negative) 11/29/21 20: Urine Urobilinogen Norm mg/dL (Negat ej) 11/29/21 20:27 Ur Leukocyte Ruby ase Negative (Negati ve) 11/29/21 20:27 Urine RBC 0-4 /hpf (0-2) H 11/29/21 20:27 Urine WBC 0-4 /hpf (0-5) H 11/29/21 20:27 Ur Squamous Epith Cells 0-4 /hpf (0-5) H 11/29/21 20:27 Ur Transition Epit h Cell 0-4 /hpf 11/29/21 20:27 Amorphous Sediment Not Reportable 11/29/21 20: Urine Bacteria Trace /hpf (NONE) 11/29/21 20:27 Salicylates < 0.3 mg/dL (3-10 ) L 11/29/21 17:55 Acetaminophen < 5.0 ug/mL (10-3 0) L 11/29/21 17:55 Valproic Acid 59.5 ug/mL (50-10 0) 11/30/21 17:55 SARS-CoV-2 Ag (Rap id) Negative (Negati ve) 11/30/21 13:48 Vitals: Last Vital Signs Temp 98.9 F 12/05/21 08:00 Pulse 91 12/05/21 08:00 Resp 20 H 12/05/21 08:00 BP 112/72 12/05/21 08:00 Pulse Ox 97 12/05/21 08:00 O2 Del Method 12/05/21 08:00 Discharge Plan Discharge Patient Disposition: Xfer SNF Condition: Stable Prescriptions: Continued polyethylene glycol 3350 [Miralax] 17 gram/dose powder 17 g PO DAILY budesonide 0.5 mg/2 mL suspension for nebulization 0.5 mg inhalation DAILY 30 Days Qty: 60 5RF Rx Instructions: rinse mouth out after use clozapine 25 mg tablet 75 mg PO BEDTIME 30 Days Qty: 90 5RF clozapine 25 mg tablet 12.5 mg PO DAILY 30 Days Qty: 15 5RF divalproex 500 mg tablet,delayed release (DR/EC) 500 mg PO BID Qty: 60 5RF (DME) Protective Pads Pad See Rx Instructions .Route Qty: 30 0RF Rx Instructions: As directed Tylenol 325 mg Tablet 650 mg PO Q4H PRN (Reason: Pain) Milk of Magnesia 400 mg/5 mL Suspension 30 ml PO Q3D PRN (Reason: Constipation) Dulcolax (bisacodyl) 10 mg Suppository 10 mg UT DAILY PRN (Reason: Constipation) magnesium citrate Solution 300 ml PO DAILY PRN (Reason: Constipation) Dulcolax (bisacodyl) 5 mg Tablet,Delayed Release (Dr/Ec) 20 mg PO DAILY PRN (Reason: Constipation) alum-mag hydroxide-simeth 200-200-20 mg/5 mL Suspension 30 ml PO Q2H PRN (Reason: Indigestion) Rx Instructions: administer between meals Discharge Orders: Discharge Order (Routine); Ordered 12/05/21 Ordered By: Bay Traore Referrals: Wound Care [Provider Group] - 1 week (Foot wounds) [facility] [Outside] Franco Infante DO [Staff Physician] - 1 week Yessy Peterson MD [Primary Care Provider] - 4-7 days Discharge Diet: Regular Discharge Activity: Increase activity as tolerated and As per PT/OT instructions Patient Instructions: Hypokalemia (GEN), Opioid Safety Activity Restrictions/Additional Instructions: Pressure wounds: Keep pressure off wounds Use hydrofera blud, change dressing daily and prn Please follow up with wound care for pressure ulcers of ankles and heels on both feet. Please follow up thyroid function in 2 weeks. Discharge Attestations NPU Time Spent in Discharge Care*: less than 30 min Specific Discharge Activities: Specific discharge activities: discussing with pcp/other providers, discussing with top case assembler/social workers/dc planners, documenting/other paperwork and evaluating patient/reviewing data Coding Level of Care Code Acute Chg FW DC note Diagnoses Hypokalemia E87.6 Suicidal ideation R45.851 COPD (chronic obstructive pulmonary disease) J44.9 Impaired mobility and activities of daily living Z74.09; Z78.9 Full incontinence of feces R15.9 Urinary incontinence due to severe physical disability R39.81 Enuresis R32 Pressure ulcer, heel L89.601 Laterality: unspecified laterality Pressure injury stage: stage 1 Bipolar 1 disorder F31.9 Weakness generalized R53.1 Macrocytic anemia D53.9
[2021-12-05 12:00] VITALS: BP 108/71; PULSE 94; RESP 18; TEMP 527.2; TEMP 981; O2SAT 96
--- NOTE | 2021-12-05 12:05 | P.PN_ITS ---
Subjective Subjective: This morning during my visit he complains of being interrupted all the time, not being able to get some sleep. States he is overall doing okay. States he is having pain in his hips, but on attempted examination does not cooperate with external/internal rotation, here to bleeding examination, stating he just wants to try to get some sleep. Vitals/I&O/Wt Last Vital Signs Temp 98.9 F 12/05/21 08:00 Pulse 89 12/05/21 09:20 Resp 18 12/05/21 09:20 BP 112/72 12/05/21 08:00 Pulse Ox 94 12/05/21 09:20 O2 Del Method 12/05/21 09:20 12/04/21 12/05/21 12/05/21 22:59 06:59 14:59 Intake Total 480 / 480 Balance 480 / 480 Weight last 48 hrs Weight 74.117 kg Physical Exam Const: COMMON NORMALS: patient oriented x3 and alert GENERAL APPEARANCE: cooperative OTHER: Irritable, not wanting any more detailed MSK examination. I'm trying to sleep HENMT: COMMON NORMALS: oropharynx normal Neck/C-Spine: COMMON NORMALS: no JVD Resp: COMMON NORMALS: normal respiratory effort and clear to auscultation bilaterally AUSCULTATION: clear to auscultation bilaterally Cardio: COMMON NORMALS: no JVD, regular rhythm, S1 normal heart sound present, S2 normal heart sound present and No murmurs present (Cardio) RHYTHM: regular rhythm HEART SOUNDS: S1 normal heart sound present and S2 normal heart sound present GI: COMMON NORMALS: Normal to inspection, nondistended, normoactive bowel sounds present, Soft to palpation and non-tender PALPATION: Yes Soft to palpation Extremity: COMMON NORMALS: no joint enlargement and no pedal edema Neuro: COMMON NORMALS: patient oriented x3 and moves all extremities SENSORIUM/ORIENTATION: Yes alert Skin: OTHER: Pressure wounds right ankle, right heel, left ankle, left heel. Data : 12/02/21 03:46 12/02/21 03:46 A&P Assessment and plan (1) Suicidal ideation: Appreciate psychiatric assessment and recommendations. Continue follow-up with outpatient psychiatry. (2) Bipolar 1 disorder: Continue current medications currently until medicine adjustment per psychiatry Depakote level within normal limits (3) COPD (chronic obstructive pulmonary disease): Continue budesonide DuoNeb as needed (4) Pressure ulcer, heel: Continue to offload pressure ulcers Follow-up with wound care clinic. Qualifiers: Pressure injury stage: stage 1 Laterality: unspecified laterality Qualified Code(s): L89.601 - Pressure ulcer of unspecified heel, stage 1 (5) Hypokalemia: Supplemented and normal today. Plan At least moderate protein calorie malnutrition. Continue regular diet, add Ensure with meals if tolerating. Mobilize as tolerating with therapy. Hip pain: Declines additional examination currently. Consider reevaluation if he will allow at next visit. No erythema or swelling, partial range of motion were okay, although he cannot examination short. Subclinical hypothyroidism: TSH 8.95, free T4 0.97. Please reassess thyroid function again in a couple weeks. Attestations Medical Necessity Statement*: Returning to SNF. Coding Level of Care Code Acute Senior Information Security Analyst for [facility] Tabd Diagnoses Suicidal ideation R45.851 Bipolar 1 disorder F31.9 COPD (chronic obstructive pulmonary disease) J44.9 Pressure ulcer, heel L89.601 Pressure injury stage: stage 1 Laterality: unspecified laterality Hypokalemia E87.6
[2021-12-05 12:57] LABS: SARS Covid-2 Antigen Negative (Negative)
[2021-12-05 13:29] VITALS: BP 108/71; PULSE 94; RESP 18; TEMP 36.7; O2SAT 96
--- NOTE | 2021-12-05 13:31 | PC.NURSE ---
hand-off report called to SNF Talked to Nivia on pt's discharge orders instructions.
== END 2021-12-05 15:26 | disposition skilled nursing facility (03) | DRG 882 ==
LOC: ER 12-01 06:08 → MEDSURG 12-01 16:02
PROVIDERS: Student in an Organized Health Care Education/Training Program; Admitting Provider Internal Medicine; Emergency Provider Family Medicine; PCP Family Medicine; Visit Provider Internal Medicine
DX: F43.20 Adjustment disorder, unspecified (principal); R45.851 Suicidal ideations; E44.0 Moderate protein-calorie malnutrition; Z68.1 Body mass index [BMI] 19.9 or less, adult; F31.9 Bipolar disorder, unspecified; Z74.01 Bed confinement status; L89.529 Pressure ulcer of left ankle, unspecified stage; L89.519 Pressure ulcer of right ankle, unspecified stage; L89.621 Pressure ulcer of left heel, stage 1; Z87.891 Personal history of nicotine dependence; Z81.8 Family history of other mental and behavioral disorders; J41.0 Simple chronic bronchitis; E87.6 Hypokalemia; I10 Essential (primary) hypertension; R15.9 Full incontinence of feces; R39.81 Functional urinary incontinence; D53.9 Nutritional anemia, unspecified; E03.8 Other specified hypothyroidism
CPT/HCPCS: 80053; 80164; 80307; 81001; 84439; 84443; 85025; 87426; 94640; 96372; 99285; J1650; J7626

== ENCOUNTER 2021-12-13 09:56 | Inpatient (IN) | payer MEDICAID, SELFPAY ==
[2021-09-13 11:46] VITALS: BP 126/80; BMI 24.5
[2021-12-13] VITALS (32 sets, daily range): BP systolic 84–154; BP diastolic 60–79; PULSE 73–110; RESP 13–25; TEMP 35.8–37.2; O2SAT 93–100; BMI 21.2
--- NOTE | 2021-12-13 10:01 | XRR_ITS ---
PROCEDURE INFORMATION: Exam: XR Chest Exam date and time: 12/13/2021 10:52 AM Age: 61 years old Clinical indication: Cough and dyspnea and fever; Patient HX: History--fever, cough, SOB AMS; Additional info: Dyspnea/cough TECHNIQUE: Imaging protocol: Radiologic exam of the chest. Views: 1 view. COMPARISON: CR XR chest 1V portable [id number] 07/03/2021 8:14 PM FINDINGS: Lungs: Unremarkable. No consolidation. Pleural spaces: Unremarkable. No pleural effusion. No pneumothorax. Heart/Mediastinum: Unremarkable. No cardiomegaly. Bones/joints: Unremarkable. XR/XR chest 1V portable [id number] IMPRESSION: No acute findings.
--- NOTE | 2021-12-13 10:19 | CT_ITS ---
WS: [id number] CT HEAD TECHNIQUE: Noncontrast CT of the head obtained from the skullbase to the vertex. CLINICAL INFORMATION: AMS COMPARISON: 07/03/21 DLP: 1314.[address] scans at [facility] use at least one of these dose optimization techniques: automated e xposure control; mA and/or kV adjustment per patient size (includes targeted exams where dose is matc hed to clinical indication); or iterative reconstruction. FINDINGS: No evidence of intracranial hemorrhage or mass effect. Ventricular system and basal cisterns are vu nt. Mild small vessel changes with moderate parenchymal volume loss.Chronic encephalomalacia in the p arasagittal inferior frontal lobes due to prior trauma. Incidental cavum septum pellucidum and vergae . No extra-axial fluid collections. No evidence of mass or mass effect. Retention cyst RIGHT maxillary sinus. Mild mucosal thickening ethmoid air cells. Polypoid mucosal thi ckening in the sphenoid sinuses. Mastoid air cells well aerated. CT/CT head wo con* [id number] IMPRESSION: 1. No evidence of intracranial hemorrhage or mass effect. 2. Mild small vessel changes with moderate parenchymal volume loss 3. 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 4. Incidental cavum septum pellucidum and vergae. 5. No acute intracranial findings.
--- NOTE | 2021-12-13 10:35 | ECG_ITS ---
[facility] Test Date: 2021-12-13 Pat Name: Nathaniel Sharma Department: Room: Gender: Male Prep Manager: : 1960 Requested By: Walter Quigley Order Number: [id number] Lana MD: Lila Cruz M.D. Measurements Intervals [place] Rate: 97 P: 75 MD: 151 QRS: 37 QRSD: 80 T: 78 QT: 361 QTc: 459 Interpretive Statements SINUS RHYTHM Compared to ECG 04/21/2020 21:31:53 T-wave abnormality no longer present Electronically Signed On 12-13-2021 13:53:27 CDT by Lila Cruz M.D. [email or web address] Renopearl river county [email or web address]. Barkley Insurance Agencyjoint township district memorial hospitalX1 Technologies/store/OM/[id number]
[2021-12-13 10:58] LABS: Basophils % 0.3 %; Hemoglobin 11.1 g/dL (11.7-16.6); Lymphocytes % 27.8 %; Mean Corpuscular HGB Conc 32.6 g/dL (30.0-36.0); Mean Corpuscular Hemoglobin 33.6 pg (28.0-34.0); Mean Platelet Volume 10.1 fL (7.4-10.4); Monocytes # 0.6 10^3/uL (0.2-0.9); Monocytes % 16.3 %; Neutrophils # 1.97 10^3/uL (1.8-7.7); Neutrophils % 55.3 %; Nucleated Red Blood Cells % 0 %; Platelet Count 200 10^3/cmm (130-400); Red Cell Distribution Width 15.5 % (12.1-15.1); White Blood Count 3.6 10^3/uL (4.0-10.0)
[2021-12-13 11:11] LABS: Ketone (Acetest) Serum Negative (Negative)
[2021-12-13 11:12] LABS: ABG PH Result 7.43 (7.35-7.45); Alveolar-Arterial Oxygen Gradi 7.5 mmHg (5-10); Arterial Blood Gas Hematocrit 34.1 % (42-52); Base Excess ABG 1.5 mmol/L (-2.0-2.0); Blood Gas Allen Test Pos; Blood Gas Operator Identificat GD; Blood Gas Sample Site Radial, right; Blood Gas Sample Type Arterial; Carboxyhemoglobin 1.3 %THgb (0.4-20.1); HCO3 ABG 25.8 mmol/L (22-26); HGB O2 Sat 96.4 % (95-100); Ionized Calcium Level - ABG 1.2 mmol/L (1.1-1.4); Methemoglobin 0.6 % (0.4-1.5); Oxygen Device NC; Oxygen Saturation ABG 98.3; Potassium Level - ABG 3.6 mmol/L (3.5-5.0); Total Hemoglobin 11.1 g/dL (14-18)
[2021-12-13 11:18] LABS: Ammonia 16 umol/L (16-60)
[2021-12-13 11:18] LABS: Lactic Sepsis W/Reflex 1.1 mmol/L (0.5-2.2)
[2021-12-13 11:22] LABS: Alanine Aminotransferase 8 U/L (0-41); Albumin Level 3.1 g/dL (3.5-5.2); Alkaline Phosphatase 67 U/L (40-130); Aspartate Amino Transferase 17 U/L (0-40); Blood Urea Nitrogen 10 mg/dL (6-20); Calcium 8.5 mg/dL (8.5-10.5); Carbon Dioxide 26 mmol/L (22-29); Chloride 101 mmol/L (98-107); Globulin 3.1 g/dL (1.3-4.6); Glomerular Filtration Rate 98.9 mL/min (90-130); Glucose 86 mg/dL (65-115); Lipase 15 U/L (13-60); Osmolality Calculated 280 mOsm/kg (285-295); Sodium 136 mmol/L (136-145); Total Bilirubin 0.2 mg/dL (0.15-1.2); Total Protein 6.2 g/dL (6.6-8.7)
[2021-12-13 11:27] LABS: Anion Gap 13.2 (5-19); Potassium 4.2 mmol/L (3.5-5.1)
--- NOTE | 2021-12-13 12:06 | ED_ITS ---
HPI - Altered Mental Status General: Chief Complaint: Altered Mental Status Stated Complaint: FEVER/ AMS Time Seen by Provider: 12/13/21 09:57 Source: patient Mode of arrival: ambulatory History of Present Illness: 61-year-old male who presents to the emergency room from half-way facility via ambulance. Report of a temp of up to 103 at the half-way. He was altered as well. He has a significant mental health history has had ECT in the past. EMS reports initial blood pressure in the field is 93/62 was given 500 mL normal saline bolus. Initially his blood pressures run 112 systolic when he arrives here since then his blood pressure is decreased and is now been in the mid 80s. He is unable to give any useful history. From what we noted in the past he frequently is altered and has difficult time answering questions or providing history. MD complaint: altered mental status and confusion [facility] ED PFSH: Medical History Bipolar disorder, in full remission, most recent episode manic Catatonia Cigarette nicotine dependence Erectile disorder, acquired, generalized, moderate Psychiatric care Thrombocytopenia Surgical History Surgical history unknown Family History Other Bipolar disorder, in full remission, most recent episode manic Social History Smoking and tobacco status: former smoker Quit status (tobacco): has quit using tobacco Year quit tobacco: 2021 Second hand smoke exposure: No Alcohol intake: never Adopted: Yes Caregiver/support person: No Lives independently: No Household members: spouse and other Details: 2 others living at the house Housing: House Marital status: Number of children: 3 Highest education level completed: GED or Equivalent service: No Current occupational status: other Details: Disability Current occupational exposures/hazards: No Pets and animals: Yes Pets & animals: dog(s) Pets & animal details: 2 small dogs History of recent travel: Yes Details: [place] Out of state: No Out of country: No Leisure activites: fishing and other Leisure activities details: woodworking Sexually active: No Current gender identity: Male Mariah/Amish: [employer] Special mariah needs: No Agree to transfusion: Yes Financial difficulty paying for basics: Not Applicable Course Vital Signs: Vital signs: Vital Signs Temperature 98.6 F 12/13/21 09:57 Pulse Rate 97 12/13/21 11:45 Respiratory Rate 20 H 12/13/21 11:45 Blood Pressure 84/62 12/13/21 11:45 Pulse Oximetry 100 12/13/21 11:45 Oxygen Delivery Me thod 12/13/21 09:57 Oxygen Flow Rate 2 12/13/21 09:57 MDM - Altered Mental Status Lab Data : 12/13/21 10:30 12/13/21 10:30 Radiology Impressions Chest X-Ray 12/13/21 10:01 IMPRESSION: No acute findings. Head CT 12/13/21 10:19 IMPRESSION: 1. No evidence of intracranial hemorrhage or mass effect. 2. Mild small vessel changes with moderate parenchymal volume loss 3. 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 4. Incidental cavum septum pellucidum and vergae. 5. No acute intracranial findings. Laboratory Results WBC 3.6 10^3/uL (4.0-10.0) L 12/13/21 10:30 RBC 3.30 10^6/uL (4.1-5.3) L 12/13/21 10:30 Hgb 11.1 g/dL (11.7-16.6) L 12/13/21 10:30 Hct 34.0 % (42.0-52.0) L 12/13/21 10:30 MCV 103.0 fl (80-94) H 12/13/21 10:30 MCH 33.6 pg (28.0-34.0) 12/13/21 10:30 MCHC 32.6 g/dL (30.0-36.0) 12/13/21 10:30 RDW 15.5 % (12.1-15.1) H 12/13/21 10:30 Plt Count 200 10^3/cmm (130-400) 12/13/21 10:30 MPV 10.1 fL (7.4-10.4) 12/13/21 10:30 Neut % (Auto) 55.3 % 12/13/21 10:30 Lymph % (Auto) 27.8 % 12/13/21 10:30 [place] % (Auto) 16.3 % 12/13/21 10:30 Eos % (Auto) 0.0 % 12/13/21 10:30 Baso % (Auto) 0.3 % 12/13/21 10:30 Neut # (Auto) 1.97 10^3/uL (1.8-7.7) 12/13/21 10:30 Lymph # (Auto) 1.0 10^3/uL (0.8-4.8) 12/13/21 10:30 [place] # (Auto) 0.6 10^3/uL (0.2-0.9) 12/13/21 10:30 Eos # (Auto) 0.0 10^3/uL (0.0-0.8) 12/13/21 10:30 Baso # (Auto) 0.0 10^3/uL (0.0-0.1) 12/13/21 10:30 Nucleated RBC % (auto) 0 % 12/13/21 10:30 Nucleated RBCs # 0.0 /100WBC 12/13/21 10:30 Specimen Type Arterial 12/13/21 10:57 Sample Site Radial, right 12/13/21 10:57 ABG pH 7.43 (7.35-7.45) 12/13/21 10:57 ABG pCO2 39.0 mmHg (35-45) 12/13/21 10:57 ABG pO2 94.0 mmHg (80.0-100.0) 12/13/21 10:57 ABG HCO3 25.8 mmol/L (22-26) 12/13/21 10:57 ABG O2 Saturation 98.3 12/13/21 10:57 ABG Base Excess 1.5 mmol/L (-2.0-2.0) 12/13/21 10:57 Robert Test Pos 12/13/21 10:57 A-a O2 Gradient 7.5 mmHg (5-10) 12/13/21 10:57 Hematocrit 34.1 % (42-52) L 12/13/21 10:57 Hgb O2 Saturation 96.4 % (95-100) 12/13/21 10:57 Carboxyhemoglobin 1.3 %THgb (0.4-20.1) 12/13/21 10:57 Methemoglobin 0.6 % (0.4-1.5) 12/13/21 10:57 Total Hemoglobin 11.1 g/dL (14-18) L 12/13/21 10:57 Sodium 138.0 mmol/L (131-143) 12/13/21 10:57 Potassium 3.6 mmol/L (3.5-5.0) 12/13/21 10:57 Glucose 84.0 mg/dL (70-115) 12/13/21 10:57 Ionized Calcium 1.2 mmol/L (1.1-1.4) 12/13/21 10:57 O2 Delivery Device Nc 12/13/21 10:57 O2 Liters/Min 2.0 % 12/13/21 10:57 FiO2 28.0 % 12/13/21 10:57 Printed Circuit Photographer ID [id number] 12/13/21 10:57 Sodium 136 mmol/L (136-145) 12/13/21 10:30 Potassium 4.2 mmol/L (3.5-5.1) 12/13/21 10:30 Chloride 101 mmol/L (98-107) 12/13/21 10:30 Carbon Dioxide 26 mmol/L (22-29) 12/13/21 10:30 Anion Gap 13.2 (5-19) 12/13/21 10:30 BUN 10 mg/dL (6-20) 12/13/21 10:30 Creatinine 0.8 mg/dL (0.7-1.2) 12/13/21 10:30 GFR Calculation 98.9 mL/min (90-130) 12/13/21 10:30 Glucose 86 mg/dL (65-115) 12/13/21 10:30 Calculated Osmolality 280 mOsm/kg (285-295) L 12/13/21 10:30 Lactic Acid 1.1 mmol/L (0.5-2.2) 12/13/21 10:30 Calcium 8.5 mg/dL (8.5-10.5) 12/13/21 10:30 Total Bilirubin 0.2 mg/dL (0.15-1.2) 12/13/21 10:30 AST 17 U/L (0-40) 12/13/21 10:30 ALT 8 U/L (0-41) 12/13/21 10:30 Alkaline Phosphatase 67 U/L (40-130) 12/13/21 10:30 Ammonia 16 umol/L (16-60) 12/13/21 10:37 Total Protein 6.2 g/dL (6.6-8.7) L 12/13/21 10:30 Albumin 3.1 g/dL (3.5-5.2) L 12/13/21 10:30 Globulin 3.1 g/dL (1.3-4.6) 12/13/21 10:30 Lipase 15 U/L (13-60) 12/13/21 10:30 Serum Ketones Negative (Negative) 12/13/21 10:30 Discharge Plan Discharge Condition: Stable Prescriptions: No Action polyethylene glycol 3350 [Miralax] 17 gram/dose powder 17 g PO DAILY budesonide 0.5 mg/2 mL suspension for nebulization 0.5 mg inhalation DAILY 30 Days Qty: 60 5RF Rx Instructions: rinse mouth out after use clozapine 25 mg tablet 75 mg PO BEDTIME 30 Days Qty: 90 5RF clozapine 25 mg tablet 12.5 mg PO DAILY 30 Days Qty: 15 5RF divalproex 500 mg tablet,delayed release (DR/EC) 500 mg PO BID Qty: 60 5RF (DME) Protective Pads Pad See Rx Instructions .Route Qty: 30 0RF Rx Instructions: As directed Tylenol 325 mg Tablet 650 mg PO Q4H PRN (Reason: Pain) Milk of Magnesia 400 mg/5 mL Suspension 30 ml PO Q3D PRN (Reason: Constipation) Dulcolax (bisacodyl) 10 mg Suppository 10 mg MA DAILY PRN (Reason: Constipation) magnesium citrate Solution 300 ml PO DAILY PRN (Reason: Constipation) Dulcolax (bisacodyl) 5 mg Tablet,Delayed Release (Dr/Ec) 20 mg PO DAILY PRN (Reason: Constipation) alum-mag hydroxide-simeth 200-200-20 mg/5 mL Suspension 30 ml PO Q2H PRN (Reason: Indigestion) Rx Instructions: administer between meals Referrals: David Ramey [Primary Care Provider] - Coding Level of Care Code ED Field Application Engineer for [employer] Carla
--- NOTE | 2021-12-13 12:26 | W.ED.GENADLT ---
HPI - General Adult General: Chief complaint: ER Hold Stated complaint: FEVER/ AMS Time Seen by Provider: 12/13/21 09:57 Source: patient, family and EMS Mode of arrival: EMS History of Present Illness: 61-year-old male who presents to the emergency room from residential facility via ambulance. Report of a temp of up to 103 at the residential. He was altered as well. He has a significant mental health history has had ECT in the past. EMS reports initial blood pressure in the field is 93/62 was given 500 mL normal saline bolus. Initially his blood pressures run 112 systolic when he arrives here since then his blood pressure is decreased and is now been in the mid 80s. He is unable to give any useful history. From what we noted in the past he frequently is altered and has difficult time answering questions or providing history. He does have chronic heel ulcers. He is wearing heel pads and they are bandaged at this time. Temp when patient arrived here has been normal. Onset (ago): unknown Relieving factors: none Exacerbating factors: none Associated symptoms: Deny cough or short of breath Treatments prior to arrival: none Review of Systems General: Reports: ROS unobtainable due to mental status [facility] ED PFSH: Medical History (Updated 12/13/21 @ 15:29 by Gricel Ordoñez MD) Bipolar 1 disorder Catatonia Cigarette nicotine dependence COPD (chronic obstructive pulmonary disease) Erectile disorder, acquired, generalized, moderate Macrocytic anemia Pressure ulcer, heel multiple Psychiatric care Surgical History Surgical history unknown Family History (Updated 12/13/21 @ 15:25 by Gricel Ordoñez MD) Other Bipolar 1 disorder Social History (Updated 12/13/21 @ 15:26 by Gricel Ordoñez MD) Smoking and tobacco status: former smoker Quit status (tobacco): has quit using tobacco Year quit tobacco: 2021 Second hand smoke exposure: No Alcohol intake: never Substance/Drug Use: never Adopted: Yes Caregiver/support person: No Lives independently: No Household members: spouse and other Details: 2 others living at the house Housing: House Marital status: Number of children: 3 Highest education level completed: GED or Equivalent service: No Current occupational status: other Details: Disability Current occupational exposures/hazards: No Pets and animals: Yes Pets & animals: dog(s) Pets & animal details: 2 small dogs History of recent travel: Yes Details: [place] Out of state: No Out of country: No Leisure activites: fishing and other Leisure activities details: woodworking Sexually active: No Current gender identity: Male Mariah/Worship: Confucianist Islam Of [employer] Special mariah needs: No Agree to transfusion: Yes Physical Exam Const: COMMON NORMALS: no acute distress ORIENTATION/CONSCIOUSNESS: Yes awake HENMT: COMMON NORMALS: normocephalic, atraumatic and hearing grossly normal bilaterally HEAD & SCALP: normocephalic and atraumatic Resp: COMMON NORMALS: normal respiratory effort, No retractions, No use of accessory muscles and clear to auscultation bilaterally AUSCULTATION: clear to auscultation bilaterally Cardio: COMMON NORMALS: regular rate, regular rhythm and No murmurs present (Cardio) RATE: regular rate RHYTHM: regular rhythm GI: COMMON NORMALS: Soft to palpation and No hepatosplenomegaly present AUSCULTATION: Yes normoactive bowel sounds PALPATION: Yes Soft to palpation, No Tenderness to palpation present (GI), No Guarding due to palpation present (GI) and Yes No hepatosplenomegaly present Extremity: COMMON NORMALS: normal to inspection, capillary refill normal, no clubbing, cyanosis or edema, no calf tenderness and no pedal edema OTHER: Chronic ulcer with dry eschar over the right lateral malleolus. The base of the calcaneus posterior aspect at the insertion of the Achilles tendon there is another chronic ulcer with dry eschar. Neither sites have any redness erythema or drainage there is no induration no lymphatic streaking Course Vital Signs: Vital signs: Vital Signs Temperature 96.4 F L 12/13/21 12:37 Pulse Rate 107 H 12/13/21 14:00 Respiratory Rate 21 H 12/13/21 14:00 Blood Pressure 119/77 12/13/21 14:00 Pulse Oximetry 99 12/13/21 14:00 Oxygen Delivery Me thod 12/13/21 09:57 Oxygen Flow Rate 2 12/13/21 09:57 MDM - General Adult Medical Decision Making Fever unknown origin. Patient is unable to give much for history will observe patient cultures done discussed with hospitalist orders written Medical Records I reviewed the patient's medical records. Lab Data I reviewed the patient's lab results. : 10/04/22 10:30 12/13/21 10:30 Radiology Impressions Chest X-Ray 12/13/21 10:01 IMPRESSION: No acute findings. Head CT 12/13/21 10:19 IMPRESSION: 1. No evidence of intracranial hemorrhage or mass effect. 2. Mild small vessel changes with moderate parenchymal volume loss 3. 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 4. Incidental cavum septum pellucidum and vergae. 5. No acute intracranial findings. Laboratory Results WBC 3.6 10^3/uL (4.0-10.0) L 12/13/21 10:30 RBC 3.30 10^6/uL (4.1-5.3) L 12/13/21 10:30 Hgb 11.1 g/dL (11.7-16.6) L 12/13/21 10:30 Hct 34.0 % (42.0-52.0) L 12/13/21 10:30 MCV 103.0 fl (80-94) H 12/13/21 10:30 MCH 33.6 pg (28.0-34.0) 12/13/21 10:30 MCHC 32.6 g/dL (30.0-36.0) 12/13/21 10:30 RDW 15.5 % (12.1-15.1) H 12/13/21 10:30 Plt Count 200 10^3/cmm (130-400) 12/13/21 10:30 MPV 10.1 fL (7.4-10.4) 12/13/21 10:30 Neut % (Auto) 55.3 % 12/13/21 10:30 Lymph % (Auto) 27.8 % 12/13/21 10:30 [place] % (Auto) 16.3 % 12/13/21 10:30 Eos % (Auto) 0.0 % 12/13/21 10:30 Baso % (Auto) 0.3 % 12/13/21 10:30 Neut # (Auto) 1.97 10^3/uL (1.8-7.7) 12/13/21 10:30 Lymph # (Auto) 1.0 10^3/uL (0.8-4.8) 12/13/21 10:30 [place] # (Auto) 0.6 10^3/uL (0.2-0.9) 12/13/21 10:30 Eos # (Auto) 0.0 10^3/uL (0.0-0.8) 12/13/21 10:30 Baso # (Auto) 0.0 10^3/uL (0.0-0.1) 12/13/21 10:30 Nucleated RBC % (auto) 0 % 12/13/21 10:30 Nucleated RBCs # 0.0 /100WBC 12/13/21 10:30 ESR 9 mm/hr (0-10) 12/13/21 10:30 Specimen Type Arterial 12/13/21 10:57 Sample Site Radial, right 12/13/21 10:57 ABG pH 7.43 (7.35-7.45) 12/13/21 10:57 ABG pCO2 39.0 mmHg (35-45) 12/13/21 10:57 ABG pO2 94.0 mmHg (80.0-100.0) 12/13/21 10:57 ABG HCO3 25.8 mmol/L (22-26) 12/13/21 10:57 ABG O2 Saturation 98.3 12/13/21 10:57 ABG Base Excess 1.5 mmol/L (-2.0-2.0) 12/13/21 10:57 Robert Test Pos 12/13/21 10:57 A-a O2 Gradient 7.5 mmHg (5-10) 12/13/21 10:57 Hematocrit 34.1 % (42-52) L 12/13/21 10:57 Hgb O2 Saturation 96.4 % (95-100) 12/13/21 10:57 Carboxyhemoglobin 1.3 %THgb (0.4-20.1) 12/13/21 10:57 Methemoglobin 0.6 % (0.4-1.5) 12/13/21 10:57 Total Hemoglobin 11.1 g/dL (14-18) L 12/13/21 10:57 Sodium 138.0 mmol/L (131-143) 12/13/21 10:57 Potassium 3.6 mmol/L (3.5-5.0) 12/13/21 10:57 Glucose 84.0 mg/dL (70-115) 12/13/21 10:57 Ionized Calcium 1.2 mmol/L (1.1-1.4) 12/13/21 10:57 O2 Delivery Device Nc 12/13/21 10:57 O2 Liters/Min 2.0 % 12/13/21 10:57 FiO2 28.0 % 12/13/21 10:57 E Business Specialist ID [id number] 12/13/21 10:57 Sodium 136 mmol/L (136-145) 12/13/21 10:30 Potassium 4.2 mmol/L (3.5-5.1) 12/13/21 10:30 Chloride 101 mmol/L (98-107) 12/13/21 10:30 Carbon Dioxide 26 mmol/L (22-29) 12/13/21 10:30 Anion Gap 13.2 (5-19) 12/13/21 10:30 BUN 10 mg/dL (6-20) 12/13/21 10:30 Creatinine 0.8 mg/dL (0.7-1.2) 12/13/21 10:30 GFR Calculation 98.9 mL/min (90-130) 12/13/21 10:30 Glucose 86 mg/dL (65-115) 12/13/21 10:30 Calculated Osmolality 280 mOsm/kg (285-295) L 12/13/21 10:30 Lactic Acid 1.2 mmol/L (0.5-2.2) 12/13/21 13:12 Calcium 8.5 mg/dL (8.5-10.5) 12/13/21 10:30 Total Bilirubin 0.2 mg/dL (0.15-1.2) 12/13/21 10:30 AST 17 U/L (0-40) 12/13/21 10:30 ALT 8 U/L (0-41) 12/13/21 10:30 Alkaline Phosphatase 67 U/L (40-130) 12/13/21 10:30 Ammonia 16 umol/L (16-60) 12/13/21 10:37 C-Reactive Protein 55.4 mg/L (0.0-4.9) H 12/13/21 10:30 Total Protein 6.2 g/dL (6.6-8.7) L 12/13/21 10:30 Albumin 3.1 g/dL (3.5-5.2) L 12/13/21 10:30 Globulin 3.1 g/dL (1.3-4.6) 12/13/21 10:30 Lipase 15 U/L (13-60) 12/13/21 10:30 Urine Color Yellow (Yellow) 12/13/21 12:55 Urine Appearance Clear (CLEAR) 12/13/21 12:55 Urine pH 5 (5-7) 12/13/21 12:55 Ur Specific Fraser 1.020 (1.005-1.030) 12/13/21 12:55 Urine Protein Neg (Negative) 12/13/21 12:55 Urine Glucose (UA) Norm (Normal) 12/13/21 12:55 Urine Ketones Negative (Negative) 12/13/21 12:55 Urine Blood 3+ (Negative) H 12/13/21 12:55 Urine Nitrate Negative (Negative) 12/13/21 12:55 Urine Bilirubin Neg (Negative) 12/13/21 12:55 Urine Urobilinogen Norm mg/dL (Negative) 12/13/21 12:55 Ur Leukocyte Esterase Negative (Negative) 12/13/21 12:55 Urine RBC 0-4 /hpf (0-2) H 12/13/21 12:55 Urine WBC 0-4 /hpf (0-5) H 12/13/21 12:55 Ur Squamous Epith Cells 0-4 /hpf (0-5) H 12/13/21 12:55 Amorphous Sediment Not Reportable 12/13/21 12:55 Urine Bacteria None /hpf (NONE) 12/13/21 12:55 Serum Ketones Negative (Negative) 12/13/21 10:30 Discharge Plan Discharge Patient Disposition: Placed in Observation Admit Provider: Gricel Ordoñez Clinical Impression: Fever, Bipolar 1 disorder, Pressure ulcer, heel, Weakness generalized, Macrocytic anemia, Impaired mobility and activities of daily living, COPD (chronic obstructive pulmonary disease) Coding Level of Care Code ED Client Delivery Manager for Chg Fwd Exam Detailed
[2021-12-13 12:38] LABS: Erythrocyte Sedimentation Rate 9 mm/hr (0-10)
[2021-12-13 12:51] LABS: C Reactive Protein 55.4 mg/L (0.0-4.9)
[2021-12-13 13:46] LABS: Glucose Urine UA Norm (Normal); Ketones Urine Negative (Negative); Protein Urine Neg (Negative); Urine Appearance Clear (CLEAR); Urine Color Yellow (Yellow); pH Urine 5 (5-7)
[2021-12-13 13:47] LABS: Add Urine Culture? No; Add Urine Microscopic? YES; Bilirubin Urine Neg (Negative); Blood Urine 3+ (Negative); Leukocyte Esterase Urine Negative (Negative); Nitrate Urine Negative (Negative); RBC Urine 0-4 /hpf (0-2); Squamous Epithelial Cell Urine 0-4 /hpf (0-5); Urobilinogen Urine Norm (Negative); WBC Urine 0-4 /hpf (0-5)
[2021-12-13 13:47] LABS: Lactic Sepsis W/Reflex 1.2 mmol/L (0.5-2.2)
--- NOTE | 2021-12-13 14:50 | PM.HP ---
Providers/Chief Complaint Admitting Physician: Gricel Ordoñez MD Primary Care Provider: David Ramey Chief Complaint: FEVER/ AMS History of Present Illness Nathaniel Sharma Sr is a 61 year old male who presented to the emergency room with above-mentioned complaints. History is not reliable for Mr. Sharma himself. When I first walked in the room he told me that he felt awful. This was later followed by him reporting that he felt great. Review of systems was inconsistent. According to records from [facility] patient had uncontrolled fever, altered mental status . Indication is that fever started yesterday. Temperature at the time of transfer was 103.7. Heart rate 111, respirations 18 and blood pressure 100/66. Oxygen saturations are notated to be 96% on room air. Patient has been given Tylenol with improvement in his fever only transiently. Patient had urinalysis that was unremarkable. Increased confusion and agitation was notated. Patient has been calm in the emergency room. No fever has been reported. Initial pressures around 100 systolic. Dropped into the upper 80s systolic. Unsure what patient's baseline blood pressure is. He was given some IV fluids. Concern is for possibility of developing infection, especially with report of high fever, patient not being able to provide reliable history and such. Request was made for observation admission. Review of Systems General: Reports: ROS unobtainable due to medical condition and ROS unobtainable due to mental status Medications/Allergies Home Medications Medication Instructions Recorded Confirmed Last Taken Type polyethylene glycol 3350 17 17 g PO DAILY 06/07/21 12/13/21 Unknown History gram/dose oral powder (Miralax) clozapine 25 mg tablet 12.5 mg PO DAILY 30 days #15 tabs 07/28/21 12/13/21 Unknown Rx budesonide 0.5 mg/2 mL suspension 0.5 mg (2 mL) inhalation DAILY 30 09/08/21 12/13/21 Unknown Rx for nebulization days #60 mL incontinence pad, liner, disp #30 ea 10/13/21 12/13/21 Unknown Rx (Protective Pads) acetaminophen 325 mg tablet 650 mg PO Q4H PRN Pain 11/29/21 12/13/21 Unknown History (Tylenol) aluminum-mag hydroxide-simethicone 30 ml PO Q2H PRN Indigestion 11/29/21 12/13/21 Unknown History 200 mg-200 mg-20 mg/5 mL oral susp bisacodyl 10 mg rectal suppository 10 mg KS DAILY PRN Constipation 11/29/21 12/13/21 Unknown History (Dulcolax (bisacodyl)) bisacodyl 5 mg tablet,delayed 20 mg PO DAILY PRN Constipation 11/29/21 12/13/21 Unknown History release (Dulcolax (bisacodyl)) magnesium citrate 300 ml PO DAILY PRN Constipation 11/29/21 12/13/21 Unknown History magnesium hydroxide 400 mg/5 mL 30 ml PO Q3D PRN Constipation 11/29/21 12/13/21 Unknown History oral suspension (Milk of Magnesia) clozapine 25 mg tablet 75 mg PO BEDTIME 12/13/21 12/13/21 Unknown History divalproex 500 mg tablet,delayed 500 mg PO DAILY 12/13/21 12/13/21 Unknown History release ipratropium 0.5 mg-albuterol 3 mg 3 ml inhalation Q4H PRN Wheezing 12/13/21 12/13/21 Unknown History (2.5 mg base)/3 mL nebulization soln Allergies Allergy/AdvReac Type Severity Reaction Status Date / Time Penicillins Allergy Unknown Unknown Verified 11/29/21 19:10 PFSH Acute PFSH: Medical History (Updated 12/13/21 @ 16:06 by Gricel Ordoñez MD) Bipolar 1 disorder Catatonia Cigarette nicotine dependence COPD (chronic obstructive pulmonary disease) Erectile disorder, acquired, generalized, moderate Macrocytic anemia Pressure ulcer, heel multiple Psychiatric care Vitamin D deficiency Surgical History Surgical history unknown Family History (Updated 12/13/21 @ 15:25 by Gricel Ordoñez MD) Other Bipolar 1 disorder Social History (Updated 12/13/21 @ 15:26 by Gricel Ordoñez MD) Smoking and tobacco status: former smoker Quit status (tobacco): has quit using tobacco Year quit tobacco: 2021 Second hand smoke exposure: No Alcohol intake: never Substance/Drug Use: never Adopted: Yes Caregiver/support person: No Lives independently: No Household members: spouse and other Details: 2 others living at the house Housing: House Marital status: Number of children: 3 Highest education level completed: GED or Equivalent service: No Current occupational status: other Details: Disability Current occupational exposures/hazards: No Pets and animals: Yes Pets & animals: dog(s) Pets & animal details: 2 small dogs History of recent travel: Yes Details: [place] Out of state: No Out of country: No Leisure activites: fishing and other Leisure activities details: woodworking Sexually active: No Current gender identity: Male Mariah/Buddhist: Yazidi [employer] Special mariah needs: No Agree to transfusion: Yes Vitals/I&O/Wt Last Vital Signs Temp 96.4 F L 12/13/21 12:37 Pulse 107 H 12/13/21 14:00 Resp 21 H 12/13/21 14:00 BP 119/77 12/13/21 14:00 Pulse Ox 99 12/13/21 14:00 O2 Del Method 12/13/21 09:57 O2 Flow Rate 2 12/13/21 09:57 Weight last 48 hrs Weight 79.379 kg Physical Exam Narrative: Constitutional: Awake, cooperative, answers questions but responses are not necessarily associated with what you may have asked, introduces himself to everyone who walks in the room HEENT: Normocephalic, extraocular movements intact, pupils reactive, nasopharynx without any rhinorrhea, oropharynx with moist mucous membranes, poor dentition Neck: Supple Respiratory: Clear to auscultation bilaterally without any rales or wheezes noted, no rhonchi Cardiovascular: Regular but tachycardic rhythm, no murmurs Abdomen: Soft, nontender, positive bowel sounds Extremities: No calf tenderness or pitting edema Skin: Thickened skin over both feet with some areas of desquamation, large scab spontaneously came off of the base of the right first MTP, ulceration to right lateral malleolus is scabbed over. On left heel unstageable ulcer that looks chronic. Left lateral malleolar line has small scabbed area with underlying ecchymosis with surrounding erythema about a centimeter extending beyond this. This area is warm but not fluctuant. Some streaking versus line from heel protector Neuro: Speech clear, face symmetric, moves all extremities, occasional shaking that appears to be voluntary in that it stops on demand Psych: Flat affect, tangential conversation with variable answers to the same questions LEFT LATERAL MALLEOLUS LEFT HEEL LEFT GREAT TOE RIGHT MALLEOLUS RIGHT GREAT TOE Data : 12/13/21 10:30 12/13/21 10:30 Micro: Microbiology 12/13/21 10:46 Blood Culture - Preliminary Blood SPECIMEN COLLECTED 12/13/21 10:49 Blood Culture - Preliminary Blood SPECIMEN COLLECTED Other data: Radiology Impressions Chest X-Ray 12/13/21 10:01 IMPRESSION: No acute findings. Head CT 12/13/21 10:19 IMPRESSION: 1. No evidence of intracranial hemorrhage or mass effect. 2. Mild small vessel changes with moderate parenchymal volume loss 3. 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 4. Incidental cavum septum pellucidum and vergae. 5. No acute intracranial findings. Laboratory Results WBC 3.6 10^3/uL (4.0-10.0) L 12/13/21 10:30 RBC 3.30 10^6/uL (4.1-5.3) L 12/13/21 10:30 Hgb 11.1 g/dL (11.7-16.6) L 12/13/21 10:30 Hct 34.0 % (42.0-52.0) L 12/13/21 10:30 MCV 103.0 fl (80-94) H 12/13/21 10:30 MCH 33.6 pg (28.0-34.0) 12/13/21 10:30 MCHC 32.6 g/dL (30.0-36.0) 12/13/21 10:30 RDW 15.5 % (12.1-15.1) H 12/13/21 10:30 Plt Count 200 10^3/cmm (130-400) 12/13/21 10:30 MPV 10.1 fL (7.4-10.4) 12/13/21 10:30 Neut % (Auto) 55.3 % 12/13/21 10:30 Lymph % (Auto) 27.8 % 12/13/21 10:30 [place] % (Auto) 16.3 % 12/13/21 10:30 Eos % (Auto) 0.0 % 12/13/21 10:30 Baso % (Auto) 0.3 % 12/13/21 10:30 Neut # (Auto) 1.97 10^3/uL (1.8-7.7) 12/13/21 10:30 Lymph # (Auto) 1.0 10^3/uL (0.8-4.8) 12/13/21 10:30 [place] # (Auto) 0.6 10^3/uL (0.2-0.9) 12/13/21 10:30 Eos # (Auto) 0.0 10^3/uL (0.0-0.8) 12/13/21 10:30 Baso # (Auto) 0.0 10^3/uL (0.0-0.1) 12/13/21 10:30 Nucleated RBC % (auto) 0 % 12/13/21 10:30 Nucleated RBCs # 0.0 /100WBC 12/13/21 10:30 ESR 9 mm/hr (0-10) 12/13/21 10:30 Specimen Type Arterial 12/13/21 10:57 Sample Site Radial, right 12/13/21 10:57 ABG pH 7.43 (7.35-7.45) 12/13/21 10:57 ABG pCO2 39.0 mmHg (35-45) 12/13/21 10:57 ABG pO2 94.0 mmHg (80.0-100.0) 12/13/21 10:57 ABG HCO3 25.8 mmol/L (22-26) 12/13/21 10:57 ABG O2 Saturation 98.3 12/13/21 10:57 ABG Base Excess 1.5 mmol/L (-2.0-2.0) 12/13/21 10:57 Robert Test Pos 12/13/21 10:57 A-a O2 Gradient 7.5 mmHg (5-10) 12/13/21 10:57 Hematocrit 34.1 % (42-52) L 12/13/21 10:57 Hgb O2 Saturation 96.4 % (95-100) 12/13/21 10:57 Carboxyhemoglobin 1.3 %THgb (0.4-20.1) 12/13/21 10:57 Methemoglobin 0.6 % (0.4-1.5) 12/13/21 10:57 Total Hemoglobin 11.1 g/dL (14-18) L 12/13/21 10:57 Sodium 138.0 mmol/L (131-143) 12/13/21 10:57 Potassium 3.6 mmol/L (3.5-5.0) 12/13/21 10:57 Glucose 84.0 mg/dL (70-115) 12/13/21 10:57 Ionized Calcium 1.2 mmol/L (1.1-1.4) 12/13/21 10:57 O2 Delivery Device Nc 12/13/21 10:57 O2 Liters/Min 2.0 % 12/13/21 10:57 FiO2 28.0 % 12/13/21 10:57 Scientific Informatics Project Leader ID [id number] 12/13/21 10:57 Sodium 136 mmol/L (136-145) 12/13/21 10:30 Potassium 4.2 mmol/L (3.5-5.1) 12/13/21 10:30 Chloride 101 mmol/L (98-107) 12/13/21 10:30 Carbon Dioxide 26 mmol/L (22-29) 12/13/21 10:30 Anion Gap 13.2 (5-19) 12/13/21 10:30 BUN 10 mg/dL (6-20) 12/13/21 10:30 Creatinine 0.8 mg/dL (0.7-1.2) 12/13/21 10:30 GFR Calculation 98.9 mL/min (90-130) 12/13/21 10:30 Glucose 86 mg/dL (65-115) 12/13/21 10:30 Calculated Osmolality 280 mOsm/kg (285-295) L 12/13/21 10:30 Lactic Acid 1.2 mmol/L (0.5-2.2) 12/13/21 13:12 Calcium 8.5 mg/dL (8.5-10.5) 12/13/21 10:30 Total Bilirubin 0.2 mg/dL (0.15-1.2) 12/13/21 10:30 AST 17 U/L (0-40) 12/13/21 10:30 ALT 8 U/L (0-41) 12/13/21 10:30 Alkaline Phosphatase 67 U/L (40-130) 12/13/21 10:30 Ammonia 16 umol/L (16-60) 12/13/21 10:37 C-Reactive Protein 55.4 mg/L (0.0-4.9) H 12/13/21 10:30 Total Protein 6.2 g/dL (6.6-8.7) L 12/13/21 10:30 Albumin 3.1 g/dL (3.5-5.2) L 12/13/21 10:30 Globulin 3.1 g/dL (1.3-4.6) 12/13/21 10:30 Lipase 15 U/L (13-60) 12/13/21 10:30 Urine Color Yellow (Yellow) 12/13/21 12:55 Urine Appearance Clear (CLEAR) 12/13/21 12:55 Urine pH 5 (5-7) 12/13/21 12:55 Ur Specific Humphrey 1.020 (1.005-1.030) 12/13/21 12:55 Urine Protein Neg (Negative) 12/13/21 12:55 Urine Glucose (UA) Norm (Normal) 12/13/21 12:55 Urine Ketones Negative (Negative) 12/13/21 12:55 Urine Blood 3+ (Negative) H 12/13/21 12:55 Urine Nitrate Negative (Negative) 12/13/21 12:55 Urine Bilirubin Neg (Negative) 12/13/21 12:55 Urine Urobilinogen Norm mg/dL (Negative) 12/13/21 12:55 Ur Leukocyte Esterase Negative (Negative) 12/13/21 12:55 Urine RBC 0-4 /hpf (0-2) H 12/13/21 12:55 Urine WBC 0-4 /hpf (0-5) H 12/13/21 12:55 Ur Squamous Epith Cells 0-4 /hpf (0-5) H 12/13/21 12:55 Amorphous Sediment Not Reportable 12/13/21 12:55 Urine Bacteria None /hpf (NONE) 12/13/21 12:55 Serum Ketones Negative (Negative) 12/13/21 10:30 Laboratory studies from [facility] (done from [facility] Urinalysis dated 12/09/2021 showed trace blood, 6-10 white blood cells, 3-5 white blood cells with negative nitrites and leukocyte esterase Urine culture same date 12/09/2021 no growth no further work-up recommended Laboratory studies from 11/25/2021 showed BUN/creatinine 10/0.5 normal liver function studies and other electrolytes although albumin was low at 3.2 11/25/2021 lipids revealed cholesterol 141, HDL 39, LDL 72, triglycerides 179 HDL 102, TSH 5.7, vitamin D level low at 24.6, B12 at 453 within normal range 11/25/2021 white count 6000 hemoglobin 12.5, platelet count 136 A&P Assessment and plan (1) Fever: Up to as high as 103.7 at [facility]. Had 1 episode of clearing of his throat while he was in the room but no other respiratory symptoms apparent. Wound to left lateral malleoli is concerning. Urine was unremarkable. Slight drop in white count but has had previously. No fever thus far here. Had transient drop in blood pressures noted in the emergency room that responded to fluids. Lactic acid was normal on 2 checks but did have elevation in CRP at 55. Reported alteration in mental status with increased confusion and agitation though appears calm and similar to recently described function at the time of my evaluation Qualifiers: Encounter type: initial encounter (2) Pressure ulcer, heel: Multiple ulcers and wounds to the feet, right heel and bilateral lateral malleoli not unstageable, both heels are soft, thickened desquamating skin noted. Wounds are chronic but cannot rule out an acute worsening particularly on the left lateral malleoli at this time. Qualifiers: Pressure injury stage: stage 1 Laterality: unspecified laterality Qualified Code(s): L89.601 - Pressure ulcer of unspecified heel, stage 1 (3) Bipolar 1 disorder: Chronically on clozapine and Depakote (4) COPD (chronic obstructive pulmonary disease): Chronically on budesonide and albuterol, not currently acute Qualifiers: COPD type: emphysema Emphysema type: panlobular Qualified Code(s): J43.1 - Panlobular emphysema (5) Macrocytic anemia: Slight drop in hemoglobin compared to prior values, macrocytosis is chronic, no reported bleeding (6) Impaired mobility and activities of daily living: Baseline limited mobility and ADL dependence that appears to be secondary to psychiatric issues from information available Plan Observation admission for now Continue to monitor for any recurrent fever Blood cultures have been collected Hold on antibiotics presently CT imaging of the left lower extremity to evaluate the left lateral decubitus wound further Repeat CRP in the morning Check CK level and Depakote level Continue home budesonide and albuterol Monitor for indication of any bleeding IV fluids x1 L Nutritional supplements to facilitate maximizing nutrition Lovenox for DVT prophylaxis Supportive care otherwise Plans reviewed with patient. Patient's Vicky Sharma phone number is [phone]. I attempted to call but each time it went to a message stating that this phone number is not set up for voicemail Full code Attestations Medical Necessity Statement*: Anticipate stay less than 2 midnights currently. No fever here, but reported at 103 at facility. Had variable blood pressures in the ER and tachycardia. Has chronic wounds to feet, one of which may be a potential source of acute infection, but not clear at this time. Plans as indicated. Coding Level of Care Code Acute Rad Technologist for [facility] Fwd Diagnoses Fever R50.9 Encounter type: initial encounter Pressure ulcer, heel L89.601 Pressure injury stage: stage 1 Laterality: unspecified laterality Bipolar 1 disorder F31.9 COPD (chronic obstructive pulmonary disease) J43.1 COPD type: emphysema Emphysema type: panlobular Macrocytic anemia D53.9 Impaired mobility and activities of daily living Z74.09; Z78.9
[2021-12-13 15:12] LABS: Adenovirus Not Detected (NOT DETECT); Chlamydia Pneumoniae Not Detected (NOT DETECT); Coronavirus 229E,HKU1,NL63,OC4 Not Detected (NOT DETECT); Human Metapneumovirus Not Detected (NOT DETECT); Human Rhinovirus/Enterovirus Not Detected (NOT DETECT); Influenza A Not Detected (NOT DETECT); Influenza A H1 Not Detected (NOT DETECT); Influenza A H1-2009 Not Detected (NOT DETECT); Influenza A H3 Not Detected (NOT DETECT); Influenza B Not Detected (NOT DETECT); Mycoplasma Pneumoniae Not Detected (NOT DETECT); Parainfluenza Virus Type 1 Not Detected (NOT DETECT); Parainfluenza Virus Type 2 Not Detected (NOT DETECT); Parainfluenza Virus Type 3 Not Detected (NOT DETECT); Parainfluenza Virus Type 4 Not Detected (NOT DETECT); Respiratory Syncytial Virus A Not Detected (NOT DETECT); Respiratory Syncytial Virus B Not Detected (NOT DETECT); SARS-COV-2 Detected (NOT DETECT)
[2021-12-13 17:29] LABS: Creatine Phosphokinase 41 U/L (39-308); Valproic Acid Level 50.9 ug/mL (50-100)
[2021-12-13] MEDS: enoxaparin 40 mg/0.4 mL Syringe SUBCUT (17:53)
[2021-12-13] MEDS: sodium chloride 0.9% 1,000 ML 75 ML IV (17:53)
[2021-12-13] MEDS: ipratropium-albuterol 3 mL Neb INHALATION (20:52)
[2021-12-13 21:18] LABS: ABG PCO2 36.8 mmHg (35-45); ABG PH Result 7.48 (7.35-7.45); Arterial Blood Gas Hematocrit 37.5 % (42-52); Base Excess ABG 4.1 mmol/L (-2.0-2.0); Blood Gas Allen Test Pos; Blood Gas Operator Identificat glc; Blood Gas Sample Site Radial, left; Blood Gas Sample Type Arterial; HCO3 ABG 27.6 mmol/L (22-26); Oxygen Device ROOM AIR; PO2 ABG 73.9 mmHg (80.0-100.0)
[2021-12-13] MEDS: remdesivir 200 MG in sodium chloride 0.9% (100 ml) 60 ML 100 MG IV (21:31)
[2021-12-13] MEDS: cloZAPine 25 mg Tablet 75 MG PO (21:31)
[2021-12-14] VITALS (13 sets, daily range): BP systolic 100–133; BP diastolic 67–82; PULSE 92–149; RESP 17–20; TEMP 36.4–36.9; O2SAT 97–99
[2021-12-14 04:37] LABS: Basophils % 0.2 %; Hematocrit 33.7 % (42.0-52.0); Hemoglobin 10.5 g/dL (11.7-16.6); Lymphocytes # 1.5 10^3/uL (0.8-4.8); Lymphocytes % 35.5 %; Mean Corpuscular HGB Conc 31.2 g/dL (30.0-36.0); Mean Platelet Volume 9.7 fL (7.4-10.4); Monocytes # 0.4 10^3/uL (0.2-0.9); Monocytes % 10.3 %; Neutrophils % 53.8 %; Nucleated Red Blood Cells % 0 %; Platelet Count 175 10^3/cmm (130-400); Red Blood Count 3.18 10^6/uL (4.1-5.3); Red Cell Distribution Width 15.1 % (12.1-15.1); White Blood Count 4.1 10^3/uL (4.0-10.0)
[2021-12-14 04:52] LABS: D Dimer 1.09 ug/mIFEU (0-0.59)
[2021-12-14 04:59] LABS: Anion Gap 12.5 (5-19); Blood Urea Nitrogen 9 mg/dL (6-20); C Reactive Protein 93.4 mg/L (0.0-4.9); Calcium 8.4 mg/dL (8.5-10.5); Carbon Dioxide 26 mmol/L (22-29); Chloride 103 mmol/L (98-107); Glomerular Filtration Rate 170.2 mL/min (90-130); Glucose 91 mg/dL (65-115); Magnesium 1.9 mg/dL (1.7-2.3); Osmolality Calculated 284 mOsm/kg (285-295); Potassium 3.5 mmol/L (3.5-5.1); Sodium 138 mmol/L (136-145)
[2021-12-14 05:05] LABS: Procalcitonin 0.19 ng/mL (0-0.5)
[2021-12-14 06:26] LABS: Influenza A by IFA negative (Negative); Influenza B by IFA negative (Negative)
[2021-12-14] MEDS: ipratropium-albuterol 3 mL Neb INHALATION ×2 (08:06→20:10)
[2021-12-14] MEDS: budesonide 0.5 mg/2 mL Neb INHALATION (08:06)
[2021-12-14] MEDS: polyethylene glycol 3350 Pkt 17 gm PO (09:56)
[2021-12-14] MEDS: divalproex DR 500 mg Tablet PO (09:56)
[2021-12-14] MEDS: cloZAPine 25 mg Tablet 12.5 MG PO (09:58)
[2021-12-14] MEDS: iohexol 350 mg/mL 100 mL Btl IV (11:04)
[2021-12-14 11:06] LABS: Iron 10 ug/dL (59-158); Percent Saturation 5.5 % (20-50); Total Iron Binding Capacity 179 mcg/dl; Unsaturated Iron Binding 169 ug/dL (112-347)
[2021-12-14 11:25] LABS: Thyroid Stimulating Hormone 5.38 uIU/mL (0.27-4.20); Vitamin B12 282 pg/mL (232-1245)
[2021-12-14 11:25] LABS: Folate Level 10.4 ng/mL (4.5-32.2)
[2021-12-14] MEDS: dexamethasone 10 mg/mL INJ 6 MG IVP (12:55)
--- NOTE | 2021-12-14 14:29 | P.PN_ITS ---
Subjective Subjective: H&P, labs appreciated. Examination patient lying comfortably in bed. He is off confusion. Saturating well with nitroglycerin. Denies any nausea, vomiting, headache. Though patient is not good or reliable historian. First on examination patient is alert and oriented during the conversation patient has tangential thoughts and starts talking about songs from [employer] Vitals/I&O/Wt Last Vital Signs Temp 98 F 12/14/21 12:00 Pulse 106 H 12/14/21 12:00 Resp 20 H 12/14/21 12:00 BP 133/79 12/14/21 12:00 Pulse Ox 98 12/14/21 12:00 O2 Del Method 12/14/21 12:00 O2 Flow Rate 2 12/14/21 11:40 12/13/21 12/14/21 12/14/21 22:59 06:59 14:59 Intake Total 240 / 240 Balance 240 / 240 Weight last 48 hrs Weight 79.379 kg Physical Exam Narrative: Constitutional: Awake, alert 1-2 times, tangential thoughts on and off. Answers appropriately on and off, on room air HEENT: Normocephalic, extraocular movements intact, pupils reactive, nasopharynx without any rhinorrhea, oropharynx with moist mucous membranes, poor dentition Neck: Supple Respiratory: Clear to auscultation bilaterally without any rales or wheezes noted, no rhonchi Cardiovascular: Regular but tachycardic rhythm, no murmurs Abdomen: Soft, nontender, positive bowel sounds Extremities: No calf tenderness or pitting edema Skin: Thickened skin over both feet with some areas of desquamation, large scab spontaneously came off of the base of the right first MTP, ulceration to right lateral malleolus is scabbed over. On left heel unstageable ulcer that looks chronic. Left lateral malleolar line has small scabbed area with underlying ecchymosis with surrounding erythema about a centimeter extending beyond this. This area is warm but not fluctuant. Some streaking versus line from heel protector Neuro: Speech clear, face symmetric, moves all extremities, occasional shaking that appears to be voluntary in that it stops on demand Psych: Flat affect, tangential conversation with variable answers to the same questions Data : 12/14/21 04:30 12/14/21 04:30 Micro: Microbiology 12/13/21 12:55 Legionella Urinary Antigen - Final Unknown Source 12/13/21 10:49 Blood Culture - Preliminary Blood NEGATIVE TO DATE 12/13/21 10:46 Blood Culture - Preliminary Blood NEGATIVE TO DATE A&P Assessment and plan (1) Fever: Most likely secondary to COVID-19. Cannot rule out secondary to osteomyelitis though patient is hemodynamically stable, without leukocytosis. CT scan results appreciated. Qualifiers: Encounter type: initial encounter (2) COVID-19: Hypoxia secondary to COVID-19 pneumonia: Mild disease. Oxygen supplementation keeping saturation over 88%. Dexamethasone 6 mg daily. Remdesivir to finish a 3 to 5-day course as patient remains on room air. Vitamin C, zinc. Advair, Spiriva for now. Pulmonary toilet with incentive spirometry flutter valve. We will monitor inflammatory markers including CRP, D-dimer every 48 hours. D-dimer elevated. But patient remains on room air so low probability of PE. Check sputum culture, procalcitonin, urine Legionella, bacterial antigen, blood culture. Procalcitonin negative. Low suspicion of bacterial infection for now. Given hypoxia will try to keep patient as negative as possible. Lasix as per fluid status. Strict input output charting, daily weights. (3) Osteomyelitis: CT scan results appreciated. Consistent with osteomyelitis. CRP is elevated. Patient has no leukocytosis, is hemodynamically stable. Will consult podiatry for further evaluation and management. (4) Pressure ulcer, heel: Qualifiers: Pressure injury stage: stage 1 Laterality: unspecified laterality Qualified Code(s): L89.601 - Pressure ulcer of unspecified heel, stage 1 (5) Bipolar 1 disorder: Chronically on clozapine and Depakote No suicidal ideation currently. (6) COPD (chronic obstructive pulmonary disease): Switch to Advair, Spiriva for now. Qualifiers: COPD type: emphysema Emphysema type: panlobular Qualified Code(s): J43.1 - Panlobular emphysema (7) Macrocytic anemia: Slight drop in hemoglobin compared to prior values, macrocytosis is chronic, no reported bleeding (8) Impaired mobility and activities of daily living: Baseline limited mobility and ADL dependence that appears to be secondary to psychiatric issues from information available (9) Psychiatric care: Plan Analgesia: Tylenol as needed Glycemic control: Not needed Nutrition: Regular diet CODE STATUS: Full code PUD prophylaxis: Protonix DVT prophylaxis: Lovenox Discharge planning: Back to SNF once medically cleared Continue with care at [facility] floor. This documentation was created by [employer] cloth painter software. Every effort was made to ensure accuracy of cloth painter. Any obvious errors or omissions should be clarified with the author of the document. Attestations Medical Necessity Statement*: Nathaniel Sarah Sharma Sr is being changed to inpatient status as stay will now exceed 2 midnights. Ongoing hospital care is necessary for management of osteomyelitis, COVID-19 in a patient who is a senior care resident secondary to psychiatric illnessfor Time Spent in Patient Care: Greater than 35 minutes Coding Level of Care Code Acute Five Piece Expansion Maker Hand for [facility] Fwd Diagnoses Fever R50.9 Encounter type: initial encounter COVID-19 U07.1 Osteomyelitis M86.9 Pressure ulcer, heel L89.601 Pressure injury stage: stage 1 Laterality: unspecified laterality Bipolar 1 disorder F31.9 COPD (chronic obstructive pulmonary disease) J43.1 COPD type: emphysema Emphysema type: panlobular Macrocytic anemia D53.9 Impaired mobility and activities of daily living Z74.09; Z78.9 Psychiatric care
--- NOTE | 2021-12-14 15:56 | PM.CONSULT ---
Providers/Reason For Consult Consulting Physician/Specialty*: Podiatry Reason for Consult*: Bilateral lower extremity ulcerations, left heel decubitus ulcer, possible sepsis Attending Physician: Sang Mensah MD Primary Care Provider: David Ramey History of Present Illness History of Present Illness Nathaniel Sharma Sr is a 61 year old male with history of bipolar 1 disorder and chronic lower extremity ulcerations who was brought to the emergency department 12/13/2021 from [facility]. Patient is unable to provide adequate history. Per the documentation, the halfway facility noticed a temperature of 103 ?F. This was in conjunction with altered mental status from baseline. He was also found to be hypotensive. Upon arrival to the emergency department he received fluid and his blood pressure stabilized. He was admitted for observation and further work-up. Given the chronicity of his lower extremity wounds, podiatry was consulted to evaluate and provide recommendations and rule out lower extremities as source for possible sepsis. At bedside, the patient communicates incoherently and is not able to maintain a fluid conversation. He is wearing bilateral offloading boots. No current dressings applied to lower extremities. Review of Systems General: Reports: ROS unobtainable due to medical condition and ROS unobtainable due to mental status Medications/Allergies Home Medications Medication Instructions Recorded Confirmed Last Taken Type polyethylene glycol 3350 17 17 g PO DAILY 06/07/21 12/13/21 Unknown History gram/dose oral powder (Miralax) clozapine 25 mg tablet 12.5 mg PO DAILY 30 days #15 tabs 07/28/21 12/13/21 Unknown Rx budesonide 0.5 mg/2 mL suspension 0.5 mg (2 mL) inhalation DAILY 30 09/08/21 12/13/21 Unknown Rx for nebulization days #60 mL incontinence pad, liner, disp #30 ea 10/13/21 12/13/21 Unknown Rx (Protective Pads) acetaminophen 325 mg tablet 650 mg PO Q4H PRN Pain 11/29/21 12/13/21 Unknown History (Tylenol) aluminum-mag hydroxide-simethicone 30 ml PO Q2H PRN Indigestion 11/29/21 12/13/21 Unknown History 200 mg-200 mg-20 mg/5 mL oral susp bisacodyl 10 mg rectal suppository 10 mg NH DAILY PRN Constipation 11/29/21 12/13/21 Unknown History (Dulcolax (bisacodyl)) bisacodyl 5 mg tablet,delayed 20 mg PO DAILY PRN Constipation 11/29/21 12/13/21 Unknown History release (Dulcolax (bisacodyl)) magnesium citrate 300 ml PO DAILY PRN Constipation 11/29/21 12/13/21 Unknown History magnesium hydroxide 400 mg/5 mL 30 ml PO Q3D PRN Constipation 11/29/21 12/13/21 Unknown History oral suspension (Milk of Magnesia) clozapine 25 mg tablet 75 mg PO BEDTIME 12/13/21 12/13/21 Unknown History divalproex 500 mg tablet,delayed 500 mg PO DAILY 12/13/21 12/13/21 Unknown History release ipratropium 0.5 mg-albuterol 3 mg 3 ml inhalation Q4H PRN Wheezing 12/13/21 12/13/21 Unknown History (2.5 mg base)/3 mL nebulization soln Allergies Allergy/AdvReac Type Severity Reaction Status Date / Time Penicillins Allergy Unknown Unknown Verified 11/29/21 19:10 Current Medications Generic Name Dose Route Start Last Admin Trade Name Freq PRN Reason Stop Dose Admin Albuterol/Ipratropium 3 ml 12/13/21 16:44 12/14/21 08:06 Ipratropium-Albuterol 3 Ml Neb INHALATION 3 ml Q4H.RESPIRATORY PRN Administration Wheezing Clozapine 75 mg 12/13/21 21:00 12/13/21 21:31 Clozapine 25 Mg Tablet PO 75 mg BEDTIME ALVINO Administration Clozapine 12.5 mg 12/14/21 09:00 12/14/21 09:58 Clozapine 25 Mg Tablet PO 12.5 mg DAILY ALVINO Administration Dexamethasone 6 mg 12/14/21 10:30 12/14/21 12:55 Dexamethasone 10 Mg/Ml Inj IVP 6 mg Q24H ALVINO Administration Divalproex Sodium 500 mg 12/14/21 09:00 12/14/21 09:[address] 500 Mg Tablet PO 500 mg DAILY ALVINO Administration Enoxaparin Sodium 40 mg 12/13/21 18:00 12/13/21 17:53 Enoxaparin 40 Mg/0.4 Ml Syringe SUBCUT 40 mg Q24H ALVINO Administration Polyethylene Glycol 17 gm 12/14/21 09:00 12/14/21 09:56 Polyethylene Glycol 3350 Pkt 17 Gm PO 17 gm DAILY ALVINO Administration Fluticasone/Salmeterol 1 puff 12/14/21 10:30 12/14/21 11:41 Fluticasone-Salmeterol 250-50 Diskus INHALATION 1 puff BID.RESPIRATORY ALVINO Administration Tiotropium [place] 18 mcg 12/14/21 10:30 12/14/21 11:41 Tiotropium 18 Mcg Mdi INHALATION 1 puff DAILY.RESPIRATORY ALVINO Administration PFSH Acute PFSH: Medical History (Updated 12/14/21 @ 16:15 by Bryce Stephens DPM) Adjustment disorder with mixed disturbance of emotions and conduct Bipolar 1 disorder Catatonia Cigarette nicotine dependence Cigarette nicotine dependence in remission COPD (chronic obstructive pulmonary disease) Erectile disorder, acquired, generalized, moderate Macrocytic anemia Persistent adjustment disorder with mixed disturbance of emotions and conduct Poverty Pressure ulcer, heel multiple Psychiatric care Suicidal ideation Vitamin D deficiency Surgical History Surgical history unknown Family History (Updated 12/13/21 @ 15:25 by Gricel Ordoñez MD) Other Bipolar 1 disorder Social History (Updated 12/13/21 @ 15:26 by Gricel Ordoñez MD) Smoking and tobacco status: former smoker Quit status (tobacco): has quit using tobacco Year quit tobacco: 2021 Second hand smoke exposure: No Alcohol intake: never Substance/Drug Use: never Adopted: Yes Caregiver/support person: No Lives independently: No Household members: spouse and other Details: 2 others living at the house Housing: House Marital status: Number of children: 3 Highest education level completed: GED or Equivalent service: No Current occupational status: other Details: Disability Current occupational exposures/hazards: No Pets and animals: Yes Pets & animals: dog(s) Pets & animal details: 2 small dogs History of recent travel: Yes Details: [place] Out of state: No Out of country: No Leisure activites: fishing and other Leisure activities details: woodworking Sexually active: No Current gender identity: Male Mariah/Confucianist: [employer] Special mariah needs: No Agree to transfusion: Yes Vitals/I&O/Wt Last Vital Signs Temp 97.5 F L 12/14/21 15:42 Pulse 101 H 12/14/21 15:42 Resp 18 12/14/21 15:42 BP 100/67 12/14/21 15:42 Pulse Ox 97 12/14/21 15:42 O2 Del Method 12/14/21 15:42 O2 Flow Rate 2 12/14/21 11:40 12/14/21 12/14/21 12/14/21 06:59 14:59 22:59 Intake Total 540 / 540 Balance 540 / 540 Weight last 48 hrs Weight 175 lb Physical Exam Narrative: GENERAL: Altered mental status, unable to maintain coherent conversation VASCULAR: DP/PT pulses palpable 2/4 with CFT intact, <3seconds to distal digits, triphasic waveforms in DP/PT pulses bilaterally via hand-held Doppler DERMATOLOGICAL: Skin turgor and temperature is within normal limits. Multiple lower extremity wounds bilaterally Wound #1 Location: Right lateral malleolus Size: 2.5 cm x 2.5 cm x 0.1 cm Undermining: Negative Tracking: Negative Probe to bone: Negative Borders: Xerotic skin, epithelializing borders Base: Centralized well adhered eschar Drainage: Negative Malodor: Negative Wound #2 Location: Right medial first metatarsal phalangeal joint Size: 2.0 x 0.5 cm, abrasion Undermining: Negative Tracking: Negative Probe to bone: Negative Borders: Abrasion, no borders Base: Hemorrhagic abrasion Drainage: Negative Malodor: Negative Wound #3 Location: Left lateral malleolus Size: 3.0 x 2.8 x 0.1 cm Undermining: Negative Tracking: Negative Probe to bone: Negative Borders: Xerotic scale with ecchymoses surrounding wound and overlying fibula consistent with chronic pressure Base: Stable eschar Drainage: Negative Malodor: Negative Wound #4 Location: Posterior left heel Size: 4.5 x 3.5 x 0.3 cm at its longest widest and deepest portions Undermining: Negative Tracking: Negative Probe to bone: Negative Borders: Reepithelializing, mixed fiber granular 50:50 ratio Base: Centralized stable eschar Drainage: Negative Malodor: Negative MUSCULOSKELETAL: Rectus foot alignment, no gross musculoskeletal deformities noted. Muscle strength testing deferred secondary to patient's mental status NEUROLOGICAL: Unable to assess lower extremity sensation status due to patient's mental status IMAGING: CT scan of left lower extremity personally reviewed by me which show chronic erosive changes of posterior left calcaneus underlying soft tissue deficit which correlates clinically with decubitus ulceration of left heel. No subcutaneous emphysema noted. Erosive changes are chronic in appearance with no appreciable abscess or fluid collection. Data : 12/14/21 04:30 12/14/21 04:30 Micro: Microbiology 12/13/21 12:55 Legionella Urinary Antigen - Final Unknown Source 12/13/21 10:49 Blood Culture - Preliminary Blood NEGATIVE TO DATE 12/13/21 10:46 Blood Culture - Preliminary Blood NEGATIVE TO DATE A&P Assessment and plan (1) Decubitus ulcer, heel, left, unstageable: (2) Pressure ulcer, heel: Qualifiers: Pressure injury stage: stage 1 Laterality: unspecified laterality Qualified Code(s): L89.601 - Pressure ulcer of unspecified heel, stage 1 (3) COVID-19: (4) Fever: Qualifiers: Encounter type: initial encounter (5) Chronic osteomyelitis of left hindfoot: (6) Bipolar 1 disorder: Plan WBC 4.1 CRP 93.4 Temp 97.5 HR 101 RR 18 BP 100/67 SARS-CoV-2 Detected A -Ok for diet from podiatry standpoint -Bilateral lower extremity wounds examined and found to be stable with no acute or active infection. I do not believe that the lower extremity wounds are the source of altered mental status or fever -CT scan reviewed which shows chronic erosive changes of calcaneus consistent with probable chronic osteomyelitis. No evidence of acute osteomyelitis. No abscess -No need for surgical intervention per podiatry at this time -No need for infection control/antibiotic therapy for lower extremity wounds at this time -Recommend local wound care with once daily Betadine wet-to-dry dressing to left posterior heel -Continue offloading left heel using offloading boots -Recommend patient follow-up with wound care in the outpatient setting -Given stable status of bilateral lower extremity wounds, podiatry will sign off. Please reconsult if needed Consult Attestations Medical Necessity Statement: See above Coding Level of Care Code Acute Urologic Nurse for [facility] Fwd Diagnoses Decubitus ulcer, heel, left, unstageable L89.620 Pressure ulcer, heel L89.601 Pressure injury stage: stage 1 Laterality: unspecified laterality COVID-19 U07.1 Fever R50.9 Encounter type: initial encounter Chronic osteomyelitis of left hindfoot M86.672 Bipolar 1 disorder F31.9
--- NOTE | 2021-12-14 16:04 | CT_ITS ---
WS: [id number] INDICATION: Osteomyelitis cellulitis TECHNIQUE: Contrast-enhanced CT LEFT lower leg FINDINGS: Osteopenia. Degenerative arthritis LEFT knee and LEFT ankle. Subchondral cystic change invo lving the tibial plafond and talar dome. Subcutaneous edema lower leg and ankle compatible with cellu litis. Ulceration overlying the dorsal calcaneus. Underlying erosive bony changes in the calcaneus co mpatible with osteomyelitis. No drainable abscess or fluid collection. CT/CT lower leg LT w con [id number] IMPRESSION: Exam is somewhat limited due to positioning. 1. Ulceration overlying the dorsal calcaneus with erosive changes in the under lying bony calcaneus compatible with osteomyelitis. 2. Cellulitis lower leg and ankle. 3. No drainable abscess or fluid collection.
[2021-12-14] MEDS: enoxaparin 40 mg/0.4 mL Syringe SUBCUT (18:00)
[2021-12-14] MEDS: remdesivir 100 MG in sodium chloride 0.9% (100 ml) 80 ML IV (18:00)
[2021-12-14] MEDS: ascorbic acid 500 mg Tablet PO (18:01)
[2021-12-14] MEDS: ferrous gluconate 324 mg Tablet PO (18:15)
[2021-12-14] MEDS: cloZAPine 25 mg Tablet 75 MG PO (20:18)
[2021-12-15] VITALS: BP 100/64; PULSE 103; RESP 21; TEMP 36.7; O2SAT 95
[2021-12-15 04:00] VITALS: BP 116/72; PULSE 102; RESP 18; TEMP 37.3; O2SAT 96
[2021-12-15 04:53] LABS: Basophils % 0.2 %; Hematocrit 35.7 % (42.0-52.0); Hemoglobin 11.7 g/dL (11.7-16.6); Lymphocytes # 0.9 10^3/uL (0.8-4.8); Lymphocytes % 18.5 %; Mean Corpuscular HGB Conc 32.8 g/dL (30.0-36.0); Mean Corpuscular Hemoglobin 33.5 pg (28.0-34.0); Mean Corpuscular Volume 102.3 fl (80-94); Mean Platelet Volume 9.9 fL (7.4-10.4); Monocytes # 0.4 10^3/uL (0.2-0.9); Monocytes % 8.8 %; Neutrophils # 3.63 10^3/uL (1.8-7.7); Neutrophils % 72.3 %; Nucleated Red Blood Cells % 0 %; Platelet Count 209 10^3/cmm (130-400); Red Blood Count 3.49 10^6/uL (4.1-5.3); Red Cell Distribution Width 14.7 % (12.1-15.1)
[2021-12-15 05:13] LABS: Alanine Aminotransferase 8 U/L (0-41); Albumin Level 2.9 g/dL (3.5-5.2); Alkaline Phosphatase 60 U/L (40-130); Anion Gap 15.1 (5-19); Aspartate Amino Transferase 12 U/L (0-40); Blood Urea Nitrogen 14 mg/dL (6-20); C Reactive Protein 85.2 mg/L (0.0-4.9); Calcium 9.2 mg/dL (8.5-10.5); Carbon Dioxide 26 mmol/L (22-29); Chloride 105 mmol/L (98-107); Globulin 3.2 g/dL (1.3-4.6); Glomerular Filtration Rate 170.2 mL/min (90-130); Glucose 91 mg/dL (65-115); Osmolality Calculated 294 mOsm/kg (285-295); Potassium 4.1 mmol/L (3.5-5.1); Sodium 142 mmol/L (136-145); Total Bilirubin 0.2 mg/dL (0.15-1.2); Total Protein 6.1 g/dL (6.6-8.7)
[2021-12-15 06:00] VITALS: PULSE 92
[2021-12-15] MEDS: divalproex DR 500 mg Tablet PO (07:53)
[2021-12-15] MEDS: polyethylene glycol 3350 Pkt 17 gm PO (07:53)
[2021-12-15] MEDS: cloZAPine 25 mg Tablet 12.5 MG PO (07:54)
[2021-12-15] MEDS: ferrous gluconate 324 mg Tablet PO (07:54)
[2021-12-15] MEDS: ascorbic acid 500 mg Tablet PO (07:55)
[2021-12-15 08:00] VITALS: BP 127/81; PULSE 100; RESP 17; TEMP 36.8; O2SAT 91
[2021-12-15 08:51] VITALS: PULSE 100; RESP 18; O2SAT 92
--- NOTE | 2021-12-15 10:43 | P.DS_ITS ---
Discharge Providers Date of Admission: 12/14/21 14:41 Date of Discharge: December 15, 2021 Attending Provider at Admission: Gricel Ordoñez MD Attending Provider at Discharge: Sang Mensah MD Consults: Podiatry: Dr. Stephens Primary Care Provider: David Ramey Diagnoses at Discharge Discharge Diagnosis (1) Chronic osteomyelitis of left hindfoot: Status: Acute (2) Decubitus ulcer, heel, left, unstageable: Status: Acute (3) COVID-19: Status: Acute (4) Pressure ulcer, heel: Status: Acute Qualifiers: Pressure injury stage: stage 1 Laterality: unspecified laterality Qualified Code(s): L89.601 - Pressure ulcer of unspecified heel, stage 1 Permanent problem details: multiple (5) Fever: Status: Acute Qualifiers: Encounter type: initial encounter (6) Bipolar 1 disorder: Status: Chronic Reason for Visit Reason for Visit: FEVER/ AMS Brief History: History as per HPI: Nathaniel Sharma Sr is a 61 year old male who presented to the emergency room with above-mentioned complaints.? History is not reliable for Mr. Sharma himself.? When I first walked in the room he told me that he felt awful.? This was later followed by him reporting that he felt great.? Review of systems was inconsistent.? According to records from [facility] patient had uncontrolled fever, altered mental status .? Indication is that fever started yesterday.? Temperature at the time of transfer was 103.7.? Heart rate 111, respirations 18 and blood pressure 100/66.? Oxygen saturations are notated to be 96% on room air.? Patient has been given Tylenol with improvement in his fever only transiently.? Patient had urinalysis that was unremarkable.? Increased confusion and agitation was notated.? Patient has been calm in the emergency room.? No fever has been reported.? Initial pressures around 100 systolic.? Dropped into the upper 80s systolic.? Unsure what patient's baseline blood pressure is.? He was given some IV fluids.? Concern is for possibility of developing infection, especially with report of high fever, patient not being able to provide reliable history and such.? Request was made for observation admission. Hospital Course Hospital Course Patient was admitted to the hospital for further evaluation and management. He was found to be positive for COVID-19. At first he was on oxygen supplementation. He was started on treatment protocol with remdesivir and dexamethasone. Patient has been on room air for last 48 hours. He has finished 3-day course of IV remdesivir. On admission he was found to have significant decubitus ulcer on his bilateral ankles and heel. CT scan of left foot was done which is consistent with chronic osteomyelitis. Patient did not have any leukocytosis and lactate was negative on admission. Podiatry was consulted. They also recommended patient to have wound care as an outpatient without any active need of debridement or prolonged antibiotics. Patient has remained afebrile and hemodynamically stable during hospitalization. He is back to his baseline mentation. He is being discharged back to detention for further rehabitation with wound care orders. Physical Exam Narrative: Constitutional: Awake, alert 1-2 times, tangential thoughts on and off. Answers appropriately on and off, on room air HEENT: Normocephalic, extraocular movements intact, pupils reactive, nasopharynx without any rhinorrhea, oropharynx with moist mucous membranes, poor dentition Neck: Supple Respiratory: Clear to auscultation bilaterally without any rales or wheezes noted, no rhonchi Cardiovascular: Regular but tachycardic rhythm, no murmurs Abdomen: Soft, nontender, positive bowel sounds Extremities: No calf tenderness or pitting edema Skin: Thickened skin over both feet with some areas of desquamation, large scab spontaneously came off of the base of the right first MTP, ulceration to right lateral malleolus is scabbed over. On left heel unstageable ulcer that looks chronic. Left lateral malleolar line has small scabbed area with underlying ecchymosis with surrounding erythema about a centimeter extending beyond this. This area is warm but not fluctuant. Some streaking versus line from heel protector Neuro: Speech clear, face symmetric, moves all extremities, occasional shaking that appears to be voluntary in that it stops on demand Psych: Flat affect, tangential conversation with variable answers to the same questions Discharge Data Studies Completed and Pending Completed Studies During Hospitalization Category Date Time Status CT head wo con* [id number] Stat Cat Scan 12/13/21 10:[address] lower leg LT w con [id number] Routine Cat Scan 12/14/21 16:04 Completed XR chest 1V portable [id number] Stat Exams 12/13/21 10:01 Completed Pending at discharge Category Date Time Status Blood Culture Stat Lab 12/13/21 10:46 Results C Reactive Protein Q48H Lab 12/17/21 04:00 Ordered MRSA by PCR Routine Lab 12/14/21 17:58 Received Radiology Impressions Chest X-Ray 12/13/21 10:01 IMPRESSION: No acute findings. Head CT 12/13/21 10:19 IMPRESSION: 1. No evidence of intracranial hemorrhage or mass effect. 2. Mild small vessel changes with moderate parenchymal volume loss 3. 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 4. Incidental cavum septum pellucidum and vergae. 5. No acute intracranial findings. Lower Extremity CT 12/14/21 16:04 IMPRESSION: Exam is somewhat limited due to positioning. 1. Ulceration overlying the dorsal calcaneus with erosive changes in the underlying bony calcaneus compatible with osteomyelitis. 2. Cellulitis lower leg and ankle. 3. No drainable abscess or fluid collection. Microbiology 12/13/21 12:55 Urine Kidney Bacterial Antigens - Final 12/13/21 12:55 Unknown Source Legionella Urinary Antigen - Final 12/13/21 10:49 Blood Blood Culture - Preliminary NEGATIVE TO DATE 12/13/21 10:46 Blood Blood Culture - Preliminary NEGATIVE TO DATE Laboratory Results WBC 5.0 10^3/uL (4.0-10.0) 12/15/21 04:40 RBC 3.49 10^6/uL (4.1-5.3) L 12/15/21 04:40 Hgb 11.7 g/dL (11.7-16.6) 12/15/21 04:40 Hct 35.7 % (42.0-52.0) L 12/15/21 04:40 MCV 102.3 fl (80-94) H 12/15/21 04:40 MCH 33.5 pg (28.0-34.0) 12/15/21 04:40 MCHC 32.8 g/dL (30.0-36.0) D 12/15/21 04:40 RDW 14.7 % (12.1-15.1) 12/15/21 04:40 Plt Count 209 10^3/cmm (130-400) 12/15/21 04:40 MPV 9.9 fL (7.4-10.4) 12/15/21 04:40 Neut % (Auto) 72.3 % 12/15/21 04:40 Lymph % (Auto) 18.5 % 12/15/21 04:40 [place] % (Auto) 8.8 % 12/15/21 04:40 Eos % (Auto) 0.0 % 12/15/21 04:40 Baso % (Auto) 0.2 % 12/15/21 04:40 Neut # (Auto) 3.63 10^3/uL (1.8-7.7) 12/15/21 04:40 Lymph # (Auto) 0.9 10^3/uL (0.8-4.8) 12/15/21 04:40 [place] # (Auto) 0.4 10^3/uL (0.2-0.9) 12/15/21 04:40 Eos # (Auto) 0.0 10^3/uL (0.0-0.8) 12/15/21 04:40 Baso # (Auto) 0.0 10^3/uL (0.0-0.1) 12/15/21 04:40 Nucleated RBC % (auto) 0 % 12/15/21 04:40 Nucleated RBCs # 0.0 /100WBC 12/15/21 04:40 ESR 9 mm/hr (0-10) 12/13/21 10:30 D-Dimer 1.09 ug/mIFEU (0-0.59) H 12/14/21 04:30 Specimen Type Arterial 12/13/21 21:05 Sample Site Radial, left 12/13/21 21:05 ABG pH 7.48 (7.35-7.45) H 12/13/21 21:05 ABG pCO2 36.8 mmHg (35-45) 12/13/21 21:05 ABG pO2 73.9 mmHg (80.0-100.0) L 12/13/21 21:05 ABG HCO3 27.6 mmol/L (22-26) H 12/13/21 21:05 ABG O2 Saturation 98.3 12/13/21 10:57 ABG Base Excess 4.1 mmol/L (-2.0-2.0) H 12/13/21 21:05 Robert Test Pos 12/13/21 21:05 A-a O2 Gradient 7.5 mmHg (5-10) 12/13/21 10:57 Hematocrit 37.5 % (42-52) L 12/13/21 21:05 Hgb O2 Saturation 96.4 % (95-100) 12/13/21 10:57 Carboxyhemoglobin 1.3 %THgb (0.4-20.1) 12/13/21 10:57 Methemoglobin 0.6 % (0.4-1.5) 12/13/21 10:57 Total Hemoglobin 11.1 g/dL (14-18) L 12/13/21 10:57 Sodium 138.0 mmol/L (131-143) 12/13/21 10:57 Potassium 3.6 mmol/L (3.5-5.0) 12/13/21 10:57 Glucose 84.0 mg/dL (70-115) 12/13/21 10:57 Ionized Calcium 1.2 mmol/L (1.1-1.4) 12/13/21 10:57 O2 Delivery Device Room air 12/13/21 21:05 O2 Liters/Min 2.0 % 12/13/21 10:57 FiO2 21.0 % 12/13/21 21:05 Inventory Coordinator ID glc 12/13/21 21:05 Sodium 142 mmol/L (136-145) 12/15/21 04:40 Potassium 4.1 mmol/L (3.5-5.1) 12/15/21 04:40 Chloride 105 mmol/L (98-107) 12/15/21 04:40 Carbon Dioxide 26 mmol/L (22-29) 12/15/21 04:40 Anion Gap 15.1 (5-19) 12/15/21 04:40 BUN 14 mg/dL (6-20) 12/15/21 04:40 Creatinine 0.5 mg/dL (0.7-1.2) L 12/15/21 04:40 GFR Calculation 170.2 mL/min (90-130) H 12/15/21 04:40 Glucose 91 mg/dL (65-115) 12/15/21 04:40 Calculated Osmolality 294 mOsm/kg (285-295) 12/15/21 04:40 Lactic Acid 1.2 mmol/L (0.5-2.2) 12/13/21 13:12 Calcium 9.2 mg/dL (8.5-10.5) 12/15/21 04:40 Magnesium 1.9 mg/dL (1.7-2.3) 12/14/21 04:30 Iron 10 ug/dL (59-158) L 12/14/21 04:30 TIBC 179 mcg/dl 12/14/21 04:30 % Saturation 5.5 % (20-50) L 12/14/21 04:30 Unsat Iron Binding 169 ug/dL (112-347) 12/14/21 04:30 Total Bilirubin 0.2 mg/dL (0.15-1.2) 12/15/21 04:40 AST 12 U/L (0-40) 12/15/21 04:40 ALT 8 U/L (0-41) 12/15/21 04:40 Alkaline Phosphatase 60 U/L (40-130) 12/15/21 04:40 Ammonia 16 umol/L (16-60) 12/13/21 10:37 Creatine Kinase 41 U/L (39-308) 12/13/21 10:30 C-Reactive Protein 85.2 mg/L (0.0-4.9) H 12/15/21 04:40 Total Protein 6.1 g/dL (6.6-8.7) L 12/15/21 04:40 Albumin 2.9 g/dL (3.5-5.2) L 12/15/21 04:40 Globulin 3.2 g/dL (1.3-4.6) 12/15/21 04:40 Lipase 15 U/L (13-60) 12/13/21 10:30 Vitamin B12 282 pg/mL (232-1245) 12/14/21 04:30 Folate 10.4 ng/mL (4.5-32.2) 12/13/21 10:30 Procalcitonin 0.19 ng/mL (0-0.5) 12/14/21 04:30 TSH 5.38 uIU/mL (0.27-4.20) H 12/14/21 04:30 Urine Color Yellow (Yellow) 12/13/21 12:55 Urine Appearance Clear (CLEAR) 12/13/21 12:55 Urine pH 5 (5-7) 12/13/21 12:55 Ur Specific [place] 1.020 (1.005-1.030) 12/13/21 12:55 Urine Protein Neg (Negative) 12/13/21 12:55 Urine Glucose (UA) Norm (Normal) 12/13/21 12:55 Urine Ketones Negative (Negative) 12/13/21 12:55 Urine Blood 3+ (Negative) H 12/13/21 12:55 Urine Nitrate Negative (Negative) 12/13/21 12:55 Urine Bilirubin Neg (Negative) 12/13/21 12:55 Urine Urobilinogen Norm mg/dL (Negative) 12/13/21 12:55 Ur Leukocyte Esterase Negative (Negative) 12/13/21 12:55 Urine RBC 0-4 /hpf (0-2) H 12/13/21 12:55 Urine WBC 0-4 /hpf (0-5) H 12/13/21 12:55 Ur Squamous Epith Cells 0-4 /hpf (0-5) H 12/13/21 12:55 Amorphous Sediment Not Reportable 12/13/21 12:55 Urine Bacteria None /hpf (NONE) 12/13/21 12:55 Valproic Acid 50.9 ug/mL (50-100) 12/13/21 10:30 Serum Ketones Negative (Negative) 12/13/21 10:30 Coronavirus 229E (PCR) Not detected (NOT DETECT) 12/13/21 12:55 Influenza Type A Ag negative (Negative) 12/14/21 05:20 Influenza Type B Ag negative (Negative) 12/14/21 05:20 SARS-CoV-2 (PCR) Detected (NOT DETECT) A 12/13/21 12:55 Vitals Last Vital Signs Temp 98.3 F 12/15/21 08:00 Pulse 100 12/15/21 08:51 Resp 18 12/15/21 08:51 BP 127/81 12/15/21 08:00 Pulse Ox 92 12/15/21 08:51 O2 Del Method 12/15/21 08:51 O2 Flow Rate 2 12/14/21 20:00 Discharge Plan Discharge Patient Disposition: Xfer SNF Condition: Stable Prescriptions: New ascorbic acid (vitamin C) [Vitamin C] 500 mg Tablet 500 mg PO BID Qty: 20 0RF dexamethasone 6 mg tablet 6 mg PO DAILY Qty: 7 0RF Continued polyethylene glycol 3350 [Miralax] 17 gram/dose powder 17 g PO DAILY budesonide 0.5 mg/2 mL suspension for nebulization 0.5 mg inhalation DAILY 30 Days Qty: 60 5RF Rx Instructions: rinse mouth out after use clozapine 25 mg tablet 12.5 mg PO DAILY 30 Days Qty: 15 5RF (DME) Protective Pads Pad See Rx Instructions .Route Qty: 30 0RF Rx Instructions: As directed DuoNeb 0.5 mg-3 mg(2.5 mg base)/3 mL Solution For Nebulization 3 ml INHALATION Q4H PRN (Reason: Wheezing) clozapine 25 mg Tablet 75 mg PO BEDTIME divalproex 500 mg tablet,delayed release (DR/EC) 500 mg PO DAILY acetaminophen [Tylenol] 325 mg Tablet 650 mg PO Q4H PRN (Reason: Pain) magnesium hydroxide [Milk of Magnesia] 400 mg/5 mL Suspension 30 ml PO Q3D PRN (Reason: Constipation) bisacodyl [Dulcolax (bisacodyl)] 10 mg Suppository 10 mg OR DAILY PRN (Reason: Constipation) magnesium citrate Solution 300 ml PO DAILY PRN (Reason: Constipation) bisacodyl [Dulcolax (bisacodyl)] 5 mg Tablet,Delayed Release (Dr/Ec) 20 mg PO DAILY PRN (Reason: Constipation) alum-mag hydroxide-simeth 200-200-20 mg/5 mL Suspension 30 ml PO Q2H PRN (Reason: Indigestion) Rx Instructions: administer between meals Discharge Orders: Discharge Order (Routine); Ordered 12/15/21 Ordered By: Sang Mensah Referrals: [facility] [Outside] David Ramey [Primary Care Provider] - 7-10 days Discharge Diet: Usual diet Discharge Activity: Resume usual activity and Increase activity as tolerated Patient Instructions: Dexamethasone (By mouth), COVID-19 (Coronavirus Disease 2019) (GEN), Opioid Safety Activity Restrictions/Additional Instructions: Aggressive wound care. Dexamethasone 6 mg daily for next 7 days. Continue other chronic medications. Discharge Attestations Time Spent in Discharge Care*: greater than 30 min Specific Discharge Activities: discussing with pcp/other providers, discussing with rn case management/social workers/dc planners, documenting/other paperwork and evaluating patient/reviewing data Status at Discharge: Cognitive status at discharge: moderately impaired cognition , Behavioral status at discharge: cooperative , Functional status at discharge: other assisted ambulation , Overall status at discharge: patient is back to baseline Quality Metrics Clinical Quality Measures [ No reported AMI, CVA or VTE this stay] Coding Level of Care Code Acute g FW DC note Diagnoses Chronic osteomyelitis of left hindfoot M86.672 Decubitus ulcer, heel, left, unstageable L89.620 COVID-19 U07.1 Pressure ulcer, heel L89.601 Pressure injury stage: stage 1 Laterality: unspecified laterality Fever R50.9 Encounter type: initial encounter Bipolar 1 disorder F31.9
[2021-12-15] MEDS: dexamethasone 10 mg/mL INJ 6 MG IVP (11:30)
[2021-12-15 12:00] VITALS: BP 130/80; PULSE 114; RESP 18; TEMP 37.8; O2SAT 92
== END 2021-12-15 13:49 | disposition skilled nursing facility (03) | DRG 177 ==
LOC: ER 12:27 → MEDSURG 15:33
PROVIDERS: Admitting Provider Hospitalist; Emergency Provider Family Medicine; PCP Student in an Organized Health Care Education/Training Program; Visit Provider Student in an Organized Health Care Education/Training Program
DX: U07.1 COVID-19 (principal); J12.82 Pneumonia due to coronavirus disease 2019; M86.672 Other chronic osteomyelitis, left ankle and foot; L03.116 Cellulitis of left lower limb; F31.9 Bipolar disorder, unspecified; Z87.891 Personal history of nicotine dependence; J43.9 Emphysema, unspecified; D53.9 Nutritional anemia, unspecified
CPT/HCPCS: 36415; 36600; 70450; 71045; 73701; 80048; 80051; 80053; 80164; 81001; 82009; 82140; 82330; 82550; 82607; 82746; 82803; 82805; 83540; 83550; 83605; 83690; 83735; 84145; 84443; 85025; 85378; 85651; 86140; 86403; 87040; 87449; 87635; 87641; 87804; 93005; 94640; 96372; 99285; G0378; J1100; J1650; J7030; J7626; Q9967

== ENCOUNTER → 2022-02-14 15:08 | Outpatient (BNVA) | payer MEDICAID, SELFPAY ==
[2021-09-13 11:46] VITALS: BP 126/80; BMI 24.5
== END ==
PROVIDERS: PCP Student in an Organized Health Care Education/Training Program; Visit Provider Psychiatry & Neurology Psychiatry
DX: Z79.899 Other long term (current) drug therapy (principal); F31.9 Bipolar disorder, unspecified
CPT/HCPCS: 85007; 85027

== ENCOUNTER → 2022-02-22 09:39 | Outpatient (BNVA) | payer MEDICAID, SELFPAY ==
[2022-02-21 10:11] VITALS: BP 126/80; BMI 24.5
== END ==
PROVIDERS: PCP Family Medicine; Visit Provider Thoracic Surgery (Cardiothoracic Vascular Surgery)
DX: I96 Gangrene, not elsewhere classified (principal); L89.892 Pressure ulcer of other site, stage 2; L89.622 Pressure ulcer of left heel, stage 2
CPT/HCPCS: 11042; 97597; 99213

== ENCOUNTER → 2022-03-21 14:05 | Outpatient (BNVA) | payer MEDICAID, SELFPAY ==
[2022-02-21 10:11] VITALS: BP 126/80; BMI 24.5
== END ==
PROVIDERS: PCP Family Medicine; Visit Provider Family Medicine
DX: R73.09 Other abnormal glucose (principal); Z13.1 Encounter for screening for diabetes mellitus; Z51.81 Encounter for therapeutic drug level monitoring; D53.9 Nutritional anemia, unspecified; R79.89 Other specified abnormal findings of blood chemistry; J43.1 Panlobular emphysema; L89.601 Pressure ulcer of unspecified heel, stage 1
CPT/HCPCS: 80053; 80159; 83036; 84439; 84443; 84481; 85025

== ENCOUNTER → 2022-04-10 13:07 | Outpatient (BNVA) | payer MEDICAID, SELFPAY ==
[2022-02-21 10:11] VITALS: BP 126/80; BMI 24.5
== END ==
PROVIDERS: PCP Family Medicine; Visit Provider Thoracic Surgery (Cardiothoracic Vascular Surgery)
DX: I96 Gangrene, not elsewhere classified (principal); L89.622 Pressure ulcer of left heel, stage 2
CPT/HCPCS: 11042; 99213; A6021; A6210; A6212

== ENCOUNTER → 2022-04-24 15:07 | Outpatient (BNVA) | payer MEDICAID, SELFPAY ==
[2022-02-21 10:11] VITALS: BP 126/80; BMI 24.5
== END ==
PROVIDERS: PCP Family Medicine; Visit Provider Thoracic Surgery (Cardiothoracic Vascular Surgery)
DX: I96 Gangrene, not elsewhere classified (principal); L89.622 Pressure ulcer of left heel, stage 2
CPT/HCPCS: 11042; A6021

== ENCOUNTER → 2022-11-08 14:47 | Outpatient (BNVA) | payer MEDICAID, SELFPAY ==
[2022-02-21 10:11] VITALS: BP 126/80; BMI 24.5
== END ==
PROVIDERS: PCP Family Medicine; Visit Provider Psychiatry & Neurology Psychiatry
DX: Z79.899 Other long term (current) drug therapy (principal)
CPT/HCPCS: 80053; 84443

== ENCOUNTER → 2023-08-09 17:16 | Outpatient (BNVA) | payer MEDICAID, SELFPAY ==
[2022-02-21 10:11] VITALS: BP 126/80; BMI 24.5
== END ==
PROVIDERS: PCP Family Medicine; Visit Provider Psychiatry & Neurology Psychiatry
DX: Z79.899 Other long term (current) drug therapy (principal)
CPT/HCPCS: 80053; 80061; 80178; 83036; 84443; 85025

== ENCOUNTER 2024-08-15 14:02 | Emergency (ER) | payer MEDICAID, SELFPAY ==
[2023-08-13 14:59] VITALS: BP 109/74; BMI 19.5
[2024-08-15 14:02] VITALS: BP 120/75; PULSE 97; RESP 16; TEMP 36.4; O2SAT 97; BMI 17.0
--- NOTE | 2024-08-15 14:32 | ECG_ITS ---
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
--- NOTE | 2024-08-15 14:32 | W.ED.PSYCHS ---
Documented by User: REYNALDO Brown 08/15/24 15:16 HPI - Psych General: Chief Complaint: Psychiatric Symptoms Stated Complaint: MHE Time Seen by Provider: 08/15/24 14:21 Source: other (care staff) Mode of arrival: wheelchair Limitations: altered mental status History of Present Illness: Patient is a 64-year-old male presents to ED today along with alf staff after they were instructed to bring patient to the emergency department for mental health evaluation/admission. Staff states he has a longstanding history of schizophrenia. They state recently this has got out of control . They state staff is constantly yelling and screaming that he wants to . They report he screams that he is Chris and Rachel. He is very disruptive to other residents. He is constantly talking about the upcoming rapture of Chris. Dr. Diaz is the primary care provider over the [facility] where he resides. Patient apparently does not see a psychiatrist. They had tried to admit patient to [facility] but they had declined. Patient also with history of dementia. MD complaint: altered mental status Onset (ago): day(s) Duration: constant History of same: Yes Relieving factors: none Exacerbating factors: none Treatments prior to arrival: none Related Data Home Medications ?Medication ?Instructions ?Recorded ?Confirmed acetaminophen 325 mg tablet 650 mg PO Q4H PRN Pain 11/29/21 08/15/24 (Tylenol) polyethylene glycol 3350 17 4 g PO DAILY 03/19/23 08/15/24 gram/dose oral powder (Miralax) lurasidone 40 mg tablet (Latuda) 40 mg PO .with dinner 08/15/24 08/15/24 lurasidone 60 mg tablet 60 mg PO BEDTIME 08/15/24 08/15/24 medroxyprogesterone 10 mg tablet 10 mg PO DAILY 08/15/24 08/15/24 megestrol 400 mg/10 mL (40 mg/mL) 400 mg PO DAILY 08/15/24 08/15/24 oral suspension ondansetron HCl 4 mg tablet 4 mg PO Q6H 08/15/24 08/15/24 potassium chloride 20 mEq 40 meq PO BID 08/15/24 08/15/24 tablet,extended release(part/cryst) quetiapine 50 mg tablet (Seroquel) 50 mg PO BID 08/15/24 08/15/24 Previous Rx's ?Medication ?Instructions ?Recorded incontinence pad, liner, disp #30 ea 10/13/21 (Protective Pads) diaper,brief,adult,disposable #150 ea 02/20/22 (Depend Underwear For Men Large-Extra Large) levetiracetam 500 mg tablet 500 mg PO BID 30 days #60 tabs 05/31/23 (Keppra) Allergies Allergy/AdvReac Type Severity Reaction Status Date / Time Penicillins Allergy Unknown Unknown Verified 06/12/23 07:28 Review of Systems General: Reports: ROS unobtainable due to medical condition, ROS unobtainable due to mental status and Other (constantly sobbing; yelling about Chris and wanting to ) PFSH ED PFSH: Medical History Vitamin D deficiency Adjustment disorder with mixed disturbance of emotions and conduct Persistent adjustment disorder with mixed disturbance of emotions and conduct Suicidal ideation COPD (chronic obstructive pulmonary disease) Psychiatric care Pressure ulcer, heel multiple Macrocytic anemia Bipolar 1 disorder Catatonia Poverty Cigarette nicotine dependence in remission Erectile disorder, acquired, generalized, moderate Cigarette nicotine dependence Surgical History Surgical history unknown Family History Brother Diabetes Sister Diabetes Other Bipolar 1 disorder Social History Smoking and tobacco/nicotine status: former use of tobacco/nicotine Quit status (tobacco/nicotine): has quit using Year quit tobacco: 2021 Second hand smoke exposure: No Alcohol intake: never Substance/Drug Use: never Adopted: Yes Caregiver/support person: No Lives independently: No Household members: spouse and other Details: 2 others living at the house Housing: House Marital status: Number of children: 3 Highest education level completed: GED or Equivalent service: No Current occupational status: other Details: Disability Current occupational exposures/hazards: No Pets and animals: Yes Pets & animals: dog(s) Pets & animal details: 2 small dogs Leisure activites: fishing and other Leisure activities details: woodworking Sexually active: No Do you think of yourself as: Straight/Heterosexual Current gender identity: Male Mariah/Baptism: [employer] Special mariah needs: No Agree to transfusion: Yes Physical Exam Const: COMMON NORMALS: average body habitus, alert and well nourished GENERAL APPEARANCE: cooperative ORIENTATION/CONSCIOUSNESS: Yes awake and Yes oriented to person OTHER: at mental baseline per staff HENMT: COMMON NORMALS: normocephalic and atraumatic HEAD & SCALP: normal to inspection, normocephalic and atraumatic Resp: COMMON NORMALS: normal respiratory effort and clear to auscultation bilaterally AUSCULTATION: clear to auscultation bilaterally Cardio: COMMON NORMALS: regular rate and regular rhythm RATE: regular rate RHYTHM: regular rhythm Neuro: COMMON NORMALS: moves all extremities, no focal motor deficits and no sensory deficits noted SENSORIUM/ORIENTATION: Yes alert and Yes oriented to person Psych: COMMON NORMALS: denies homicidal ideation and denies suicidal ideation APPEARANCE: Yes grossly normal ATTITUDE: Yes Belligerent attititude/behavior present SPEECH: Yes loud MOOD & AFFECT: Yes tearful and Yes Labile affect present THOUGHT PROCESS: disorganized ATTENTION/CONCENTRATION: Yes attention grossly impaired and Yes concentration grossly impaired MEMORY/COGNITION: Yes memory grossly impaired and Yes cognition grossly impaired INSIGHT: Limited insight present (Psych) JUDGEMENT: Limited judgement present (Psych) Course Consultations: Consultation #1: Dr. Small-recommend cru[facility] psych transfer Vital Signs: Vital signs: Vital Signs Temperature 97.9 F 08/16/24 04:00 Pulse Rate 88 08/16/24 08:02 Respiratory Rate 16 08/16/24 04:00 Blood Pressure 127/77 08/16/24 08:02 Pulse Oximetry 95 08/16/24 08:02 Oxygen Delivery Me thod Room Air 08/16/24 04:00 MDM - Psych Lab Data 08/15/24 14:35 08/15/24 14:35 Laboratory Results WBC 7.90 10^3/uL (3.29-11.43) 08/15/24 14:35 RBC 4.08 10^6/uL (3.85-5.65) 08/15/24 14:35 Hgb 13.50 g/dL (11.27-16.99) 08/15/24 14:35 Hct 41.5 % (37-53) 08/15/24 14:35 MCV 101.7 fl (82-101) H 08/15/24 14:35 MCH 33.1 pg (27-33) H 08/15/24 14:35 MCHC 32.5 g/dL (30-55) 08/15/24 14:35 RDW 17.9 % (12.1-15.1) H 08/15/24 14:35 Plt Count 194 10^3/cmm (157-399) 08/15/24 14:35 MPV 9.1 fL (7.4-10.4) 08/15/24 14:35 Neut % (Auto) 63.6 % 08/15/24 14:35 Lymph % (Auto) 24.9 % 08/15/24 14:35 [place] % (Auto) 9.7 % 08/15/24 14:35 Eos % (Auto) 0.4 % 08/15/24 14:35 Baso % (Auto) 0.5 % 08/15/24 14:35 Neut # (Auto) 5.02 10^3/uL (1.8-7.7) 08/15/24 14:35 Lymph # (Auto) 2.0 10^3/uL (0.8-4.8) 08/15/24 14:35 [place] # (Auto) 0.8 10^3/uL (0.2-0.9) 08/15/24 14:35 Eos # (Auto) 0.0 10^3/uL (0.0-0.8) 08/15/24 14:35 Baso # (Auto) 0.0 10^3/uL (0.0-0.1) 08/15/24 14:35 Nucleated RBC % (auto) 0 % 08/15/24 14:35 Nucleated RBCs # 0.0 /100WBC 08/15/24 14:35 Sodium 137 mmol/L (136-145) 08/15/24 14:35 Potassium 4.3 mmol/L (3.5-5.1) 08/15/24 14:35 Chloride 105 mmol/L (98-107) 08/15/24 14:35 Carbon Dioxide 22 mmol/L (22-29) 08/15/24 14:35 Anion Gap 14.3 (5-19) 08/15/24 14:35 BUN 18 mg/dL (8-23) 08/15/24 14:35 Creatinine 0.8 mg/dL (0.7-1.2) 08/15/24 14:35 GFR Calculation 98.0 mL/min (90-130) 08/15/24 14:35 Glucose 72 mg/dL (65-115) 08/15/24 14:35 POC Glucose 146 mg/dL (70-110) H 08/15/24 21:59 Calculated Osmolality 284 mOsm/kg (285-295) L 08/15/24 14:35 Calcium 8.9 mg/dL (8.5-10.5) 08/15/24 14:35 Total Bilirubin 0.3 mg/dL (0.15-1.2) 08/15/24 14:35 AST 12 U/L (0-40) 08/15/24 14:35 ALT 11 U/L (0-41) 08/15/24 14:35 Alkaline Phosphatase 126 U/L (40-130) 08/15/24 14:35 Total Protein 6.6 g/dL (6.6-8.7) 08/15/24 14:35 Albumin 3.6 g/dL (3.5-5.2) 08/15/24 14:35 Globulin 3.0 g/dL (1.3-4.6) 08/15/24 14:35 TSH 2.80 uIU/mL (0.27-4.20) 08/15/24 14:35 Urine Color Yellow (Yellow) 08/15/24 14:52 Urine Appearance Clear (CLEAR) 08/15/24 14:52 Urine pH 6.0 (5-7) 08/15/24 14:52 Ur Specific [place] 1.017 (1.005-1.030) 08/15/24 14:52 Urine Protein Negative (Negative) 08/15/24 14:52 Urine Glucose (UA) Negative (Normal) 08/15/24 14:52 Urine Ketones Negative (Negative) 08/15/24 14:52 Urine Blood Negative (Negative) 08/15/24 14:52 Urine Nitrate Negative (Negative) 08/15/24 14:52 Urine Bilirubin Negative (Negative) 08/15/24 14:52 Urine Urobilinogen 0.2 mg/dL (Negative) 08/15/24 14:52 Ur Leukocyte Esterase Negative (Negative) 08/15/24 14:52 Urine RBC 0-2 /hpf (0-2) 08/15/24 14:52 Urine WBC 0-5 /hpf (0-5) 08/15/24 14:52 Ur Squamous Epith Cells 0-5 /hpf (0-5) 08/15/24 14:52 Amorphous Sediment Not Reportable 08/15/24 14:52 Urine Bacteria None seen /hpf (NONE) 08/15/24 14:52 Hyaline Casts 0-4 /lpf H 08/15/24 14:52 Salicylates < 0.3 mg/dL (3-10) L 08/15/24 14:35 Urine Opiates Screen Negative ng/mL (Negative) 08/15/24 14:52 Acetaminophen < 5.0 ug/mL (10-30) L 08/15/24 14:35 Ur Barbiturates Screen Negative ng/mL (Negative) 08/15/24 14:52 Ur Phencyclidine Scrn Negative ng/mL (Negative) 08/15/24 14:52 Ur Amphetamines Screen Negative ng/mL (Negative) 08/15/24 14:52 U Benzodiazepines Scrn Negative ng/mL (Negative) 08/15/24 14:52 Urine Cocaine Screen Negative ng/mL (Negative) 08/15/24 14:52 U Marijuana (THC) Screen Negative ng/mL (Negative) 08/15/24 14:52 Ethyl Alcohol < 10 mg/dL (0-10) 08/15/24 14:35 Influenza A (PCR) Negative (Negative) 08/15/24 15:10 Influenza Type B (PCR) Negative (Negative) 08/15/24 15:10 RSV (PCR) Negative (Negative) 08/15/24 15:10 SARS-CoV-2 (PCR) Negative (Negative) 08/15/24 15:10 Discharge Plan Discharge Patient Disposition: Xfer Psychiatric Hosp Clinical Impression: Bipolar 1 disorder Schizophrenia Qualifiers: Schizophrenia type: unspecified Qualified Code(s): F20.9 - Schizophrenia, unspecified Dementia Qualifiers: Dementia type: unspecified type Dementia severity: unspecified severity Dementia behavioral or psychological symptom: with other behavioral disturbance Qualified Code(s): F03.918 - Unspecified dementia, unspecified severity, with other behavioral disturbance Condition: Stable Referrals: Yessy Peterson MD [Primary Care Provider, Family Practice] Print Language: Korean Coding Level of Care Code ED Home Help Aide for Chg Fwd Documented by User: REYNALDO Meraz 08/16/24 12:59 HPI - Psych General: Chief Complaint: Psychiatric Symptoms Stated Complaint: MHE Time Seen by Provider: 08/15/24 14:21 Related Data Home Medications ?Medication ?Instructions ?Recorded ?Confirmed acetaminophen 325 mg tablet 650 mg PO Q4H PRN Pain 11/29/21 08/15/24 (Tylenol) polyethylene glycol 3350 17 4 g PO DAILY 03/19/23 08/15/24 gram/dose oral powder (Miralax) lurasidone 40 mg tablet (Latuda) 40 mg PO .with dinner 08/15/24 08/15/24 lurasidone 60 mg tablet 60 mg PO BEDTIME 08/15/24 08/15/24 medroxyprogesterone 10 mg tablet 10 mg PO DAILY 08/15/24 08/15/24 megestrol 400 mg/10 mL (40 mg/mL) 400 mg PO DAILY 08/15/24 08/15/24 oral suspension ondansetron HCl 4 mg tablet 4 mg PO Q6H 08/15/24 08/15/24 potassium chloride 20 mEq 40 meq PO BID 08/15/24 08/15/24 tablet,extended release(part/cryst) quetiapine 50 mg tablet (Seroquel) 50 mg PO BID 08/15/24 08/15/24 Previous Rx's ?Medication ?Instructions ?Recorded incontinence pad, liner, disp #30 ea 10/13/21 (Protective Pads) diaper,brief,adult,disposable #150 ea 02/20/22 (Depend Underwear For Men Large-Extra Large) levetiracetam 500 mg tablet 500 mg PO BID 30 days #60 tabs 05/31/23 (Keppra) Allergies Allergy/AdvReac Type Severity Reaction Status Date / Time Penicillins Allergy Unknown Unknown Verified 06/12/23 07:28 PFSH ED PFSH: Medical History Vitamin D deficiency Adjustment disorder with mixed disturbance of emotions and conduct Persistent adjustment disorder with mixed disturbance of emotions and conduct Suicidal ideation COPD (chronic obstructive pulmonary disease) Psychiatric care Pressure ulcer, heel multiple Macrocytic anemia Bipolar 1 disorder Catatonia Poverty Cigarette nicotine dependence in remission Erectile disorder, acquired, generalized, moderate Cigarette nicotine dependence Surgical History Surgical history unknown Family History Brother Diabetes Sister Diabetes Other Bipolar 1 disorder Social History Smoking and tobacco/nicotine status: former use of tobacco/nicotine Quit status (tobacco/nicotine): has quit using Year quit tobacco: 2021 Second hand smoke exposure: No Alcohol intake: never Substance/Drug Use: never Adopted: Yes Caregiver/support person: No Lives independently: No Household members: spouse and other Details: 2 others living at the house Housing: House Marital status: Number of children: 3 Highest education level completed: GED or Equivalent service: No Current occupational status: other Details: Disability Current occupational exposures/hazards: No Pets and animals: Yes Pets & animals: dog(s) Pets & animal details: 2 small dogs Leisure activites: fishing and other Leisure activities details: woodworking Sexually active: No Do you think of yourself as: Straight/Heterosexual Current gender identity: Male Mariah/Baptism: [employer]ood[employer] Special mariah needs: No Agree to transfusion: Yes Course Consultations: Consultation #2: [facility] accepted. Delay was to locating POA Vital Signs: Vital signs: Vital Signs Temperature 97.9 F 08/16/24 04:00 Pulse Rate 88 08/16/24 08:02 Respiratory Rate 16 08/16/24 04:00 Blood Pressure 127/77 08/16/24 08:02 Pulse Oximetry 95 08/16/24 08:02 Oxygen Delivery Me thod Room Air 08/16/24 04:00 MDM - Psych Medical Decision Making Patient is a 64-year-old gentleman that was awaiting placement. Patient was signed out by previous provider. Apparently, patient was causing issues in his residential home, and therefore was referred for psychiatric care. Patient is calm, resting at the time of my interview. Coordination with [facility]/power of sports attorney has been done, and patient will be transferred to [facility] for further psychiatric care. Lab Data 08/15/24 14:35 08/15/24 14:35 Laboratory Results WBC 7.90 10^3/uL (3.29-11.43) 08/15/24 14:35 RBC 4.08 10^6/uL (3.85-5.65) 08/15/24 14:35 Hgb 13.50 g/dL (11.27-16.99) 08/15/24 14:35 Hct 41.5 % (37-53) 08/15/24 14:35 MCV 101.7 fl (82-101) H 08/15/24 14:35 MCH 33.1 pg (27-33) H 08/15/24 14:35 MCHC 32.5 g/dL (30-55) 08/15/24 14:35 RDW 17.9 % (12.1-15.1) H 08/15/24 14:35 Plt Count 194 10^3/cmm (157-399) 08/15/24 14:35 MPV 9.1 fL (7.4-10.4) 08/15/24 14:35 Neut % (Auto) 63.6 % 08/15/24 14:35 Lymph % (Auto) 24.9 % 08/15/24 14:35 [place] % (Auto) 9.7 % 08/15/24 14:35 Eos % (Auto) 0.4 % 08/15/24 14:35 Baso % (Auto) 0.5 % 08/15/24 14:35 Neut # (Auto) 5.02 10^3/uL (1.8-7.7) 08/15/24 14:35 Lymph # (Auto) 2.0 10^3/uL (0.8-4.8) 08/15/24 14:35 [place] # (Auto) 0.8 10^3/uL (0.2-0.9) 08/15/24 14:35 Eos # (Auto) 0.0 10^3/uL (0.0-0.8) 08/15/24 14:35 Baso # (Auto) 0.0 10^3/uL (0.0-0.1) 08/15/24 14:35 Nucleated RBC % (auto) 0 % 08/15/24 14:35 Nucleated RBCs # 0.0 /100WBC 08/15/24 14:35 Sodium 137 mmol/L (136-145) 08/15/24 14:35 Potassium 4.3 mmol/L (3.5-5.1) 08/15/24 14:35 Chloride 105 mmol/L (98-107) 08/15/24 14:35 Carbon Dioxide 22 mmol/L (22-29) 08/15/24 14:35 Anion Gap 14.3 (5-19) 08/15/24 14:35 BUN 18 mg/dL (8-23) 08/15/24 14:35 Creatinine 0.8 mg/dL (0.7-1.2) 08/15/24 14:35 GFR Calculation 98.0 mL/min (90-130) 08/15/24 14:35 Glucose 72 mg/dL (65-115) 08/15/24 14:35 POC Glucose 146 mg/dL (70-110) H 08/15/24 21:59 Calculated Osmolality 284 mOsm/kg (285-295) L 08/15/24 14:35 Calcium 8.9 mg/dL (8.5-10.5) 08/15/24 14:35 Total Bilirubin 0.3 mg/dL (0.15-1.2) 08/15/24 14:35 AST 12 U/L (0-40) 08/15/24 14:35 ALT 11 U/L (0-41) 08/15/24 14:35 Alkaline Phosphatase 126 U/L (40-130) 08/15/24 14:35 Total Protein 6.6 g/dL (6.6-8.7) 08/15/24 14:35 Albumin 3.6 g/dL (3.5-5.2) 08/15/24 14:35 Globulin 3.0 g/dL (1.3-4.6) 08/15/24 14:35 TSH 2.80 uIU/mL (0.27-4.20) 08/15/24 14:35 Urine Color Yellow (Yellow) 08/15/24 14:52 Urine Appearance Clear (CLEAR) 08/15/24 14:52 Urine pH 6.0 (5-7) 08/15/24 14:52 Ur Specific [place] 1.017 (1.005-1.030) 08/15/24 14:52 Urine Protein Negative (Negative) 08/15/24 14:52 Urine Glucose (UA) Negative (Normal) 08/15/24 14:52 Urine Ketones Negative (Negative) 08/15/24 14:52 Urine Blood Negative (Negative) 08/15/24 14:52 Urine Nitrate Negative (Negative) 08/15/24 14:52 Urine Bilirubin Negative (Negative) 08/15/24 14:52 Urine Urobilinogen 0.2 mg/dL (Negative) 08/15/24 14:52 Ur Leukocyte Esterase Negative (Negative) 08/15/24 14:52 Urine RBC 0-2 /hpf (0-2) 08/15/24 14:52 Urine WBC 0-5 /hpf (0-5) 08/15/24 14:52 Ur Squamous Epith Cells 0-5 /hpf (0-5) 08/15/24 14:52 Amorphous Sediment Not Reportable 08/15/24 14:52 Urine Bacteria None seen /hpf (NONE) 08/15/24 14:52 Hyaline Casts 0-4 /lpf H 08/15/24 14:52 Salicylates < 0.3 mg/dL (3-10) L 08/15/24 14:35 Urine Opiates Screen Negative ng/mL (Negative) 08/15/24 14:52 Acetaminophen < 5.0 ug/mL (10-30) L 08/15/24 14:35 Ur Barbiturates Screen Negative ng/mL (Negative) 08/15/24 14:52 Ur Phencyclidine Scrn Negative ng/mL (Negative) 08/15/24 14:52 Ur Amphetamines Screen Negative ng/mL (Negative) 08/15/24 14:52 U Benzodiazepines Scrn Negative ng/mL (Negative) 08/15/24 14:52 Urine Cocaine Screen Negative ng/mL (Negative) 08/15/24 14:52 U Marijuana (THC) Screen Negative ng/mL (Negative) 08/15/24 14:52 Ethyl Alcohol < 10 mg/dL (0-10) 08/15/24 14:35 Influenza A (PCR) Negative (Negative) 08/15/24 15:10 Influenza Type B (PCR) Negative (Negative) 08/15/24 15:10 RSV (PCR) Negative (Negative) 08/15/24 15:10 SARS-CoV-2 (PCR) Negative (Negative) 08/15/24 15:10 No radiology studies performed this visit Discharge Plan Discharge Patient Disposition: Xfer Psychiatric Hosp Clinical Impression: Bipolar 1 disorder Schizophrenia Qualifiers: Schizophrenia type: unspecified Qualified Code(s): F20.9 - Schizophrenia, unspecified Dementia Qualifiers: Dementia type: unspecified type Dementia severity: unspecified severity Dementia behavioral or psychological symptom: with other behavioral disturbance Qualified Code(s): F03.918 - Unspecified dementia, unspecified severity, with other behavioral disturbance Condition: Stable Referrals: Yessy Peterson MD [Primary Care Provider, [facility]] Print Language: Korean Coding Level of Care Code ED Home Help Aide for Ayana Aguirre
[2024-08-15 14:40] LABS: Basophils % 0.5 %; Eosinophils % 0.4 %; Hematocrit 41.5 % (37-53); Lymphocytes % 24.9 %; Mean Corpuscular HGB Conc 32.5 g/dL (30-55); Mean Corpuscular Hemoglobin 33.1 pg (27-33); Mean Corpuscular Volume 101.7 fl (82-101); Mean Platelet Volume 9.1 fL (7.4-10.4); Monocytes # 0.8 10^3/uL (0.2-0.9); Monocytes % 9.7 %; Neutrophils # 5.02 10^3/uL (1.8-7.7); Neutrophils % 63.6 %; Nucleated Red Blood Cells % 0 %; Platelet Count 194 10^3/cmm (157-399); Red Blood Count 4.08 10^6/uL (3.85-5.65); Red Cell Distribution Width 17.9 % (12.1-15.1)
[2024-08-15] MEDS: ziprasidone 20 mg/mL SDV 10 MG IM (14:57)
[2024-08-15] MEDS: LORazepam 1 MG/0.5 ML injection IM (14:57)
[2024-08-15 15:06] LABS: Bilirubin Urine Negative (Negative); Blood Urine Negative (Negative); Glucose Urine UA Negative (Normal); Ketones Urine Negative (Negative); Leukocyte Esterase Urine Negative (Negative); Nitrate Urine Negative (Negative); Protein Urine Negative (Negative); Specific Gravity, Urine 1.017 (1.005-1.030); Urine Appearance Clear (CLEAR); Urine Color Yellow (Yellow); Urobilinogen Urine 0.2 mg/dL (Negative)
[2024-08-15 15:10] LABS: Alanine Aminotransferase 11 U/L (0-41); Albumin Level 3.6 g/dL (3.5-5.2); Alkaline Phosphatase 126 U/L (40-130); Anion Gap 14.3 (5-19); Aspartate Amino Transferase 12 U/L (0-40); Blood Urea Nitrogen 18 mg/dL (8-23); Calcium 8.9 mg/dL (8.5-10.5); Carbon Dioxide 22 mmol/L (22-29); Chloride 105 mmol/L (98-107); Creatinine Clr Calc Pharmacy 85.9936; Glucose 72 mg/dL (65-115); Osmolality Calculated 284 mOsm/kg (285-295); Potassium 4.3 mmol/L (3.5-5.1); Sodium 137 mmol/L (136-145); Total Bilirubin 0.3 mg/dL (0.15-1.2); Total Protein 6.6 g/dL (6.6-8.7)
[2024-08-15 15:11] LABS: Add Urine Microscopic? YES; Bacteria Urine None Seen /hpf; Hyaline Casts Urine 0-4 /lpf; RBC Urine 0-2 /hpf (0-2); Squamous Epithelial Cell Urine 0-5 /hpf (0-5); WBC Urine 0-5 /hpf (0-5)
[2024-08-15 15:15] LABS: Acetaminophen < 5.0 ug/mL (10-30); Alcohol Level < 10 mg/dL (0-10); Salicylate < 0.3 mg/dL (3-10)
[2024-08-15 15:15] LABS: Amphetamines Screen Urine Negative (Negative); Barbiturates Screen Urine Negative (Negative); Benzodiazepines Screen Urine Negative (Negative); Cocaine Screen Urine Negative (Negative); Opiate Screen Urine Negative (Negative); PCP Screen Urine Negative (Negative); THC Screen Urine Negative (Negative)
[2024-08-15 16:00] LABS: Influenza A NEGATIVE (Negative); Influenza B NEGATIVE (Negative); Respiratory Syncytial Virus Ce NEGATIVE (Negative); SARS-CoV-2 PCR NEGATIVE (Negative)
[2024-08-15 17:24] VITALS: PULSE 80; RESP 17; O2SAT 97
--- NOTE | 2024-08-15 17:36 | PC.NURSE ---
this nurse assumed care @[id number]
[2024-08-15 22:02] LABS: Glucose Point of Care 146 mg/dL (70-110)
--- NOTE | 2024-08-15 23:04 | PC.NURSE ---
[facility] Pichardo advised accepting pt, report called to [facility]
[2024-08-16] VITALS: BP 134/84; PULSE 78; RESP 18; TEMP 36.8; O2SAT 97
[2024-08-16 04:00] VITALS: BP 138/86; PULSE 81; RESP 16; TEMP 36.6; O2SAT 96
--- NOTE | 2024-08-16 07:57 | PC.NURSE ---
pt report given to [facility] @[id number], denies any further questions at this time
--- NOTE | 2024-08-16 08:01 | PC.NURSE ---
pt belongings sent with [facility]
[2024-08-16 08:02] VITALS: BP 127/77; PULSE 88; O2SAT 95
[2024-08-18 14:24] LABS: Levetiracetam Immunoassy 10.9 mcg/mL (6.0-46.0)
== END 2024-08-16 08:02 ==
PROVIDERS: Emergency Provider Physician Assistant; PCP Family Medicine
DX: F31.9 Bipolar disorder, unspecified (principal); F20.9 Schizophrenia, unspecified; F03.918 Unspecified dementia, unspecified severity, with other behavioral disturbance; J44.9 Chronic obstructive pulmonary disease, unspecified; Z87.891 Personal history of nicotine dependence; Z11.52 Encounter for screening for COVID-19
CPT/HCPCS: 36415; 36416; 80053; 80177; 80306; 80307; 81001; 82962; 84443; 85025; 87637; 93005; 96372; 99285; J2060; J3486